=== PATIENT | male | born 1960 | race Caucasian/White ===

== ENCOUNTER → 2018-03-07 09:41 | Outpatient (CLI) | payer MEDICARE, MEDICAID, SELFPAY ==
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
== END ==
PROVIDERS: PCP Internal Medicine Adolescent Medicine; Visit Provider Internal Medicine Adolescent Medicine
DX: R63.4 Abnormal weight loss (principal); R05 Cough; Z72.0 Tobacco use
CPT/HCPCS: 71270; Q9967

== ENCOUNTER → 2018-03-10 07:58 | Outpatient (CLI) | payer MEDICARE, MEDICAID, SELFPAY ==
--- NOTE | 2018-03-10 07:59 | CA_ITS ---
PROCEDURE: 2-D M-mode and color Doppler study INDICATIONS FOR THE TEST: Chest pain X COPDX Heart Murmur Tobacco Smoking Palpitations Fatigue Syncope Edema HypertensionXDiabetes Mellitus Rheumatic Fever SOB DOEXObesity HyperlipidemiaX Family History HD Additional History CAD PATIENT INFORMATION HEIGHT: 64 WEIGHT:128 GENDER: Male B/P:113/75 2-D/M-MODE INTERPRETATION: 2-D MEASUREMENTS OBSERVED VALUES IN CMS Right Ventricular Dimension (RVDd) 1.8 Interventricular Septum (Thickness)(IVsd) 1.0 Left Ventricular Internal Dimensions(LVIDd) 4.7 Left Ventricular Posterior Wall (Thickness)(LVPWd) 1.0 Aortic Root 3.2 Aortic Cusp Separation 1.8 Left Atrial Dimensions (LAD) 2.2 2D 1. Left atrium is normal size, left ventricle is normal size, left ventricle wall thickness is upper limit of the normal, there is preserved left ventricular systolic function, visually estimated ejection fraction 55% with no obvious regional wall motion abnormality. 2. The right atrium and right ventricle are normal size and contractility. 3. The aortic valve is minimally thickened and fibrosed. 4. The mitral and tricuspid valve are grossly normal. 5. The pulmonic valve is poorly visualized. 6. No significant pericardial effusion noted. DOPPLER INTERROGATION: Doppler interrogation of the aortic, mitral and tricuspid valvular presence of mild mitral and tricuspid regurgitation, tricuspid and jet velocity insufficient for calculation of the right ventricular systolic pressure, diastolic parameters are inconclusive. CONCLUSION: 1. Normal left ventricular size, preserved left ventricular systolic function, visually estimated ejection fraction 55% with no obvious regional wall motion abnormality, diastolic parameters are inconclusive. 2. Mild mitral and tricuspid regurgitation 3. No significant pericardial effusion noted.
--- NOTE | 2018-03-10 07:59 | NM_ITS ---
CARDIOLITE SPECT MYOCARDIAL PERFUSION SCAN, REST AND STRESS: EXERCISE STRESS [facility] REVIEW QGS EF AND WALL MOTION EVALUATION: QPS - PERFUSION EVALUATION HISTORY: Chest pain, SOB, HTN DOSE: 10.03 mCi technetium 99m mibi intravenously at rest followed by 32.3 mCi technetium 99m mibi following the intravenous ministration of 0.4 mg of Lexiscan. Resting blood pressure is 133/66. Stress blood pressure 121/81. FINDINGS: Ejection fraction is calculated to be 65%. Uniform myocardial activity through stress and rest gated images calculated ejection fraction 55% wall motion IMPRESSION: No scintigraphic evidence of Lexiscan-induced myocardial ischemia. Normal ejection fraction normal wall motion
--- NOTE | 2018-03-10 08:39 | HMH.ITSHM ---
ASA CELEXA CETIRIZINE CLONIDINE OMEPRAZOLE PRAVASTATIN DIVALPROAX FLUTICASONE ZYPREXA VENTOLIN
== END ==
PROVIDERS: PCP Internal Medicine Adolescent Medicine; Visit Provider Internal Medicine
DX: R06.00 Dyspnea, unspecified (principal)
CPT/HCPCS: 78452; 93017; 93306; A9502; J2785

== ENCOUNTER → 2018-03-27 15:55 | Outpatient (CLI) | payer MEDICARE, MEDICAID, SELFPAY ==
[2018-03-27 16:09] LABS: Basophils % 0.3 % (0.1-2.0); Eosinophils # 0.1 K/mm3 (0.0-0.4); Eosinophils % 0.9 % (0.1-12.0); Hematocrit 43.8 % (42.0-52.0); Hemoglobin 14.1 g/dL (14.1-18.0); Lymphocytes # 2.8 K/mm3 (0.7-4.5); Lymphocytes % 36.4 K/mm3 (10-50); Mean Corpuscular HGB Conc 32.1 g/dL (31.8-35.4); Mean Platelet Volume 10.1 fl (7.4-10.4); Monocytes # 0.5 K/mm3 (0.1-1.0); Monocytes % 6.8 % (1.7-9.3); Neutrophils # 4.2 K/mm3 (1.8-7.8); Neutrophils % 55.7 % (37.0-80.0); Platelet Count 212 K/mm3 (142-424); Red Blood Count 4.25 M/mm3 (4.60-6.20); White Blood Count 7.6 K/mm3 (4.8-10.8)
== END ==
PROVIDERS: Visit Provider Otolaryngology
DX: Z01.818 Encounter for other preprocedural examination (principal); R22.0 Localized swelling, mass and lump, head
CPT/HCPCS: 36415; 85025; 93005

== ENCOUNTER → 2018-04-21 08:50 | Outpatient (CLI) | payer MEDICARE, MEDICAID, SELFPAY ==
--- NOTE | 2018-04-21 09:00 | US_ITS ---
US gallbladder HISTORY: ITS.REASON: RUQ PAIN ORDERING PHYSICIAN: Abimael Victor MD PATIENT AGE: 57 years Comparison: None FINDINGS: PANCREAS: Unremarkable. No obvious mass or abnormal fluid collection. No ductal dilatation LIVER: No focal liver lesions demonstrated. Homogeneous echogenicity. No intrahepatic biliary ductal dilatation evident RIGHT KIDNEY: Unremarkable. Normal size and echogenicity. No hydronephrosis GALLBLADDER: Gallbladder wall is mildly thickened with septation noted. Wall measures up to 5 mm. There is some sludge present and there is some common tail artifact noted suggesting cholesterolosis . No shadowing stones are demonstrated. Study is however somewhat difficult technically due to overlying bowel gas. Small stones may not be visualized.. Common bile duct is normal at 2 mm. IMPRESSION: Contracted appearing gallbladder with mildly thickened wall with sludge and cholesterolosis . Small stones may not be visualized due to the overlying bowel gas.
== END ==
PROVIDERS: PCP Internal Medicine Adolescent Medicine; Visit Provider Internal Medicine Adolescent Medicine
DX: R10.11 Right upper quadrant pain (principal)
CPT/HCPCS: 76705

== ENCOUNTER → 2019-07-22 15:42 | Outpatient (CLI) | payer MEDICARE, MEDICAID, SELFPAY | PROVIDERS: PCP Internal Medicine Adolescent Medicine; Visit Provider Internal Medicine Adolescent Medicine | DX: G47.30 Sleep apnea, unspecified (principal) | CPT/HCPCS: G0399 ==

== ENCOUNTER → 2019-08-26 13:40 | Outpatient (CLI) | payer MEDICARE, MEDICAID, SELFPAY | PROVIDERS: PCP Internal Medicine Adolescent Medicine; Visit Provider Internal Medicine Adolescent Medicine | DX: G47.33 Obstructive sleep apnea (adult) (pediatric) (principal) ==

== ENCOUNTER → 2019-10-05 19:10 | Outpatient (CLI) | payer MEDICARE, MEDICAID, SELFPAY | PROVIDERS: PCP Nurse Practitioner Family; Visit Provider Internal Medicine Adolescent Medicine | DX: G47.33 Obstructive sleep apnea (adult) (pediatric) (principal); G47.36 Sleep related hypoventilation in conditions classified elsewhere | CPT/HCPCS: 95810 ==

== ENCOUNTER → 2019-12-22 10:12 | Outpatient (CLI) | payer MEDICARE, MEDICAID, SELFPAY ==
--- NOTE | 2019-12-22 10:14 | FL_ITS ---
PROCEDURE: FL UPPER GI W AIR CLINICAL INDICATION: ABD PAIN COMPARISON: No exams were available for comparison TECHNIQUE: In the upright position the patient was observed to swallow barium in both the AP view. The cervical esophagus was examined under fluoroscopy with images obtained. FLUOROSCOPY TIME: 1.47 minutes FINDINGS: The patient aspirated the thick barium when drinking through a straw from the cup during the exam. The aspiration was silent. Sometime later while in the room the patient did exhibit coughing. At that point of aspiration the patient was not allowed to continue drinking barium. Limited images of the esophagus were obtained because of this. No esophageal obstruction was apparent. The stomach and duodenal bulb have a normal appearance. There is no evidence of peptic ulceration. There are diverticula a of the descending and transverse duodenum. IMPRESSION: Silent aspiration of barium occurred during the initial phase of drinking for the exam. Esophagus is patent but poorly assessed. Duodenal diverticula as described without peptic ulceration. Dictated by: Yimi Gurrola 12/22/2019 14:10 Electronically signed by Yimi Gurrola in [place] 12/22/2019 14:10
--- NOTE | 2019-12-22 10:35 | XR_ITS ---
PROCEDURE: XR CHEST 2V CLINICAL HISTORY: ASPIRATED DURING FLUORO EXAM COMPARISON: Coughing FINDINGS: The cardiomediastinal silhouette and pulmonary vascularity are within normal limits. There is barium outlining the trachea and the right main stem and lower lobe bronchial segments which correlates with aspiration of barium during upper GI exam. The lungs are clear of acute infiltrate. Pleural reaction is seen over the lateral right chest wall associated with multiple old rib fractures which have healed. Old healed fracture of left 7th ribs also noted. No acute bony abnormalities. Chronic compression deformities of T11 and T10 are noted. IMPRESSION: Aspiration of barium within tracheobronchial tree as described. No acute pneumonia. Dictated by: Yimi Gurrola 12/22/2019 14:03 Electronically signed by Yimi Gurrola in [facility] 12/22/2019 14:03
== END ==
PROVIDERS: PCP Nurse Practitioner Family; Visit Provider Nurse Practitioner Family
DX: R10.84 Generalized abdominal pain (principal); R05 Cough
CPT/HCPCS: 71046; 74246

== ENCOUNTER → 2020-01-20 10:07 | Outpatient (CLI) | payer MEDICARE, MEDICAID, SELFPAY ==
--- NOTE | 2020-01-20 10:11 | FL_ITS ---
PROCEDURE: FL BARIUM SWALLOW MODIFIED CLINICAL INDICATION: SILENT ASPIRATION COMPARISON: No exams were available for comparison TECHNIQUE: Patient administered varying consistencies of barium contrast, while viewed in lateral position under real-time fluoroscopy with cine recording. FLUOROSCOPY TIME:5 minutes and 2 seconds The study was performed in conjunction with speech pathologist. Please see that report & recommendations. FINDINGS: Patient was given varying consistencies of barium. There was poor oral motor control with spillage into the hypopharynx. There was a small amount of tracheal aspiration with nectar via straw. No cough reflex was initiated. There was poor bolus formation. There was minimal residual. IMPRESSION: Moderate degree of delay in initiation of the swallowing mechanism with spillage and with minimal residual and a small amount tracheal aspiration with nectar with a straw. Please see speech pathologist report and recommendations. Dictated by: Elmo Thomas MD 01/21/2020 09:07 Electronically signed by Elmo Thomas MD in [facility] 01/21/2020 09:07
--- NOTE | 2020-01-20 13:46 | HMH.SLMBS2 ---
Speech & Language Evaluation Speech/Language Mod Barium Swallow Start: 01/20/20 11:10 Freq: once Status: Complete Protocol: Document 01/20/20 11:10 CMAY (Rec: 01/20/20 12:10 CMAY [id number]) General Information General Current Food Consistancy Regular,Thin Liquids Dentition Poor Dentition Oxygen Status Room Air Facial Symmetry Symmetrical Patient Orientation Person Ability to Follow Directions Excellent Communication Ability Mild Impairment MBS Recommendations Diet Dietary Recommendations Dysphagia Mechanical Soft, Ground Meats,Honey Liquids Treatment/Strategies Strategy/Precaution Recommend Sitting Upright (90 deg), Double Swallow,Small Bites and Sips Mod Barium Swallow Impressions Summary and Impressions Oral Phase Impression Minimal Impairment Oral Phase Summary The patient's oral phase is minimally impaired. Patient has poor dentition. Bolus formation was impacted for pudding trial and resulted in scattered loss in the oral cavity. A/P lingual propulsion spills to the level of the valleculae were also persistent during all liquid and food trials before swallow was initiated. Pharyngeal Phase Impression Moderate Impairment Pharyngeal Phase Summary The patient's pharyngeal phase is moderately impaired. Flash penetration was observed on x1 trial of thin via cup. Patient independently completed a natural chin tuck during trial and coughed following this event. Swallow initiation was delayed during all trials. Hyolaryngeal elevation was decreased. Patient demonstrated a significant amount of premature spillage to level of the valleculae on all trials and premature spillage to the level of the pyriform sinuses on thins and NTL. Patient demonstrated aspiration during swallow on x1 trial of NTL via straw. Patient
== END ==
PROVIDERS: PCP Nurse Practitioner Family; Visit Provider Nurse Practitioner Family
DX: R13.10 Dysphagia, unspecified (principal)
CPT/HCPCS: 70371; 92611

== ENCOUNTER 2020-06-11 21:42 | Emergency (ER) | payer MEDICARE, MEDICAID, SELFPAY ==
[2020-06-11 21:46] VITALS: BP 133/90; PULSE 83; RESP 18; TEMP 36.8; O2SAT 91; BMI 22.1
[2020-06-11 22:00] VITALS: BP 127/101; PULSE 85; RESP 16; O2SAT 91
--- NOTE | 2020-06-11 22:06 | XR_ITS ---
PROCEDURE: XR CHEST AP CLINICAL HISTORY: SOA COMPARISON: XR CHEST 2V from 12/22/2019 FINDINGS: The cardiomediastinal silhouette and pulmonary vascularity are within normal limits. There is some mild pleural thickening in the right midlung laterally. There is an old right 4th and 5th and 6th rib fractures IMPRESSION: No change with no acute finding Dictated b Elmo Thomas MD 06/12/2020 06:55 Elmo Thomas MD in [facility] 06/12/2020 06:55
--- NOTE | 2020-06-11 22:12 | CT_ITS ---
PROCEDURE: CT HEAD/BRAIN WO CON CLINICAL INDICATION: syncope Syncope, weakness COMPARISON: HEADWO CT head/brain wo con from 04/14/2018 TECHNIQUE: Axial images obtained. All CT scans at the facility use one or more dose reduction, viz: automated exposure control, ma/kV adjustment per patient size (including targeted exams where dose is matched to indication, i.e. head), or iterative reconstruction technique. The FINDINGS: No midline shift, mass effect, intracranial hemorrhage, hydrocephalus, or extra-axial fluid collection is evident. There is generalized atrophy with hypoattenuation of the periventricular white matter consistent with microangiopathic changes. The calvarium has an unremarkable appearance. No mastoid effusion. No sinus air-fluid level. IMPRESSION: No acute intracranial finding Dictated b Elmo Thomas MD 06/12/2020 08:58 Elmo Thomas MD in [facility] 06/12/2020 08:58
--- NOTE | 2020-06-11 22:12 | ECG_ITS ---
APPROVED REPORT Exam: Resting ECG HR:76 bpm ECG Measurements Heart Rate 76 AXES AL 180 P 48 QRSd 90 QRS 5 QT 382 T 52 QTc 429 <Conclusion> Normal sinus rhythm Normal ECG Electronically signed by : Abimael Victor, 06/12/2020 09:15:53
--- NOTE | 2020-06-11 22:12 | CT_ITS ---
PROCEDURE: CT CERVICAL SPINE WO CON CLINICAL INDICATION: syncope Neck injury with pain, contusion/abrasion or hematoma, cervical sprain/strain COMPARISON: No exams were available for comparison TECHNIQUE: Axial images obtained with sagittal and coronal reformats. All CT scans at the facility use one or more dose reduction, viz: automated exposure control, ma/kV adjustment per patient size (including targeted exams where dose is matched to indication, i.e. head), or iterative reconstruction technique. Axial spiral CT scanning performed of the cervical spine beginning at the base of the skull and continuing to the upper T-spine. 3-D multiplanar reconstruction with 3-D manipulation of volumetric data set in image rendering was completed by the radiologist and/or technologist with the supervision of the radiologist on independent workstation. FINDINGS: Very limited due to motion artifact. There is reversal of the upper cervical lordosis. There is multilevel cervical spondylosis. There is incomplete fusion of the anterior arch of C1. Considerable motion artifact is present at C1 and C2 which could easily obscure a fracture. C3-C4: Degenerate disc disease with endplate hypertrophic change with bilateral foraminal and lateral recess narrowing greater on the right C4-C5: Degenerate disc disease with bilateral lateral recess and foraminal narrowing. C5-C6: Degenerate disc disease with endplate hypertrophic change with bilateral lateral recess and foraminal narrowing with canal stenosis. The endplate hypertrophy is slightly eccentric toward the left. The canal measures approximately 9 mm. C6-C7: Degenerate disc disease with bilateral foraminal and lateral recess narrowing with borderline narrowing of the canal. Lung apices show no acute finding. IMPRESSION: Limited study due to motion artifact at C1-C2. No definite acute finding. Consider repeating exam tailored to the upper cervical spine if clinically warranted Multilevel cervical spondylosis with degenerative disc disease, foraminal narrowing, and canal stenosis Dictated b Elmo Thoams MD 06/12/2020 09:02 Elmo Thomas MD in [facility] 06/12/2020 09:02
--- NOTE | 2020-06-11 22:12 | XR_ITS ---
PROCEDURE: XR PELVIS 1-2V CLINICAL INDICATION: fall Pain COMPARISON: 04/14/2018 FINDINGS: No fracture or dislocation. No lytic or blastic change. There is normal mineralization. The joint spaces are well-preserved. No significant degenerative/arthritic changes. No erosive changes evident. Other findings:None. IMPRESSION: No acute findings. Dictated b Elmo Thomas MD 06/12/2020 06:53 Elmo Thomas MD in [facility] 06/12/2020 06:53
[2020-06-11 22:16] LABS: Basophils % 0.3 % (0.1-2.0); Eosinophils # 0.1 K/mm3 (0.0-0.4); Eosinophils % 0.7 % (0.1-12.0); Hematocrit 46.3 % (42.0-52.0); Lymphocytes # 3.4 K/mm3 (0.7-4.5); Lymphocytes % 36.2 % (10-50); Mean Corpuscular HGB Conc 34.6 g/dL (31.8-35.4); Mean Corpuscular Volume 92.7 fl (80-94); Mean Platelet Volume 13.7 fl (7.4-10.4); Monocytes # 0.5 K/mm3 (0.1-1.0); Monocytes % 5.6 % (1.7-9.3); Neutrophils # 5.3 K/mm3 (1.8-7.8); Neutrophils % 57.3 % (37.0-80.0); Platelet Count 210 K/mm3 (142-424); Red Blood Count 4.99 M/mm3 (4.60-6.20); Red Cell Distribution Width 13.7 % (11.5-17.5); White Blood Count 9.3 K/mm3 (4.8-10.8)
[2020-06-11 22:20] LABS: Alanine Aminotransferase 25 U/L (12-78); Albumin Level 4.1 g/dl (3.5-5.0); Albumin/Globulin Ratio 1.2 (1.1-1.8); Alkaline Phosphatase 91 U/L (38-126); Aspartate Amino Transferase 33 U/L (17-59); Bilirubin,Total 0.4 mg/dl (0.2-1.3); Blood Urea Nitrogen 20 mg/dl (9-20); Calcium 9.7 mg/dl (8.4-10.2); Carbon Dioxide 32 mmol/L (22.0-30.0); Chloride 99 mmol/L (98-107); Creatinine Clearance Estimated 108 mL/min (50-200); Estimated Glomerular Filt Rate 115 ml/min (>60); GFR (African American) 139 ML/MIN (>60); Globulin 3.3 g/dL (1.3-3.2); Glucose 98 mg/dl (74-100); Sodium 140 mmol/L (136-145); Total Protein,Serum 7.4 g/dl (6.3-8.2)
[2020-06-11 22:25] LABS: C-Reactive Protein 8.4 mg/L (0-4)
[2020-06-11 22:30] VITALS: BP 136/100; PULSE 79; RESP 18; O2SAT 92
[2020-06-11 22:39] LABS: Erythrocyte Sedimentation Rate 6 mm/hr (0-20)
[2020-06-11 23:00] VITALS: BP 129/94; PULSE 69; RESP 18; O2SAT 92
[2020-06-11 23:30] VITALS: BP 134/90; PULSE 69; RESP 18; O2SAT 93
[2020-06-11 23:46] LABS: Troponin I < 0.01 ng/ml (0.00-0.034)
[2020-06-12] VITALS: BP 144/94; PULSE 89; RESP 18; O2SAT 93
[2020-06-12 00:27] LABS: Microscopic, Urine URINE MICROSCOPIC (MICROSCOPIC)
[2020-06-12 00:30] VITALS: BP 142/85; PULSE 65; RESP 18; O2SAT 94
--- NOTE | 2020-06-12 00:30 | PC.NURSE ---
jolynn notified for transport
[2020-06-12 00:32] LABS: Appearance,Urine CLEAR (Clear); Bilirubin,Urine Negative (Negative); Blood, Urine Negative (Negative); Color,Urine YELLOW (Yellow); Glucose,Urine (UA) Negative (Negative); Ketones,Urine Negative (Negative); Leukocyte Esterase,Urine Negative (Negative); Nitrate,Urine Negative (Negative); Protein,Urine Negative (Negative); Specific Gravity, Urine 1.015 (1.005-1.030)
--- NOTE | 2020-06-12 00:35 | HMH.EDWEAK ---
ED Disposition Clinical Impression: Weakness Fall Qualifiers: Encounter type: initial encounter Qualified Code(s): W19.XXXA - Unspecified fall, initial encounter Disposition: Home, Self-Care Condition on Discharge: Good Instructions: DI for Muscle Weakness Additional Instructions: recheck if needed Referrals: Abimael Victor MD [Primary Care Provider] - - Critical Care Critical Care Time: No Attestation: On 06/11/20, the high probability of a clinically significant, sudden or life threatening deterioration of the following system(s) required my full and direct attention, intervention and personal management. The time I documented below is in addition to time spent performing reported procedures but includes the following listed in this critical care notation. Medical Decision Making - Medical Records Medical records reviewed: Yes: I reviewed the patient's medical records. - Rao Inquiry Pt receiving controlled substance: No Vital Signs: 06/11/20 21:46 06/11/20 22:00 06/11/20 22:30 Temperature 98.3 F Temperature Source Oral Pulse Rate [Right] 83 85 79 Respiratory Rate 18 16 18 Blood Pressure [Right Arm] 133/90 127/101 H 136/100 H Blood Pressure Mean [Right Arm] 104 109 112 Blood Pressure Source [Right Arm] Automatic Cuff Automatic Cuff Automatic Cuff Blood Pressure Position [Right Arm] Supine Supine Supine 02 Sat by Pulse Oximetry 91 L 91 L 92 L Oxygen Delivery Method Room Air Room Air Room Air 06/11/20 23:00 06/11/20 23:30 06/12/20 00:00 Temperature Temperature Source Pulse Rate [Right] 69 69 89 Respiratory Rate 18 18 18 Blood Pressure [Right Arm] 129/94 H 134/90 144/94 H Blood Pressure Mean [Right Arm] 105 104 110 Blood Pressure Source [Right Arm] Automatic Cuff Automatic Cuff Automatic Cuff Blood Pressure Position [Right Arm] Supine Supine Supine 02 Sat by Pulse Oximetry 92 L 93 L 93 L Oxygen Delivery Method Room Air Room Air Room Air - Lab Data Lab results reviewed: Yes: I reviewed the patient's lab results. Lab Results 06/11/20 21:40: WBC 9.3, RBC 4.99, Hgb 16.0, Hct 46.3, MCV 92.7, MCH 32.0 H, MCHC 34.6, RDW 13.7, Plt Count 210, MPV 13.7 H, Neut % (Auto) 57.3, Lymph % (Auto) 36.2, Gillespie % (Auto) 5.6, Eos % (Auto) 0.7, Baso % (Auto) 0.3, Neut # (Auto) 5.3, Lymph # (Auto) 3.4, Gillespie # (Auto) 0.5, Eos # (Auto) 0.1, Baso # (Auto) 0.0, ESR 6 06/11/20 21:40: Sodium 140, Potassium 4.0, Chloride 99, Carbon Dioxide 32 H, Anion Gap 13.0, BUN 20, Creatinine 0.70, Estimated Creat Clear 108, Estimated GFR 115, Est GFR ( Amer) 139, Glucose 98, Calcium 9.7, Total Bilirubin 0.4, AST 33, ALT 25, Alkaline Phosphatase 91, Troponin I < 0.01, C-Reactive Protein 8.4 H, Total Protein 7.4, Albumin 4.1, Globulin 3.3 H, Albumin/Globulin Ratio 1.2 06/12/20 00:20: Urine Color Yellow, Urine Appearance Clear, Urine pH 7.0, Ur Specific [place] 1.015, Urine Protein Negative, Urine Glucose (UA) Negative, Urine Ketones Negative, Urine Blood Negative, Urine Nitrate Negative, Urine Bilirubin Negative, Urine Urobilinogen 1.0, Ur Leukocyte Esterase Negative Result diagrams: 06/11/20 21:40 06/11/20 21:40 Orders (Tests/Meds): ED MEDICATIONS Generic Name Dose Route Start Last Admin Trade Name Freq PRN Reason Stop Dose Admin Sodium Chloride 1,000 mls @ 999 mls/hr 06/11/20 22:15 06/11/20 22:17 Sod Chlor 0.9% 1000ml Bag IV 06/11/20 23:15 999 mls/hr .Q1H1M MIMI Administration Discontinued Medications Generic Name Dose Route Start Last Admin Trade Name Freq PRN Reason Stop Dose Admin Methylprednisolone Sodium Succinate 125 mg 06/11/20 22:06 06/11/20 22:15 Solu-Medrol 125mg/2ml Vial IV 06/11/20 22:07 125 mg ONCE ONE Administration ORDERS Category Date Time Status CT cervical spine wo con Stat Cat Scan 06/11/20 22:[address] head/brain wo con Stat Cat Scan 06/11/20 22:12 Taken Pelvis XR 1-2 views [XR pelvis 1-2V] Stat Exams 06/11/20 22:12 Taken XR chest AP St
[2020-06-12 00:36] LABS: Amorphous Sediment,Urine Trace /lpf; WBC,Urine Occasional #/hpf (0-3)
--- NOTE | 2020-06-12 00:41 | PC.NURSE ---
[facility] Updated on pt condition and will be returning to there facility via [facility]
[2020-06-12 01:30] VITALS: BP 162/80; PULSE 64; RESP 16; TEMP 36.8; O2SAT 94
== END 2020-06-12 01:30 | disposition home or self-care (01) ==
PROVIDERS: Emergency Provider Emergency Medicine; PCP Internal Medicine Adolescent Medicine
DX: S00.33XA Contusion of nose, initial encounter (principal); W07.XXXA Fall from chair, initial encounter; Y92.129 Unspecified place in nursing home as the place of occurrence of the external cause; J44.9 Chronic obstructive pulmonary disease, unspecified; I25.10 Atherosclerotic heart disease of native coronary artery without angina pectoris; F33.1 Major depressive disorder, recurrent, moderate; K21.9 Gastro-esophageal reflux disease without esophagitis; E78.5 Hyperlipidemia, unspecified; I10 Essential (primary) hypertension; I25.2 Old myocardial infarction; Z79.899 Other long term (current) drug therapy
CPT/HCPCS: 70450; 71045; 72125; 72170; 80053; 81001; 84484; 85025; 85651; 86140; 93005; 96365; 96375; 99285

== ENCOUNTER → 2020-07-25 10:09 | Outpatient (CLI) | payer MEDICARE, MEDICAID, SELFPAY ==
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
== END ==
PROVIDERS: Visit Provider Specialist
DX: F31.9 Bipolar disorder, unspecified (principal); G93.40 Encephalopathy, unspecified; I10 Essential (primary) hypertension; I25.10 Atherosclerotic heart disease of native coronary artery without angina pectoris; M79.601 Pain in right arm; R29.2 Abnormal reflex; R53.1 Weakness; Z87.820 Personal history of traumatic brain injury; Z87.898 Personal history of other specified conditions
CPT/HCPCS: 70551

== ENCOUNTER → 2020-08-05 09:56 | Outpatient (CLI) | payer MEDICARE, MEDICAID, SELFPAY ==
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
== END ==
PROVIDERS: Visit Provider Specialist
DX: I63.9 Cerebral infarction, unspecified (principal); R53.1 Weakness
CPT/HCPCS: 72141; 76376

== ENCOUNTER → 2020-10-23 03:15 | Outpatient (CLI) | payer MEDICARE, MEDICAID, SELFPAY ==
[2020-10-23 03:36] LABS: Basophils # 0.1 K/mm3 (0-0.2); Basophils % 0.3 % (0.1-2.0); Eosinophils % 0.2 % (0.1-12.0); Hematocrit 45.6 % (42.0-52.0); Hemoglobin 15.3 g/dL (14.1-18.0); Lymphocytes # 3.9 K/mm3 (0.7-4.5); Lymphocytes % 21.1 % (10-50); Mean Corpuscular HGB Conc 33.5 g/dL (31.8-35.4); Mean Corpuscular Hemoglobin 31.4 pg (27.0-31.2); Mean Corpuscular Volume 93.7 fl (80-94); Mean Platelet Volume 14.5 fl (7.4-10.4); Monocytes # 1.6 K/mm3 (0.1-1.0); Monocytes % 8.8 % (1.7-9.3); Neutrophils # 12.9 K/mm3 (1.8-7.8); Neutrophils % 69.5 % (37.0-80.0); Platelet Count 183 K/mm3 (142-424); Red Blood Count 4.87 M/mm3 (4.60-6.20); Red Cell Distribution Width 13.9 % (11.5-17.5); White Blood Count 18.6 K/mm3 (4.8-10.8)
[2020-10-23 03:40] LABS: MANUAL DIFFERENTIAL MANUAL DIFFERENTIAL (MANUAL DIFF)
[2020-10-23 03:58] LABS: Lymphocytes % 11 % (10-50); Monocytes % 2 % (2-9); Neutrophils % 82 % (42-76); Platelet Estimate Normal; RBC Morphology Normal; Total Cells Counted 100
== END ==
PROVIDERS: Visit Provider Internal Medicine Adolescent Medicine
DX: J69.0 Pneumonitis due to inhalation of food and vomit (principal)
CPT/HCPCS: 85007; 85025

== ENCOUNTER → 2021-01-15 07:53 | Outpatient (CLI) | payer MEDICARE, MEDICAID, SELFPAY ==
[2021-01-15 08:03] LABS: Microscopic, Urine URINE MICROSCOPIC (MICROSCOPIC)
[2021-01-15 08:08] LABS: Appearance,Urine CLEAR (Clear); Bilirubin,Urine Negative (Negative); Blood, Urine Negative (Negative); Color,Urine YELLOW (Yellow); Glucose,Urine (UA) Negative (Negative); Ketones,Urine Negative (Negative); Leukocyte Esterase,Urine Negative (Negative); Nitrate,Urine Negative (Negative); PH,Urine 5.5 (5.0-8.5); Protein,Urine Negative (Negative); Specific Gravity, Urine 1.025 (1.005-1.030); Urobilinogen,Urine 0.2 EU/dl (0.2)
[2021-01-15 08:21] LABS: Squamous Epithelial Cell,Urine Occasional #/hpf (0-5)
== END ==
LOC: LAB 07:55 → LAB.DROPOF 01-16 06:59
PROVIDERS: PCP Internal Medicine Adolescent Medicine; Visit Provider Internal Medicine Adolescent Medicine
DX: R46.89 Other symptoms and signs involving appearance and behavior (principal)
CPT/HCPCS: 81001

== ENCOUNTER → 2021-09-21 13:01 | Outpatient (CLI) | payer MEDICARE, MEDICAID, SELFPAY ==
[2021-09-21 13:54] LABS: Basophils % 0.5 % (0.1-2.0); Eosinophils # 0.1 K/mm3 (0.0-0.4); Eosinophils % 0.7 % (0.1-12.0); Hematocrit 48.3 % (42.0-52.0); Lymphocytes # 2.9 K/mm3 (0.7-4.5); Lymphocytes % 34.7 % (10-50); Mean Corpuscular HGB Conc 33.2 g/dL (31.8-35.4); Mean Corpuscular Hemoglobin 31.7 pg (27.0-31.2); Mean Corpuscular Volume 95.4 fl (80-94); Mean Platelet Volume 13.9 fl (7.4-10.4); Monocytes # 0.6 K/mm3 (0.1-1.0); Monocytes % 7.6 % (1.7-9.3); Neutrophils # 4.7 K/mm3 (1.8-7.8); Neutrophils % 56.5 % (37.0-80.0); Platelet Count 214 K/mm3 (142-424); Red Blood Count 5.06 M/mm3 (4.60-6.20); Red Cell Distribution Width 14.6 % (11.5-17.5); White Blood Count 8.2 K/mm3 (4.8-10.8)
== END ==
PROVIDERS: Visit Provider Nurse Practitioner Family
DX: R09.89 Other specified symptoms and signs involving the circulatory and respiratory systems (principal); R51.9 Headache, unspecified; R06.00 Dyspnea, unspecified
CPT/HCPCS: 85025

== ENCOUNTER 2021-11-16 17:03 | Emergency (ER) | payer MEDICARE, MEDICAID, SELFPAY ==
[2021-11-16 17:03] VITALS: BP 130/99; PULSE 78; RESP 16; TEMP 36.6; O2SAT 98; BMI 23.6
[2021-11-16 17:04] VITALS: BMI 24.3
--- NOTE | 2021-11-16 17:04 | CT_ITS ---
PROCEDURE INFORMATION: Exam: CT Head Without Contrast Exam date and time: 11/16/2021 5:04 PM Age: 61 years old Clinical indication: Injury or trauma; Fall; Blunt trauma (contusions or hematomas); Additional info: Head injury TECHNIQUE: Imaging protocol: Computed tomography of the head without contrast. Radiation optimization: All CT scans at this facility use at least one of these dose optimization techniques: automated exposure control; mA and/or kV adjustment per patient size (includes targeted exams where dose is matched to clinical indication); or iterative reconstruction. COMPARISON: MR HEAD/BRAIN WO CON 07/25/2020 11:00 AM FINDINGS: Brain: Age-related atrophy and chronic white matter ischemic changes, with no evidence of an acute intracranial abnormality. No hemorrhage, mass effect or midline shift. Cerebral ventricles: No ventriculomegaly. Paranasal sinuses: Visualized sinuses are unremarkable. No fluid levels. Mastoid air cells: Opacification of the left mastoid air cells. Bones/joints: No acute fracture. Soft tissues: No acute changes IMPRESSION: 1. Age-related atrophy and chronic white matter ischemic changes, with no evidence of an acute intracranial abnormality. 2. No hemorrhage, mass effect or midline shift.
--- NOTE | 2021-11-16 17:05 | CT_ITS ---
PROCEDURE INFORMATION: Exam: CT Cervical Spine Without Contrast Exam date and time: 11/16/2021 5:05 PM Age: 61 years old Clinical indication: Injury or trauma; Fall; Blunt trauma; Prior surgery; Additional info: Neck pain TECHNIQUE: Imaging protocol: Computed tomography images of the cervical spine without contrast. Radiation optimization: All CT scans at this facility use at least one of these dose optimization techniques: automated exposure control; mA and/or kV adjustment per patient size (includes targeted exams where dose is matched to clinical indication); or iterative reconstruction. COMPARISON: MR CERVICAL SPINE WO CON 08/05/2020 10:13 AM FINDINGS: Bones/joints: Posterior fusion noted C2 through the upper thoracic spine. No evidence of complications. Discs/Spinal canal/Neural foramina: The cervical spine demonstrates moderate degenerative changes at multiple levels. The facet joints demonstrate moderate degenerative narrowing and sclerosis. Disc space narrowing and bilateral neural foraminal narrowing noted C3-C4, C4-C5, C5-C6 and C6-C7. Prevertebral Space: No prevertebral soft tissue swelling is present. Lungs: Lung apices are normal. Vasculature: The vasculature demonstrates diffuse mild atherosclerotic calcification. Soft tissues: Unremarkable. IMPRESSION: 1. Posterior fusion noted C2 through the upper thoracic spine. No evidence of complications. 2. The cervical spine demonstrates moderate degenerative changes at multiple levels.
--- NOTE | 2021-11-16 17:06 | XR_ITS ---
PROCEDURE INFORMATION: Exam: XR Right Hip Exam date and time: 11/16/2021 5:06 PM Age: 61 years old Clinical indication: Injury or trauma; Fall; Blunt trauma (contusions or hematomas); Right; Hip TECHNIQUE: Imaging protocol: XR Right hip. Views: 2 or 3 views hip with pelvis when performed. COMPARISON: CR XR PELVIS 1-2V 06/11/2020 11:18 PM FINDINGS: Bones/joints: There is no evidence of acute fracture. There is no evidence of joint malalignment or dislocation. Soft tissues: No focal soft tissue swelling. IMPRESSION: 1. No evidence of acute fracture. 2. No evidence of acute dislocation.
--- NOTE | 2021-11-16 17:16 | HMH.EDFALL ---
ED Disposition Clinical Impression: Cervical strain Qualifiers: Encounter type: initial encounter Qualified Code(s): S16.1XXA - Strain of muscle, fascia and tendon at neck level, initial encounter Disposition: Xfer [facility] Not MCR Cert Condition on Discharge: Good Instructions: Muscle Strain, How to Prevent Falls Additional Instructions: follow up with pcp - Critical Care Critical Care Time: No Attestation: On , the high probability of a clinically significant, sudden or life threatening deterioration of the following system(s) required my full and direct attention, intervention and personal management. The time I documented below is in addition to time spent performing reported procedures but includes the following listed in this critical care notation. 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 Loss of consciousness: none Context: tripped/slipped Severity: moderate Associated symptoms (after fall): neck pain - Related Data Home Medications Medication Instructions Recorded Confirmed aspirin 81 mg tablet,delayed 81 mg PO ONCE 03/07/18 03/27/21 release fluticasone propionate 50 1 spray INTRANASAL BID 03/07/18 03/27/21 mcg/actuation nasal spray,suspension omeprazole 40 mg capsule,delayed 40 mg PO ONCE 03/07/18 03/27/21 release pravastatin 40 mg tablet 40 mg PO QHS 03/07/18 03/27/21 Albuterol Sulfate [Albuterol HFA 2 puffs IH Q4HP PRN 04/13/18 03/27/21 Inhaler] acetaminophen 500 mg tablet 500 mg PO Q6H PRN 07/12/20 03/27/21 fluvoxamine 50 mg tablet 50 mg PO BID tab 07/12/20 03/27/21 levothyroxine 25 mcg tablet 25 mcg PO DAILY 07/12/20 03/27/21 mirtazapine 30 mg tablet 30 mg PO QHS 07/12/20 03/27/21 olanzapine 5 mg tablet 20 mg PO QHS tab 07/12/20 03/27/21 polyethylene glycol 3350 17 17 g PO DAILY 07/12/20 03/27/21 gram/dose oral powder divalproex 500 mg tablet,delayed 500 mg PO BID tab 03/27/21 03/27/21 release Allergies Allergy/AdvReac Type Severity Reaction Status Date / Time bacitracin Allergy Mild Verified 03/27/21 11:13 [From Neosporin ([id number])] neomycin Allergy Mild Verified 03/27/21 11:13 [From Neosporin ([id number])] polymyxin B Allergy Mild Verified 03/27/21 11:13 [From Neosporin ([id number])] [facility] History - Hepatitis A Screen Attestation statement:: This patient has been screened for Hepatitis A risk factors. Medical History: Reports:: Chronic Obstructive Pulmonary Disease (COPD), Coronary Artery Disease, Dementia, Depression, Gastroesophageal Reflux Disease(GERD), Hyperlipidemia, Hypertension, Myocardial Infarction, Seizures Denies:: Cancer, Diabetes Mellitus Type 1, Diabetes Mellitus Type 2 Other Medical History: Reports: Hypothyroidism, Sinus Problems, Thyroid Disease, Other (AR, VIT D DEF.). Denies: Blood Transfusion Reaction Comment: bipolar, depression Laterality Cases: Right: Arthroscopy Knee Other Surgeries: Yes: Other Amputation: No Fractures: No Comment: cervical spine fusion - Social History Smoking Status: Former smoker Tobacco Type: cigarettes # Packs/Day (cigarettes): 1 Alcohol Intake: never Alcohol Intake Frequency:: other Substance Use Type: denies use Occupational Status: retired Housing: [facility] Household Members: caregiver - Psychiatric History Pschychiatric History:: Reports:: Depression Family Hx:: Unable to obtain ROS Obtained: Yes All systems reviewed & no additional complaints Physical Exam - General General appearance: alert, in no apparent distress - Head Head exam: atraumatic, normocephalic - Eye Eye exam: Present: nor
[2021-11-16 19:24] VITALS: BP 129/78; PULSE 62; RESP 20; TEMP 36.7; O2SAT 96
== END 2021-11-16 19:45 ==
PROVIDERS: Emergency Provider Emergency Medicine
DX: S16.1XXA Strain of muscle, fascia and tendon at neck level, initial encounter (principal); W01.0XXA Fall on same level from slipping, tripping and stumbling without subsequent striking against object, initial encounter; Y92.129 Unspecified place in nursing home as the place of occurrence of the external cause; J44.9 Chronic obstructive pulmonary disease, unspecified; K21.9 Gastro-esophageal reflux disease without esophagitis; E03.9 Hypothyroidism, unspecified; E78.5 Hyperlipidemia, unspecified; I10 Essential (primary) hypertension; I25.2 Old myocardial infarction
CPT/HCPCS: 70450; 72125; 73502; 99283

== ENCOUNTER 2022-07-08 19:43 | Emergency (ER) | payer MEDICARE, MEDICAID, SELFPAY ==
[2022-07-08 19:47] VITALS: BP 145/90; PULSE 81; RESP 16; TEMP 36.6; O2SAT 94; BMI 28.1
--- NOTE | 2022-07-08 19:53 | XR_ITS ---
PROCEDURE INFORMATION: Exam: XR Chest Exam date and time: 07/08/2022 8:21 PM Age: 61 years old Clinical indication: Injury or trauma; Fall; Blunt trauma (contusions or hematomas) TECHNIQUE: Imaging protocol: Radiologic exam of the chest. Views: 1 view. COMPARISON: CR XR CHEST AP 06/11/2020 11:18 PM FINDINGS: Lungs: No airspace consolidation. Pleural spaces: No pneumothorax or pleural effusion. Heart/Mediastinum: Cardiac silhouette appears within normal limits for portable technique. Bones/joints: Postoperative change involving the cervical spine extending to the upper thoracic spine. There are chronic bilateral rib fractures. IMPRESSION: No acute abnormality.
--- NOTE | 2022-07-08 19:53 | CT_ITS ---
PROCEDURE INFORMATION: Exam: CT Head Without Contrast Exam date and time: 07/08/2022 8:01 PM Age: 61 years old Clinical indication: Injury or trauma; Fall; Blunt trauma (contusions or hematomas); Without loss of consciousness TECHNIQUE: Imaging protocol: Computed tomography of the head without contrast. Radiation optimization: All CT scans at this facility use at least one of these dose optimization techniques: automated exposure control; mA and/or kV adjustment per patient size (includes targeted exams where dose is matched to clinical indication); or iterative reconstruction. COMPARISON: CT HEAD/BRAIN WO CON 11/16/2021 5:26 PM FINDINGS: Brain: Age-related volume loss. No acute intracranial hemorrhage, midline shift or intracranial mass effect. Mild decreased attenuation of the supratentorial white matter is likely secondary to chronic microvascular ischemia. Cerebral ventricles: Ventriculomegaly is commensurate for degree of volume loss. Paranasal sinuses: Visualized sinuses are unremarkable. No fluid levels. Mastoid air cells: Left mastoid air cells are under pneumatized. Bones/joints: Unremarkable. No acute fracture. Soft tissues: Unremarkable. IMPRESSION: No acute intracranial abnormality.
--- NOTE | 2022-07-08 19:53 | XR_ITS ---
PROCEDURE INFORMATION: Exam: XR Pelvis Exam date and time: 07/08/2022 8:21 PM Age: 61 years old Clinical indication: Injury or trauma; Fall; Blunt trauma (contusions or hematomas); Bilateral; Pelvic region TECHNIQUE: Imaging protocol: Radiologic exam of the pelvis. Views: 1 or 2 view. COMPARISON: CR XR HIP RT 2-3V W/PELVIS 11/16/2021 5:20 PM FINDINGS: Bones/joints: Mild degenerative change involving the hip joints. Chronic appearing left-sided pubic rami fractures. No definite acute fracture or dislocation. Soft tissues: Unremarkable. IMPRESSION: No definite acute osseous abnormality. If clinical concern persists, CT may be considered.
[2022-07-08 20:30] VITALS: BP 132/93; PULSE 76; RESP 16; O2SAT 95
--- NOTE | 2022-07-08 20:30 | HMH.EDFALL ---
Discharge Plan Disposition Patient Disposition: Home, Self-Care Condition: Good Prescriptions Prescriptions: No Action aspirin [Aspir-81] 81 mg tablet,delayed release (DR/EC) 81 mg PO ONCE omeprazole 40 mg capsule,delayed release(DR/EC) 40 mg PO ONCE pravastatin 40 mg tablet 40 mg PO QHS fluticasone propionate [Flonase Allergy Relief] 50 mcg/actuation spray,suspension 1 spray INTRANASAL BID olanzapine 5 mg tablet 20 mg PO QHS divalproex 500 mg tablet,delayed release (DR/EC) 500 mg PO BID fluvoxamine 50 mg tablet 50 mg PO BID levothyroxine [Synthroid] 25 mcg tablet 25 mcg PO DAILY acetaminophen [Tylenol Extra Strength] 500 mg tablet 500 mg PO Q6H PRN polyethylene glycol 3350 [Miralax] 17 gram/dose powder 17 g PO DAILY mirtazapine 30 mg tablet 30 mg PO QHS albuterol sulfate 18 GM HFA aerosol inhaler 2 puffs IH Q4HP PRN (Reason: Shortness Of Breath Or Wheezing) Referrals Follow up/Referrals: Abimael Victor MD [Primary Care Provider] - See instructions Activity Restrictions/Add. Instructions Additional Instructions/Restrictions: Please follow up with your primary care physician in 2-3 day and return if pain or any other worsening symptoms. Clinical Impressions Clinical Impression: Fall Instructions Patient Instructions: How to Prevent Falls Discharge ED Provider: Devika Ugarte HPI General Chief Complaint: Fall Stated Complaint: Fall Time Seen by Provider: 07/08/22 21:00 Mode of Arrival: EMS Source of Information: Patient and Medical Record Limitations: Physical Limitations Description of Symptoms (Recalled from ER Triage Doc. by RN): halfway reports pt had an unwitnessed fall at the [facility]. They said his roomate says pt fell out of his wheelchair. Nurse says pt c/o head, neck, and hip pain at detention. EMS stated when he was loading in the truck he c/o belly pain and shoulder pain. pt tells me during triage that he has no pain at this time and that he did not fall today. Pt is A&O to baseline. Abdomen and chest is non-tender on palpation. Pt able to move all extremities. History of Present Illness HPI Narrative: Mr. Ribeiro is a 61 yo male presenting to the ED after a witnessed fall from his wheelchair. Patients room mate reports he fell from out of his wheelchair onto the floor. Patient hit head, -LOC. halfway reports he was complaining of headache, neck and hip pain at detention. He denies any pain at this time. Patient is currently alert and oriented x3. Neurovascularly intact. No obvious gross deformity. Patient has no neck pain, headache, chest, abdominal or other extremity pain at this time. No blood thinneres. MD complaint: fall Onset (ago): minute(s) Fall from: wheelchair Fall witnessed: yes, by bystander Place fall occurred: detention/SNF Loss of consciousness: none Prolonged down time: no Symptoms prior to fall: none Related Data Home Medications Medication Instructions Recorded Confirmed aspirin 81 mg tablet,delayed 81 mg PO ONCE heart health 03/07/18 03/27/21 release (Aspir-) fluticasone propionate 50 1 spray intranasal BID allergies 03/07/18 03/27/21 mcg/actuation nasal spray,suspension (Flonase Allergy Relief) omeprazole 40 mg capsule,delayed 40 mg PO ONCE Heartburn 03/07/18 03/27/21 release pravastatin 40 mg tablet 40 mg PO QHS Cholesterol 03/07/18 03/27/21 albuterol sulfate 90 mcg/actuation 2 puffs IH Q4HP PRN Shortness Of 04/13/18 03/27/21 aerosol inhaler Breath Or Wheezing acetaminophen 500 mg tablet 500 mg PO Q6H PRN 07/12/20 03/27/21 (Tylenol Extra Strength) fluvoxamine 50 mg tablet 50 mg PO BID 07/12/20 03/27/21 levothyroxine 25 mcg tablet 25 mcg PO DAILY 07/12/20 03/27/21 (Synthroid) mirtazapine 30 mg tablet 30 mg PO QHS 07/12/20 03/27/21 olanzapine 5 mg tablet 20 mg PO QHS mood 07/12/20 03/27/21 polyethylene glycol 3350 17 17 g PO DAILY 07/12/20 03/27/21
[2022-07-08 21:23] VITALS: BP 138/87; PULSE 77; RESP 18; TEMP 36.6; O2SAT 94
--- NOTE | 2022-07-08 21:23 | PC.NURSE ---
Krunal here for pt at this time
== END 2022-07-08 21:29 | disposition home or self-care (01) ==
PROVIDERS: Emergency Provider Student in an Organized Health Care Education/Training Program; PCP Internal Medicine Adolescent Medicine
DX: R51.9 Headache, unspecified (principal); M54.2 Cervicalgia; M25.559 Pain in unspecified hip; W07.XXXA Fall from chair, initial encounter; Y92.129 Unspecified place in nursing home as the place of occurrence of the external cause
CPT/HCPCS: 70450; 71045; 72170; 99284

== ENCOUNTER → 2022-08-14 15:47 | Outpatient (CLI) | payer MEDICARE, MEDICAID, SELFPAY ==
[2022-08-14 17:12] LABS: Microscopic, Urine URINE MICROSCOPIC (MICROSCOPIC)
[2022-08-14 17:31] LABS: Basophils # 1.8 K/mm3 (0-0.2); Basophils % 14.7 % (0.1-2.0); Eosinophils # 0.1 K/mm3 (0.0-0.4); Eosinophils % 0.4 % (0.1-12.0); Hematocrit 59.8 % (42.0-52.0); Hemoglobin 16.3 g/dL (14.1-18.0); Lymphocytes # 3.6 K/mm3 (0.7-4.5); Lymphocytes % 29.3 % (10-50); Mean Corpuscular HGB Conc 27.2 g/dL (31.8-35.4); Mean Platelet Volume 29.9 fl (7.4-10.4); Neutrophils # 7.7 K/mm3 (1.8-7.8); Neutrophils % 62.3 % (37.0-80.0); Platelet Count 166 K/mm3 (142-424); Red Blood Count 5.25 M/mm3 (4.60-6.20); Red Cell Distribution Width 20.2 % (11.5-17.5); White Blood Count 12.3 K/mm3 (4.8-10.8)
[2022-08-14 18:34] LABS: Appearance,Urine CLEAR (Clear); Bilirubin,Urine Negative (Negative); Blood, Urine Negative (Negative); Color,Urine DK YELLOW (Yellow); Glucose,Urine (UA) Negative (Negative); Ketones,Urine TRACE (Negative); Leukocyte Esterase,Urine Negative (Negative); Nitrate,Urine Negative (Negative); Protein,Urine Negative (Negative); Specific Gravity, Urine >= 1.030 (1.005-1.030); Urobilinogen,Urine 0.2 EU/dl (0.2)
[2022-08-14 18:50] LABS: Anion Gap 14.4 mEq/L (5-15); Blood Urea Nitrogen 23 mg/dl (9-20); Carbon Dioxide 30 mmol/L (22.0-30.0); Chloride 97 mmol/L (98-107); Estimated Glomerular Filt Rate 114 ml/min (>60); GFR (African American) 138 ML/MIN (>60); Glucose 94 mg/dl (74-100); Potassium 4.4 mmoL/L (3.5-5.1); Sodium 137 mmol/L (136-145)
[2022-08-14 19:20] LABS: Bacteria,Urine 1+ /lpf; WBC,Urine Occasional #/hpf (0-3)
== END ==
PROVIDERS: PCP Nurse Practitioner Family; Visit Provider Nurse Practitioner Family
DX: E03.9 Hypothyroidism, unspecified (principal)
CPT/HCPCS: 80048; 81001; 85025

== ENCOUNTER 2022-08-17 13:49 | Inpatient (IN) | payer MEDICARE, MEDICAID, SELFPAY ==
[2022-08-17 13:54] VITALS: BP 127/77; PULSE 81; RESP 18; TEMP 36.8; O2SAT 95; BMI 27.9
--- NOTE | 2022-08-17 14:15 | HMH.EDGENADL ---
Discharge Plan Disposition Patient Disposition: Admitted as Observation Condition: Fair Discharge ED Provider: Alvin Watkins General Adult HPI General Chief complaint: Altered Mental Status Stated complaint: altered mental status Time Seen by Provider: 08/17/22 14:06 Mode of Arrival: EMS Source of Information: Patient, EMS and Medical Record Limitations: Altered Mental Status Description of Symptoms (Recalled from ER Triage Doc. by RN): Pt to ED for reported AMS and a decrease in balance when attempting to ambulate. Staff reports hx of TBI and advise that his Abilify and Cogentin were each increased by 5 mg on Wednesday 08/15 History of Present Illness HPI narrative: The patient is brought in by ambulance from [facility]. The patient is a poor historian. The patient has no complaint. States that he has no pain, no difficulty breathing, no recent illness. Staff reportedly sent him in for change in his mental status and balance. See nursing triage note. Related Data Home Medications Medication Instructions Recorded Confirmed aspirin 81 mg tablet,delayed 81 mg PO ONCE heart health 03/07/18 08/17/22 release (Aspir-) omeprazole 40 mg capsule,delayed 20 mg PO HS Heartburn 03/07/18 08/17/22 release pravastatin 40 mg tablet 40 mg PO QHS Cholesterol 03/07/18 08/17/22 albuterol sulfate 90 mcg/actuation 2 puffs IH Q4HP PRN Shortness Of 04/13/18 08/17/22 aerosol inhaler Breath Or Wheezing acetaminophen 500 mg tablet 1,000 mg PO Q6H PRN pain, fever 07/12/20 08/17/22 (Tylenol Extra Strength) fluvoxamine 50 mg tablet 100 mg PO BID mood 07/12/20 08/17/22 levothyroxine 25 mcg tablet 25 mcg PO DAILY thyroid 07/12/20 08/17/22 (Synthroid) polyethylene glycol 3350 17 17 g PO DAILY constipation 07/12/20 08/17/22 gram/dose oral powder (Miralax) divalproex 500 mg tablet,delayed 500 mg PO BID bipolar 03/27/21 08/17/22 release aripiprazole 20 mg tablet (Abilify) 20 mg PO DAILY psych 08/17/22 08/17/22 benztropine 0.5 mg tablet 1 mg PO BID psych 08/17/22 08/17/22 cholecalciferol (vitamin D3) 50 50 mcg PO DAILY Supplement 08/17/22 08/17/22 mcg (2,000 unit) tablet (Vitamin D3) lactulose 10 gram/15 mL oral See Rx Instructions .Route 08/17/22 08/17/22 solution .COMPLEX constipation sennosides 8.6 mg-docusate sodium 2 tab-cap PO HS constipation 08/17/22 08/17/22 50 mg tablet (Senna Plus) trazodone 50 mg tablet 50 mg PO HS adjustment disorder 08/17/22 08/17/22 with depressive mood Allergies Allergy/AdvReac Type Severity Reaction Status Date / Time bacitracin Allergy Mild Verified 03/27/21 11:13 [From Neosporin ([id number])] neomycin Allergy Mild Verified 03/27/21 11:13 [From Neosporin ([id number])] polymyxin B Allergy Mild Verified 03/27/21 11:13 [From Neosporin ([id number])] PFSH PFSH Medical History Abnormal EKG Social History Smoking Status: Never smoker alcohol intake: never substance use type: denies use current occupational status: retired Travel in the last 8 weeks: None household members: caregiver housing: intermediate ROS Obtained: Yes Systems reviewed as appropriate & no additional complaints except as documented Constitutional Constitutional: Denies fever(s), Denies headache(s) and Denies weakness ENT Ears, Nose, Mouth, and Throat: Denies headache(s), Denies nasal discharge and Denies sore throat Cardiovascular Cardiovascular: Denies chest pain Respiratory Respiratory: Denies shortness of breath and Denies cough Gastrointestinal Gastrointestingal: Denies abdominal pain, constipation, diarrhea or vomiting Genitourinary Male Genitourinary: Denies difficulty urinating and Denies flank pain Musculoskeletal Musculoskeletal: Denies numbness Neurologic Neurologic: Reports as per HPI, Denies headache(s), Denies numbness and D
--- NOTE | 2022-08-17 14:29 | CT_ITS ---
PROCEDURE INFORMATION: Exam: CT Head Without Contrast Exam date and time: 08/17/2022 3:20 PM Age: 62 years old Clinical indication: Altered mental status/memory loss; Additional info: AMS TECHNIQUE: Imaging protocol: Computed tomography of the head without contrast. Radiation optimization: All CT scans at this facility use at least one of these dose optimization techniques: automated exposure control; mA and/or kV adjustment per patient size (includes targeted exams where dose is matched to clinical indication); or iterative reconstruction. COMPARISON: CT HEAD/BRAIN WO CON 07/08/2022 8:01 PM FINDINGS: Brain: There are global involutional changes of the brain which are in keeping with the patient's age. There is no acute intracranial hemorrhage or abnormal extra-axial fluid collection identified. There is no intracranial mass effect or shift of midline structures. The andrade-white differentiation is preserved throughout. There is no sulcal effacement. The basilar cisterns are open. Cerebral ventricles: No hydrocephalus or ventricular effacement. Paranasal sinuses: The visualized sinuses are unremarkable. Mastoid air cells: No mastoid effusion. Orbital cavities: The appearance of the optic globes suggests previous bilateral cataract surgery. Bones/joints: No calvarial fracture or destructive osseous lesions are seen. Soft tissues: Unremarkable. IMPRESSION: No acute intracranial pathology identified by CT.
[2022-08-17 14:32] LABS: Coronavirus 19, PCR Not Detected (NotDetected); Influenza A, PCR Not Detected (NotDetected); Influenza B, PCR Not Detected (NotDetected)
[2022-08-17 14:37] LABS: Chloride 97 mmol/L (98-107); Sodium 138 mmol/L (136-145)
[2022-08-17 14:38] LABS: Potassium 3.7 mmoL/L (3.5-5.1)
[2022-08-17 14:40] LABS: Microscopic, Urine URINE MICROSCOPIC (MICROSCOPIC)
[2022-08-17 14:40] LABS: Alanine Aminotransferase 24 U/L (12-78); Alkaline Phosphatase 77 U/L (38-126); Anion Gap 10.7 mEq/L (5-15); Aspartate Amino Transferase 41 U/L (17-59); Bilirubin,Total 0.4 mg/dl (0.2-1.3); Blood Urea Nitrogen 21 mg/dl (9-20); Carbon Dioxide 34 mmol/L (22.0-30.0); Creatinine Clearance Estimated 79 mL/min (50-200); Estimated Glomerular Filt Rate 114 ml/min (>60); GFR (African American) 138 ML/MIN (>60)
[2022-08-17 14:41] LABS: Albumin Level 3.8 g/dl (3.5-5.0); Albumin/Globulin Ratio 1.3 (1.1-1.8); Glucose 101 mg/dl (74-100); Total Protein,Serum 6.8 g/dl (6.3-8.2)
[2022-08-17 14:42] LABS: Basophils # 0.1 K/mm3 (0-0.2); Basophils % 0.4 % (0.1-2.0); Eosinophils # 0.1 K/mm3 (0.0-0.4); Eosinophils % 0.3 % (0.1-12.0); Hematocrit 48.3 % (42.0-52.0); Lymphocytes % 9.3 % (10-50); Mean Corpuscular Hemoglobin 31.8 pg (27.0-31.2); Mean Corpuscular Volume 96.3 fl (80-94); Mean Platelet Volume 13.2 fl (7.4-10.4); Monocytes # 1.2 K/mm3 (0.1-1.0); Monocytes % 5.4 % (1.7-9.3); Neutrophils # 18.1 K/mm3 (1.8-7.8); Neutrophils % 84.6 % (37.0-80.0); Platelet Count 211 K/mm3 (142-424); Red Blood Count 5.02 M/mm3 (4.60-6.20); Red Cell Distribution Width 14.2 % (11.5-17.5); White Blood Count 21.4 K/mm3 (4.8-10.8)
[2022-08-17 14:44] LABS: Appearance,Urine CLOUDY (Clear); Bilirubin,Urine Negative (Negative); Blood, Urine 3+ (Negative); Color,Urine YELLOW (Yellow); Glucose,Urine (UA) Negative (Negative); Ketones,Urine 1+ (Negative); Leukocyte Esterase,Urine 2+ (Negative); Nitrate,Urine POSITIVE (Negative); Protein,Urine TRACE (Negative); Specific Gravity, Urine >= 1.030 (1.005-1.030)
[2022-08-17 14:46] LABS: MANUAL DIFFERENTIAL MANUAL DIFFERENTIAL (MANUAL DIFF)
[2022-08-17 14:57] LABS: Bacteria,Urine 3+ /lpf; Squamous Epithelial Cell,Urine Occasional #/hpf (0-5)
[2022-08-17 15:02] LABS: Lactic Acid 0.9 mmol/L (0.7-2.1)
--- NOTE | 2022-08-17 15:07 | CT_ITS ---
PROCEDURE INFORMATION: Exam: CT Abdomen And Pelvis Without Contrast Exam date and time: 08/17/2022 3:29 PM Age: 62 years old Clinical indication: Other: Hematuria; Additional info: Hematuria, UTI, R/O stone TECHNIQUE: Imaging protocol: Computed tomography of the abdomen and pelvis without contrast. Radiation optimization: All CT scans at this facility use at least one of these dose optimization techniques: automated exposure control; mA and/or kV adjustment per patient size (includes targeted exams where dose is matched to clinical indication); or iterative reconstruction. COMPARISON: ABDPEL CT abdomen pelvis w con 04/13/2018 4:59 PM FINDINGS: Diaphragm: Small hiatal hernia. Liver: Normal. No mass. Gallbladder and bile ducts: Normal. No calcified stones. No ductal dilation. Pancreas: Normal. No ductal dilation. Spleen: Normal. No splenomegaly. Adrenal glands: Normal. No mass. Kidneys and ureters: Nonobstructing punctate calculus lower pole left kidney. Nonobstructing calculi upper pole and midpole right kidney. Stomach and bowel: Unremarkable. No obstruction. No mucosal thickening. Appendix: No evidence of appendicitis. Intraperitoneal space: Unremarkable. No free air. No significant fluid collection. Vasculature: Scattered regions of atherosclerotic vascular calcification within the abdominal aorta and common iliac arteries. Lymph nodes: Unremarkable. No enlarged lymph nodes. Urinary bladder: Unremarkable as visualized. Reproductive: Unremarkable as visualized. Bones/joints: Multiple chronic right rib fractures. Chronic posttraumatic deformity left inferior pubic ramus. Multiple compression fracture deformities T10 and T11 Soft tissues: Unremarkable. IMPRESSION: 1. Bilateral punctate nonobstructing renal calculi. 2. No evidence of hydronephrosis or findings to suggest obstructing renal calculus.
[2022-08-17 15:09] LABS: Lymphocytes % 7 % (10-50); Monocytes % 7 % (2-9); Neutrophils % 86 % (42-76); Platelet Estimate Normal; RBC Morphology Normal; Total Cells Counted 100
[2022-08-17 15:47] VITALS: BP 141/78; PULSE 88; RESP 17; O2SAT 93
--- NOTE | 2022-08-17 16:40 | PC.NURSE ---
Paging Dr Mazariegos, who kicking machine operator states is operations program manager for Dr Victor.
--- NOTE | 2022-08-17 16:48 | PC.NURSE ---
speaking with Dr Mazariegos.
--- NOTE | 2022-08-17 16:54 | PC.NURSE ---
DR NOGUEIRA SPEAKING TO DR NIXON ABOUT PT
--- NOTE | 2022-08-17 17:02 | PC.NURSE ---
Called [facility] for bed assignment
--- NOTE | 2022-08-17 17:06 | XR_ITS ---
PROCEDURE INFORMATION: Exam: XR Chest Exam date and time: 08/17/2022 5:24 PM Age: 62 years old Clinical indication: Shortness of breath; Additional info: AMS TECHNIQUE: Imaging protocol: Radiologic exam of the chest. Views: 1 view. COMPARISON: CR XR CHEST AP 07/08/2022 8:21 PM FINDINGS: Lungs: Patchy perihilar interstitial infiltrates versus subsegmental atelectasis at the lung bases. Findings appear new since 07/08/2022. Pleural spaces: Unremarkable. No pleural effusion. No pneumothorax. Heart/Mediastinum: Unremarkable. No cardiomegaly. Bones/joints: Unremarkable. IMPRESSION: Patchy perihilar interstitial infiltrates versus subsegmental atelectasis at the lung bases. Findings appear new since 07/08/2022.
[2022-08-17 17:13] VITALS: BMI 25.9
--- NOTE | 2022-08-17 17:43 | PC.NURSE ---
Called report to Margaret Perez RN
[2022-08-17 17:47] LABS: Valproic Acid, (Depakene) 36.1 ug/ml (50-100)
--- NOTE | 2022-08-17 18:00 | PC.NURSE ---
patient arrived to floor by stretcher from ED
[2022-08-17 18:01] VITALS: BP 132/79; PULSE 80; RESP 17; TEMP 36.9; O2SAT 97
[2022-08-17 18:14] LABS: Thyroid Stimulating Hormone 1.77 uIU/mL (0.465-4.68)
--- NOTE | 2022-08-17 19:49 | PC.NURSE ---
Pt is A/Ox1 to self. He is very restless trying to get out of the bed. I have tried to teach pt to use call light if he needs anything. It is unsuccessful, but will keep trying. He has scattered brusing, and his coccyx is red (see wound note). He is unable to follow directions, and bed alarm is on. He keeps trying to climb out of bed and even over. Pt is confused, but pleasant. He is incontinent, and had 2 bed changes during shift. He has an ankle monitor on from [employer] this is left on pt.
[2022-08-17 20:00] VITALS: BP 97/66; PULSE 84; RESP 20; TEMP 37.7
[2022-08-17 22:34] VITALS: TEMP 37
[2022-08-18 04:00] VITALS: BP 132/67; PULSE 86; RESP 20; TEMP 38; O2SAT 91
[2022-08-18 04:23] VITALS: TEMP 37.4
[2022-08-18 05:00] VITALS: BMI 25.0
--- NOTE | 2022-08-18 05:17 | PC.NURSE ---
PT HAS RESTED OFF AND ON THROUGHOUT SHIFT, WHEN PATIENT HIS AWAKE HE REMAINS VERY CONFUSED CONSTANTLY ATTEMPTING TO GET OUT OF BED, FIDGETING WITH GOWN AND BRIEF, PT VERY WEAK ATTEMPTED TO SIT ON SIDE OF BED AND PT TO WEAK TO HOLD HISSELF UP, PT NOT ORIENTED TO PERSON, PLACE, OR TIME, WHEN ASKED ABOUT NAME PT STATES DEANN . PT HAS BEEN INCONTINENT THROUGHOUT SHIFT. LUNGS NOTED TO HAVE SCATTERED WHEEZES THROUGHOUT AND O2 SATS WOULD DROP AROUND 85-90% WHILE SLEEPING, PT WAS TO RESTLESS FOR O2 TO BE APPLIED WITH O2 SAT DROP AND WHEN AWAKENED O2 SAT WOULD QUICKLY RETURN TO 90S. VSS AT THIS TIME AND PT CURRENTLY RESTING
[2022-08-18 07:48] VITALS: BP 105/71; PULSE 89; RESP 18; TEMP 37.1; O2SAT 92
--- NOTE | 2022-08-18 08:22 | EXP.HP ---
History of Present Illness *Admission Date: 08/17/22 *Reason for visit:: Altered mental status/fever *History of present illness: 62-year-old male, long-term resident of [facility] secondary to TBI, history of skull fracture with TBI related dementia and chronic mental status changes as well as a history of bipolar disease, who was brought to the emergency department from the [facility] because of altered mental status and fever. Over the past 3 to 4 days he has had some problems with fever and some increased confusion, urine culture done at the [facility] had been no growth and he had been in his normal state of somewhat compromised health with somewhat decreased p.o. intake. Brought to the ER where he was found to have elevated leukocytosis, work-up revealed evidence of a urinary tract infection and he was admitted to hospital for IV antibiotics and further diagnostic testing. Patient this morning has no complaints during rounds except I would like to get some rest. [facility] Medical History (Updated 08/18/22 @ 08:26 by Abimael Victor MD) Abnormal EKG CAD (coronary artery disease) COPD (chronic obstructive pulmonary disease) Dementia Depressed GERD (gastroesophageal reflux disease) History of bipolar disorder History of hypothyroidism History of myocardial infarction HLD (hyperlipidemia) HTN (hypertension) TBI (traumatic brain injury) Family History (Updated 08/17/22 @ 19:44 by Margaret Perez RN) No significant family history Social History Smoking Status: Never smoker alcohol intake: never substance use type: denies use current occupational status: retired Travel in the last 8 weeks: None household members: caregiver housing: [facility] Review of Systems Review of Systems Review of systems:: pertinent systems reviewed and negative unless documented below Review of systems (narrative): Patient is sleeping, when awakened other than wanting to get some rest he has no complaints. States he ate a good breakfast. Denies pain. Constitutional Constitutional: Denies headache(s) and Denies weakness ENT Ears, Nose, Mouth, and Throat: Denies headache(s) *Musculoskeletal Musculoskeletal: Denies numbness *Neurologic Neurologic: Reports as per HPI, Denies headache(s), Denies numbness and Denies weakness Meds Home Medications and Allergies Home Medications Medication Instructions Recorded Confirmed Type aspirin 81 mg tablet,delayed 81 mg PO ONCE heart health 03/07/18 08/17/22 History release (Aspir-) omeprazole 40 mg capsule,delayed 20 mg PO HS Heartburn 03/07/18 08/17/22 History release pravastatin 40 mg tablet 40 mg PO QHS Cholesterol 03/07/18 08/17/22 History albuterol sulfate 90 mcg/actuation 2 puffs IH Q4HP PRN Shortness Of 04/13/18 08/17/22 History aerosol inhaler Breath Or Wheezing acetaminophen 500 mg tablet 1,000 mg PO Q6H PRN pain, fever 07/12/20 08/17/22 History (Tylenol Extra Strength) fluvoxamine 50 mg tablet 100 mg PO BID mood 07/12/20 08/17/22 History levothyroxine 25 mcg tablet 25 mcg PO DAILY thyroid 07/12/20 08/17/22 History (Synthroid) polyethylene glycol 3350 17 17 g PO DAILY constipation 07/12/20 08/17/22 History gram/dose oral powder (Miralax) divalproex 500 mg tablet,delayed 500 mg PO BID bipolar 03/27/21 08/17/22 History release aripiprazole 20 mg tablet (Abilify) 20 mg PO DAILY psych 08/17/22 08/17/22 History benztropine 0.5 mg tablet 1 mg PO BID psych 08/17/22 08/17/22 History cholecalciferol (vitamin D3) 50 50 mcg PO DAILY Supplement 08/17/22 08/17/22 History mcg (2,000 unit) tablet (Vitamin D3) lactulose 10 gram/15 mL oral See Rx Instructions .Route 08/17/22 08/17/22 History solution .COMPLEX constipation sennosides 8.6 mg-docusate sodium 2 tab-cap PO HS constipation 08/17/22 08/17/22 History 50 mg tablet (Senna Plus) trazodone 50 mg tablet 50 mg PO HS adjustment disorder
--- NOTE | 2022-08-18 08:50 | P.CONPHA_ITS ---
Pharmacy Intervention Comments: MEDICATION RECONCILIATION COMPLETE USING MAR FROM [facility].
--- NOTE | 2022-08-18 08:50 | HMH.PHAINT1 ---
Pharmacy Intervention Comments: MEDICATION RECONCILIATION COMPLETE USING MAR FROM [facility].
[2022-08-18 10:52] LABS: Basophils # 0.1 K/mm3 (0-0.2); Basophils % 0.3 % (0.1-2.0); Eosinophils # 0.1 K/mm3 (0.0-0.4); Eosinophils % 0.2 % (0.1-12.0); Hematocrit 46.5 % (42.0-52.0); Hemoglobin 15.3 g/dL (14.1-18.0); Lymphocytes # 2.4 K/mm3 (0.7-4.5); Lymphocytes % 10.9 % (10-50); Mean Corpuscular HGB Conc 32.9 g/dL (31.8-35.4); Mean Corpuscular Hemoglobin 31.5 pg (27.0-31.2); Mean Corpuscular Volume 95.9 fl (80-94); Mean Platelet Volume 14.4 fl (7.4-10.4); Monocytes # 1.5 K/mm3 (0.1-1.0); Monocytes % 6.6 % (1.7-9.3); Neutrophils # 18.3 K/mm3 (1.8-7.8); Neutrophils % 81.9 % (37.0-80.0); Platelet Count 141 K/mm3 (142-424); Red Blood Count 4.84 M/mm3 (4.60-6.20); Red Cell Distribution Width 14.3 % (11.5-17.5); White Blood Count 22.3 K/mm3 (4.8-10.8)
[2022-08-18 10:53] LABS: Chloride 101 mmol/L (98-107); Potassium 4.3 mmoL/L (3.5-5.1); Sodium 136 mmol/L (136-145)
[2022-08-18 10:56] LABS: Anion Gap 13.3 mEq/L (5-15); Blood Urea Nitrogen 19 mg/dl (9-20); Carbon Dioxide 26 mmol/L (22.0-30.0); Creatinine Clearance Estimated 71 mL/min (50-200); Estimated Glomerular Filt Rate 136 ml/min (>60); GFR (African American) 165 ML/MIN (>60)
[2022-08-18 10:57] LABS: Calcium 8.4 mg/dl (8.4-10.2); Glucose 87 mg/dl (74-100)
[2022-08-18 11:09] LABS: MANUAL DIFFERENTIAL MANUAL DIFFERENTIAL (MANUAL DIFF)
[2022-08-18 11:33] LABS: Lymphocytes % 10 % (10-50); Monocytes % 9 % (2-9); Neutrophils % 81 % (42-76); Platelet Estimate Slight Decrease; RBC Morphology Normal; Total Cells Counted 100
[2022-08-18 16:29] VITALS: BP 114/68; PULSE 73; RESP 20; TEMP 37.1; O2SAT 91
[2022-08-18 19:39] VITALS: BP 117/74; PULSE 74; RESP 20; TEMP 37.3; O2SAT 91
[2022-08-19 04:00] VITALS: BP 129/71; PULSE 78; RESP 20; TEMP 36.5; O2SAT 97
[2022-08-19 05:00] VITALS: BMI 26.6
--- NOTE | 2022-08-19 06:05 | PC.NURSE ---
pt has rested well t/o shift, no complaints of SOA or pain, bed alarm has remained on, remains on room air, has been incontinent this shift
[2022-08-19 07:04] LABS: Basophils # 0.1 K/mm3 (0-0.2); Basophils % 0.4 % (0.1-2.0); Eosinophils # 0.2 K/mm3 (0.0-0.4); Hematocrit 47.4 % (42.0-52.0); Hemoglobin 15.3 g/dL (14.1-18.0); Lymphocytes # 2.2 K/mm3 (0.7-4.5); Lymphocytes % 14.3 % (10-50); Mean Corpuscular HGB Conc 32.3 g/dL (31.8-35.4); Mean Corpuscular Hemoglobin 31.5 pg (27.0-31.2); Mean Corpuscular Volume 97.8 fl (80-94); Mean Platelet Volume 13.3 fl (7.4-10.4); Monocytes # 0.8 K/mm3 (0.1-1.0); Neutrophils # 12.1 K/mm3 (1.8-7.8); Neutrophils % 79.3 % (37.0-80.0); Platelet Count 197 K/mm3 (142-424); Red Blood Count 4.85 M/mm3 (4.60-6.20); Red Cell Distribution Width 14.2 % (11.5-17.5); White Blood Count 15.3 K/mm3 (4.8-10.8)
[2022-08-19 07:06] LABS: MANUAL DIFFERENTIAL MANUAL DIFFERENTIAL (MANUAL DIFF)
[2022-08-19 07:07] LABS: Chloride 100 mmol/L (98-107)
[2022-08-19 07:08] LABS: Potassium 3.6 mmoL/L (3.5-5.1); Sodium 139 mmol/L (136-145)
[2022-08-19 07:10] LABS: Alanine Aminotransferase 21 U/L (12-78); Alkaline Phosphatase 92 U/L (38-126); Anion Gap 13.6 mEq/L (5-15); Aspartate Amino Transferase 30 U/L (17-59); Bilirubin,Total 0.3 mg/dl (0.2-1.3); Blood Urea Nitrogen 18 mg/dl (9-20); Carbon Dioxide 29 mmol/L (22.0-30.0); Creatinine Clearance Estimated 76 mL/min (50-200); Estimated Glomerular Filt Rate 168 ml/min (>60); GFR (African American) 203 ML/MIN (>60)
[2022-08-19 07:11] LABS: Albumin Level 3.4 g/dl (3.5-5.0); Albumin/Globulin Ratio 1.1 (1.1-1.8); Calcium 8.2 mg/dl (8.4-10.2); Globulin 3.2 g/dL (1.3-3.2); Glucose 120 mg/dl (74-100); Total Protein,Serum 6.6 g/dl (6.3-8.2)
[2022-08-19 07:20] LABS: Lymphocytes % 10 % (10-50); Monocytes % 1 % (2-9); Neutrophils % 84 % (42-76); Platelet Estimate Normal; RBC Morphology Normal; Total Cells Counted 100
[2022-08-19 08:14] VITALS: BP 118/82; PULSE 66; RESP 18; TEMP 36.6; O2SAT 97
--- NOTE | 2022-08-19 08:31 | PC.NURSE ---
pt had 1 unmeasured void
--- NOTE | 2022-08-19 08:45 | EXP.DC.SUM ---
General Admission date:: 08/17/22 Discharge date: 08/19/22 HPI HPI HPI: 62-year-old male, long-term resident of [facility] secondary to TBI, history of skull fracture with TBI related dementia and chronic mental status changes as well as a history of bipolar disease, who was brought to the emergency department from the long-term because of altered mental status and fever. Over the past 3 to 4 days he has had some problems with fever and some increased confusion, urine culture done at the long-term had been no growth and he had been in his normal state of somewhat compromised health with somewhat decreased p.o. intake. Brought to the ER where he was found to have elevated leukocytosis, work-up revealed evidence of a urinary tract infection and he was admitted to hospital for IV antibiotics and further diagnostic testing. Patient this morning has no complaints during rounds except I would like to get some rest. Hospital Course Hospital Course Hospital Course: Patient was admitted, placed on intravenous ceftriaxone and azithromycin for his pulmonary disease as well as the urinary tract infection that was evident. Did well. Urine culture grew Klebsiella, sensitive to ceftriaxone and other cephalosporins. His white count improved over the next couple of days. This morning he was doing well, eating well, swallowing pills well, no fever was noted. He was active, did not require oxygen. Plan will be to send back to his [facility] facility [facility]. He will be on cefdinir to finish up a 10-day course as well as another Z-Piotr for atypical lung infections. Other medications will be as noted. Routine follow-up to be per our long-term rounds. Exam Data for Last 24 hours Vital signs and Labs for Last 24 Hours: Temp Pulse Resp BP Pulse Ox 97.9 F 66 18 118/82 97 08/19/22 08:14 08/19/22 08:14 08/19/22 08:14 08/19/22 08:14 08/19/22 08:14 Laboratory Results - last 24 hr 08/18/22 10:40: WBC 22.3 H*, RBC 4.84, Hgb 15.3, Hct 46.5, MCV 95.9 H, MCH 31.5 H, MCHC 32.9, RDW 14.3, Plt Count 141 L D, MPV 14.4 H, Neut % (Auto) 81.9 H, Lymph % (Auto) 10.9, Grayson % (Auto) 6.6, Eos % (Auto) 0.2, Baso % (Auto) 0.3, Neut # (Auto) 18.3 H, Lymph # (Auto) 2.4, Grayson # (Auto) 1.5 H, Eos # (Auto) 0.1, Baso # (Auto) 0.1, Total Counted 100, Neutrophils % (Manual) 81 H, Lymphocytes % (Manual) 10, Monocytes % (Manual) 9, Platelet Estimate Slight decrease, RBC Morphology Normal 08/18/22 10:40: Sodium 136, Potassium 4.3, Chloride 101, Carbon Dioxide 26, Anion Gap 13.3, BUN 19, Creatinine 0.60 L, Estimated Creat Clear 71, Estimated GFR 136, Est GFR ( Amer) 165, Glucose 87, Calcium 8.4 08/19/22 06:55: WBC 15.3 H D, RBC 4.85, Hgb 15.3, Hct 47.4, MCV 97.8 H, MCH 31.5 H, MCHC 32.3, RDW 14.2, Plt Count 197 D, MPV 13.3 H, Neut % (Auto) 79.3, Lymph % (Auto) 14.3, Grayson % (Auto) 5.0, Eos % (Auto) 1.0, Baso % (Auto) 0.4, Neut # (Auto) 12.1 H, Lymph # (Auto) 2.2, Grayson # (Auto) 0.8, Eos # (Auto) 0.2, Baso # (Auto) 0.1, Total Counted 100, Neutrophils % (Manual) 84 H, Band Neutrophils % 5.0, Lymphocytes % (Manual) 10, Monocytes % (Manual) 1 L, Platelet Estimate Normal, RBC Morphology Normal 08/19/22 06:55: Sodium 139, Potassium 3.6, Chloride 100, Carbon Dioxide 29, Anion Gap 13.6, BUN 18, Creatinine 0.50 L, Estimated Creat Clear 76, Estimated GFR 168, Est GFR ( Amer) 203 D, Glucose 120 H D, Calcium 8.2 L, Total Bilirubin 0.3, AST 30 D, ALT 21, Alkaline Phosphatase 92, Total Protein 6.6, Albumin 3.4 L, Globulin 3.2, Albumin/Globulin Ratio 1.1 I & O for Last 24 hours: Intake & Output 08/16/22 08/17/22 08/18/22 08/19/22 11:59 11:59 11:59 11:59 Intake Total 360 / 360 1052 / 1052 Output Total 0 / 0 0 / 0 Balance 360 / 360 1052 / 1052 Weight 146 lb 8 oz 156 lb Microbiology Reports for the Last 24 Hours: Microbiology 08/17/22 14:35 Urine,Catheterized Urine Culture - Final Klebsiella p
== END 2022-08-19 10:56 | DRG 690 ==
LOC: ER 14:06 → 2ND 17:23
PROVIDERS: Admitting Provider Family Medicine; Emergency Provider Emergency Medicine; PCP Internal Medicine Adolescent Medicine; Visit Provider Internal Medicine Adolescent Medicine
DX: N39.0 Urinary tract infection, site not specified (principal); I25.10 Atherosclerotic heart disease of native coronary artery without angina pectoris; J44.9 Chronic obstructive pulmonary disease, unspecified; F31.9 Bipolar disorder, unspecified; E78.5 Hyperlipidemia, unspecified; I10 Essential (primary) hypertension; Z87.820 Personal history of traumatic brain injury
CPT/HCPCS: 36415; 70450; 71045; 74176; 80048; 80053; 80164; 81001; 83605; 84443; 85007; 85025; 87040; 87086; 87088; 87186; C9803; J0456; J0696; U0003; U0005

== ENCOUNTER → 2022-09-05 10:30 | Outpatient (CLI) | payer MEDICARE, MEDICAID, SELFPAY ==
--- NOTE | 2022-09-05 10:33 | FL_ITS ---
FINAL REPORT CLINICAL HISTORY: . dysphagia 1:54 fluoro time FINDINGS: MODIFIED BARIUM SWALLOW History: Dysphagia FINDINGS: Fluoroscopy was provided for the speech pathologist to evaluate the swallowing mechanism. The patient was given several different consistencies of barium while the swallow was visualized fluoroscopically. The report of the speech pathologist should be consulted prior to making dietary decisions. FLUOROSCOPY TIME: 1 minute 54 seconds IMPRESSION: Modified barium swallow under fluoroscopic guidance. Please see the report of the speech pathologist for Dietary recommendations. Films reviewed , interpreted and dictated by Dr. Brumfield Transcribed by Matt Sorto PA-C. Reviewed, Interpreted and Dictated by Alexi Brumfield III, MD Transcribed by DENA Scanlon Authenticated and [facility]
--- NOTE | 2022-09-05 14:07 | HMH.SLMBS2 ---
Speech & Language Evaluation Speech/Language Mod Barium Swallow Start: 09/05/22 13:12 Freq: once Status: Complete Protocol: Document 09/05/22 13:12 JESUS (Rec: 09/05/22 14:07 JESUS [id number]) General Information General Current Food Consistency Other Dentition Edentulous Comment: Previous diet unknown, pt and caregiver unable to report. Oxygen Status Room Air Facial Symmetry Patient Baseline Ability to Follow Directions Good Communication Ability Moderate Impairment MBS Recommendations Diet Dietary Recommendations Mechanical Soft,Thin Liquids Treatment/Strategies Strategy/Precaution Recommend Sitting Upright (90 deg),Small Bites and Sips,Alternate Liquids/Solids Mod Barium Swallow Impressions Summary and Impressions Oral Phase Impression Mild Impairment Oral Phase Summary Mild oral dysphagia. Adequate oral manipulation with puree and liquids, however, increased masticaiton time with solids 2' lack of dentition. Pharyngeal Phase Impression No Impairment (WFL) Pharyngeal Phase Summary Pharyngeal phase WFL. Intermittent flash penetration noted with consecutive sips, but clears upon the completion of the pharyngeal swallow. No significant residue is in the pharynx after the swallow with any consistency. Speech/Language MBS Assessment/Goals/Plan Assessment Date of Evaluation: 09/05/22 Evaluation Type Initial Certification Assessment/Problems Dysphagia per MD order. Does Patient Qualify for Service No Qualify/Failure Comment Based on the MBSS, pt presents with WFL swallow and no further skilled ST services are warranted at this time. Recommendations PHYSICIAN CERTIFICATION: The specified therapy services are required, authorized, and reviewed every 30 days. Diet Recommendations Mechanical Soft Liquid Type Recommendations Normal/Thin SL Swallow Guidelines Standard Aspiration Prec.,Eat at slow rate Dysphagia Swallow Precautions/Strategies Sitting Upright (90 deg),Small Bites and Sips,Alternate Liquids/Solids Place Food on Either side of Mouth Plan Pt/Guardian verbally ack understanding Yes of dx/prognosis/goals
== END ==
PROVIDERS: PCP Internal Medicine Adolescent Medicine; Visit Provider Internal Medicine Adolescent Medicine
DX: R13.12 Dysphagia, oropharyngeal phase (principal)
CPT/HCPCS: 70371; 92611

== ENCOUNTER → 2022-09-05 18:19 | Outpatient (REF) | payer MEDICARE, MEDICAID, SELFPAY | LOC: LAB.DROPOF 18:19 | PROVIDERS: Visit Provider Internal Medicine Adolescent Medicine | DX: N39.0 Urinary tract infection, site not specified (principal) ==

== ENCOUNTER 2022-09-15 18:09 | Emergency (ER) | payer MEDICARE, MEDICAID, SELFPAY ==
[2022-09-15 18:10] VITALS: BP 132/81; PULSE 66; RESP 17; TEMP 36.7; O2SAT 97; BMI 32.3
[2022-09-15 18:11] VITALS: BP 132/81; PULSE 68; RESP 16; O2SAT 94
--- NOTE | 2022-09-15 18:27 | CT_ITS ---
PROCEDURE INFORMATION: Exam: CT Head Without Contrast Exam date and time: 09/15/2022 7:32 PM Age: 62 years old Clinical indication: Injury or trauma; Fall TECHNIQUE: Imaging protocol: Computed tomography of the head without contrast. Radiation optimization: All CT scans at this facility use at least one of these dose optimization techniques: automated exposure control; mA and/or kV adjustment per patient size (includes targeted exams where dose is matched to clinical indication); or iterative reconstruction. COMPARISON: CT HEAD/BRAIN WO CON 08/17/2022 3:20 PM FINDINGS: Brain: There is mild volume loss.There is no evidence of infarct, kam-white matter differentiation is preserved. There is no hemorrhage or extra-axial collection. There is no mass. Cerebral ventricles: There is no hydrocephalus. Paranasal sinuses: Visualized sinuses are unremarkable. No fluid levels. Mastoid air cells: Visualized mastoid air cells are well aerated. Bones/joints: Unremarkable. No acute fracture. Soft tissues: Unremarkable. IMPRESSION: No intracranial injury or lesion and no change from prior scan
--- NOTE | 2022-09-15 18:27 | XR_ITS ---
PROCEDURE INFORMATION: Exam: XR Right Hip Exam date and time: 09/15/2022 6:55 PM Age: 62 years old Clinical indication: Injury or trauma; Fall; Blunt trauma (contusions or hematomas); Right; Hip TECHNIQUE: Imaging protocol: Radiologic exam of the Right hip. Views: 2 or 3 views hip with pelvis when performed. COMPARISON: CT ABDOMEN PELVIS WO CON 08/17/2022 3:29 PM FINDINGS: Bones/joints: There is no fracture or dislocation of the right hip . There are old healed fractures of the left pubic rami. No acute fracture of the pelvis. Soft tissues: Unremarkable. IMPRESSION: No acute fracture
--- NOTE | 2022-09-15 18:27 | CT_ITS ---
PROCEDURE INFORMATION: Exam: CT Cervical Spine Without Contrast Exam date and time: 09/15/2022 7:34 PM Age: 62 years old Clinical indication: Injury or trauma; Fall; Prior surgery; Surgery date: 6+ months TECHNIQUE: Imaging protocol: Computed tomography of the cervical spine without contrast. Radiation optimization: All CT scans at this facility use at least one of these dose optimization techniques: automated exposure control; mA and/or kV adjustment per patient size (includes targeted exams where dose is matched to clinical indication); or iterative reconstruction. 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 There is no cervical spine fracture. There is posterior fusion extending from C2 to T2 with spinal rods and screws. There is extensive laminectomy and posterior osseous fusion across these levels. No evidence of pseudoarthrosis. There is advanced disc space narrowing from C3-C4 to C6-C7 with posterior osteophytes and disc bulges. There is multilevel foraminal stenosis. Lungs: Lung apices are normal. Soft tissues: Unremarkable. IMPRESSION: 1. No fracture of the cervical spine. 2. Laminectomy with posterior fusion extending from C2-T2. No evidence of pseudoarthrosis.
--- NOTE | 2022-09-15 18:27 | PC.NURSE ---
ED MD AT BEDSIDE FOR EVALUATION
--- NOTE | 2022-09-15 18:29 | XR_ITS ---
PROCEDURE INFORMATION: Exam: XR Chest Exam date and time: 09/15/2022 6:55 PM Age: 62 years old Clinical indication: Injury or trauma; Fall; Blunt trauma (contusions or hematomas) TECHNIQUE: Imaging protocol: Radiologic exam of the chest. Views: 1 view. COMPARISON: CR XR CHEST PORTABLE 08/17/2022 5:24 PM FINDINGS: Lungs: Unremarkable. No consolidation. Pleural spaces: Unremarkable. No pleural effusion. No pneumothorax. Heart/Mediastinum: Unremarkable. No cardiomegaly. Bones/joints: There are degenerative changes of the right shoulder. There are old bilateral rib fractures. There are postoperative changes partly visible in the cervical spine. IMPRESSION: No acute findings
[2022-09-15 18:30] VITALS: BP 129/83; PULSE 71; RESP 16; O2SAT 94
--- NOTE | 2022-09-15 18:33 | PC.NURSE ---
PT TO CT
--- NOTE | 2022-09-15 18:50 | PC.NURSE ---
PT RETURNED FROM CT
[2022-09-15 21:37] VITALS: BP 143/102; PULSE 72; RESP 16; TEMP 36.7; O2SAT 94
--- NOTE | 2022-09-15 21:46 | HMH.EDGENADL ---
Discharge Plan Disposition Patient Disposition: Home, Self-Care Condition: Good Prescriptions Prescriptions: No Action aspirin [Aspir-81] 81 mg tablet,delayed release (DR/EC) 81 mg PO DAILY pravastatin 40 mg tablet 40 mg PO HS divalproex 500 mg tablet,delayed release (DR/EC) 500 mg PO BID levothyroxine [Synthroid] 25 mcg tablet 25 mcg PO DAILYDM acetaminophen [Tylenol Extra Strength] 500 mg tablet 1,000 mg PO Q6HP PRN (Reason: Fever Or Pain) polyethylene glycol 3350 [Miralax] 17 gram/dose powder 17 g PO HS aripiprazole [Abilify] 20 mg Tablet 20 mg PO DAILY trazodone 50 mg Tablet 50 mg PO HS sennosides-docusate sodium [Senna Plus] 8.6-50 mg Tablet 2 tab PO HS lactulose 10 gram/15 mL Solution 30 g PO MOWEFR cholecalciferol (vitamin D3) [Vitamin D3] 50 mcg (2,000 unit) Tablet 50 mcg PO DAILY albuterol sulfate 2.5 mg /3 mL (0.083 %) Solution For Nebulization 2.5 mg INHALATION Q8HP PRN (Reason: Shortness Of Breath) fluvoxamine 100 mg Tablet 100 mg PO BID bisacodyl 10 mg Suppository 10 mg [place] DAILYP PRN (Reason: Constipation) benztropine 1 mg Tablet 1 mg PO BID simethicone 80 mg Tablet,Chewable 80 mg PO Q8HP PRN (Reason: EXCESSIVE GAS) omeprazole 20 mg Tablet,Delayed Release (Dr/Ec) 20 mg PO HS Anoro Ellipta 62.5-25 mcg/actuation Blister With Device 1 inh INHALATION DAILY azithromycin [azithromycin] 250 mg tablet 250 mg PO DIRECTED Qty: 6 0RF Rx Instructions: Take two (2) tablets on day #1, then one (1) tablet day #2 thru #5 cefdinir 300 mg capsule 300 mg PO BID Qty: 14 0RF Referrals Follow up/Referrals: Abimael Victor MD [Primary Care Provider] - See instructions Clinical Impressions Clinical Impression: Fall Instructions Patient Instructions: How to Prevent Falls Discharge ED Provider: Kenny Pratt General Adult HPI General Chief complaint: Fall Stated complaint: FALL Time Seen by Provider: 09/15/22 19:00 Mode of Arrival: EMS Limitations: Physical Limitations Description of Symptoms (Recalled from ER Triage Doc. by RN): PT BROUGHT IN VIA EMS FOR FALL AT [facility]. PT REPORTS RIGHT HIP PAIN AND PAIN TO BACK OF HEAD. PT ORIENTED TO SELF AT BASELINE. History of Present Illness HPI narrative: Patient is a 62-year-old male from a nursing facility who presents to the fall. He reports that he fell earlier today and landed on his right hip. He says that he also hit his head. Denies any loss consciousness. No blood thinners. No antiplatelets. Denies any numbness or tingling to his extremities. Denies any chest or abdominal pain. Denies any shortness of breath. He locates his pain mainly over his right hip. Says it is worse with movement. Related Data Home Medications Medication Instructions Recorded Confirmed aspirin 81 mg tablet,delayed 81 mg PO DAILY heart health 03/07/18 08/18/22 release (Aspir-) pravastatin 40 mg tablet 40 mg PO HS Cholesterol 03/07/18 08/18/22 acetaminophen 500 mg tablet 1,000 mg PO Q6HP PRN Fever Or Pain 07/12/20 08/18/22 (Tylenol Extra Strength) levothyroxine 25 mcg tablet 25 mcg PO DAILYDM thyroid 07/12/20 08/18/22 (Synthroid) polyethylene glycol 3350 17 17 g PO HS constipation 07/12/20 08/18/22 gram/dose oral powder (Miralax) divalproex 500 mg tablet,delayed 500 mg PO BID bipolar 03/27/21 08/17/22 release aripiprazole 20 mg tablet (Abilify) 20 mg PO DAILY DELUSIONS 08/17/22 08/17/22 cholecalciferol (vitamin D3) 50 50 mcg PO DAILY Supplement 08/17/22 08/17/22 mcg (2,000 unit) tablet (Vitamin D3) lactulose 10 gram/15 mL oral 30 g PO MOWEFR constipation 08/17/22 08/18/22 solution sennosides 8.6 mg-docusate sodium 2 tab PO HS constipation 08/17/22 08/18/22 50 mg tablet (Senna Plus) trazodone 50 mg tablet 50 mg PO HS adjustment disorder 08/17/22 08/17/22 with depressive mood albuterol sulfate 2.5 mg/3 m
== END 2022-09-15 21:40 | disposition home or self-care (01) ==
PROVIDERS: Emergency Provider Student in an Organized Health Care Education/Training Program; PCP Internal Medicine Adolescent Medicine
DX: M25.551 Pain in right hip (principal); R51.9 Headache, unspecified; W19.XXXA Unspecified fall, initial encounter; Y92.129 Unspecified place in nursing home as the place of occurrence of the external cause; Z79.82 Long term (current) use of aspirin; Z79.899 Other long term (current) drug therapy; Z88.1 Allergy status to other antibiotic agents; J44.9 Chronic obstructive pulmonary disease, unspecified; I25.10 Atherosclerotic heart disease of native coronary artery without angina pectoris; E03.9 Hypothyroidism, unspecified; I25.2 Old myocardial infarction; E78.5 Hyperlipidemia, unspecified; I10 Essential (primary) hypertension
CPT/HCPCS: 70450; 71045; 72125; 73502; 99284

== ENCOUNTER 2022-10-04 18:35 | Emergency (ER) | payer MEDICARE, MEDICAID, SELFPAY ==
[2022-10-04 18:35] VITALS: BP 153/79; PULSE 68; RESP 19; TEMP 36.6; O2SAT 97; BMI 28.3
--- NOTE | 2022-10-04 18:42 | XR_ITS ---
PROCEDURE INFORMATION: Exam: XR Lumbosacral Spine Exam date and time: 10/04/2022 6:57 PM Age: 62 years old Clinical indication: Injury or trauma; Fall; Blunt trauma (contusions or hematomas); Additional info: Low back pain after fall TECHNIQUE: Imaging protocol: Radiologic exam of the lumbosacral spine. Views: 2 or 3 views. COMPARISON: CR XR HIP RT 2-3V W/PELVIS 09/15/2022 6:55 PM FINDINGS: Bones/joints: Chronic T11 fracture is noted. Soft tissues: Unremarkable. Vasculature: Vascular calcifications. IMPRESSION: No acute findings.
--- NOTE | 2022-10-04 19:15 | HMH.EDGENADL ---
Discharge Plan Disposition Patient Disposition: Home, Self-Care Condition: Good Chief Complaint: Back Pain/Injury Prescriptions Prescriptions: No Action aspirin [Aspir-81] 81 mg tablet,delayed release (DR/EC) 81 mg PO DAILY pravastatin 40 mg tablet 40 mg PO HS divalproex 500 mg tablet,delayed release (DR/EC) 500 mg PO BID levothyroxine [Synthroid] 25 mcg tablet 25 mcg PO DAILYDM acetaminophen [Tylenol Extra Strength] 500 mg tablet 1,000 mg PO Q6HP PRN (Reason: Fever Or Pain) polyethylene glycol 3350 [Miralax] 17 gram/dose powder 17 g PO HS aripiprazole [Abilify] 20 mg Tablet 20 mg PO DAILY trazodone 50 mg Tablet 50 mg PO HS sennosides-docusate sodium [Senna Plus] 8.6-50 mg Tablet 2 tab PO HS lactulose 10 gram/15 mL Solution 30 g PO MOWEFR cholecalciferol (vitamin D3) [Vitamin D3] 50 mcg (2,000 unit) Tablet 50 mcg PO DAILY albuterol sulfate 2.5 mg /3 mL (0.083 %) Solution For Nebulization 2.5 mg INHALATION Q8HP PRN (Reason: Shortness Of Breath) fluvoxamine 100 mg Tablet 100 mg PO BID bisacodyl 10 mg Suppository 10 mg MO DAILYP PRN (Reason: Constipation) benztropine 1 mg Tablet 1 mg PO BID simethicone 80 mg Tablet,Chewable 80 mg PO Q8HP PRN (Reason: EXCESSIVE GAS) omeprazole 20 mg Tablet,Delayed Release (Dr/Ec) 20 mg PO HS Anoro Ellipta 62.5-25 mcg/actuation Blister With Device 1 inh INHALATION DAILY azithromycin [azithromycin] 250 mg tablet 250 mg PO DIRECTED Qty: 6 0RF Rx Instructions: Take two (2) tablets on day #1, then one (1) tablet day #2 thru #5 cefdinir 300 mg capsule 300 mg PO BID Qty: 14 0RF Referrals Follow up/Referrals: Provider,Referral, MD [Primary Care Provider] - See instructions Clinical Impressions Clinical Impression: Fall, Low back pain Instructions Patient Instructions: DI for Low Back Pain, How to Prevent Falls Discharge ED Provider: Jhonny Prasad Adult HPI General Stated complaint: fall Time Seen by Provider: 10/04/22 19:13 History of Present Illness HPI narrative: 62-year-old male history of TBI, presents from facility via EMS with complaint of lower back pain after a fall, EMS reported he will have tantrums and threw himself on the floor. He denies loss of consciousness, denies blurry or double vision, neck pain, numbness or tingling, weakness, is able to move all extremities without difficulty. Denies any other symptoms and denies any treatments prior to arrival Related Data Home Medications Medication Instructions Recorded Confirmed aspirin 81 mg tablet,delayed 81 mg PO DAILY heart health 03/07/18 08/18/22 release (Aspir-) pravastatin 40 mg tablet 40 mg PO HS Cholesterol 03/07/18 08/18/22 acetaminophen 500 mg tablet 1,000 mg PO Q6HP PRN Fever Or Pain 07/12/20 08/18/22 (Tylenol Extra Strength) levothyroxine 25 mcg tablet 25 mcg PO DAILYDM thyroid 07/12/20 08/18/22 (Synthroid) polyethylene glycol 3350 17 17 g PO HS constipation 07/12/20 08/18/22 gram/dose oral powder (Miralax) divalproex 500 mg tablet,delayed 500 mg PO BID bipolar 03/27/21 08/17/22 release aripiprazole 20 mg tablet (Abilify) 20 mg PO DAILY DELUSIONS 08/17/22 08/17/22 cholecalciferol (vitamin D3) 50 50 mcg PO DAILY Supplement 08/17/22 08/17/22 mcg (2,000 unit) tablet (Vitamin D3) lactulose 10 gram/15 mL oral 30 g PO MOWEFR constipation 08/17/22 08/18/22 solution sennosides 8.6 mg-docusate sodium 2 tab PO HS constipation 08/17/22 08/18/22 50 mg tablet (Senna Plus) trazodone 50 mg tablet 50 mg PO HS adjustment disorder 08/17/22 08/17/22 with depressive mood albuterol sulfate 2.5 mg/3 mL 2.5 mg inhalation Q8HP PRN 08/18/22 08/18/22 (0.083 %) solution for nebulization Shortness Of Breath benztropine 1 mg tablet 1 mg PO BID DELUSIONS 08/18/22 08/18/22 bisacodyl 10 mg rectal suppository 10 mg MO DAILYP PRN Constipation 08/18/22
--- NOTE | 2022-10-04 19:36 | PC.NURSE ---
jolynn notified of need of transport
[2022-10-04 20:04] VITALS: BP 151/73; PULSE 62; RESP 16; TEMP 36.6; O2SAT 94
== END 2022-10-04 20:05 | disposition home or self-care (01) ==
PROVIDERS: Emergency Provider Emergency Medicine
DX: M54.50 Low back pain, unspecified (principal); W19.XXXA Unspecified fall, initial encounter; F03.918 Unspecified dementia, unspecified severity, with other behavioral disturbance; Z79.82 Long term (current) use of aspirin; Z79.899 Other long term (current) drug therapy; Z88.1 Allergy status to other antibiotic agents; F31.9 Bipolar disorder, unspecified; J44.9 Chronic obstructive pulmonary disease, unspecified; I25.10 Atherosclerotic heart disease of native coronary artery without angina pectoris; F32.A Depression, unspecified; E78.5 Hyperlipidemia, unspecified; I10 Essential (primary) hypertension; S06.9XAA Unspecified intracranial injury with loss of consciousness status unknown, initial encounter
CPT/HCPCS: 72100; 99283

== ENCOUNTER 2022-10-10 10:46 | Emergency (ER) | payer MEDICARE, MEDICAID, SELFPAY ==
[2022-10-10 10:46] VITALS: BP 132/92; PULSE 67; RESP 18; TEMP 36.6; O2SAT 94; BMI 22.8
--- NOTE | 2022-10-10 10:52 | XR_ITS ---
FINAL REPORT CLINICAL HISTORY: fall COMPARISON: 09/15/2022 FINDINGS: SINGLE-VIEW CHEST The heart size is normal. The mediastinum is normal. There are mild bibasilar opacities, may represent atelectasis or pneumonia. Findings are worse since previous. There is no pneumothorax. There are postoperative changes in the cervical thoracic spine. IMPRESSION: Worsening bibasilar opacities as above. Reviewed, Interpreted and Dictated by Alexi Brumfield III, MD Transcribed by Donna Smiley Authenticated and [facility]
--- NOTE | 2022-10-10 10:52 | XR_ITS ---
FINAL REPORT CLINICAL HISTORY: knee pain FINDINGS: Right knee Three views were obtained. There is no acute fracture or dislocation. There are mild degenerative changes. No joint effusion is identified. No soft tissue abnormality is identified. IMPRESSION: No acute process. Reviewed, Interpreted and Dictated by Alexi Brumfield III, MD Transcribed by Donna Smiley Authenticated and . [facility]
--- NOTE | 2022-10-10 10:52 | XR_ITS ---
FINAL REPORT CLINICAL HISTORY: fall COMPARISON: 07/08/2022 FINDINGS: Pelvis A single view was obtained. There is no acute fracture or dislocation. There are mild degenerative changes of the hips. There are chronic left superior and inferior pubic rami fractures, stable. No soft tissue abnormality is identified. IMPRESSION: Degenerative and chronic appearing findings. Reviewed, Interpreted and Dictated by Alexi Brumfield III, MD Transcribed by Donna Smiley Authenticated and [facility]
--- NOTE | 2022-10-10 10:52 | CT_ITS ---
FINAL REPORT CLINICAL HISTORY: fall COMPARISON: September 15, 2022 FINDINGS: Axial images of the head were obtained without contrast. Coronal reformatted images were also obtained. This study was performed with techniques to keep radiation doses as low as reasonably achievable (ALARA). Individualized dose reduction techniques using automated exposure control or adjustment of mA and/or kV according to the patient's size were employed. There is generalized age-appropriate atrophy. Periventricular low-attenuation areas are seen consistent with mild chronic ischemic changes. There is no evidence of intracranial hemorrhage or mass. There is no evidence of acute infarct. There is no evidence of shift of the midline structures. No skull abnormality is seen on the bone window images. IMPRESSION: Atrophy and mild periventricular chronic ischemic changes. No acute intracranial abnormality identified. Reviewed, Interpreted and Dictated by Alexi Brumfield III, MD Transcribed by Vanessa Perez Authenticated and [facility]
--- NOTE | 2022-10-10 10:52 | CT_ITS ---
FINAL REPORT CLINICAL HISTORY: fall COMPARISON: September 15, 2022 FINDINGS: Axial CT images of the cervical spine were obtained without contrast. Sagittal and coronal reformatted images were also obtained. This study was performed with techniques to keep radiation doses as low as reasonably achievable (ALARA). Individualized dose reduction techniques using automated exposure control or adjustment of mA and/or kV according to the patient's size were employed. 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 There are postoperative changes from posterior fusion of C2-T2 and from laminectomies C4- C7. There is no evidence of acute fracture or dislocation. The bony alignment is normal. There is multilevel severe degenerative disc disease with disc osteophyte complexes at C3-4, C4-5, C5-6 and C6-7. There is multilevel neural foraminal narrowing. There is no evidence of canal stenosis. No paraspinous soft tissue abnormality is seen. Limited images of the upper thorax are unremarkable. IMPRESSION: Degenerative and postoperative changes, stable. No acute fracture and no acute bony abnormality. Reviewed, Interpreted and Dictated by Alexi rBumfield III, MD Transcribed by Vanessa Perez Authenticated and [facility]
--- NOTE | 2022-10-10 10:54 | HMH.EDFALL ---
Discharge Plan Disposition Patient Disposition: Home, Self-Care Condition: Good Prescriptions Prescriptions: New doxycycline hyclate 100 mg capsule 100 mg PO DAILY Qty: 10 0RF No Action aspirin [Aspir-81] 81 mg tablet,delayed release (DR/EC) 81 mg PO DAILY pravastatin 40 mg tablet 40 mg PO HS divalproex 500 mg tablet,delayed release (DR/EC) 500 mg PO BID levothyroxine [Synthroid] 25 mcg tablet 25 mcg PO DAILYDM acetaminophen [Tylenol Extra Strength] 500 mg tablet 1,000 mg PO Q6HP PRN (Reason: Fever Or Pain) polyethylene glycol 3350 [Miralax] 17 gram/dose powder 17 g PO HS aripiprazole [Abilify] 20 mg Tablet 20 mg PO DAILY trazodone 50 mg Tablet 50 mg PO HS sennosides-docusate sodium [Senna Plus] 8.6-50 mg Tablet 2 tab PO HS lactulose 10 gram/15 mL Solution 30 g PO MOWEFR cholecalciferol (vitamin D3) [Vitamin D3] 50 mcg (2,000 unit) Tablet 50 mcg PO DAILY albuterol sulfate 2.5 mg /3 mL (0.083 %) Solution For Nebulization 2.5 mg INHALATION Q8HP PRN (Reason: Shortness Of Breath) fluvoxamine 100 mg Tablet 100 mg PO BID bisacodyl 10 mg Suppository 10 mg ID DAILYP PRN (Reason: Constipation) benztropine 1 mg Tablet 1 mg PO BID simethicone 80 mg Tablet,Chewable 80 mg PO Q8HP PRN (Reason: EXCESSIVE GAS) omeprazole 20 mg Tablet,Delayed Release (Dr/Ec) 20 mg PO HS Anoro Ellipta 62.5-25 mcg/actuation Blister With Device 1 inh INHALATION DAILY azithromycin [azithromycin] 250 mg tablet 250 mg PO DIRECTED Qty: 6 0RF Rx Instructions: Take two (2) tablets on day #1, then one (1) tablet day #2 thru #5 cefdinir 300 mg capsule 300 mg PO BID Qty: 14 0RF Referrals Follow up/Referrals: Provider,Referral, MD [Primary Care Provider] - See instructions Activity Restrictions/Add. Instructions Additional Instructions/Restrictions: Please follow-up with your primary care physician within the next 1 [address] scans do not show any evidence of brain hemorrhage or acute fractures however CT scan does show possible pneumonia therefore we will be sent home with doxycycline please take as prescribed. Please follow-up with your primary care physician for further management. Please return if any difficulty breathing, chest pain or any other concerns. Return To the emergency department if any worsening symptoms such as headache, abdominal pain, chest pain or any other concerns. Clinical Impressions Clinical Impression: Pneumonia, Falls Instructions Patient Instructions: Pneumonia-Adult, How to Prevent Falls Print Language Print Language: Nepali Discharge ED Provider: Devika Ugarte HPI General Chief Complaint: Fall Stated Complaint: fall Time Seen by Provider: 10/10/22 11:00 Mode of Arrival: Ambulatory Source of Information: EMS Limitations: No Limitations History of Present Illness HPI Narrative: Mr. Ribeiro is a 62 yo male w/ PMH for recurrent falls, COPD, CAD, TBI, bipolar disorder presenting to the ED for fall. Patient has hx of recurrent falls due to behavioral issues patient frequently throws his self from wheelchair per nursing facility. Patient also will get up from wheelchair without assistance and will fall. Ongoing for many years. Today patient was getting up from wheelchair and fell, hitting his head. He reports pain between the eye brows. He also reports right knee and hip pain. Denies any other sx. No neck pain, chest pain, dyspnea, abdominal pain or other extremti pain. MD complaint: fall Onset (ago): hour(s) Fall from: wheelchair Fall witnessed: yes, by bystander Place fall occurred: assisted/SNF Loss of consciousness: none Prolonged down time: no Symptoms prior to fall: none Context: history of frequent falls Location of injury: head and pelvis Related Data Home Medications Medication Instructions Recorded Confirmed aspirin 81 mg tablet,delayed 81 m
[2022-10-10 11:00] VITALS: BP 128/88; PULSE 66; O2SAT 93
[2022-10-10 14:46] VITALS: BP 93/61; PULSE 65; RESP 16; TEMP 36.6; O2SAT 94
== END 2022-10-10 13:51 | disposition home or self-care (01) ==
PROVIDERS: Emergency Provider Student in an Organized Health Care Education/Training Program
DX: J18.9 Pneumonia, unspecified organism (principal)
CPT/HCPCS: 70450; 71045; 72125; 72170; 73562

== ENCOUNTER 2022-10-10 18:41 | Emergency (ER) | payer MEDICARE, MEDICAID, SELFPAY ==
[2022-10-10 18:33] VITALS: BP 138/83; PULSE 75; RESP 18; TEMP 36.9; O2SAT 96; BMI 31.4
--- NOTE | 2022-10-10 18:34 | CT_ITS ---
PROCEDURE INFORMATION: Exam: CT Head Without Contrast Exam date and time: 10/10/2022 6:41 PM Age: 62 years old Clinical indication: Injury or trauma; Fall; Additional info: Fall hit head TECHNIQUE: Imaging protocol: Computed tomography of the head without contrast. Radiation optimization: All CT scans at this facility use at least one of these dose optimization techniques: automated exposure control; mA and/or kV adjustment per patient size (includes targeted exams where dose is matched to clinical indication); or iterative reconstruction. COMPARISON: CT HEAD/BRAIN WO CON 10/10/2022 11:17 AM FINDINGS: Brain: Age-related volume loss. Mild decreased attenuation of the supratentorial white matter is likely secondary to chronic microvascular ischemia. No acute intracranial hemorrhage, midline shift or intracranial mass effect. Cerebral ventricles: Ventriculomegaly is commensurate for degree of volume loss. Paranasal sinuses: Visualized sinuses are unremarkable. No fluid levels. Mastoid air cells: Left mastoid air cells are under pneumatized. Partial opacification of the bilateral mastoid air cells. Bones/joints: Chronic nasal bone fractures. No acute calvarial fracture. Soft tissues: Unremarkable. IMPRESSION: No acute intracranial abnormality.
--- NOTE | 2022-10-10 18:35 | XR_ITS ---
PROCEDURE INFORMATION: Exam: XR Chest Exam date and time: 10/10/2022 7:04 PM Age: 62 years old Clinical indication: Pain; Chest pressure; Additional info: Chest pian TECHNIQUE: Imaging protocol: Radiologic exam of the chest. Views: 1 view. COMPARISON: CR XR CHEST PORTABLE 10/10/2022 11:17 AM FINDINGS: Lungs: Avykk-nvvbdxh-ntbp-left basilar atelectasis and/or infiltrate. Pleural spaces: Unremarkable. No pleural effusion. No pneumothorax. Heart/Mediastinum: Stable cardiac silhouette. Bones/joints: There is fusion involving the cervical and upper thoracic spine. Osteopenia. Degenerative change involving the murtp-msetclb-gxtu-left shoulders and spine. Chronic xzfsz-mgxsyjx-kcsr-left rib fractures. IMPRESSION: Wolpb-wctevan-pweg-left basilar atelectasis and/or infiltrate, similar from prior examination.
--- NOTE | 2022-10-10 18:38 | HMH.EDGENADL ---
Discharge Plan Disposition Patient Disposition: Home, Self-Care Condition: Good Prescriptions Prescriptions: No Action aspirin [Aspir-81] 81 mg tablet,delayed release (DR/EC) 81 mg PO DAILY pravastatin 40 mg tablet 40 mg PO HS divalproex 500 mg tablet,delayed release (DR/EC) 500 mg PO BID levothyroxine [Synthroid] 25 mcg tablet 25 mcg PO DAILYDM acetaminophen [Tylenol Extra Strength] 500 mg tablet 1,000 mg PO Q6HP PRN (Reason: Fever Or Pain) polyethylene glycol 3350 [Miralax] 17 gram/dose powder 17 g PO HS aripiprazole [Abilify] 20 mg Tablet 20 mg PO DAILY trazodone 50 mg Tablet 50 mg PO HS sennosides-docusate sodium [Senna Plus] 8.6-50 mg Tablet 2 tab PO HS lactulose 10 gram/15 mL Solution 30 g PO MOWEFR cholecalciferol (vitamin D3) [Vitamin D3] 50 mcg (2,000 unit) Tablet 50 mcg PO DAILY albuterol sulfate 2.5 mg /3 mL (0.083 %) Solution For Nebulization 2.5 mg INHALATION Q8HP PRN (Reason: Shortness Of Breath) fluvoxamine 100 mg Tablet 100 mg PO BID bisacodyl 10 mg Suppository 10 mg NC DAILYP PRN (Reason: Constipation) benztropine 1 mg Tablet 1 mg PO BID simethicone 80 mg Tablet,Chewable 80 mg PO Q8HP PRN (Reason: EXCESSIVE GAS) omeprazole 20 mg Tablet,Delayed Release (Dr/Ec) 20 mg PO HS Anoro Ellipta 62.5-25 mcg/actuation Blister With Device 1 inh INHALATION DAILY azithromycin [azithromycin] 250 mg tablet 250 mg PO DIRECTED Qty: 6 0RF Rx Instructions: Take two (2) tablets on day #1, then one (1) tablet day #2 thru #5 cefdinir 300 mg capsule 300 mg PO BID Qty: 14 0RF doxycycline hyclate 100 mg capsule 100 mg PO DAILY Qty: 10 0RF Activity Restrictions/Add. Instructions Additional Instructions/Restrictions: Please follow-up with your primary care physician in the next 1 to 2 days. Please get up with assistance to prevent any further falls. Use your wheelchair at all times. Clinical Impressions Clinical Impression: Falls Instructions Patient Instructions: Exercises to Help Prevent Falls, How to Prevent Falls Print Language Print Language: Belarusian Discharge ED Provider: Devika Ugarte General Adult HPI General Chief complaint: Fall Stated complaint: fall Time Seen by Provider: 10/10/22 18:40 Mode of Arrival: Ambulatory Source of Information: EMS History of Present Illness HPI narrative: Mr. Shearer is a 62-year-old male past medical history for TBI, recurrent falls secondary to behavioral issues and chronic weakness/deconditioning presenting to the emergency department for another fall. Of note patient was recently evaluated in the emergency department today for fall and had a CT head, CT cervical spine, chest x-ray, pelvis x-ray and knee x-ray all of which were unremarkable. Today patient had another witnessed fall attempting to get out of his wheelchair. Patient hit his head against the concrete. No loss of consciousness. No episodes of emesis. Patient reports pain to the back of his head as well as substernal chest following the fall. No obvious gross deformities. Patient is on aspirin no other blood thinners. MD complaint: Fall Onset (ago): minute(s) Location: head and chest Radiation: non-radiation Severity: mild Consistency: constant Relieving factors: none Exacerbating factors: none Related Data Home Medications Medication Instructions Recorded Confirmed aspirin 81 mg tablet,delayed 81 mg PO DAILY heart health 03/07/18 08/18/22 release (Aspir-) pravastatin 40 mg tablet 40 mg PO HS Cholesterol 03/07/18 08/18/22 acetaminophen 500 mg tablet 1,000 mg PO Q6HP PRN Fever Or Pain 07/12/20 08/18/22 (Tylenol Extra Strength) levothyroxine 25 mcg tablet 25 mcg PO DAILYDM thyroid 07/12/20 08/18/22 (Synthroid) polyethylene glycol 3350 17 17 g PO HS constipation 07/12/20 08/18/22 gram/dose oral powder (Miralax) divalproex 500 mg tablet,delayed 500
--- NOTE | 2022-10-10 18:57 | PC.NURSE ---
PT BACK FROM CT
[2022-10-10 19:00] VITALS: BP 132/80; PULSE 69; RESP 18; O2SAT 98
--- NOTE | 2022-10-10 19:24 | PC.NURSE ---
report called to Bianca at [facility]
[2022-10-10 20:09] VITALS: BP 130/80; PULSE 69; RESP 18; TEMP 36.6; O2SAT 99
== END 2022-10-10 19:35 | disposition home or self-care (01) ==
PROVIDERS: Emergency Provider Student in an Organized Health Care Education/Training Program
DX: J18.9 Pneumonia, unspecified organism (principal); W05.0XXA Fall from non-moving wheelchair, initial encounter; Y92.129 Unspecified place in nursing home as the place of occurrence of the external cause; Z79.82 Long term (current) use of aspirin; Z79.899 Other long term (current) drug therapy; Z88.1 Allergy status to other antibiotic agents; I25.10 Atherosclerotic heart disease of native coronary artery without angina pectoris; J44.9 Chronic obstructive pulmonary disease, unspecified; F03.90 Unspecified dementia, unspecified severity, without behavioral disturbance, psychotic disturbance, mood disturbance, and anxiety; K21.9 Gastro-esophageal reflux disease without esophagitis; I10 Essential (primary) hypertension; E78.5 Hyperlipidemia, unspecified
CPT/HCPCS: 70450; 71045; 72125; 72170; 73562; 99284; 99285

== ENCOUNTER 2022-10-15 03:43 | Emergency (ER) | payer MEDICARE, MEDICAID, SELFPAY ==
[2022-10-15 03:43] VITALS: BP 118/74; PULSE 62; RESP 16; TEMP 36.6; O2SAT 100; BMI 24.7
--- NOTE | 2022-10-15 03:57 | ECG_ITS ---
APPROVED REPORT Exam: Resting ECG HR:60 bpm ECG Measurements Heart Rate 60 AXES KS 186 P 69 QRSd 101 QRS 28 QT 391 T 87 QTc 392 Conclusion SINUS RHYTHM LOW QRS VOLTAGE IN EXTREMITY LEADS [QRS DEFLECTION < 0.5 mV IN LIMB LEADS] BORDERLINE ECG UNCONFIRMED REPORT Electronically signed by : Abimael Victor MD 10/15/2022 19:56:21
--- NOTE | 2022-10-15 04:01 | XR_ITS ---
PROCEDURE INFORMATION: Exam: XR Chest Exam date and time: 10/15/2022 4:22 AM Age: 62 years old Clinical indication: Injury or trauma; Fall; Blunt trauma (contusions or hematomas); Injury date: 10/15/2022 TECHNIQUE: Imaging protocol: Radiologic exam of the chest. Views: 1 view. COMPARISON: CR XR CHEST PORTABLE 10/10/2022 7:04 PM FINDINGS: Lungs: Unremarkable. No consolidation. Pleural spaces: Unremarkable. No pleural effusion. No pneumothorax. Heart/Mediastinum: Unremarkable. No cardiomegaly. Bones/joints: Cervical fusion hardware is partly visualized. IMPRESSION: No acute cardiopulmonary abnormality.
--- NOTE | 2022-10-15 04:01 | XR_ITS ---
PROCEDURE INFORMATION: Exam: XR Pelvis Exam date and time: 10/15/2022 4:22 AM Age: 62 years old Clinical indication: Injury or trauma; Fall; Blunt trauma (contusions or hematomas); Bilateral; Pelvic region; Injury date: 10/15/2022 TECHNIQUE: Imaging protocol: Radiologic exam of the pelvis. Views: 1 or 2 view. COMPARISON: CR XR PELVIS 1-2V 10/10/2022 11:17 AM FINDINGS: Bones/joints: Old healed fracture deformities the left superior and inferior pubic rami noted. No acute bony injury. Bilateral sacroiliac osteoarthritis. Soft tissues: Unremarkable. IMPRESSION: No acute bony abnormality.
--- NOTE | 2022-10-15 04:02 | CT_ITS ---
PROCEDURE INFORMATION: Exam: CT Head Without Contrast Exam date and time: 10/15/2022 4:33 AM Age: 62 years old Clinical indication: Injury or trauma; Fall; Blunt trauma (contusions or hematomas); Injury date: 10/15/2022; Injury details: PT has metal in his neck; Prior surgery; Surgery date: 6+ months TECHNIQUE: Imaging protocol: Computed tomography of the head without contrast. Radiation optimization: All CT scans at this facility use at least one of these dose optimization techniques: automated exposure control; mA and/or kV adjustment per patient size (includes targeted exams where dose is matched to clinical indication); or iterative reconstruction. COMPARISON: CT HEAD/BRAIN WO CON 10/10/2022 6:41 PM FINDINGS: Brain: Greater than expected cerebral volume loss for age. No hemorrhage. Unremarkable white matter. No mass effect. Cerebral ventricles: No ventriculomegaly. Paranasal sinuses: Visualized sinuses are unremarkable. No fluid levels. Mastoid air cells: Visualized mastoid air cells are well aerated. Orbital cavities: Changes of prior cataract surgery noted. Bones/joints: Unremarkable. No acute fracture. Soft tissues: Unremarkable. IMPRESSION: No evidence of acute intracranial hemorrhage, mass effect, or edema.
--- NOTE | 2022-10-15 04:02 | CT_ITS ---
PROCEDURE INFORMATION: Exam: CT Cervical Spine Without Contrast Exam date and time: 10/15/2022 4:36 AM Age: 62 years old Clinical indication: Injury or trauma; Fall; Blunt trauma; Injury date: 10/15/2022; Prior surgery; Surgery date: 6+ months; Patient HX: PT has metal in neck TECHNIQUE: Imaging protocol: Computed tomography of the cervical spine without contrast. Radiation optimization: All CT scans at this facility use at least one of these dose optimization techniques: automated exposure control; mA and/or kV adjustment per patient size (includes targeted exams where dose is matched to clinical indication); or iterative reconstruction. COMPARISON: CT CERVICAL SPINE WO CON 10/10/2022 11:20 AM FINDINGS: Bones/joints: No acute fracture. Facets are normally aligned. Bilateral pedicle screw and renato stabilization from C2 through T2 with C4 through C7 laminectomy, similar in appearance to the prior exam. Marked multilevel degenerative disc disease from C3 through C7. No significant central canal stenosis. Lack of bony fusion of the anterior and posterior arch at C1. Lungs: 3 mm noncalcified pulmonary nodule in the right lung apex. Soft tissues: No acute findings. IMPRESSION: 1. No acute findings in the cervical spine. 2. Extensive postsurgical changes similar to prior. 3. 3 mm noncalcified pulmonary nodule in the right apex.For patients at low risk (minimal or absent history of smoking and of other known risk factors), no routine follow-up is indicated. For patients at high risk (history of smoking or of other known risk factors), consider optional CT Chest at 12 months. (Reference: Jose) REFERENCES: Jose Odell, et al. Guidelines for Management of Incidental Pulmonary Nodules Detected on CT Images: From the Fleischner Society 2017. Radiology. 2017;284(1):228-243.
--- NOTE | 2022-10-15 04:29 | PC.NURSE ---
Pt gone to RAD via stretcher
[2022-10-15 04:35] LABS: Basophils # 0.1 K/mm3 (0-0.2); Basophils % 0.7 % (0.1-2.0); Eosinophils # 0.1 K/mm3 (0.0-0.4); Eosinophils % 0.8 % (0.1-12.0); Lymphocytes # 2.8 K/mm3 (0.7-4.5); Lymphocytes % 32.5 % (10-50); Mean Corpuscular HGB Conc 32.6 g/dL (31.8-35.4); Mean Corpuscular Hemoglobin 31.3 pg (27.0-31.2); Mean Platelet Volume 13.5 fl (7.4-10.4); Monocytes # 0.6 K/mm3 (0.1-1.0); Monocytes % 7.4 % (1.7-9.3); Neutrophils # 4.9 K/mm3 (1.8-7.8); Neutrophils % 58.5 % (37.0-80.0); Platelet Count 198 K/mm3 (142-424); Red Blood Count 5.11 M/mm3 (4.60-6.20); Red Cell Distribution Width 14.6 % (11.5-17.5); White Blood Count 8.5 K/mm3 (4.8-10.8)
[2022-10-15 04:49] LABS: Alanine Aminotransferase 15 U/L (12-78); Albumin Level 4.1 g/dl (3.5-5.0); Albumin/Globulin Ratio 1.4 (1.1-1.8); Alkaline Phosphatase 104 U/L (38-126); Anion Gap 8.4 mEq/L (5-15); Aspartate Amino Transferase 28 U/L (17-59); Bilirubin,Total 0.4 mg/dl (0.2-1.3); Blood Urea Nitrogen 27 mg/dl (9-20); Calcium 9.8 mg/dl (8.4-10.2); Carbon Dioxide 32 mmol/L (22.0-30.0); Chloride 103 mmol/L (98-107); Creatinine Clearance Estimated 70 mL/min (50-200); Estimated Glomerular Filt Rate 98 ml/min (>60); GFR (African American) 118 ML/MIN (>60); Glucose 87 mg/dl (74-100); Potassium 4.4 mmoL/L (3.5-5.1); Sodium 139 mmol/L (136-145); Total Protein,Serum 7.1 g/dl (6.3-8.2)
--- NOTE | 2022-10-15 04:49 | PC.NURSE ---
Pt back in room from RAD via stretcher
--- NOTE | 2022-10-15 05:00 | HMH.EDFALL ---
Discharge Plan Disposition Patient Disposition: [facility] Chief Complaint: Fall Prescriptions Prescriptions: No Action aspirin [Aspir-81] 81 mg tablet,delayed release (DR/EC) 81 mg PO DAILY pravastatin 40 mg tablet 40 mg PO HS divalproex 500 mg tablet,delayed release (DR/EC) 500 mg PO BID levothyroxine [Synthroid] 25 mcg tablet 25 mcg PO DAILYDM acetaminophen [Tylenol Extra Strength] 500 mg tablet 1,000 mg PO Q6HP PRN (Reason: Fever Or Pain) polyethylene glycol 3350 [Miralax] 17 gram/dose powder 17 g PO HS aripiprazole [Abilify] 20 mg Tablet 20 mg PO DAILY trazodone 50 mg Tablet 50 mg PO HS sennosides-docusate sodium [Senna Plus] 8.6-50 mg Tablet 2 tab PO HS lactulose 10 gram/15 mL Solution 30 g PO MOWEFR cholecalciferol (vitamin D3) [Vitamin D3] 50 mcg (2,000 unit) Tablet 50 mcg PO DAILY albuterol sulfate 2.5 mg /3 mL (0.083 %) Solution For Nebulization 2.5 mg INHALATION Q8HP PRN (Reason: Shortness Of Breath) fluvoxamine 100 mg Tablet 100 mg PO BID bisacodyl 10 mg Suppository 10 mg SD DAILYP PRN (Reason: Constipation) benztropine 1 mg Tablet 1 mg PO BID simethicone 80 mg Tablet,Chewable 80 mg PO Q8HP PRN (Reason: EXCESSIVE GAS) omeprazole 20 mg Tablet,Delayed Release (Dr/Ec) 20 mg PO HS Anoro Ellipta 62.5-25 mcg/actuation Blister With Device 1 inh INHALATION DAILY azithromycin [azithromycin] 250 mg tablet 250 mg PO DIRECTED Qty: 6 0RF Rx Instructions: Take two (2) tablets on day #1, then one (1) tablet day #2 thru #5 cefdinir 300 mg capsule 300 mg PO BID Qty: 14 0RF doxycycline hyclate 100 mg capsule 100 mg PO DAILY Qty: 10 0RF Clinical Impressions Clinical Impression: Fall, Contusion of head Discharge ED Provider: Wicho Rivers HPI General Chief Complaint: Fall Stated Complaint: fall Time Seen by Provider: 10/15/22 04:00 Mode of Arrival: EMS Source of Information: Patient, EMS and Medical Record Limitations: No Limitations Description of Symptoms (Recalled from ER Triage Doc. by RN): report from Judith at [facility]: pt was atempting to ambulate at the [facility] and had a fall and struck his head on a hand rail. the pt has no complaints at this time. History of Present Illness HPI Narrative: reported fall at [facility] - pt with reported varner after fall MD complaint: fall Onset (ago): hour(s) Fall from: walking Fall witnessed: no Place fall occurred: [facility]/SNF Loss of consciousness: none Prolonged down time: no Context: history of frequent falls Location of injury: head Severity: moderate Related Data Home Medications Medication Instructions Recorded Confirmed aspirin 81 mg tablet,delayed 81 mg PO DAILY heart health 03/07/18 08/18/22 release (Aspir-) pravastatin 40 mg tablet 40 mg PO HS Cholesterol 03/07/18 08/18/22 acetaminophen 500 mg tablet 1,000 mg PO Q6HP PRN Fever Or Pain 07/12/20 08/18/22 (Tylenol Extra Strength) levothyroxine 25 mcg tablet 25 mcg PO DAILYDM thyroid 07/12/20 08/18/22 (Synthroid) polyethylene glycol 3350 17 17 g PO HS constipation 07/12/20 08/18/22 gram/dose oral powder (Miralax) divalproex 500 mg tablet,delayed 500 mg PO BID bipolar 03/27/21 08/17/22 release aripiprazole 20 mg tablet (Abilify) 20 mg PO DAILY DELUSIONS 08/17/22 08/17/22 cholecalciferol (vitamin D3) 50 50 mcg PO DAILY Supplement 08/17/22 08/17/22 mcg (2,000 unit) tablet (Vitamin D3) lactulose 10 gram/15 mL oral 30 g PO MOWEFR constipation 08/17/22 08/18/22 solution sennosides 8.6 mg-docusate sodium 2 tab PO HS constipation 08/17/22 08/18/22 50 mg tablet (Senna Plus) trazodone 50 mg tablet 50 mg PO HS adjustment disorder 08/17/22 08/17/22 with depressive mood albuterol sulfate 2.5 mg/3 mL 2.5 mg inhalation Q8HP PRN 08/18/22 08/18/22 (0.083 %) solution for nebulization Shortness Of Breath benztropine 1 mg tablet 1 mg PO BID
[2022-10-15 05:03] LABS: Troponin I < 0.01 ng/ml (0.00-0.034)
[2022-10-15 05:30] VITALS: BP 128/68; PULSE 62; O2SAT 93
[2022-10-15 05:30] LABS: Valproic Acid, (Depakene) 58.3 ug/ml (50-100)
[2022-10-15 06:03] VITALS: BP 115/84; PULSE 60; RESP 16; TEMP 36.6; O2SAT 100
== END 2022-10-15 06:26 ==
PROVIDERS: Emergency Provider Emergency Medicine; PCP Internal Medicine Adolescent Medicine
DX: S00.93XA Contusion of unspecified part of head, initial encounter (principal); W18.30XA Fall on same level, unspecified, initial encounter; W22.8XXA Striking against or struck by other objects, initial encounter; Y92.129 Unspecified place in nursing home as the place of occurrence of the external cause; Z79.82 Long term (current) use of aspirin; Z79.899 Other long term (current) drug therapy; Z88.1 Allergy status to other antibiotic agents; I25.10 Atherosclerotic heart disease of native coronary artery without angina pectoris; J44.9 Chronic obstructive pulmonary disease, unspecified; E78.5 Hyperlipidemia, unspecified; I10 Essential (primary) hypertension; F31.9 Bipolar disorder, unspecified; E03.9 Hypothyroidism, unspecified
CPT/HCPCS: 70450; 71045; 72125; 72170; 80053; 80164; 84484; 85025; 93005; 99285

== ENCOUNTER → 2023-01-23 11:26 | Outpatient (CLI) | payer MEDICARE, MEDICAID, SELFPAY | PROVIDERS: PCP Internal Medicine Adolescent Medicine; Visit Provider Internal Medicine Adolescent Medicine | DX: R05.9 Cough, unspecified (principal); R09.89 Other specified symptoms and signs involving the circulatory and respiratory systems | CPT/HCPCS: 87275; 87276 ==

== ENCOUNTER 2024-06-16 12:34 | Emergency (ER) | payer MEDICARE, MEDICAID, SELFPAY ==
[2024-06-16 12:34] VITALS: BP 150/82; PULSE 63; RESP 16; TEMP 36.6; O2SAT 95; BMI 26.3
--- NOTE | 2024-06-16 12:54 | XR_ITS ---
FINAL REPORT CLINICAL HISTORY: fall COMPARISON: 10/15/2022 FINDINGS: A single portable view of the chest was obtained. The heart size and pulmonary vascularity are within normal limits. The mediastinum is within normal limits. There is mild atelectasis or scarring in the left lung base. The bony thorax is intact. IMPRESSION: Mild atelectasis or scarring left lung base. Reviewed, Interpreted and Dictated by Alexi Brumfield III, MD Transcribed by Libby Layton Authenticated and [facility]
--- NOTE | 2024-06-16 12:54 | XR_ITS ---
FINAL REPORT CLINICAL HISTORY: fall ttp COMPARISON: None FINDINGS: RIGHT SHOULDER: 3 views of the right shoulder were obtained. There is no acute fracture or dislocation. There is mild AC joint and mild glenohumeral joint degenerative change. Calcifications are noted in the subcoracoid region which are consistent with loose bodies. There also calcification superior to the humeral head which may represent loose bodies or calcific tendinitis. There is no soft tissue abnormality. IMPRESSION: No acute fracture Reviewed, Interpreted and Dictated by Alexi Brumfield III, MD Transcribed by Libby Layton Authenticated and [facility]
--- NOTE | 2024-06-16 12:54 | CT_ITS ---
FINAL REPORT CLINICAL HISTORY: fall on ASA COMPARISON: 10/15/2022 FINDINGS: Axial images of the head were obtained without contrast. Coronal reformatted images were also obtained. This study was performed with techniques to keep radiation doses as low as reasonably achievable (ALARA). Individualized dose reduction techniques using automated exposure control or adjustment of mA and/or kV according to the patient''s size were employed. There is generalized age-appropriate atrophy. Periventricular low-attenuation areas are seen consistent with mild chronic ischemic changes. There is no evidence of intracranial hemorrhage or mass. There is no evidence of acute infarct. There is no evidence of shift of the midline structures. No skull abnormality is seen on the bone window images. IMPRESSION: Atrophy and mild periventricular chronic ischemic changes. No acute intracranial abnormality identified. Reviewed, Interpreted and Dictated by Alexi Brumfield III, MD Transcribed by Libby Layton Authenticated and . [facility]
--- NOTE | 2024-06-16 12:54 | CT_ITS ---
FINAL REPORT CLINICAL HISTORY: fall on asa COMPARISON: 10/15/2022 FINDINGS: Axial CT images of the cervical spine were obtained without contrast. Sagittal and coronal reformatted images were also obtained. This study was performed with techniques to keep radiation doses as low as reasonably achievable (ALARA). Individualized dose reduction techniques using automated exposure control or adjustment of mA and/or kV according to the patient''s size were employed. Fusion from C2 through T2 is noted. There are multilevel laminectomies. There is nonfusion of the anterior and posterior arch of C1 as a variant. There is no evidence of acute fracture or dislocation. The bony alignment is normal. Multilevel severe degenerative changes are stable. There is no evidence of canal stenosis. There is multilevel neural foraminal narrowing. No paraspinous soft tissue abnormality is seen. Limited images of the upper thorax are unremarkable. IMPRESSION: No fracture or acute bony abnormality identified. Reviewed, Interpreted and Dictated by Alexi Brumfield III, MD Transcribed by Libby Layton Authenticated and . [facility]
--- NOTE | 2024-06-16 12:54 | XR_ITS ---
FINAL REPORT CLINICAL HISTORY: fall ttp COMPARISON: 09/15/2022 FINDINGS: RIGHT HIP Two views of the right hip with an AP view of the pelvis demonstrate no acute fracture or dislocation. There are chronic left pelvic fractures which are stable. The joint spaces appear normal. The visualized bony structures are well aligned. No soft tissue abnormality is seen. IMPRESSION: No acute bony abnormality. Reviewed, Interpreted and Dictated by Alexi Brumfield III, MD Transcribed by Libby Layton Authenticated and [facility]
--- NOTE | 2024-06-16 12:55 | HMH.EDGENADL ---
Discharge Plan Disposition Patient Disposition: Xfer SNF Condition: Good Prescriptions Prescriptions: No Action aspirin [Aspir-81] 81 mg tablet,delayed release (DR/EC) 81 mg PO DAILY pravastatin 40 mg tablet 40 mg PO HS divalproex 500 mg tablet,delayed release (DR/EC) 500 mg PO BID levothyroxine [Synthroid] 25 mcg tablet 25 mcg PO DAILYDM acetaminophen [Tylenol Extra Strength] 500 mg tablet 1,000 mg PO Q6HP PRN (Reason: Fever Or Pain) polyethylene glycol 3350 [Miralax] 17 gram/dose powder 17 g PO HS aripiprazole [Abilify] 20 mg Tablet 20 mg PO DAILY trazodone 50 mg Tablet 50 mg PO HS sennosides-docusate sodium [Senna Plus] 8.6-50 mg Tablet 2 tab PO HS lactulose 10 gram/15 mL Solution 30 g PO MOWEFR cholecalciferol (vitamin D3) [Vitamin D3] 50 mcg (2,000 unit) Tablet 50 mcg PO DAILY albuterol sulfate 2.5 mg /3 mL (0.083 %) Solution For Nebulization 2.5 mg INHALATION Q8HP PRN (Reason: Shortness Of Breath) fluvoxamine 100 mg Tablet 100 mg PO BID bisacodyl 10 mg Suppository 10 mg RI DAILYP PRN (Reason: Constipation) benztropine 1 mg Tablet 1 mg PO BID simethicone 80 mg Tablet,Chewable 80 mg PO Q8HP PRN (Reason: EXCESSIVE GAS) omeprazole 20 mg Tablet,Delayed Release (Dr/Ec) 20 mg PO HS Anoro Ellipta 62.5-25 mcg/actuation Blister With Device 1 inh INHALATION DAILY azithromycin [azithromycin] 250 mg tablet 250 mg PO DIRECTED Qty: 6 0RF Rx Instructions: Take two (2) tablets on day #1, then one (1) tablet day #2 thru #5 cefdinir 300 mg capsule 300 mg PO BID Qty: 14 0RF doxycycline hyclate 100 mg capsule 100 mg PO DAILY Qty: 10 0RF Referrals Follow up/Referrals: Provider,Referral, MD [Primary Care Provider] - See instructions Activity Restrictions/Add. Instructions Additional Instructions/Restrictions: You were evaluated in the ER and are appropriate for discharge at this time. Continue home medications as previously prescribed. Make an appointment with your primary care physician for reevaluation. Return to the ER with new, worsening, or otherwise concerning symptoms. Clinical Impressions Clinical Impression: Fall Print Language Print Language: Danish Discharge ED Provider: Jim Patel General Adult HPI General Chief complaint: Fall Stated complaint: fall Time Seen by Provider: 06/16/24 12:47 Mode of Arrival: EMS Source of Information: Patient Limitations: No Limitations Description of Symptoms (Recalled from ER Triage Doc. by RN): pt presents to ED from [facility]. pt had a fall while walking to the bathroom. fall was witnessed by staff at facility. pt presents with c collar in place. pt reports pain in right shoulder, neck, bilateral hips, right foot, right knee. no LOC, pt does take asa History of Present Illness HPI narrative: 63-year-old male presents to the ER from [facility]. Patient had a fall while walking to the bathroom. Reportedly he was trying to pull his pants down and got tripped. Fall was witnessed by staff at the facility. He fell to the right side. He did strike his head but no loss of consciousness. Takes daily aspirin. Patient is complaining of right shoulder and right hip pain. On my conversation with the patient, he denies right foot, right knee, or left hip pain. He has no other areas of pain according to the patient. He states the most painful is his head. Review of systems otherwise negative. Related Data Home Medications ?Medication ?Instructions ?Recorded ?Confirmed aspirin 81 mg tablet,delayed 81 mg PO DAILY heart health 03/07/18 08/18/22 release (Aspir-) pravastatin 40 mg tablet 40 mg PO HS Cholesterol 03/07/18 08/18/22 acetaminophen 500 mg tablet 1,000 mg PO Q6HP PRN Fever Or Pain 07/12/20 08/18/22 (Tylenol Extra Strength) levothyroxine 25 mcg tablet 25 mcg PO DAILYDM thyroid 07/12/20 08/18/22 (Synthroid) polyethylene glycol 3350 17 17 g PO HS constipation 07/12/20 08/18/22 gram/dose oral powder (Miralax) divalproex 500 mg tablet,delayed 500 mg PO BID bipolar 03/27/21 08/17/22 release aripiprazole 20 mg tablet (Abilify) 20 mg PO DAILY DELUSIONS 08/17/22 08/17/22 cholecalciferol (vitamin D3) 50 50 mcg PO DAILY Supplement 08/17/22 08/17/22 mcg (2,000 unit) tablet (Vitamin D3) lactulose 10 gram/15 mL oral 30 g PO MOWEFR constipation 08/17/22 08/18/22 solution sennosides 8.6 mg-docusate sodium 2 tab PO HS constipation 08/17/22 08/18/22 50 mg tablet (Senna Plus) trazodone 50 mg tablet 50 mg PO HS adjustment disorder 08/17/22 08/17/22 with depressive mood albuterol sulfate 2.5 mg/3 mL 2.5 mg inhalation Q8HP PRN 08/18/22 08/18/22 (0.083 %) solution for nebulization Shortness Of Breath benztropine 1 mg tablet 1 mg PO BID DELUSIONS 08/18/22 08/18/22 bisacodyl 10 mg rectal suppository 10 mg RI DAILYP PRN Constipation 08/18/22 08/18/22 fluvoxamine 100 mg tablet 100 mg PO BID MOOD 08/18/22 08/18/22 omeprazole 20 mg tablet,delayed 20 mg PO HS Reflux/Acid reflux 08/18/22 08/18/22 release simethicone 80 mg chewable tablet 80 mg PO Q8HP PRN EXCESSIVE GAS 08/18/22 08/18/22 umeclidinium 62.5 mcg-vilanterol 1 inh inhalation DAILY SHORTNESS 08/18/22 08/18/22 25 mcg/actuation powdr for OF BREATH inhalation (Anoro Ellipta) Previous Rx's ?Medication ?Instructions ?Recorded azithromycin 250 mg tablet 250 mg PO DIRECTED #6 tabs 08/19/22 cefdinir 300 mg capsule 300 mg PO BID #14 caps 08/19/22 doxycycline hyclate 100 mg capsule 100 mg PO DAILY #10 caps 10/10/22 Allergies Allergy/AdvReac Type Severity Reaction Status Date / Time bacitracin Allergy Mild Verified 03/27/21 11:13 [From Neosporin ([id number])] neomycin Allergy Mild Verified 03/27/21 11:13 [From Neosporin ([id number])] polymyxin B Allergy Mild Verified 03/27/21 11:13 [From Neosporin ([id number])] PFSH PFS Disclaimer: The information contained in this section may have been updated after the patient was seen, as this information can be updated by other users. Medical History Abnormal EKG CAD (coronary artery disease) COPD (chronic obstructive pulmonary disease) Dementia Depressed GERD (gastroesophageal reflux disease) History of bipolar disorder History of hypothyroidism History of myocardial infarction HLD (hyperlipidemia) HTN (hypertension) TBI (traumatic brain injury) Family History Other No significant family history Social History Smoking Status: Former smoker tobacco type: cigarettes packs per day: 1 alcohol intake: never substance use type: denies use current occupational status: retired Travel in the last 8 weeks: None household members: caregiver housing: long-term ROS Obtained: Yes All systems reviewed & no additional complaints except as documented Positive ROS per HPI Physical Exam General General appearance: alert and in no apparent distress Head Head exam: atraumatic and normocephalic Eye Eye exam: Present PERRL and EOMI ENT ENT exam: Present mucous membranes moist Neck Neck exam: Present normal inspection, tenderness (Paraspinal) and other (C-collar in place) Chest Chest inspection: Present symmetric chest wall rise; Absent tenderness Respiratory Respiratory exam: Present normal lung sounds bilaterally; Absent respiratory distress, wheezes or stridor Cardiovascular Cardiovascular exam: Present regular rate and normal rhythm Abdominal Exam Abdominal exam: Present soft; Absent distention or tenderness Extremities Exam Extremities exam: Present full ROM and tenderness (Mild tenderness to palpation of the right shoulder, right hip, no deformity or bruising, range of motion intact, neurovascularly intact throughout) Neurological Exam Neurological exam: Present alert, oriented X3 (Oriented to name, date of , location, and where he lives) and CN II-XII intact; Absent motor sensory deficit Psychiatric Psychiatric exam: Present normal affect and normal mood Skin Skin exam: Present warm and dry Medical Decision Making Medical Records Medical records reviewed: Yes I reviewed the patient's medical records. Rao Inquiry Pt receiving controlled substance: No Vital Signs: 06/16/24 12:34 06/16/24 13:31 06/16/24 14:00 Temperature 97.9 F Temperature Source Oral Pulse Rate 72 71 Pulse Rate [Left Radial] 63 Respiratory Rate 16 Blood Pressure 114/65 136/80 Blood Pressure [Right Arm] 150/82 H Blood Pressure Mean [Right Arm] 104 02 Sat by Pulse Oximetry 95 91 L 92 L Oxygen Delivery Method Room Air Room Air Room Air 06/16/24 15:11 Temperature 98.0 F Temperature Source Oral Pulse Rate 85 Pulse Rate [Left Radial] Respiratory Rate 18 Blood Pressure 133/76 Blood Pressure [Right Arm] Blood Pressure Mean [Right Arm] 02 Sat by Pulse Oximetry Oxygen Delivery Method Room Air Orders (Tests/Meds): ORDERS Category Date Time Status CT cervical spine wo con Stat Cat Scan 06/16/24 12:[address] head/brain wo con Stat Cat Scan 06/16/24 12:54 Completed CXR --portable [XR chest portable] Stat Exams 06/16/24 12:54 Completed Hip XR right minimum 2 views [XR hip RT 2-3V w/pelvis] Exams 06/16/24 12:54 Completed Stat Shoulder XR right miminum 2 views [XR shoulder RT min Exams 06/16/24 12:54 Completed 2V] Stat Medical Decision Narrative: In summary, this 63-year-old male presents to the emergency department today with headache, neck pain, right shoulder pain, right hip pain after witnessed ground-level fall. On initial evaluation patient is hemodynamically stable, afebrile, GCS 15, no focal neurologic deficits, patient is tenderness to palpation of the cervical paraspinal muscles, right shoulder, right hip, no deformity or swelling, range of motion intact throughout. Differential diagnosis includes but is not limited to intracranial bleed, skull fracture, cervical spine injury, fracture, dislocation. Based on these concerns, I ordered CT and x-ray imaging. X-rays were personally interpreted and I do not appreciate acute osseous injury. See radiology read for final interpretation. CT imaging was personally interpreted I do not appreciate acute traumatic injury. See radiology reads for final interpretations. C-collar was cleared. Patient is appropriate for discharge at this time. Patient was given instructions on symptomatic management, follow up instructions, and return precautions for the emergency department. Patient indicated understanding and was discharged in stable condition. Critical Care Critical Care Time Critical Care Time: No
[2024-06-16 13:31] VITALS: BP 114/65; PULSE 72; O2SAT 91
--- NOTE | 2024-06-16 13:50 | PC.NURSE ---
patient in room, no concerns at this time.
[2024-06-16 14:00] VITALS: BP 136/80; PULSE 71; O2SAT 92
[2024-06-16 15:11] VITALS: BP 133/76; PULSE 85; RESP 18; TEMP 36.7; O2SAT 99
== END 2024-06-16 15:13 ==
PROVIDERS: Emergency Provider Emergency Medicine
DX: M25.511 Pain in right shoulder (principal); M25.551 Pain in right hip; W18.30XA Fall on same level, unspecified, initial encounter
CPT/HCPCS: 70450; 71045; 72125; 73030; 73502; 99285

== ENCOUNTER 2025-04-24 20:26 | Emergency (ER) | payer MEDICARE, MEDICAID, SELFPAY ==
--- OUTSIDE RECORDS SUMMARY | 2025-03-17 06:20 | XMS_ITS | Continuity of Care Document ---
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 RICA. Referring Provider: Abimael Victor. [facility] CARE SF MDM [address] [place] [address], [address] [place] [address], [id number], tel:[phone] [place] ear care exam, hearing loss (chief complaint) Tinnitus, bilateral 5 [place], [place]. Referring Provider: Abimael Victor. [facility] [place], [address] [place] [address] 300, [place], [place], [id number], tel:[phone] [place] Other specified peripheral vascular diseasesNail dystrophyOnych ogryphosisOthe r abnormalities of gait and mobility 5 [place], [place]. [facility] [place], [address] [place], [place] [address], [place], [place], [id number], [place] tel:[phone] [place] Complete loss of teeth, unspecified cause, unspecified class Jan- 5 Elsi Baker. [address] [place] [address], [address], [place], [address], [place]. tel:[phone] Referring Provider: Abimael Victor. [address] [place] [address] [place], [address] [place] [address] 300, [place], [place], [id number], [place] tel:[phone] [place] Encounter for dental examination and cleaning without abnormal findings 5 Geri Tamayo. [address] [facility], [address], [place], [place], [id number], [place]. tel:[phone] Referring Provider: Abimael Victor. [facility] NF CARE SF MDM [address] [place] [address] [place], [address] [place] [address] 300, [place], [place], [id number], [place] tel:[phone] [place] ear care exam, hearing loss (chief complaint) Unspecified hearing loss, bilateral 5 [place], [place]. Referring Provider: Abimael Victor. [facility] [place], [address] [place] [address] 300, [place], [place], [id number], [place] tel:[phone] [place] Other specified peripheral vascular diseasesNail dystrophyOnych ogryphosisCorn s and callositiesXer osis cutis 5 [place]. [facility] CARE LOW MDM 20 [facility], [address] [place] [address] 300, [place], [place], [id number], [place] tel:[phone] [place] Nail dystrophyOnych ogryphosisOthe r specified peripheral vascular diseases 4 [place], [place]. [address] [place] [address], [address] [place] [address], [place], [place], [id number], tel:[phone] [place] No Information 4 [place], [place]. [address] [place] [address], [address] [place] [address] 300, [place], [place], [id number], tel:[phone] [place] Nail dystrophyOther specified peripheral vascular diseasesTinea unguiumCorns and callosities 4 Cachorro Gutierrez. [address] [place] [address], [address], [place], [facility]ly [facility], . [address] [place] [address], [address] [place] [address], [place], [place], [id number], tel:[phone] [place] Encounter for dental examination and cleaning without abnormal findings 4 Torito Daniels. [address] [place] [address], [address], [place], [place], [id number], [place]. tel:[phone] Referring Provider: Abimael Victor. [address] [place] [address], [address] [place] [address], [place], [place], [id number], tel:[phone] [place] Presbyopia March-0 4 Sudhir Chinchilla. , [place]. [address] [place] [address], [address] [place] [address], [place], [place], [id number], tel:[phone] [place] Corns and callositiesNai l dystrophyOther specified peripheral vascular diseasesTinea unguium 4 Cachorro Gutierrez. [address] [place] [address], [address], [place], [address], . Referring Provider: Abimael Victor. [address] [place] [address], [address] [place] [address], [place], [place], [id number], tel:[phone] [place] floaters (chief complaint) Vitreous degeneration, bilateralPresb yopia 4 Sudhir Lemaa. , [place]. Referring Provider: Abimael Victor. [address] [place] [address], [address] [place] [address], [place], [place], [id number], tel:[phone] [place] Corns and callositiesNai l dystrophyOther specified peripheral vascular diseasesTinea unguium 4 Cachorro Gutierrez. [address] [facility], [address], [place], [address], [place]. Referring Provider: Abimael Victor. [address] [place] [address], [address] [place] [address], [place], [id number], [place] tel:[phone] [place] Complete loss of teeth, unspecified cause, unspecified class 4 Ugarte Jeremiah. [address] [place] [address], [address], [place], [place], [id number], [place]. tel:[phone] Referring Provider: Abimael Victor. [address] [place] [address], [address] [place] [address], [place], [place], [id number], tel:[phone] [place] Sensorineural hearing loss, bilateral 4 [place]. Referring Provider: Abimael Victor. NURSING FAC CARE SUBSEQ [address] [place] [address], [address] [place] [address], [place], [place], [id number], tel:[phone] [place] hearing loss (chief complaint) Tinnitus, bilateral 3 Thor-Hard larry Lois. [address] [facility], [address], [place], [address], [place]. Referring Provider: Abimael Victor. [address] [place] [address], [address] [place] [address], [place], [place], [id number], [place] tel:[phone] [place] Encounter for dental examination and cleaning without abnormal findings 3 Clifford Reed. [address] [facility], [address], [place], [place], [id number], [place]. tel:[phone] Referring Provider: Abimael Victor. [address] [place], [place] [address], [place], [place], [id number], [place] tel:[phone] [place] No Information 3 [place], [place], [id number], [place]. tel:[phone] Referring Provider: Abimael Victor. [facility] [place], [address], [place], [place], [id number], [place] tel:[phone] [place] Nail dystrophyOther specified peripheral vascular diseasesTinea unguiumCorns and callosities 3 Cachorro Gutierrez. [address] [facility], [address], [place], [address], [place]. Referring Provider: Abimael Victor. [facility], [address] [place], [place] [address], [place], [place], [id number], tel:[phone] [place] No Information 3 Cachorro Gutierrez. [address], [address], [place], [address], [place]. [facility], [address], [place], [place], [id number], [place] tel:[phone] [place] No Information 3 [place], [place]. [address] [place] [address], [address] [place] [address] [address], [place], [place], [id number], [place] tel:[phone] [place] Encounter for dental examination and cleaning without abnormal findings 3 [place], [place]. Referring Provider: Abimael Victor. [facility], [address] [place] [address] [address], [place], [place], [id number], [place] tel:[phone] [place] Complete loss of teeth, unspecified cause, unspecified classEncounter for dental examination and cleaning without abnormal findings 3 Elsi Baker. [address] [facility], [address], [place], [address], [place]. tel:[phone] Referring Provider: Abimael Victor. [address] [place] [address], [address] [place], [place] [address], [place], [place], [id number], [place] tel:[phone] [place] Encounter for dental examination and cleaning without abnormal findings 3 Elsi Samuel. [address] [facility], [address], [place], [address], [place]. tel:[phone] Referring Provider: Abimael Victor. [facility] [place], [address] [place], [place] [address], [place], [place], [id number], [place] tel:[phone] [place] Nail dystrophyCorns and callositiesOth er specified peripheral vascular diseasesTinea unguium 3 Cachorro Gutierrez. [address] [facility], [address], [place], [address], [place]. Referring Provider: Abimael Victor. [facility] [place], [address] [place], [place] [address], [place], [place], [id number], [place] tel:[phone] [place] Encounter for dental examination and cleaning without abnormal findings 3 [place], [place]. Referring Provider: Abimael Victor. [facility] [place], [address] [place], [place] [address], [place], [place], [id number], [place] tel:[phone] [place] Nail dystrophyCorns and callositiesOth er specified peripheral vascular diseasesTinea unguium Jan- 3 Cachorro Gutierrez. [address] [facility], [address], [place], [address], . Referring Provider: Abimael Victor. [facility] [place], [address] [place], [place] [address], [place], [place], [id number], [place] tel:[phone] [place] Sensorineural hearing loss, bilateral Jan-0 3 [place]. Referring Provider: Abimael Victor. [facility] [place], [address] [place], [place] [address], [place], [place], [id number], [place] tel:[phone] [place] Presbyopia Fe- 3 [place]. [facility] [place], [address] [place] [address] 300, [place], [place], [id number], [place] tel:[phone] [place] Blurry vision (chief complaint) Vitreous degeneration, bilateral 2 Sudhir Chinchilla. , [place]. Referring Provider: Abimael Victor. [address] [place] [address] [place], [address] [place] [address] 300, [place], [place], [id number], [place] tel:[phone] [place] Corns and callositiesNai l dystrophyOther specified peripheral vascular diseasesTinea unguium Oct- 2 Cachorro Gutierrez. [address] [facility], [address], [place], [address], [place]. Referring Provider: Abimael Sy. [address] [place] [address], [address] [place] [address] 300, [place], [place], [id number], tel:[phone] [place] Nail dystrophyCorns and callositiesOth er specified peripheral vascular diseasesTinea unguium 2 Cachorro Gutierrez. [address] [place] [address], [address], [place], [address], [place]. Referring Provider: Abimael Victor. [address] [place] [address] [facility] [place], [address] [place] [address], [place], [place], [id number], [place] tel:[phone] [place] Encounter for dental exam and cleaning w/o abnormal findings 2 [facility]. , [place]. Referring Provider: Abimael Victor. NURSING FAC CARE SUBSEQ [address] [place] [address], [address] [place] [address], [place], [place], [address], [place] tel:[phone] [place] hearing loss (chief complaint) Tinnitus, bilateral 2 Thor-Hard larry Lois. [address] [place] [address], [address], [place], [address], [place]. Referring Provider: Abimael Victor. NURSING FAC CARE SUBSEQ [address] [place] [address] [place], [address] [place] [address] 300, [place], [place], [id number], [place] tel:[phone] [place] Corns and callositiesTin ea unguiumOther specified peripheral vascular diseasesXerosi s cutisPain in right toe(s)Pain in left toe(s) 2 [facility]. , [place]. Referring Provider: Damaris Otero. [address] [place] [address], [address] [place] [address] 300, [place], [place], [id number], tel:[phone] [place] Encounter for dental exam and cleaning w/o abnormal findings 2 Clifford Reed. [address] [place] [address], [address], [place], [place], [id number], [place]. tel:[phone] Referring Provider: Abimael Victor. [address] [place] [address], [address] [place] [address], [place], [place], [id number], [place] tel:[phone] [place] Corns and callositiesTin ea unguiumOther specified peripheral vascular diseasesNail dystrophy 2 [facility]. , [place]. Referring Provider: Abimael Victor. [address] [place] [address], [address] [place], [place] [address], [place], [place], [id number], [place] tel:[phone] [place] Decreased vision (chief complaint) Vitreous degeneration, bilateral 2 Gabrielt Belkis. [address] [place] [address], [address], [place], [address], [place]. Referring Provider: Abimael Victor. [address] [place] [address], [address] [place] [address] 300, [place], [place], [id number], [place] tel:[phone] [place] Nail dystrophyOther specified peripheral vascular diseasesTinea unguium 1 [facility]. , [place]. Referring Provider: Abimael Victor. NURSING FAC CARE SUBSEQ [address] [place] [address], [address] [place] [address] 300, [place], [place], [id number], [place] tel:[phone] [place] Nail dystrophyPain in right toe(s)Pain in left toe(s)Other specified peripheral vascular diseasesTinea unguium 1 [facility]. , [place]. Referring Provider: Abimael Victor. [address] [place] [address], [address] [place] [address] 300, [place], [place], [id number], [place] tel:[phone] [place] Encounter for dental exam and cleaning w/o abnormal findings 1 Clifford Reed. [address] [facility], [address], [place], [place], [address], [place]. tel:[phone] Referring Provider: Abimael Victor. [address] [place] [address], [address] [place] [address] 300, [place], [place], [id number], [place] tel:[phone] [place] Corns and callositiesNai l dystrophyTinea unguiumOther specified peripheral vascular diseases 1 Cachorro Gutierrez. [address] [place] [address], [address], [place], [address], [place]. Referring Provider: Abimael Victor. NURSING FAC CARE SUBSEQ [address] [place] [address], [address] [place] [address] 300, [place], [place], [id number], tel:[phone] [place] ear care exam (chief complaint) Sensorineural hearing loss, bilateral 1 Thor-Hard larry Lois. [address] [facility], [address], [place], [address], [place]. Referring Provider: Abimael Victor. [address] [place] [address], [address] [place] [address] 300, [place], [place], [id number], tel:[phone] [place] Tinea unguiumCorns and callositiesOth er specified peripheral vascular diseases 1 Cachorro Gutierrez. [address] [facility], [address], [place], [address], [place]. Referring Provider: Abimael Victor. [address] [place] [address], [address] [place] [address] 300, [place], [place], [id number], [place] tel:[phone] [place] Sensorineural hearing loss, bilateral 0 Jasso Chelci. [address] [place] [address], [address], [place], [place], [address], [place]. tel:[phone] Referring Provider: Abimael Victor. [address] [place] [address], [address] [place] [address] 300, [place], [place], [id number], tel:[phone] [place] Tinea unguiumOther specified peripheral vascular diseasesCorns and callosities 0 Cachorro Gutierrez. [address] [facility], [address], [place], [address], [place]. Referring Provider: Fatoumata Justice. [address] [place] [address], [address] [place] [address], [place], [place], [address], [place] tel:[phone] [place] Medical eye problem (chief complaint) Vitreous degeneration, bilateral Sep- 0 [place] Churchjolly Cervantes. [address] [facility], [place], [address], [place]. tel:[phone] Referring Provider: Abimael Victor. [address] [place] [address], [address] [place] [address] 300, [place], [place], [address], tel:[phone] [place] Tinea unguiumPain in left toe(s)Pain in right toe(s) 0 Cachroro Gutierrez. [address] [facility], [address], [place], [address], [place]. Referring Provider: Ronnie Shaffer. [address] [place] [address], [address] [place] [address], [place], [place], [id number], tel:[phone] [place] Tinea unguiumOther specified peripheral vascular diseasesCorns and callositiesNai l dystrophy 0 Cachorro Gutierrez. [address] [facility], [address], [place], [address], [place]. Referring Provider: Abimael Victor. Subsequent Nursing Facility Care [facility], [address] [place] [address] 300, [place], [place], [id number], [place] tel:[phone] [place] hearing loss (chief complaint) Unspecified hearing loss, bilateral 0 [place]-Hard larry Lois. [address] [facility], [address], [place], [address], [place]. Referring Provider: Abimael Victor. [address] [place] [address], [address] [place] [address], [place], [place], [id number], [place] tel:[phone] [place] Tinea unguiumOther specified peripheral vascular diseasesCorns and callosities Sep- 0 9 Cachorro Gutierrez. [address] [facility], [address], [place], [address], [place]. Referring Provider: Abimael Victor. [address] [place] [address], [address] [facility], [place], [place], [address], [place] tel:[phone] [place] Encounter for dental exam and cleaning w/o abnormal findings Jul-2 9 Elsi Baker. [address] [facility], [address], [place], [address], [place]. tel:[phone] Referring Provider: Abimael Victor. [address] [place] [address], [address] [place], [place] [address], [place], [place], [id number], [place] tel:[phone] [place] Tinea unguiumPain in left toe(s)Pain in right toe(s) Jul- 9 Cachorro Gutierrez. [address] [facility], [address], [place], [address], [place]. Referring Provider: Abimael Victor. [address] [place] [address], [address] [place], [place] [address], [place], [place], [id number], [place] tel:[phone] [place] medical eye evaluation (chief complaint) Vitreous degeneration, bilateral Aug- 9 Donna Tamayo. [address] [facility], [address], [place], [address], [place]. Referring Provider: Abimael Victor. [address] [place] [address], [address] [place], [place] [address], [place], [place], [id number], [place] tel:[phone] [place] Tinea unguiumPain in right toe(s)Pain in left toe(s) 9 Cachorro Gutierrez. [address] [facility], [address], [place], [address], [place]. Referring Provider: Abimael Victor. Subsequent Nursing Facility Care [facility], [address] [place], [place] [address], [place], [place], [id number], [place] tel:[phone] [place] ear care exam (chief complaint) Unspecified hearing loss, bilateral 8 Thor-Hard larry Lois. [address], [address], [place], [address], [place]. Referring Provider: Abimael Victor. [address] [place] [address], [address] [address], [place], [place], [id number], [place] tel:[phone] [place] Tinea unguiumPain in left toe(s)Pain in right toe(s) 8 Cachorro Gutierrez. [address], [address], [place], [address], [place]. Family History Family Member Type Diagnosis Age At Onset No Information Payers Payer name Insurance type Covered green party ID Authoriza tion(s) Medicare 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 Reinforced the [...] localize swelling and venous return, and the custodial benefits of using compression stockings. 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 Reinforced the [...] Impression/Plan Related to Vitre ous degeneration, bilateral Toenails 1 b/l were debrided in length and thickness without incident. Remainder of toenails were trimmed. Follow up in 2-3 months. Related to Tinea unguium follow up in 12-15 [facility] or sooner if needed. Related to Unspecified [...]
[2025-04-24 20:26] VITALS: BP 130/78; BP 130/83; PULSE 70; RESP 21; TEMP 36.8; O2SAT 94; BMI 25.5
--- NOTE | 2025-04-24 20:28 | CT_ITS ---
PROCEDURE INFORMATION: Exam: CTA Head With Contrast, Arteriography Exam date and time: 04/24/2025 8:35 PM Age: 64 years old Clinical indication: Stroke-like symptoms; Other: Possible stroke TECHNIQUE: Imaging protocol: Computed tomographic angiography of the head with contrast. Exam focused on the arteries. 3D rendering (Not supervised by radiologist): MIP and/or 3D reconstructed images were created by the technologist. Radiation optimization: All CT scans at this facility use at least one of these dose optimization techniques: automated exposure control; mA and/or kV adjustment per patient size (includes targeted exams where dose is matched to clinical indication); or iterative reconstruction. Contrast material: ISO 370; Contrast volume: 80 ml; Contrast route: INTRAVENOUS (IV); COMPARISON: CT HEAD/BRAIN WO CON 04/24/2025 8:31 PM FINDINGS: ANTERIOR CIRCULATION: Right internal carotid artery: Intracranial segment is patent with no significant stenosis. No aneurysm. Right middle cerebral artery: No occlusion or significant stenosis. No aneurysm. Right anterior cerebral artery: No occlusion or significant stenosis. No aneurysm. Left internal carotid artery: Intracranial segment is patent with no significant stenosis. No aneurysm. Left middle cerebral artery: No occlusion or significant stenosis. No aneurysm. Left anterior cerebral artery: No occlusion or significant stenosis. No aneurysm. POSTERIOR CIRCULATION: Right vertebral artery: No occlusion or significant stenosis. No aneurysm. Left vertebral artery: No occlusion or significant stenosis. No aneurysm. Basilar artery: No occlusion or significant stenosis. No aneurysm. Right posterior cerebral artery: No occlusion or significant stenosis. No aneurysm. Left posterior cerebral artery: No occlusion or significant stenosis. No aneurysm. Brain: No definite mass, mass effect, or midline shift. Cerebral ventricles: No ventriculomegaly. Bones/joints: Unremarkable. No acute fracture. Soft tissues: Unremarkable. IMPRESSION: No large vessel stenosis or occlusion.
--- NOTE | 2025-04-24 20:28 | CT_ITS ---
PROCEDURE INFORMATION: Exam: CTA Neck With Contrast Exam date and time: 04/24/2025 8:35 PM Age: 64 years old Clinical indication: Stroke-like symptoms; Other: Possible stroke TECHNIQUE: Imaging protocol: Computed tomographic angiography of the neck with contrast. Exam focused on the cervical segments of the vasculature. 3D rendering (Not supervised by radiologist): MIP and/or 3D reconstructed images were created by the technologist. Radiation optimization: All CT scans at this facility use at least one of these dose optimization techniques: automated exposure control; mA and/or kV adjustment per patient size (includes targeted exams where dose is matched to clinical indication); or iterative reconstruction. Contrast material: ISO 370; Contrast volume: 80 ml; Contrast route: INTRAVENOUS (IV); COMPARISON: CT CERVICAL SPINE WO CON 04/24/2025 8:32 PM FINDINGS: Right common carotid artery: No stenosis. No dissection or occlusion. Right internal carotid artery: Mild stenosis of the extracranial segment. Less than 50% by NASCET criteria. No dissection or occlusion. Right external carotid artery: No occlusion or stenosis of the origin. Left common carotid artery: No stenosis. No dissection or occlusion. Left internal carotid artery: Mild stenosis of the extracranial segment. Less than 50% by NASCET criteria. No dissection or occlusion. Left external carotid artery: No occlusion or stenosis of the origin. Right vertebral artery: No stenosis. No dissection or occlusion. Left vertebral artery: No stenosis. No dissection or occlusion. Soft tissues: Normal. No significant soft tissue swelling. Bones/joints: Posterior fusion C-spine. IMPRESSION: 1. Posterior fusion C-spine. 2. Mild bilateral ICA stenosis at the bulb, less than 50% by NASCET criteria. REFERENCES: NASCET CRITERIA. The degree of stenosis in the cervical segment of the internal carotid artery is based on NASCET criteria. Normal is no stenosis. Mild is less than 50% stenosis. Moderate is 50-69% stenosis. Severe is 70% to 99% stenosis. Total occlusion is no detectable patent lumen.
--- NOTE | 2025-04-24 20:28 | ECG_ITS ---
APPROVED REPORT Exam: Resting ECG HR:74 bpm ECG Measurements Heart Rate 74 AXES AL 187 P 71 QRSd 93 QRS 49 QT 356 T 72 QTc 384 Conclusion SINUS RHYTHM LOW QRS VOLTAGE IN EXTREMITY LEADS [QRS DEFLECTION < 0.5 mV IN LIMB LEADS] No STEMI Electronically signed by : ROD LOPEZ, 04/24/2025 22:45:16
--- NOTE | 2025-04-24 20:28 | CT_ITS ---
PROCEDURE INFORMATION: Exam: CT Head Without Contrast Exam date and time: 04/24/2025 8:31 PM Age: 64 years old Clinical indication: Stroke-like symptoms; Other: Possible stroke TECHNIQUE: Imaging protocol: Computed tomography of the head without contrast. Radiation optimization: All CT scans at this facility use at least one of these dose optimization techniques: automated exposure control; mA and/or kV adjustment per patient size (includes targeted exams where dose is matched to clinical indication); or iterative reconstruction. Other technique: STROKE PROTOCOL was implemented. COMPARISON: CT HEAD/BRAIN WO CON 06/16/2024 1:14 PM FINDINGS: Brain: Periventricular and subcortical small vessel ischemic changes appear chronic. Severe atrophy associated. No acute hemorrhage, mass effect, midline shift, or extra-axial fluid collection. Cerebral ventricles: No ventriculomegaly. Paranasal sinuses: Visualized sinuses are unremarkable. No fluid levels. Mastoid air cells: Visualized mastoid air cells are well aerated. Bones: Unremarkable. No acute fracture. Soft tissues: Unremarkable. IMPRESSION: 1. Atrophy more than expected for age. 2. No acute intracranial abnormality identified. ASSESSMENT: ASPECTS ([place] Stroke Program Early CT Score) is 10.
--- NOTE | 2025-04-24 20:29 | CT_ITS ---
PROCEDURE INFORMATION: Exam: CT Cervical Spine Without Contrast Exam date and time: 04/24/2025 8:32 PM Age: 64 years old Clinical indication: Injury or trauma; Fall; Blunt trauma; Additional info: Fall, AMS TECHNIQUE: Imaging protocol: Computed tomography of the cervical spine without contrast. Radiation optimization: All CT scans at this facility use at least one of these dose optimization techniques: automated exposure control; mA and/or kV adjustment per patient size (includes targeted exams where dose is matched to clinical indication); or iterative reconstruction. COMPARISON: CT CERVICAL SPINE WO CON 06/16/2024 1:16 PM FINDINGS: Bones/joints: No acute fracture. Normal alignment. C2-C3: No significant disc bulge or herniation. No severe spinal canal stenosis. No significant neural foraminal narrowing. C3-C4: No significant disc bulge or herniation. No severe spinal canal stenosis. No significant neural foraminal narrowing. C4-C5: No significant disc bulge or herniation. No severe spinal canal stenosis. No significant neural foraminal narrowing. C5-C6: No significant disc bulge or herniation. No severe spinal canal stenosis. No significant neural foraminal narrowing. C6-C7: No significant disc bulge or herniation. No severe spinal canal stenosis. No significant neural foraminal narrowing. C7-T1: No significant disc bulge or herniation. No severe spinal canal stenosis. No significant neural foraminal narrowing. Lungs: Lung apices are normal. Soft tissues: Unremarkable. IMPRESSION: No acute cervical spine fracture.
--- NOTE | 2025-04-24 20:30 | XR_ITS ---
PROCEDURE INFORMATION: Exam: XR Chest Exam date and time: 04/24/2025 8:38 PM Age: 64 years old Clinical indication: Other: AMS, recent fall TECHNIQUE: Imaging protocol: Radiologic exam of the chest. Views: 1 view. COMPARISON: CR XR CHEST PORTABLE 06/16/2024 1:11 PM FINDINGS: Lungs: Unremarkable. No consolidation. Pleural spaces: Unremarkable. No pleural effusion. No pneumothorax. Heart/Mediastinum: Unremarkable. No cardiomegaly. Bones/joints: Posterior fusion C-spine. IMPRESSION: Posterior fusion C-spine.
--- NOTE | 2025-04-24 20:31 | HMH.EDGENADL ---
Discharge Plan Disposition Patient Disposition: Xfer SNF Condition: Good Prescriptions Prescriptions: No Action aspirin [Aspir-81] 81 mg tablet,delayed release (DR/EC) 81 mg PO DAILY pravastatin 40 mg tablet 40 mg PO HS divalproex 500 mg tablet,delayed release (DR/EC) 500 mg PO BID levothyroxine [Synthroid] 25 mcg tablet 25 mcg PO DAILYDM acetaminophen [Tylenol Extra Strength] 500 mg tablet 1,000 mg PO Q6HP PRN (Reason: Fever Or Pain) polyethylene glycol 3350 [Miralax] 17 gram/dose powder 17 g PO HS aripiprazole [Abilify] 20 mg Tablet 20 mg PO DAILY trazodone 50 mg Tablet 50 mg PO HS sennosides-docusate sodium [Senna Plus] 8.6-50 mg Tablet 2 tab PO HS lactulose 10 gram/15 mL Solution 30 g PO MOWEFR cholecalciferol (vitamin D3) [Vitamin D3] 50 mcg (2,000 unit) Tablet 50 mcg PO DAILY albuterol sulfate 2.5 mg /3 mL (0.083 %) Solution For Nebulization 2.5 mg INHALATION Q8HP PRN (Reason: Shortness Of Breath) fluvoxamine 100 mg Tablet 100 mg PO BID bisacodyl 10 mg Suppository 10 mg ME DAILYP PRN (Reason: Constipation) benztropine 1 mg Tablet 1 mg PO BID simethicone 80 mg Tablet,Chewable 80 mg PO Q8HP PRN (Reason: EXCESSIVE GAS) omeprazole 20 mg Tablet,Delayed Release (Dr/Ec) 20 mg PO HS Anoro Ellipta 62.5-25 mcg/actuation Blister With Device 1 inh INHALATION DAILY azithromycin [azithromycin] 250 mg tablet 250 mg PO DIRECTED Qty: 6 0RF Rx Instructions: Take two (2) tablets on day #1, then one (1) tablet day #2 thru #5 cefdinir 300 mg capsule 300 mg PO BID Qty: 14 0RF doxycycline hyclate 100 mg capsule 100 mg PO DAILY Qty: 10 0RF Activity Restrictions/Add. Instructions Additional Instructions/Restrictions: You were evaluated in the emergency department today. At this time, workup is reassuring. We do not find evidence of acute stroke. Please follow-up closely with primary care. Return to the emergency department for new or worsening symptoms. Clinical Impressions Clinical Impression: Encounter for medical assessment Print Language Print Language: Amharic Discharge ED Provider: Shanita Garcia General Adult HPI General Chief complaint: Neuro Symptoms/Deficit Stated complaint: fall 04/13, left lean, left facial droop per NH Time Seen by Provider: 04/24/25 20:28 History of Present Illness HPI narrative: This patient is a 64-year-old male with a history of TBI, frequent falls, hypertension, hyperlipidemia, COPD, CAD, GERD, and hypothyroidism presenting to the emergency department for evaluation because nursing staff at his custodial facility was concerned that he was leaning toward the left. According to nursing facility and EMS report, the patient had a fall on 04/21/2025 with no known injury. He was not evaluated after this. Today, they noted that he has been leaning to the left all day. Last known well would have been sometime yesterday. Aside from leaning to the left more than usual, he is completely at his baseline and has had no recent complaints of pain. He is also had no fevers or infectious symptoms noted. Patient is alert and oriented to person and is able to answer what month it is, but he is not sure of the year or where he is/why he is here. He denies any physical concerns or complaints and states he is feeling fine. EMS reported vitals were stable en route and fingerstick blood glucose was within normal limits. Nursing facility reported concern for stroke given leaning to left and reported left facial droop. EMS noted their stroke score was 0 and they did not note droop or focal deficit. Related Data Home Medications ?Medication ?Instructions ?Recorded ?Confirmed aspirin 81 mg tablet,delayed 81 mg PO DAILY heart health 03/07/18 08/18/22 release (Aspir-) pravastatin 40 mg tablet 40 mg PO HS Cholesterol 03/07/18 08/18/22 acetaminophen 500 mg tablet 1,000 mg PO Q6HP PRN Fever Or Pain 07/12/20 08/18/22 (Tylenol Extra Strength) levothyroxine 25 mcg tablet 25 mcg PO DAILYDM thyroid 07/12/20 08/18/22 (Synthroid) polyethylene glycol 3350 17 17 g PO HS constipation 07/12/20 08/18/22 gram/dose oral powder (Miralax) divalproex 500 mg tablet,delayed 500 mg PO BID bipolar 03/27/21 08/17/22 release aripiprazole 20 mg tablet (Abilify) 20 mg PO DAILY DELUSIONS 08/17/22 08/17/22 cholecalciferol (vitamin D3) 50 50 mcg PO DAILY Supplement 08/17/22 08/17/22 mcg (2,000 unit) tablet (Vitamin D3) lactulose 10 gram/15 mL oral 30 g PO MOWEFR constipation 08/17/22 08/18/22 solution sennosides 8.6 mg-docusate sodium 2 tab PO HS constipation 08/17/22 08/18/22 50 mg tablet (Senna Plus) trazodone 50 mg tablet 50 mg PO HS adjustment disorder 08/17/22 08/17/22 with depressive mood albuterol sulfate 2.5 mg/3 mL 2.5 mg inhalation Q8HP PRN 08/18/22 08/18/22 (0.083 %) solution for nebulization Shortness Of Breath benztropine 1 mg tablet 1 mg PO BID DELUSIONS 08/18/22 08/18/22 bisacodyl 10 mg rectal suppository 10 mg ME DAILYP PRN Constipation 08/18/22 08/18/22 fluvoxamine 100 mg tablet 100 mg PO BID MOOD 08/18/22 08/18/22 omeprazole 20 mg tablet,delayed 20 mg PO HS Reflux/Acid reflux 08/18/22 08/18/22 release simethicone 80 mg chewable tablet 80 mg PO Q8HP PRN EXCESSIVE GAS 08/18/22 08/18/22 umeclidinium 62.5 mcg-vilanterol 1 inh inhalation DAILY SHORTNESS 08/18/22 08/18/22 25 mcg/actuation powdr for OF BREATH inhalation (Anoro Ellipta) Previous Rx's ?Medication ?Instructions ?Recorded azithromycin 250 mg tablet 250 mg PO DIRECTED #6 tabs 08/19/22 cefdinir 300 mg capsule 300 mg PO BID #14 caps 08/19/22 doxycycline hyclate 100 mg capsule 100 mg PO DAILY #10 caps 10/10/22 Allergies Allergy/AdvReac Type Severity Reaction Status Date / Time bacitracin (From Neosporin Allergy Mild Verified 03/27/21 11:13 ([id number])) neomycin (From Neosporin Allergy Mild Verified 03/27/21 11:13 ([id number])) polymyxin B (From Neosporin Allergy Mild Verified 03/27/21 11:13 ([id number])) [facility] Disclaimer: The information contained in this section may have been updated after the patient was seen, as this information can be updated by other users. Medical History History of bipolar disorder History of hypothyroidism History of myocardial infarction HTN (hypertension) HLD (hyperlipidemia) GERD (gastroesophageal reflux disease) Depressed CAD (coronary artery disease) COPD (chronic obstructive pulmonary disease) TBI (traumatic brain injury) Dementia Abnormal EKG Family History Other No significant family history Social History Smoking Status: Former smoker tobacco type: cigarettes packs per day: 1 alcohol intake: never substance use type: denies use current occupational status: retired Travel in the last 8 weeks?: None household members: caregiver housing: residential Have you lived/traveled outside [place] in past 30 days?: No Contact w/someone who lives/traveled outside [place] past 30 days?: No Exposure to someone with infectious disease in past 14 days?: No Do you have a fever (greater than 100.4 F or 38 C)?: No Have you tested positive for COVID-19?: No Exposed to someone with COVID-19 in past 14 days?: No Do you have a sore throat?: No Do you have a cough?: No Do you have any weakness?: No Do you have any diarrhea?: No Are you experiencing any unusual bleeding?: No Do you have any muscle aches/pain?: No Do you have any abdominal pain?: No Are you experiencing loss of taste or smell?: No Other Medical History Have you received the Flu Vaccine for this season: No Have you received the Pneumonia Vaccine: No ROS Obtained: Yes All systems reviewed & no additional complaints except as documented Physical Exam General General appearance: alert and in no apparent distress Head Head exam: atraumatic and normocephalic Eye Eye exam: Present normal appearance, PERRL and EOMI ENT ENT exam: Present normal exam, normal oropharynx, mucous membranes moist and normal external ear exam Neck Neck exam: Present normal inspection, full ROM and trachea midline; Absent tenderness Chest Chest inspection: Present normal inspection and symmetric chest wall rise; Absent tenderness Respiratory Respiratory exam: Present normal lung sounds bilaterally; Absent respiratory distress, wheezes, stridor or accessory muscle use Cardiovascular Cardiovascular exam: Present regular rate and normal rhythm Abdominal Exam Abdominal exam: Present soft; Absent distention, tenderness or guarding Extremities Exam Extremities exam: Present normal inspection, full ROM and normal capillary refill; Absent tenderness or edema Back Exam Back exam: Present normal inspection and full ROM; Absent tenderness Neurological Exam Neurological exam: Present alert, CN II-XII intact and other (Only able to answer his name and what month it is, not able to tell me the year, where he is, or why he is here. This is his baseline according to EMS. Otherwise, no focal neurologic deficits noted.); Absent oriented X3 or motor sensory deficit Psychiatric Psychiatric exam: Present normal affect and normal mood Skin Skin exam: Present warm and dry Medical Decision Making Medical Records Medical records reviewed: Yes I reviewed the patient's medical records. Screening: Per USPSTF and CDC recommendations, given the prevalence of disease in our region, it is our hospital?s policy to screen for HIV and viral Hepatitis for all patients aged 18 and over and those with ongoing risk factors. Rao Inquiry Pt receiving controlled substance: No Vital Signs: 04/24/25 20:26 04/24/25 20:26 04/24/25 21:30 Temperature 98.2 F 98.2 F Temperature Source Oral Pulse Rate 70 87 Pulse Rate [Left] 70 Respiratory Rate 21 21 20 Blood Pressure 130/83 130/101 H Blood Pressure [Right Arm] 130/78 Blood Pressure Mean 106 Blood Pressure Mean [Right Arm] 95 Blood Pressure Source [Right Arm] Automatic Cuff Blood Pressure Position [Right Arm] Supine 02 Sat by Pulse Oximetry 94 L 94 L Oxygen Delivery Method Room Air Room Air Lab Data Lab results reviewed: Yes I reviewed the patient's lab results. Lab Results 04/24/25 20:28: WBC 7.3, RBC 4.40 L, Hgb 13.9 L, Hct 41.7 L, MCV 94.8 H, MCH 31.6 H, MCHC 33.3, RDW 13.4, Plt Count 209, MPV 13.8 H, Neut % (Auto) 55.9, Lymph % (Auto) 24.5, [place] % (Auto) 16.1 H, Eos % (Auto) 2.7, Baso % (Auto) 0.4, Neut # (Auto) 4.1, Lymph # (Auto) 1.8, [place] # (Auto) 1.2 H, Eos # (Auto) 0.2, Baso # (Auto) 0.0, PT 10.4, INR 0.93, APTT 25.1, Sodium 135 L, Potassium 4.2, Chloride 98, Carbon Dioxide 36 H, Anion Gap 5.2, BUN 14, Creatinine 0.60 L, Estimated GFR 135, Est GFR ( Amer) 164, Glucose 115 H, Calcium 9.4, Total Bilirubin 0.4, AST 30, ALT 17, Alkaline Phosphatase 71, Troponin I < 0.01, Total Protein 6.9, Albumin 3.5, Globulin 3.4 H, Albumin/Globulin Ratio 1.0 L, Triglycerides 215 H, Cholesterol 121 L, LDL Cholesterol Direct 51.15 L, VLDL Cholesterol 43 H, HDL Cholesterol 28 L, Cholesterol/HDL Ratio 4.3 H, Plasma/Serum Alcohol < 10 04/24/25 21:30: Urine Color Yellow, Urine Appearance Clear, Urine pH 7.5, Ur Specific [place] 1.010, Urine Protein Negative, Urine Glucose (UA) Negative, Urine Ketones Negative, Urine Blood Negative, Urine Nitrate Negative, Urine Bilirubin Negative, Urine Urobilinogen 0.2, Ur Leukocyte Esterase Negative, Urine RBC 10-20, Urine WBC 10-20, Ur Squamous Epith Cells 20-50, Urine Bacteria 1+, Urine Opiates Screen Negative, Urine Methadone Screen Negative, Ur Barbituates Screen Negative, Ur Phencyclidine Scrn Negative, Ur Amphetamines Screen Negative, U Benzodiazepines Scrn Negative, Urine Cocaine Screen Negative, U Marijuana (THC) Screen Negative 04/24/25 20:28 04/24/25 20:28 Orders (Tests/Meds): ED MEDICATIONS Generic Name Dose Route Start Last Admin Trade Name Freq PRN Reason Stop Dose Admin Sodium Chloride 10 ml 04/24/25 20:27 Sodium Chloride 0.9% 10ml Flush Syringe IV 05/24/25 20:26 NEEDED PRN Maintain IV Site Discontinued Medications Generic Name Dose Route Start Last Admin Trade Name Freq PRN Reason Stop Dose Admin Iopamidol 70 ml 04/24/25 20:34 04/24/25 20:35 Iopamidol-370 (76%);100ml Bottle IV 04/24/25 20:35 70 ml ONCE ONE Administration Sodium Chloride 50 ml 04/24/25 20:34 04/24/25 20:35 0.9 % Sodium Chloride 50 Ml Vial IV 04/24/25 20:35 50 ml ONCE ONE Administration Sodium Chloride 10 ml 04/24/25 20:34 04/24/25 20:35 Sodium Chloride 0.9% 10ml Syr (Rad Only) IV 04/24/25 20:35 10 ml ONCE ONE Administration ORDERS Category Date Time Status CT angio head Stat Cat Scan 04/24/25 20:[address] angio neck Stat Cat Scan 04/24/25 20:[address] cervical spine wo con Stat Cat Scan 04/24/25 20:[address] head/brain wo con Stat Cat Scan 04/24/25 20:28 Completed CXR --portable [XR chest portable] Stat Exams 04/24/25 20:30 Completed Activated Partial Thrombo Time Stat Lab 04/24/25 20:28 Completed Complete Blood Count Auto Diff Stat Lab 04/24/25 20:28 Completed Comprehensive Metabolic Panel Stat Lab 04/24/25 20:28 Completed Drug Screen,Urine Stat Lab 04/24/25 21:30 Completed Ethyl Alcohol Stat Lab 04/24/25 20:28 Completed Lipid Panel Stat Lab 04/24/25 20:28 Completed Prothrombin Time INR Stat Lab 04/24/25 20:28 Completed Troponin I Q3H Lab 04/24/25 23:30 Ordered Troponin I Q3H Lab 04/25/25 02:30 Ordered Troponin I Stat Lab 04/24/25 20:28 Completed Urinalysis and Microscopic Stat Lab 04/24/25 21:30 Completed Urine Culture Stat Micro 04/24/25 21:30 Received ECG Request Stat Y 04/24/25 20:28 Ordered Medical Decision Narrative: In summary, this patient is a 64-year-old male presenting to the Emergency Department for evaluation of concern for leaning more to the left, nursing facility was concerned for possible stroke. He also had a recent fall 3 days ago and was not evaluated after this. Differential diagnoses considered include but are not limited to CVA, intracranial hemorrhage, skull fracture, C-spine fracture, polytrauma. Ruling out the most morbid conditions drove assessment. It should be noted patient's history includes hypertension, hyperlipidemia, hypothyroidism, CAD, COPD, TBI which may or may not be at goal therapy. This complicates all aspects of care by increasing patient's risk for morbidity. I reviewed patient's past medical records and noted multiple previous ED evaluations for falls in the past. Upon exam, the patient is sitting upright in no acute distress and is neurologically intact with the exception of not being able to answer how old he is, where he is, and why he is here. He does not have any focal deficits that would suggest acute stroke to me. He has no significant drift. Vitals reassuring on cardiac telemetry. Cardiopulmonary and abdominal exams are benign. I do not note any other concerns for traumatic injury on clinical exam, as the patient has no significant tenderness anywhere. He also denies any complaints, though he does have history of TBI and baseline dementia which limits assessment. Workup included lab evaluation to evaluate for infectious, metabolic, cardiac derangements as well as chest x-ray, EKG, CT head, CT angiogram head and neck, and CT cervical spine without contrast. Unfortunately even if this is an acute stroke, the patient presents outside of window for thrombectomy or thrombolytics, as last known well would have been sometime yesterday, as he reportedly has been leaning over all day today. On subsequent reassessments, the patient sitting upright no acute distress, is alert and conversational without any focal neurologic deficits. Vitals are reassuring on cardiac telemetry I independently interpreted CT scans and x-ray prior to the radiologist read and noted no acute fracture, no intracranial hemorrhage, no obvious large area of ischemia.. Please see their read for final interpretation. Labs were obtained that demonstrated reassuring CBC with no significant leukocytosis or anemia, reassuring chemistry, negative troponin, urinalysis that is contaminated with skin cells but not concerning for infection. He does have hyperlipidemia but is already on a statin. Ultimately, workup today has been reassuring against stroke, and again he presents outside of any window for intervention even if this had been a stroke. I feel he is completely stable and EMS reported that he is at his baseline, so I feel that he is appropriate for discharge back to custodial facility with plans for very close outpatient follow-up. Strict return precautions given. Critical Care Critical Care Time Critical Care Time: Yes Attestation: On 04/24/25, the high probability of a clinically significant, sudden or life threatening deterioration of the following system(s) required my full and direct attention, intervention and personal management. The time I documented below is in addition to time spent performing reported procedures but includes the following listed in this critical care notation. Total Time Total Critical Care Time: 35
[2025-04-24] MEDS: SODIUM CHLORIDE 0.9% 10ML SYR (RAD ONLY) 10 ML IV (20:35)
[2025-04-24] MEDS: IOPAMIDOL-370 (76%);100ML BOTTLE 70 ML IV (20:35)
[2025-04-24] MEDS: 0.9 % SODIUM CHLORIDE 50 ML VIAL IV (20:35)
[2025-04-24 20:47] LABS: Basophils % 0.4 % (0.1-2.0); Eosinophils # 0.2 Kmm3 (0.0-0.4); Eosinophils % 2.7 % (0.1-12.0); Hematocrit 41.7 % (42.0-52.0); Hemoglobin 13.9 g/dL (14.1-18.0); Immature Granulocytes # 0.03 10^3uL; Immature Granulocytes % 0.4 %; Lymphocytes # 1.8 K/mm3 (0.7-4.5); Lymphocytes % 24.5 % (10-50); Mean Corpuscular HGB Conc 33.3 g/dL (31.8-35.4); Mean Corpuscular Hemoglobin 31.6 pg (27.0-31.2); Mean Corpuscular Volume 94.8 fl (80-94); Mean Platelet Volume 13.8 fl (7.4-10.4); Monocytes # 1.2 K/mm3 (0.1-1.0); Monocytes % 16.1 % (1.7-9.3); Neutrophils # 4.1 K/mm3 (1.8-7.8); Neutrophils % 55.9 % (37.0-80.0); Nucleated Red Blood Cells # 0 10^3/uL; Nucleated Red Blood Cells % 0 %; Platelet Count 209 K/mm3 (142-424); Red Cell Distribution Width 13.4 % (11.5-17.5); Red Cell Distribution Width-SD 47.1 fL; White Blood Count 7.3 K/mm3 (4.8-10.8)
[2025-04-24 20:49] LABS: Alanine Aminotransferase 17 U/L (12-78); Albumin Level 3.5 g/dl (3.5-5.0); Alkaline Phosphatase 71 U/L (38-126); Anion Gap 5.2 mEq/L (5-15); Aspartate Amino Transferase 30 U/L (17-59); Bilirubin,Total 0.4 mg/dl (0.2-1.3); Blood Urea Nitrogen 14 mg/dl (9-20); Calcium 9.4 mg/dl (8.4-10.2); Carbon Dioxide 36 mmol/L (22.0-30.0); Chloride 98 mmol/L (98-107); Chol/HDL Ratio 4.3 (1-3.5); Cholesterol 121 mg/dl (140-200); Estimated Glomerular Filt Rate 135 ml/min (>60); GFR (African American) 164 ML/MIN (>60); Globulin 3.4 g/dL (1.3-3.2); Glucose 115 mg/dl (74-100); HDL Cholesterol 28 mg/dl (40-60); Potassium 4.2 mmoL/L (3.5-5.1); Sodium 135 mmol/L (136-145); Total Protein,Serum 6.9 g/dl (6.3-8.2); Triglycerides 215 mg/dl (30-150); VLDL Cholesterol 43 mg/dL (0-40)
[2025-04-24 20:53] LABS: Ethyl Alcohol < 10 mg/dl (0-10)
[2025-04-24 20:55] LABS: Activated Partial Thrombo Time 25.1 seconds (22.8-30.6); INR 0.93 (0.9-1.1); Prothrombin Time 10.4 seconds (10.1-12.5)
--- OUTSIDE RECORDS SUMMARY | 2025-04-24 20:56 | XMS_ITS | Encounter Summary ---
Author Organization [employer] Address [address] [place] [address] Care Team Providers Care Veterinary Surgery Technician Name Role Phone Unavailable Primary Care Provider Unavailabl e Encounter Details Date Type Department Care Team (Late st Contact Info) Description 11/25/2020 Transcribed Document [facility] [place] Family Medicine [facility] [place] [address] ProviderFabi MD [address] [place] [address] Social History Tobacco Use Types Packs/Day Years Used Date Smoking Tobacco: Never Assessed Sex and Gender Information Value Date Recorded Sex Assigned at Male 05/01/2022 10:55 AM CDT Legal Sex Male 10:55 AM CDT Gender Identity Male 05/01/2022 10:55 AM CDT Sexual Orientation Not on file documented as of this encounter Miscellaneous Notes * Cerner Conversion Note - Fabi ProviderMD - 11/25/2020 10:54 AM COLLEGE ARCHIVIST PAT Adult Entered On: 11/25/2020 10:59 EST Performed On: 11/25/2020 10:54 EST by Alli Greene Rn Vital Measurements Temperature Source : Temporal artery scanning Temperature Mode : Fahrenheit Temperature, Fahrenheit : 97.6 Deg F Clinical Temperature, C : 36.4 Deg C Pulse Method : Pulse Oximetry Peripheral Pulse Rate : 75 bpm Respiratory Rate : 18 Breaths/Min Blood Pressure Location : Arm, right upper Blood Pressure Source : Non-Invasive BP Device Blood Pressure Position : Sitting Systolic Blood Pressure : 130 mmHg Diastolic Blood Pressure : 93 mmHg (HI) Oxygen Saturation : 95 % Oxygen Therapy Mode : Room air Constance Boone RN - 11/28/2020 12:34 EST Pain Assessment Pain Assessment : Initial assessment Pain Scale Goal : 3 Constance Boone RN - 11/28/2020 12:34 EST Height and Weight, Clinical Dosing Clinical Dosing Weight : 68.64 kg Weight, Pounds : 151 lb Body Surface Area (BSA) : 1.76 m2 Body Mass Index : 25.2 kg/m2 (HI) Constance Boone RN - 11/28/2020 12:48 EST Height Source : Measured Height Entry Format : [place] Height, Feet : 0 ft(Converted to: 0 cm, 0 Inch) Constance Boone RN - 11/28/2020 12:34 EST Height, Inches : 65 Inch(Converted to: 5 ft 5 Inch, 165.10 cm) Clinical Height : 165.1 cm Constance Boone RN - 11/28/2020 12:48 EST Weight Source : Standing scale Weight Entry Format : Obion Constance Boone RN - 11/28/2020 12:34 EST [place] Body Weight : 61 kg Constance Boone RN - 11/28/2020 12:48 EST Health Histories Smoking Status : Former smoker, quit more than 30 days ago Smokeless Tobacco Status : Never Alli Greene Rn - 11/25/2020 10:54 EST Social History (As Of: 11/28/2020 12:44:01 EST) Tobacco: Former smoker, quit more than 30 days ago Smoking Status. Never Smokeless Tobacco Status. None Smokeless Tobacco Use History. Last Used: quit when he got to the facility July 25, 2019. . (Last Updated: 11/25/2020 10:54:13 EST by Alli Greene Rn) Alcohol: Alcohol Use History No. Use in Last 12 Months: No. (Last Updated: 11/25/2020 10:54:13 EST by Alli Greene Rn) Substance Abuse: Drug Use Hx: No. Use in Last 12 Months: No. (Last Updated: 11/25/2020 10:54:13 EST by Alli Greene Rn) Infectious Disease History Where are the test results? : Paper Copy on chart Date of COVID-19 test known? : Yes Date of COVID-19 Test : 11/29/2020 EST Has the patient ever been tested for COVID-19? : Yes, Patient stated results Negative ALHAJI LEGER RN - 11/30/2020 11:39 EST Does patient have symptoms of COVID-19? : No COVID19 Screening : Unknown Experiencing Infectious Disease Symptoms : No symptoms Physical contact outside [place] in the last 30 days : Unable to obtain Tuberculosis Symptoms : None Constance Boone RN - 11/28/2020 12:40 EST Infectious Disease History : None Constance Boone RN - 11/28/2020 12:34 EST COVID19 PreProcedure Screening Date PreProcedure COVID-19 test known? : Yes Date of PreProcedure COVID-19 : 11/29/2020 EST Has patient been isolated since the test : Yes Exposed to COVID19 symptoms since test? : No ALHAJI LEGER RN - 11/30/2020 11:39 EST Is this an Emergent or Add on Procedure? : No Constance Boone RN - 11/28/2020 12:40 EST Anesthesia/Transfusion History Family History of Anesthesia Reaction : No prior transfusion(s) Transfusion History : Unknown Family History of Anesthesia Reaction : Unknown Anesthesia History Comment : Possibly no surgical history Alli Greene Rn - 11/25/2020 10:54 EST Functional Assessment Functional ADL Evaluation Index EBN Bathing : Requires assistance (1) Dressing : Requires assistance (1) Toileting : Requires assistance (1) Transferring Bed or Chair : Requires assistance (1) Continence : Requires assistance (1) Feeding : Independent (2) Alli Greene Rn - 11/25/2020 10:54 EST ADL Index Score : 7 Alli Greene Rn - 11/25/2020 10:54 EST Advance Directive Copy Advance Directive Verified/on Chart : No Constance Boone RN - 11/28/2020 12:40 EST Patient has Advance Directive *Q : Yes, Advance Directive not with the patient Advance Directive Type : Living will Alli Greene Rn - 11/25/2020 10:54 EST Spiritual/Cultural Needs Any Spiritual/Cultural Needs or Requests : No Alli Greene Rn - 11/25/2020 10:54 EST [place] Suicide Severity Rating Scale (C-SSRS) CSSRS Past Month Wish to be : No CSSRS Past Month Suicidal Thoughts : No CSSRS Lifetime Suicide Behavior : No Suicide Severity Rating Score : 0 Suicide Severity Rating : No Additional Care Required at this time Alli Greene Rn - 11/25/2020 10:54 EST Psychosocial History Currently in Unsafe Situation : No Alli Greene Rn - 11/25/2020 10:54 EST General Info Preferred Name : Mario Mode of Arrival on Unit : Wheelchair Support Person/Patient Superintendent Compressor Stations : Yes Support Person/Pt Rep Name : [facility] Support Person/Pt Rep Contact Information : [phone] ext. 100 Want Family/Rep/Phys Notified of Admit : No Alli Greene Rn - 11/25/2020 10:54 EST Emergency Contact #1 : faheem hahn Emergency Contact #1 Phone Number : `[phone] Emergency Contact #1 Relationship : `sister Emergency Contact #2 : `hood hero Emergency Contact #2 ` Emergency Contact #2 Relationship : sisterConstance BacaRAYO - 11/28/2020 12:34 EST Information Obtained From : Care provider Information Obtained from, Name(s) : Misa, Social Service Primary Language : Hong Konger Preferred Communication Mode : Verbal Communication Barrier : Cognitive Tape Cutter Needed : No Alli Greene Rn - 11/25/2020 10:54 EST Narendra Scale Narendra Sensory Perception : Very limited Narendra Moisture : Occasionally moist Narendra Activity : Walks occasionally Narendra Mobility : Very limited Narendra Nutrition : Adequate Narendra Friction and Shear : No apparent problem Narendra Score : 16 Alli Greene Rn - 11/25/2020 10:54 EST Sleep Apnea Risk Assmt BiPAP/CPAP Ordered for Home Use : Yes Hx of Obstructive Sleep Apnea Diagnosis : Yes BiPAP/CPAP Used at Home : No Reason BiPAP/CPAP Not Used at Home : We've tried him on the CPAP in multiple trials and he won't wear it. He should, but he won't wear it. Age over 50 Years Old : Yes Gender Male : Yes Alli Greene Rn - 11/25/2020 10:54 EST documented in this encounter Plan of Treatment Not on file documented as of this encounter Visit Diagnoses Not on filedocumented in this encounter
--- OUTSIDE RECORDS SUMMARY | 2025-04-24 20:56 | XMS_ITS | Encounter Summary ---
Author Organization [employer] Address [address] [place] [address] Care Team Providers Care Disk Operator Name Role Phone Unavailable Primary Care Provider Unavailabl e Encounter Details Date Type Department Care Team (Late st Contact Info) Description 11/28/2020 Transcribed Document [facility] [place] Family Medicine [facility] [place] [address] ProviderFabi MD [address] [place] [address] Social History Tobacco Use Types Packs/Day Years Used Date Smoking Tobacco: Never Assessed Sex and Gender Information Value Date Recorded Sex Assigned at Male 05/01/2022 10:55 AM CDT Legal Sex Male 10:55 AM CDT Gender Identity Male 05/01/2022 10:55 AM CDT Sexual Orientation Not on file documented as of this encounter Miscellaneous Notes * Cerner Conversion Note - Fabi ProviderMD - 11/28/2020 2:02 PM WEB DEVELOPMENT MANAGER UM Authorization Entered On: 11/28/2020 14:03 EST Performed On: 11/28/2020 14:02 EST by TRA GOLDBERG, Structural Steel Equipment Erector Primary Insurance Authorization Authorization and Policy Numbers : Insurance 1 Health Plan: MEDICARE Policy Number: [id number] Authorization Number: Insurance 2 Health Plan: [place] Policy Number: [id number] Authorization Number: Insurance Primary Name : Medicare Authorization Status-Primary : No precert required Authorization Number-Primary : NPR for Medicare Authorized Service Begin Date-Primary : 11/30/2020 EST Authorization Comments-Primary : Pt is mauricio for INPT Cervical Discectomy Fusion Posterior on 11-30-20 Medicare: NPR Historical Authorization Comments-Primary : No Authorization Comments Found TRA GOLDBERG, Structural Steel Equipment Erector - 11/28/2020 14:02 EST Secondary Insurance Authorization Authorization and Policy Numbers : Insurance 1 Health Plan: MEDICARE Policy Number: [id number] Authorization Number: Insurance 2 Health Plan: [place] Policy Number: [id number] Authorization Number: Insurance Secondary Name : [facility] [id number] Authorized Service Begin Date-Secondary : 11/30/2020 EST Historical Authorization Comments-Secondary : No Authorization Comments Found TRA GOLDBERG, Structural Steel Equipment Erector - 11/28/2020 14:02 EST Electronically signed by Cruzito [facility] Conversion Auto Research Engineer Cerner at 02/19/2023 10:03 AM CDT documented in this encounter Plan of Treatment Not on file documented as of this encounter Visit Diagnoses Not on filedocumented in this encounter
--- OUTSIDE RECORDS SUMMARY | 2025-04-24 20:56 | XMS_ITS | Encounter Summary ---
Author Organization [employer] Address [address] [place] [address] Care Team Providers Care Multimedia Project Manager Name Role Phone Unavailable Primary Care Provider Unavailabl e Encounter Details Date Type Department Care Team (Late st Contact Info) Description 11/30/2020 Transcribed Document [facility] Family Medicine [facility] [place] [address] ProviderFabi MD [address] [place] [address] Social History Tobacco Use Types Packs/Day Years Used Date Smoking Tobacco: Never Assessed Sex and Gender Information Value Date Recorded Sex Assigned at Male 05/01/2022 10:55 AM CDT Legal Sex Male 10:55 AM CDT Gender Identity Male 05/01/2022 10:55 AM CDT Sexual Orientation Not on file documented as of this encounter Miscellaneous Notes * Cerner Conversion Note - Fabi ProviderMD - 11/30/2020 4:09 PM INSURANCE RATER [facility] Main OR Preop Summary Primary Physician: BRAD CASTILLO MD-SNU Finalized Date/Time: 12/11/20 16:34:08 Pt. Name: ALEXI GRIJALVA DOUGCEZAR /Sex: 1960 Male Med Rec #: [id number] Physician: BRAD CASTILLO MD-SNU Financial #: [id number] Pt. Type: I Room/Bed: 647/1 Admit/Disch: 11/30/20 06:39:00 - 12/02/20 16:16:00 Institution: [facility] PreOp Case Times Entry 1 In Preop 11/30/20 10:20:00 Ready for Holding n/a Room Patient Ready for 11/30/20 14:20:00 Surgery Patient Out of Preop 11/30/20 14:57:00 Patient Out of n/a Holding Room Last Modified By: Meli Grimaldo Nurse Hide Grader 12/11/20 16:34:04 [facility] PreOp Case Times Audit 12/11/20 16:34:04 French Tutor: [id number] Modifier: [id number] <+> 1 Patient Out of Preop Finalized By: Meli Grimaldo, Nurse Oven Technician Signatures Signed By: Meli Grimaldo Nurse Hide Grader 12/11/20 16:34 Electronically signed by Cruzito [facility] Conversion Fire Apparatus Sprinkler Inspector Cerner at 02/19/2023 9:43 AM CDT documented in this encounter Plan of Treatment Not on file documented as of this encounter Visit Diagnoses Not on filedocumented in this encounter
--- OUTSIDE RECORDS SUMMARY | 2025-04-24 20:56 | XMS_ITS | Clinical Summary ---
Author Organization [employer] Address [address] [place] [address] Care Team Providers Care Chicken Stuffer Name Role Phone Unavailable Primary Care Provider Unavailabl e Social History Tobacco Use Types Packs/Day Years Used Date Smoking Tobacco: Never Assessed Sex and Gender Information Value Date Recorded Sex Assigned at Male 05/01/2022 10:55 AM CDT Legal Sex Male 10:55 AM CDT Gender Identity Male 05/01/2022 10:55 AM CDT Sexual Orientation Not on file Plan of Treatment Not on file
--- OUTSIDE RECORDS SUMMARY | 2025-04-24 20:56 | XMS_ITS | Encounter Summary ---
Author Organization [employer] Address [address] [place] [address] Care Team Providers Care Physicist Solid State Name Role Phone Unavailable Primary Care Provider Unavailabl e Encounter Details Date Type Department Care Team (Late st Contact Info) Description 12/05/2020 Transcribed Document [facility] Family Medicine [facility] [place] [address] ProviderFabi MD [address] [place] [address] Social History Tobacco Use Types Packs/Day Years Used Date Smoking Tobacco: Never Assessed Sex and Gender Information Value Date Recorded Sex Assigned at Male 05/01/2022 10:55 AM CDT Legal Sex Male 10:55 AM CDT Gender Identity Male 05/01/2022 10:55 AM CDT Sexual Orientation Not on file documented as of this encounter Miscellaneous Notes * Cerner Conversion Note - Fabi ProviderMD - 12/05/2020 10:59 PM GRAB HOOKER PLEASE MODIFY BEFORE SIGNING CLINICAL DOCUMENTATION CLARIFICATION FORM: Dear : Daniel Howard Date / Time: 12/06/2020 Please exercise your independent, professional judgment in responding to the clarification form. Clinical indicators are provided on the bottom of this form for your review Please check appropriate box(es): [ ] Pneumonia secondary to (specify organism / underlying disease) [ ] Simple Pneumonia [ X] No diagnosis of pneumonia [ ] Pneumonia of unknown etiology [ ] Other diagnosis [ ] Unable to determine Physician Signature: Daniel Howard PA-C Date/Time: 0744 12/19/2020 For continuity of documentation, please document condition throughout progress notes and discharge summary. Thank You. To be completed by CDI/Coding staff for physician review: Present Clinical Indicators - Signs / Symptoms / Labs Results and Location in Medical Record [ x ] Patient did have one mild fever of 100.3 postoperatively Documented in discharge summary on 12/02/[address] Daniel Howard [ x ] He had postoperative chest x-rays performed the first on 12/01 that showed bibasilar opacities and questionable intraperitoneal free air, repeat chest x-ray on 12/02 demonstrated bibasilar atelectasis Documented in discharge summary on 12/02/[address] Daniel Howard [ x ] Respiratory rate 25, O2 sats 93% on 2L NC Documented in Result review [ x ] Chest X-ray indicates pneumonia Documented in progress note on 12/01/[address] Danielle Rosales [ x ] Chest X-ray yesterday showed bibasilar opacities likely pna Documented in progress note on 12/02/[address] Daniel Howard [ x ] Opacities as above likely secondary to pneumonia Documented in chest X-ray on 12/01/2020 [ x ] He also had mild leukocytosis Documented in discharge summary on 12/02/[address] Daniel Howard Present Risk Factors Results and Location in Medical Record [ x ] Vascular dementia with behavior disturbance Documented in H&P on 11/30/[address] Angel Todd [ x ] Dysphagia & GERD Documented in H&P on 11/30/[address] Angel Todd [x ] History of COPD Documented in H&P on 11/30/[address] Angel Todd [ x ] Former smoker Documented in H&P on 11/30/[address] Angel Todd Present Treatments Results and Location in Medical Record [ x ] IV Ancef As per MAR sheet on 11/30/2020 [ x ] Serial CXRs Documented in radiology report [ x ] Albuterol As per MAR sheet on CDS/Door Serviceman Signature: Henry.Korey Phone #: [phone] Extn [phone] Date/Time: 12/06/2020 This is a permanent part of the Medical Record [id number] [facility] Updated: Electronically signed by Cruzito, Abraham Conversion Bean Picker Machine Operator Cerner at 02/19/2023 10:00 AM CDT documented in this encounter Plan of Treatment Not on file documented as of this encounter Visit Diagnoses Not on filedocumented in this encounter
--- OUTSIDE RECORDS SUMMARY | 2025-04-24 20:56 | XMS_ITS | Referral Summary ---
Author Organization [employer] Address [address] [place] [address] Care Team Providers Care Splitter Machine Name Role Phone Unavailable Primary Care Provider [...]
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
--- OUTSIDE RECORDS SUMMARY | 2025-04-24 20:57 | XMS_ITS | Encounter Summary ---
Author Organization [employer] Address [address] [place] [address] Care Team Providers Care Radiology Special Procedure Tech Name Role Phone Unavailable Primary Care Provider Unavailabl e Encounter Details Date Type Department Care Team (Late st Contact Info) Description 12/02/2020 Transcribed Document [facility] [place] [facility] [place] [address] ProviderFabi MD [address] [place] [address] Social History Tobacco Use Types Packs/Day Years Used Date Smoking Tobacco: Never Assessed Sex and Gender Information Value Date Recorded Sex Assigned at Male 05/01/2022 10:55 AM CDT Legal Sex Male 10:55 AM CDT Gender Identity Male 05/01/2022 10:55 AM CDT Sexual Orientation Not on file documented as of this encounter Miscellaneous Notes * Cerner Conversion Note - Fabi ProviderMD - 12/02/2020 2:30 PM HEAVY DUTY TRUCK MECHANIC On Going Discharge Planning Entered On: 12/02/2020 14:47 EST Performed On: 12/02/2020 14:30 EST by JAQUI COLÓN RN-Housing DirectorRadio Script Writer Progress Note Discharge Arrangements : Patient Post-Acute Information Patient Name: ALEXI GRIJALVA Gender: Male : [birth year] Age: 60 Years No Post-Acute Placement(s) Listed No Post-Acute Service(s) Listed No [place] Referral(s) Listed Discharge Options Discussed with Patient : Acute rehabilitation Barriers to Discharge Unresolved : All resolved Designation of Choice Signed : Yes Patient Offered Choice/Affiliations Explained : Yes List/Info Provided Pt/Fam/Support Person : Other: acute rehab Were Referrals Sent to Post Acute Providers : Yes Does the Patient have a Floor to SNF Benefit? : Yes Physician Agreeable to Move Forward with D/C Plan? : Yes Did you Attend Multidisciplinary Rounds? : Yes JAQUI COLÓN RN-Housing Director - 12/02/2020 14:30 EST Electronically signed by [facility] Conversion Software Validation Technician Cerner at 02/19/2023 9:44 AM CDT documented in this encounter Plan of Treatment Not on file documented as of this encounter Visit Diagnoses Not on filedocumented in this encounter
--- OUTSIDE RECORDS SUMMARY | 2025-04-24 20:57 | XMS_ITS | Encounter Summary ---
Author Organization [employer] Address [address] [place] [address] Care Team Providers Care Territory Sales Consultant Name Role Phone Unavailable Primary Care Provider Unavailabl e Encounter Details Date Type Department Care Team (Late st Contact Info) Description 12/02/2020 Transcribed Document [facility] [place] [facility] [address] ProviderFabi MD [address] [place] [address] Social History Tobacco Use Types Packs/Day Years Used Date Smoking Tobacco: Never Assessed Sex and Gender Information Value Date Recorded Sex Assigned at Male 05/01/2022 10:55 AM CDT Legal Sex Male 10:55 AM CDT Gender Identity Male 05/01/2022 10:55 AM CDT Sexual Orientation Not on file documented as of this encounter Miscellaneous Notes * Cerner Conversion Note - Historical ProviderMD - 12/02/2020 1:42 PM FIBRE CEMENT MOULDER Nursing Discharge Summary Entered On: 12/02/2020 13:43 EST Performed On: 12/02/2020 13:42 EST by SILVIO ANTONY oem sales manager Documentation Discharge Date/Time : 12/02/2020 15:30 EST Patient Disposition, General : Discharge Discharge To : Rehabilitation unit/facility Mode Of Departure, General Discharge : Stretcher Accompanied By, Discharge : Unaccompanied IV Discontinued : Yes Personal Belongings With Patient : Yes Prescriptions Given to Patient : Yes Discharge Instructions Reviewed With, Opportunity For Questions Given : Other: rehab Patient Education Completed : Yes Teaching Method : Explanation, Printed materials SILVIO ANTONY RN - 12/02/2020 13:42 EST Electronically signed by [facility] Conversion Sawsmith Ceryemi at 02/19/2023 9:48 AM CDT documented in this encounter Plan of Treatment Not on file documented as of this encounter Visit Diagnoses Not on filedocumented in this encounter
--- OUTSIDE RECORDS SUMMARY | 2025-04-24 20:57 | XMS_ITS | Encounter Summary ---
Author Organization [employer] Address [address] [place] [address] Care Team Providers Care Electronic Game Developer Name Role Phone Unavailable Primary Care Provider Unavailabl e Encounter Details Date Type Department Care Team (Late st Contact Info) Description 11/30/2020 Transcribed Document [facility] [address] [facility] [address] [place] [address] Angel Todd MD [address] [id number] Social History Tobacco Use Types Packs/Day Years Used Date Smoking Tobacco: Never Assessed Sex and Gender Information Value Date Recorded Sex Assigned at Male 05/01/2022 10:55 AM CDT Legal Sex Male 10:55 AM CDT Gender Identity Male 05/01/2022 10:55 AM CDT Sexual Orientation Not on file documented as of this encounter Miscellaneous Notes * Cerner Conversion Note - Angel Todd MD - 11/30/2020 12:08 PM EST Patient: ALEXI GRIJALVA Age: 60 years Sex: Male : 1960 Associated Diagnoses: None Author: YIN HAN APRN Chief Complaint neck, RUE pain Review of Systems ROS reviewed as documented in chart no change since last seen by surgeon Health Status Allergies: Allergic Reactions (Selected) Moderate Neosporin- Contact sensitivity response., Allergies (1) Active Reaction Neosporin Contact sensitivity response Current medications: (Selected) Inpatient Medications Ordered Ancef: 2 Gram, 100 mL/Hr, IV Piggyback, PREOP Phenergan: 12.5 mg, IV Push, Q6H, PRN: Nausea/Vomiting Zofran: 4 mg, IV Push, Q4H, PRN: Nausea/Vomiting cloNIDine: 0.2 mg, Oral, Q4H, PRN: Hypertension hydrALAZINE: 10 mg, IV Push, Q6H, PRN: Hypertension Documented Medications Documented Dulcolax Laxative 5 mg oral delayed release tablet: 1 Tab, Oral, Daily, PRN: as needed for constipation, 0 Refill(s) Flonase: 1 [place], Nostrils Both, Daily, 0 Refill(s) Incruse Ellipta 62.5 mcg/inh inhalation powder: 1 Puff, Inhalation, [id number], doses should be taken at least 24 hours apart, 30 Each, 0 Refill(s) MiraLax oral powder for reconstitution: 17 Gram, Oral, At Bedtime, 0 Refill(s) PRAVAstatin 20 mg oral tablet: 1 Tab, Oral, Daily, 30 Tab Tylenol Extra Strength 500 mg oral tablet: 2 Tab, Oral, Q6H, PRN: as needed for pain Ventolin HFA 90 mcg/inh inhalation aerosol: 2 Puff, Inhalation, Q4H, PRN: Wheezing, 0 Refill(s) Vitamin D3 2000 intl units (50 mcg) oral capsule: 1 Cap, Oral, Daily, 0 Refill(s) ZyPREXA 20 mg oral tablet: 1 Tab, Oral, Daily, 0 Refill(s) aspirin 81 mg oral delayed release tablet: 1 Tab, Oral, Daily, 30 Tab, 0 Refill(s) divalproex sodium 500 mg oral delayed release tablet: 1 Tab, Oral, BID, 90 Tab fluvoxaMINE 50 mg oral tablet: 1 Tab, Oral, BID, 0 Refill(s) levothyroxine 25 mcg (0.025 mg) oral tablet: 1 Tab, Oral, Daily, 0 Refill(s) mirtazapine 30 mg oral tablet: 1 Tab, Oral, Once a day (at bedtime), 30 Tab, 0 Refill(s) omeprazole: 40 mg, Oral, Daily, 0 Refill(s) pravastatin 40 mg oral tablet: 1 Tab, Oral, Daily, 0 Refill(s) risperidone 2 mg oral tablet: 1 Tab, Oral, BID, 60 Tab, Home Medications (17) Active aspirin 81 mg oral delayed release tablet 81 mg = 1 Tab, Oral, Daily divalproex sodium 500 mg oral delayed release tablet 500 mg = 1 Tab, Oral, BID Dulcolax Laxative 5 mg oral delayed release tablet 5 mg = 1 Tab, PRN, Oral, Daily Flonase 1 [place], Nostrils Both, Daily fluvoxaMINE 50 mg oral tablet 50 mg = 1 Tab, Oral, BID Incruse Ellipta 62.5 mcg/inh inhalation powder 1 Puff, Inhalation, [id number] levothyroxine 25 mcg (0.025 mg) oral tablet 25 mcg = 1 Tab, Oral, Daily MiraLax oral powder for reconstitution 17 Gram, Oral, At Bedtime mirtazapine 30 mg oral tablet 30 mg = 1 Tab, Oral, Once a day (at bedtime) omeprazole 40 mg, Oral, Daily PRAVAstatin 20 mg oral tablet 20 mg = 1 Tab, Oral, Daily pravastatin 40 mg oral tablet 40 mg = 1 Tab, Oral, Daily risperidone 2 mg oral tablet 2 mg = 1 Tab, Oral, BID Tylenol Extra Strength 500 mg oral tablet 1,000 mg = 2 Tab, PRN, Oral, Q6H Ventolin HFA 90 mcg/inh inhalation aerosol 2 Puff, PRN, Inhalation, Q4H Vitamin D3 2000 intl units (50 mcg) oral capsule 2,000 Int Units = 1 Cap, Oral, Daily ZyPREXA 20 mg oral tablet 20 mg = 1 Tab, Oral, Daily , Medications (5) Active Scheduled: (1) ceFAZolin 2 Gram, IV Piggyback, PREOP Continuous: (0) PRN: (4) cloNIDine 0.2 mg tab 0.2 mg 1 Tab, Oral, Q4H hydrALAZINE 20 mg/1 mL inj 10 mg 0.5 mL, IV Push, Q6H ondansetron 4 mg/2 mL inj 4 mg 2 mL, IV Push, Q4H promethazine 25 mg/1 mL inj 12.5 mg 0.5 mL, IV Push, Q6H Problem list: All Problems (Selected) Vitamin D deficiency / SNOMED CT 43667076 / Confirmed Vascular dementia with behavior disturbance / SNOMED CT 2276378694 / Confirmed Unsteadiness on feet / SNOMED CT 305304620 / Confirmed Traumatic brain injury / SNOMED CT 968423 / Confirmed AR (obstructive sleep apnea) / SNOMED CT 759488592 / Confirmed [place] (myocardial infarction) / SNOMED CT 05850467 / Confirmed Muscle weakness / SNOMED CT 89394744 / Confirmed Mixed hyperlipidemia / SNOMED CT 252217366 / Confirmed Hypothyroidism / SNOMED CT 02374700 / Confirmed History of obstructive sleep apnea / IMO 41812221 / Confirmed GERD (gastroesophageal reflux disease) / SNOMED CT 765425489 / Confirmed Repeated falls / SNOMED CT 809013369 / Confirmed Primary hypertension / SNOMED CT 90717652 / Confirmed Eating disorder / SNOMED CT 122194905 / Confirmed Dysphagia / SNOMED CT 40092979 / Confirmed Delusional disorder / SNOMED CT 12701012 / Confirmed COPD (chronic obstructive pulmonary disease) / SNOMED CT 19015628 / Confirmed Bipolar 2 disorder / SNOMED CT 736801511 / Confirmed Anxiety / SNOMED CT 44147828 / Confirmed Adjustment disorder with depressed mood / SNOMED CT 27594935 / Confirmed Gait disturbance / SNOMED CT 73152152 / Confirmed, Active Problems (21) Adjustment disorder with depressed mood Anxiety Bipolar 2 disorder COPD (chronic obstructive pulmonary disease) neck pain and RUE radiculopathy Delusional disorder Dysphagia Eating disorder Gait disturbance GERD (gastroesophageal reflux disease) History of obstructive sleep apnea Hypothyroidism [place] (myocardial infarction) Mixed hyperlipidemia Muscle weakness AR (obstructive sleep apnea) Primary hypertension Repeated falls Traumatic brain injury Unsteadiness on feet Vascular dementia with behavior disturbance Vitamin D deficiency Histories Past Medical History: No active or resolved past medical history items have been selected or recorded. Family History: No family history items have been selected or recorded. Procedure history: No active procedure history items have been selected or recorded. Social History Social & Psychosocial Habits Alcohol 11/25/2020 Alcohol [...] to the facility July 25, 2019. . Physical Examination VS/Measurements No qualifying data available General: Alert and oriented, No acute distress. Eye: Pupils are equal, round and reactive to light, Extraocular movements are intact, glasses. HENT: Normocephalic, [place]. Neck: Supple, Non-tender. Respiratory: Lungs are clear to auscultation, Respirations are non-labored. Cardiovascular: Normal rate, Regular rhythm, No murmur, No gallop, No edema. Gastrointestinal: Soft, Non-tender. Genitourinary: No costovertebral angle tenderness. Lymphatics: No lymphadenopathy neck, axilla, groin. Musculoskeletal: painful ROM neck, RUE pain/weakness, uses wc due to being a resident in a assisted. Integumentary: Warm, Dry, [place]. Neurologic: Alert, Oriented. Psychiatric: Cooperative, Appropriate mood & affect. Review / Management Results review: Labs (Last four charted values) WBC 8.4 (NOV 28) HB 16.3 (NOV 28) HCT 50.5 (NOV 28) Plt 190 (NOV 28) Na 141 (NOV 28) K 4.6 (NOV 28) Cl 104 (NOV 28) CO2 H 33 (NOV 28) BUN 21 (NOV 28) Cr 0.70 (NOV 28) Glu R 88 (NOV 28) Ca 10.0 (NOV 28) . Impression and Plan Condition: Stable. documented in this encounter Plan of Treatment Not on file documented as of this encounter Visit Diagnoses Not on filedocumented in this encounter
--- OUTSIDE RECORDS SUMMARY | 2025-04-24 20:57 | XMS_ITS | Encounter Summary ---
Author Organization [employer] Address [address] [place] [address] Care Team Providers Care Digital Strategist Senior Manager Name Role Phone Unavailable Primary Care Provider Unavailabl e Encounter Details Date Type Department Care Team (Late st Contact Info) Description 11/30/2020 Transcribed Document [facility] [place] Medicine [facility] [place] [address] ProviderFabi MD [address] [place] [address] Social History Tobacco Use Types [...] Conversion Note - Fabi ProviderMD - 11/30/2020 6:19 PM MANAGER ADULT Pain Assessment Entered On: 12/01/2020 15:49 EST Performed On: 12/01/2020 10:11 EST by MILTON KUMARI RN Intervention Information: oxyCODONE Performed by MILTON KUMARI RN on 12/01/2020 09:11:00 EST oxyCODONE,5mg Oral,Pain (Mild 1-3) Pain Assessment Pain Assessment : Follow-up assessment Pain Scale Goal : 3 Pain Scale Used : 0-10 Scale Pain Improved by Intervention : Yes MILTON KUMARI RN - 12/01/2020 15:49 EST Pain Scale Intensity : 3 MILTON KUMARI RN - 12/01/2020 15:49 EST Image 4 - Images currently included in the form version of this document have not been included in the text rendition version of the form. documented in this encounter Plan of Treatment Not on file documented as of this encounter Visit Diagnoses Not on filedocumented in this encounter
--- OUTSIDE RECORDS SUMMARY | 2025-04-24 20:57 | XMS_ITS | Encounter Summary ---
Author Organization [employer] Address [address] [place] [address] Care Team Providers Care Still Photographer Name Role Phone Unavailable Primary Care Provider Unavailabl e Encounter Details Date Type Department Care Team (Late st Contact Info) Description 12/02/2020 Transcribed Document [facility] [place] [address] [place] [address] ProviderFabi MD [address] [place] [address] Social History Tobacco Use Types [...] Conversion Note - Historical ProviderMD - 12/02/2020 3:15 PM BARBACK Event Note Entered On: 12/02/2020 15:15 EST Performed On: 12/02/2020 15:15 EST by SILVIO ANTONY RN Event Note Event Date/Time : 12/02/2020 15:15 EST Description of Event : called report to SILVIO Yen RN - 12/02/2020 15:15 EST documented in this encounter Plan of Treatment Not on file documented as of this encounter Visit Diagnoses Not on filedocumented in this encounter
--- OUTSIDE RECORDS SUMMARY | 2025-04-24 20:57 | XMS_ITS | Encounter Summary ---
Author Organization [employer] Address [address] [place] [address] Care Team Providers Care Addressograph Operator Name Role Phone Unavailable Primary Care Provider Unavailabl e Encounter Details Date Type Department Care Team (Late st Contact Info) Description 12/02/2020 Transcribed Document [facility] [address] [address] [facility] [address] [place] [address] Brad Castillo MD [address] [place] [address] Social History Tobacco Use Types Packs/Day Years Used Date Smoking Tobacco: Never Assessed Sex and Gender Information Value Date Recorded Sex Assigned at Male 05/01/2022 10:55 AM CDT Legal Sex Male 10:55 AM CDT Gender Identity Male 05/01/2022 10:55 AM CDT Sexual Orientation Not on file documented as of this encounter Miscellaneous Notes * Cerner Conversion Note - Brad Castillo MD - 12/02/2020 11:14 AM EST Patient: ALEXI GRIJALVA Age: 60 Years Sex: Male : 1960 Assessment/Plan POD 2 C2-T2 decompression and fusion for myelopathy tmax 100.3 @ 0059, repeat cxr shows atelectasis - sqh for dvt ppx - dc rachel - pt ot - don cervical collar when up and about - pt will need rehab at discharge, pts lives at a retirement, h/o TBI - medicine following VTE Prophylaxis - Medical Heparin 5,000 Units, SubCutaneous, Inj, Q8H, Routine, Start 12/01/20 7:58:00 EST (BROWN KENYON) Sequential Compression Device Start: 11/30/20 18:25:00 EST, Bilateral, Continuous Order (BRAD CASTILLO) Sequential Compression Device Start: 11/30/20 11:03:00 EST, Bilateral, Continuous Order (BRAD CASTILLO) Subjective pt feels sleepy after xray does not verbalize any complaints Vital Signs T: 37.2 ??C TMIN: 37 ??C TMAX: 37.9 ??C HR: 103(Monitored) RR: 16 BP: 111/74 SpO2: 93% Oxygen Settings (Last) Oxygen Therapy Mode: Nasal cannula (12/02/20 08:00:00) Oxygen Flow Rate: 2 Liter/Min (12/02/20 08:00:00) IV Fluids & Drains Last 24 Hours (7a-7a) Intake (1) Lactated Ringers Injection intravenous solution 1,000 mL 550 mL Intake Total: 550mL Output (1) Surgical Drain/Tube Output: 85 mL Output Total: 85mL Physical Exam sleepy, but easily arousable to voice nod head yes/no to questions equal production estimator incision cdi bandage intact and dry rachel has been removed facially symmetric documented in this encounter Plan of Treatment Not on file documented as of this encounter Visit Diagnoses Not on filedocumented in this encounter
--- OUTSIDE RECORDS SUMMARY | 2025-04-24 20:57 | XMS_ITS | Encounter Summary ---
Author Organization [employer] Address [address] [place] [address] Care Team Providers Care Commuter Train Operator Name Role Phone Unavailable Primary Care Provider Unavailabl e Encounter Details Date Type Department Care Team (Late st Contact Info) Description 12/01/2020 Transcribed Document [facility] [place] [facility] [place] [address] ProviderFabi MD [address] [place] [address] Social History Tobacco Use Types Packs/Day Years Used Date Smoking Tobacco: Never Assessed Sex and Gender Information Value Date Recorded Sex Assigned at Male 05/01/2022 10:55 AM CDT Legal Sex Male 10:55 AM CDT Gender Identity Male 05/01/2022 10:55 AM CDT Sexual Orientation Not on file documented as of this encounter Miscellaneous Notes * Cerner Conversion Note - Fabi Provider, - 12/01/2020 12:28 PM RESEARCH ADVISOR Treatment Intervention, PT Entered On: 12/02/2020 16:31 EST Performed On: 12/02/2020 11:36 EST by MACI LAND PT General Information, PT Visit Type, PT : Treatment Note Patient Orders : Order Date Order Ordering 11/30/2020 18:25 Physical Therapy Eval and Treat Ordered By: BRAD CASTILLO MD-SN 12/01/2020 12:28 Physical Therapy Additional Tx Ordered By: MACI LAND PT Active Diagnoses : 12/02/2020 12:00 Disease of spinal cord, unspecified 11/30/2020 12:00 Disease of spinal cord, unspecified Therapy Diagnosis, PT : decreased functional mobility and activity tolerance Admission Date : 11/30/2020 06:39 Personal Devices : Personal Devices No Devices Recorded Assistive Devices : Assistive Devices No Devices Recorded MACI LAND, PT - 12/02/2020 16:29 EST General Status Patient Received Status : Supine in bed Treatment Start Time : 12/02/2020 11:25 EST Patient Left Status : Supine in bed, Communication board completed, All needs met and within reach RN/PCT Informed Comment : [place] Treatment End Time : 12/02/2020 11:36 EST Treatment Time : 11 Minute(s) MACI LAND, PT - 12/02/2020 16:29 EST Functional Mobility Mobility Grid Supine to Sit : Rehab Moderate assistance Sit to Stand : Rehab Minimal assistance Bed to Chair : Rehab Minimal assistance Stand to Sit : Rehab Minimal assistance MACI LAND, PT - 12/02/2020 16:29 EST Gait Training/Assessment, PT Gait Assistance Level : Assist, minimal Walking Distance : steps to chair Ambulatory Devices : Gait belt, Walker, front wheel MACI LAND, PT - 12/02/2020 16:29 EST Edu Topics Physical Therapy Education Grid Role of Physical Therapy : Verbalizes understanding MACI LAND, PT - 12/02/2020 16:29 EST Indication Assesessment, PT Physical Therapy Indicated : Yes MACI LAND, PT - 12/02/2020 16:29 EST Plan of Care, PT PT Tx Plan/Goals Established w Patient : Yes MACI LAND, PT - 12/02/2020 16:29 EST Intermediate Goals Mobility/Bed Mobility LTG PT Grid Goal #1 Goal #2 Activity : Supine to sit Sit to stand Assist : Supervision or set-up Supervision or set-up Date to Meet : 12/15/2020 EST 12/15/2020 EST Goal Status : Intial Goal Intial Goal MACI LAND, PT - 12/02/2020 16:29 EST MACI LAND, PT - 12/02/2020 16:29 EST Transfer LTG Grid Goal #1 Destination : Wheelchair, standard Assist : Supervision or set-up Date to Meet : 12/15/2020 EST Goal Status : Intial Goal MACI LAND PT - 12/02/2020 16:29 EST Ambulation LTG Grid Goal #1 Device : Walker, front wheel Distance : 100' Assist : Supervision or set-up Date to Meet : 12/15/2020 EST Goal Status : Intial Goal MACI LAND, PT - 12/02/2020 16:29 EST Treatment Note Subjective Comment : Patient agreed to PTx. RN ok'd PTx. Additional Objective Information : Patient very lethargic today and required continued cues to remain alert. Patient sat at EOB with supervision and transfered to chair with Dale. Patient with alarm in chair. Assessment : Patient progressing with goals however continues to demonstrate decreased independence and safety with functional mobility, transfers, and gait. Patient also demonstrates decreased activity tolerance and dynamic balance. Patient would benefit from skilled PT services in order to improve in these areas, minimize functional deficits, promote safety and independence, improve quality of life and return to PLOF. Plan for Treatment : Continue POC MACI LAND, PT - 12/02/2020 16:29 EST Pain Assessment Pain Scaled Used : 0-10 Pain scale Pain Score Pre-Intervention : 0 MACI LNAD PT - 12/02/2020 16:29 EST Image 1 - Images currently included in the form version of this document have not been included in the text rendition version of the form. Anticipated Discharge Needs, OT/PT Anticipated Discharge to : Unit, rehabilitation, Unit, retirement Recommend Continued Therapy at Discharge : Yes MACI LAND PT - 12/02/2020 16:[address] [facility] Charges PT Ther Activities Ea 15 Min : 1 MACI LAND PT - 12/02/2020 16:29 EST documented in this encounter Plan of Treatment Not on file documented as of this encounter Visit Diagnoses Not on filedocumented in this encounter
--- OUTSIDE RECORDS SUMMARY | 2025-04-24 20:57 | XMS_ITS | Encounter Summary ---
Author Organization [employer] Address [address] [place] [id number] Care Team Providers Care Classroom Aide Name Role Phone Unavailable Primary Care Provider Unavailabl e Encounter Details Date Type Department Care Team (Late st Contact Info) Description 12/01/2020 Transcribed Document [facility] [place] Medicine [facility] [place] [address] ProviderFabi MD [address] [place] [address] Social History Tobacco Use Types Packs/Day Years Used Date Smoking Tobacco: Never Assessed Sex and Gender Information Value Date Recorded Sex Assigned at Male 05/01/2022 10:55 AM CDT Legal Sex Male 10:55 AM CDT Gender Identity Male 05/01/2022 10:55 AM CDT Sexual Orientation Not on file documented as of this encounter Miscellaneous Notes * Cerner Conversion Note - Historical ProviderMD - 12/01/2020 11:39 AM SERVICE LEARNING COORDINATOR UM Authorization Entered On: 12/01/2020 11:39 EST Performed On: 12/01/2020 11:39 EST by Allie Nicholas Rn-Utilization Review Primary Insurance Authorization Authorization and Policy Numbers : Insurance 1 Health Plan: MEDICARE Policy Number: [id number] Authorization Number: Insurance 2 Health Plan: MEDICAID OF [place] Policy Number: [id number] Authorization Number: Insurance Primary Name : Medicare Authorization Status-Primary : No precert required Authorization Number-Primary : NPR for Medicare Authorized Service Begin Date-Primary : 11/30/2020 EST Historical Authorization Comments-Primary : Comment 1: Pt is mauricio for INPT Cervical Discectomy Fusion Posterior on 11-30-20 Medicare: NPR (TRA GOLDBERG, Fur Repair Inspector 11/28/2020 14:02) Allie Nicholas Rn-Utilization Review - 12/01/2020 11:39 EST Electronically signed by [place], [facility] Conversion Street Contractor Cerner at 02/19/2023 10:01 AM CDT documented in this encounter Plan of Treatment Not on file documented as of this encounter Visit Diagnoses Not on filedocumented in this encounter
--- OUTSIDE RECORDS SUMMARY | 2025-04-24 20:57 | XMS_ITS | Encounter Summary ---
Author Organization [employer] Address [address] [place] [address] Care Team Providers Care Molder Sweep Name Role Phone Unavailable Primary Care Provider Unavailabl e Encounter Details Date Type Department Care Team (Late st Contact Info) Description 11/30/2020 Transcribed Document [facility] Neurology - [address] [facility] [address] [place] [id number] Angel Todd MD [address] [place] [address] Social History Tobacco Use Types [...] Note - Angel Todd MD - 11/30/2020 7:23 PM EST DATE OF PROCEDURE: 11/30/2020 SURGEON: Angel Todd MD PREOPERATIVE DIAGNOSIS: C3 through C7 cervical stenosis with cord compression and myelopathy. POSTOPERATIVE DIAGNOSIS: C3 through C7 cervical stenosis with cord compression and myelopathy. INDICATION FOR PROCEDURE: C3 through C7 cervical stenosis with cord compression and myelopathy. PROCEDURES: 1. C3 through C7 cervical laminectomy. 2. C2 through T2 posterior instrumentation and posterolateral fusion. 3. Intraoperative CT scan with spinal stereotactic navigation. BOILER SHOP MECHANIC: Daniel Howard. TYPE OF ANESTHESIA: GEA. DESCRIPTION OF PROCEDURE IN DETAIL: Once consent was noted to be on chart, Mr. Ribeiro was taken to the operating room. He was anesthetized and placed into the prone position on a Kumar spine frame with his head placed in the neutral position in the radiolucent head frame. He was intubated with video assistance with his neck in a good neutral position. SSEPs and motor-evoked potentials were performed intraoperatively throughout the surgery and showed no change. He was prepped and draped in usual sterile fashion. Preoperative antibiotics were given. A time-out was called. A low-dose CT scan was performed to plan the skin incision stereotactically from C2-T2. The 10 blade made midline incision. The cautery was used to dissect down to and through the fascia. Subperiosteal dissection was performed from C2-T2 bilaterally. Retractors were placed. A CT scan was performed intraoperatively of the segments after the spine was exposed using stereotactic navigation and the [employer] system. C2 pars screws were placed bilaterally. Lateral mass screws were placed into C4 and C5. Pedicle screws were then placed into C7, T1, and T2 bilaterally. With instrumentation in place, we have confirmed good placement of all screws with repeat CT scan. A laminectomy was then performed from C3-C7 fully decompressing the spinal cord posteriorly. Posterolateral bone and the lamina were decorticated from C2-T2 and [employer] with recycled lamina and spinous process were laid and placed lateral for posterolateral fusion. A renato was placed from C2-T2 and set screws were torqued to factory specifications throughout. A SCOTT drain was left into the epidural space. No CSF was visualized throughout this procedure, and 1 Vicryl reapproximated the paraspinous muscles and fascia. 2-0 Vicryl closed the space and closed the skin subcuticularly. The skin was stapled. Bacitracin and Covaderm were applied. Daniel Howard assisted throughout the majority of the procedure and Halle López assisted with the closure. SPECIMEN SENT: None. ESTIMATED BLOOD LOSS: 200 mL. DRAINS: Kumar-Marcos. COMPLICATIONS: None. /[id number] MD ARELIS Bella/EMMA / ARELIS / MODL /[id number] CC: Cielo Sanabria, documented in this encounter Plan of Treatment Not on file documented as of this encounter Visit Diagnoses Not on filedocumented in this encounter
--- OUTSIDE RECORDS SUMMARY | 2025-04-24 20:57 | XMS_ITS | Encounter Summary ---
Author Organization [employer] Address [address] [place] [address] Care Team Providers Care Coating Machine Helper Name Role Phone Unavailable Primary Care Provider Unavailabl e Encounter Details Date Type Department Care Team (Late st Contact Info) Description 12/02/2020 Transcribed Document [facility] Neurology - [address] [facility] [address] [place] [address] Angel Todd MD [address] [place] [address] Social History Tobacco Use Types Packs/Day Years Used Date Smoking Tobacco: Never Assessed Sex and Gender Information Value Date Recorded Sex Assigned at Male 05/01/2022 10:55 AM CDT Legal Sex Male 10:55 AM CDT Gender Identity Male 05/01/2022 10:55 AM CDT Sexual Orientation Not on file documented as of this encounter Miscellaneous Notes * Cerner Conversion Note - Angel Todd MD - 12/02/2020 9:46 AM EST Patient: ROSELYN GRIJALVA Age: 60 Years Sex: Male : 1960 pt is off floor getting cxr. cxr yesterday showed bibasilar opacities likely pna and ?free intraperitoneal air. he ambulated 120' yesterday. Will round again on the patient this afternoon. documented in this encounter Plan of Treatment Not on file documented as of this encounter Visit Diagnoses Not on filedocumented in this encounter
--- OUTSIDE RECORDS SUMMARY | 2025-04-24 20:57 | XMS_ITS | Encounter Summary ---
Author Organization [employer] Address [address] [place] [address] Care Team Providers Care Ferry Pilot Name Role Phone Unavailable Primary Care Provider Unavailabl e Encounter Details Date Type Department Care Team (Late st Contact Info) Description 12/02/2020 Transcribed Document [facility] [place] [facility] [place] [address] ProviderFabi MD [address] [place] [address] Social History Tobacco Use Types Packs/Day Years Used Date Smoking Tobacco: Never Assessed Sex and Gender Information Value Date Recorded Sex Assigned at Male 05/01/2022 10:55 AM CDT Legal Sex Male 10:55 AM CDT Gender Identity Male 05/01/2022 10:55 AM CDT Sexual Orientation Not on file documented as of this encounter Miscellaneous Notes * Cerner Conversion Note - Fabi Flores MD - 12/02/2020 1:44 PM 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 [facility] [place] [address] ROSELYN GRIJALVA :1960 Visit Time:11/30/2020 Your Visit Summary Your Care Team Admitting Physician - BRAD CASTILLO MD-SNU Attending Physician - BRAD CASTILLO MD-ARNOLD Primary Care Physician - ROSIBEL ODONNELL (REF)MD-[facility] Referring Physician - BRAD CASTILLO MD-SNU Your Diagnosis Cervical myelopathy, Cervical myelopathy Discharge Vitals Heart Rate (Monitored) 100 Respiratory Rate 16 Blood Pressure 116/75 What to do next Instructions From Your Care Team Discharge Activity: don collar when up and about, Discharge Activity: No heavy lifting over 10 lbs Diet: Discharge Diet: Resume usual diet as tolerated Follow-Up Appointments Follow Up with BRAD CASTILLO MD-SNU When 01/12/2021 01:00 PM EST Comments Appointment has been made Where: [address] [place] [address] [address] (SATURDAY ONLY) [place] [address]- Follow Up with BRAD CASTILLO MD-SNU When 12/19/2020 03:15 PM EST Comments Return for suture/staple removal Where: [address] [place] [address] [address] (SATURDAY ONLY) [place] [address]- Medications What How Much When Instructions Next Dose PRAVAstatin (pravastatin 40 mg oral tablet) 1 Tablet(s) Oral Every Day acetaminophen (Tylenol Extra Strength 500 mg oral tablet) 2 Tablet(s) Oral Every 6 Hours as needed for as needed for pain albuterol (Ventolin HFA 90 mcg/ inh inhalation aerosol) 2 Puff(s) Inhalation Every 4 Hours as needed for Wheezing aspirin (aspirin 81 mg oral delayed release tablet) 1 Tablet(s) Oral Every Day restart on pod 3 bisacodyl (Dulcolax Laxative 5 mg oral delayed release tablet) 1 Tablet(s) Oral Every Day as needed for as needed for constipation cholecalciferol (Vitamin D3 2000 intl units (50 mcg) oral capsule) 1 Capsule(s) Oral Every Day divalproex sodium (divalproex sodium 500 mg oral delayed release tablet) 1 Tablet(s) Oral At Bedtime fluticasone nasal (Flonase) 1 [place](s) Nostrils Both Every Day fluvoxaMINE (fluvoxaMINE 50 mg oral tablet) 1 Tablet(s) Oral Two Times A Day levothyroxine (levothyroxine 25 mcg (0.025 mg) oral tablet) 1 Tablet(s) Oral Every Day mirtazapine (mirtazapine 30 mg oral tablet) 1 Tablet(s) Oral Once a day (at bedtime) OLANZapine (ZyPREXA 20 mg oral tablet) 1 Tablet(s) Oral Every Day omeprazole 40 Milligram(s) Oral Every Day polyethylene glycol 3350 (MiraLax oral powder for reconstitution) 17 Gram(s) Oral At Bedtime umeclidinium (Incruse Ellipta 62.5 mcg/ inh inhalation powder) 1 Puff(s) Inhalation Interval Every 24 Hours doses should be taken at least 24 hours apart Take your medications faithfully. Do NOT skip medication. Do NOT stop taking medications without the direction of a physician. Carry a list of your medications with you at all times, and take this medication list with you to your first follow up visit. Report any side effects. Avoid herbal remedies unless discussed with your physician. As part of your treatment plan, your physician may have prescribed a limited course of a controlled substance. This medication may be given to help people with moderate or severe pain or for other medical conditions, but there are risks involved with treatment. Common side effects may include nausea, constipation, drowsiness, sweating, itching, dry mouth, and rash. More serious side effects may include cognitive and motor impairment, like problems with thinking, concentrating, alertness, and movement (e.g. slowed reflexes), and driving and operating heavy machinery can be dangerous. It is important for you to talk to your physician if you have these side effects or questions. These controlled substances can produce physical dependence and be habit-forming if taken for an extended period of time, which means that the body has gotten used to them and may experience withdrawal symptoms if they are abruptly stopped. Withdrawal symptoms can include runny nose, sweating, goose bumps, diarrhea, abdominal cramping, rapid heartbeat, difficulty sleeping, and nervousness. Please dispose of unused and medications per your retail pharmacy guidance. Allergies Neosporin (Contact sensitivity response) Immunizations This Visit No Immunizations Found Education Materials Laminectomy, Care After This sheet gives you information about how to care for yourself after your procedure. Your health care provider may also give you more specific instructions. If you have problems or questions, contact your health care provider. What can I expect after the procedure? After the procedure, it is common to have: ??? Some pain around your incision area. ??? Muscle tightening (spasms) across the back. Follow these instructions at home: Incision care ??? Follow instructions from your health care provider about how to take care of your incision area. Make sure you: ? Wash your hands with soap and water before and after you apply medicine to the area or change your bandage (dressing). If soap and water are not available, use hand electroplating laborer. ? Change your dressing as told by your health care provider. ? Leave stitches (sutures), skin glue, or adhesive strips in place. These skin closures may need to stay in place for 2 weeks or longer. If adhesive strip edges start to loosen and curl up, you may trim the loose edges. Do not remove adhesive strips completely unless your health care provider tells you to do that. ??? Check your incision area every day for signs of infection. Check for: ? More redness, swelling, or pain. ? More fluid or blood. ? Warmth. ? Pus or a bad smell. Medicines ??? Take gzxh-snw-msiooue and prescription medicines only as told by your health care provider. ??? If you were prescribed an antibiotic medicine, use it as told by your health care provider. Do not stop using the antibiotic even if you start to feel better. Bathing ??? Do not take baths, swim, or use a hot tub for 2 weeks, or until your incision has healed completely. ??? If your health care provider approves, you may take showers after your dressing has been removed. Activity ??? Return to your normal activities as told by your health care provider. Ask your health care provider what activities are safe for you. ??? Avoid bending or twisting at your waist. Always bend at your knees. ??? Do not sit for more than 20???30 minutes at a time. Lie down or walk between periods of sitting. ??? Do not lift anything that is heavier than 10 lb (4.5 kg) or the limit that your health care provider tells you, until he or she says that it is safe. ??? Do not drive for 2 weeks after your procedure or for as long as your health care provider tells you. ??? Do not drive or use heavy machinery while taking prescription pain medicine. General instructions ??? To prevent or treat constipation while you are taking prescription pain medicine, your health care provider may recommend that you: ? Drink enough fluid to keep your urine clear or pale yellow. ? Take obip-dbi-tbrarvl or prescription medicines. ? Eat foods that are high in fiber, such as fresh fruits and vegetables, whole grains, and beans. ? Limit foods that are high in fat and processed sugars, such as fried and sweet foods. ??? Do breathing exercises as told. ??? Keep all follow-up visits as told by your health care provider. This is important. Contact a health care provider if: ??? You have more redness, swelling, or pain around your incision area. ??? Your incision feels warm to the touch. ??? You are not able to return to activities or do exercises as told by your health care provider. Get help right away if: ??? You have: ? More fluid or blood coming from your incision area. ? Pus or a bad smell coming from your incision area. ? Chills or a fever. ? Episodes of dizziness or fainting while standing. ??? You develop a rash. ??? You develop shortness of breath or you have difficulty breathing. ??? You cannot control when you urinate or have a bowel movement. ??? You become weak. ??? You are not able to use your legs. Summary ??? After the procedure, it is common to have some pain around your incision area. You may also have muscle tightening (spasms) across the back. ??? Follow instructions from your health care provider about how to care for your incision. ??? Do not lift anything that is heavier than 10 lb (4.5 kg) or the limit that your health care provider tells you, until he or she says that it is safe. ??? Contact your health care provider if you have more redness, swelling, or pain around your incision area or if your incision feels warm to the touch. These can be signs of infection. This information is not intended to replace advice given to you by your health care provider. Make sure you discuss any questions you have with your health care provider. Document Released: 05/10/2006 Document Revised: 10/03/2018 Document Reviewed: 04/07/2017 Elsevier Patient Education ?? 2020 [employer] Laminectomy, Care After This sheet gives you information about how to care for yourself after your procedure. Your health care provider may also give you more specific instructions. If you have problems or questions, contact your health care provider. What can I expect after the procedure? After the procedure, it is common to have: ??? Some pain around your incision area. ??? Muscle tightening (spasms) across the back. Follow these instructions at home: Incision care ??? Follow instructions from your health care provider about how to take care of your incision area. Make sure you: ? Wash your hands with soap and water before and after you apply medicine to the area or change your bandage (dressing). If soap and water are not available, use hand electroplating laborer. ? Change your dressing as told by your health care provider. ? Leave stitches (sutures), skin glue, or adhesive strips in place. These skin closures may need to stay in place for 2 weeks or longer. If adhesive strip edges start to loosen and curl up, you may trim the loose edges. Do not remove adhesive strips completely unless your health care provider tells you to do that. ??? Check your incision area every day for signs of infection. Check for: ? More redness, swelling, or pain. ? More fluid or blood. ? Warmth. ? Pus or a bad smell. Medicines ??? Take bmqp-txv-ejmnpmd and prescription medicines only as told by your health care provider. ??? If you were prescribed an antibiotic medicine, use it as told by your health care provider. Do not stop using the antibiotic even if you start to feel better. Bathing ??? Do not take baths, swim, or use a hot tub for 2 weeks, or until your incision has healed completely. ??? If your health care provider approves, you may take showers after your dressing has been removed. Activity ??? Return to your normal activities as told by your health care provider. Ask your health care provider what activities are safe for you. ??? Avoid bending or twisting at your waist. Always bend at your knees. ??? Do not sit for more than 20???30 minutes at a time. Lie down or walk between periods of sitting. ??? Do not lift anything that is heavier than 10 lb (4.5 kg) or the limit that your health care provider tells you, until he or she says that it is safe. ??? Do not drive for 2 weeks after your procedure or for as long as your health care provider tells you. ??? Do not drive or use heavy machinery while taking prescription pain medicine. General instructions ??? To prevent or treat constipation while you are taking prescription pain medicine, your health care provider may recommend that you: ? Drink enough fluid to keep your urine clear or pale yellow. ? Take wczs-xbc-gjkpfkc or prescription medicines. ? Eat foods that are high in fiber, such as fresh fruits and vegetables, whole grains, and beans. ? Limit foods that are high in fat and processed sugars, such as fried and sweet foods. ??? Do breathing exercises as told. ??? Keep all follow-up visits as told by your health care provider. This is important. Contact a health care provider if: ??? You have more redness, swelling, or pain around your incision area. ??? Your incision feels warm to the touch. ??? You are not able to return to activities or do exercises as told by your health care provider. Get help right away if: ??? You have: ? More fluid or blood coming from your incision area. ? Pus or a bad smell coming from your incision area. ? Chills or a fever. ? Episodes of dizziness or fainting while standing. ??? You develop a rash. ??? You develop shortness of breath or you have difficulty breathing. ??? You cannot control when you urinate or have a bowel movement. ??? You become weak. ??? You are not able to use your legs. Summary ??? After the procedure, it is common to have some pain around your incision area. You may also have muscle tightening (spasms) across the back. ??? Follow instructions from your health care provider about how to care for your incision. ??? Do not lift anything that is heavier than 10 lb (4.5 kg) or the limit that your health care provider tells you, until he or she says that it is safe. ??? Contact your health care provider if you have more redness, swelling, or pain around your incision area or if your incision feels warm to the touch. These can be signs of infection. This information is not intended to replace advice given to you by your health care provider. Make sure you discuss any questions you have with your health care provider. Document Released: 05/10/2006 Document Revised: 10/03/2018 Document Reviewed: 04/07/2017 Elsevier Patient Education ?? 2020 [employer] Emergency Awareness and Preventative Care STROKE is an EMERGENCY Every Minute Counts Act FAST and Check for these signs: FACE Does the face look uneven? ARM Does one arm drift down? SPEECH Does their speech sound strange? TIME Call at any sign of stroke Stroke Risk Factors Atrial Fibrillation (irregular heartbeat) Diabetes Family history of stroke Heart Disease Heavy alcohol use High Blood Pressure High Cholesterol Physical inactivity and obesity Smoking Cigarette Smoking The facts are clear, cigarette smoking will shorten your life. Smoking can cause many illnesses along the way. As a healthcare provider, we recommend that you stop smoking. Assistance with quitting is available by contacting 7-408-XPJS-NOW. This is a free resource providing counseling, support, and referral. Or you may contact your personal physician. [employer] Suicide Prevention Lifeline: The National Suicide Prevention Lifeline is a national network of local crisis centers that provides free and confidential emotional support to people in suicidal crisis or emotional distress 24 hours a day, 7 days a week. Don't Wait! Stop a Heart Attack Before it Starts What is a heart attack? A heart attack is damage or to a part of the heart from severely decreased or lack of blood flow to the heart. Over time, arteries can become narrow from the buildup of fat and cholesterol, which is called plaque. The plaque can rupture causing a blood clot to form. When the blood clot forms, the artery can become severely narrowed or completely blocked, causing a heart attack. Heart attack is the leading cause of in the [place]. 85% of muscle damage occurs within the first 2 hours. Delay in the recognition of heart attack symptoms increases the chances of . Know the early symptoms of a heart attack: Nausea Feeling of fullness in chest Jaw Pain Pain that travels down one or both arms Fatigue/being tired Anxiety Back Pain Chest pressure, squeezing, or discomfort Shortness of breath Sweating, or a cold sweat Feeling of impending doom There are unusual signs of a heart attack, too! Women, the elderly, and diabetics may present with atypical symptoms: Fainting/dizziness Weakness Confusion Risk Factors for a Heart Attack Some heart disease risk factors, such as age and family history, cannot be changed. Others, like smoking and lack of exercise, can be changed. Smoking High Cholesterol High Blood Pressure Family History Obesity Age Gender (Males are at higher risk) Lack of Exercise Diabetes Diet Stress Excessive Alcohol Intake If you or someone you know is experiencing the signs and symptoms of a heart attack, DON???T DELAY. Call immediately and seek help. If someone collapses, perform CPR! Do not attempt to drive if you are having symptoms of heart attack. Hands-Only CPR Why Hands-Only CPR? Hands-Only CPR has been shown to be as effective as conventional CPR for cardiac arrests that occur outside of a hospital. Survival depends on immediately receiving CPR from someone nearby. How do you perform Hands-Only CPR? There are two easy steps: Call if you see a teen or adult collapse Push hard and fast in the center of the chest at a beat of 100 beats per minute. Save a life! 4 WAYS TO GET AHEAD OF SEPSIS SEPSIS is a MEDICAL EMERGENCY. Time matters! Infections put you and your family at risk for a life-threatening condition called sepsis. Sepsis is the body's extreme response to an infection. It is life-threatening, and without timely treatment, sepsis can rapidly lead to tissue damage, organ failure, and . Sepsis happens when an infection you already have-in your skin, lungs, urinary tract or somewhere else-triggers a chain reaction throughout your body. 1 PREVENT INFECTIONS Take good care of chronic conditions. Talk to your doctor about getting the recommended vaccines. 2 PRACTICE GOOD HYGIENE Wash your hands frequently. Keep cuts or open sores clean and covered until they are healed. 3 KNOW THE SYMPTOMS Confusion or disorientation Shortness of breath High heart rate Fever, shivering, or feeling very cold Extreme pain or discomfort Clammy or sweaty skin 4 ACT FAST Get medical care IMMEDIATELY if you suspect sepsis or if you have an infection that is not getting better or is getting worse. To learn more about sepsis and how to prevent infections, visit www.cdc.gov/sepsis. Test Results Laboratory or Other Results This Visit (last charted value for your 11/30/2020 visit) Hematology 12/02/2020 2:56 AM WBC: 11.5 K/uL -- Normal range between ( 3.6 and 9.5 ) RBC: 4.20 Million/uL -- Normal range between ( 4.20 and 5.70 ) Hct: 39.9 % -- Normal range between ( 40.1 and 51.0 ) Hgb: 13.0 g/dL -- Normal range between ( 13.5 and 17.3 ) Platelet Count: 162 K/uL -- Normal range between ( 163 and 369 ) MCH: 31.0 pg -- Normal range between ( 25.6 and 32.2 ) MCHC: 32.6 Gram/dL -- Normal range between ( 32.2 and 36.5 ) MCV: 95.0 fL -- Normal range between ( 79.0 and 94.8 ) Slide Review: No Eos %: 0.6 % -- Normal range between ( 0.0 and 7.0 ) Hartley #: 1.16 K/uL -- Normal range between ( 0.16 and 1.00 ) Eos #: 0.07 x10(3)/uL -- Normal range between ( 0.00 and 0.80 ) Hartley %: 10.1 % -- Normal range between ( 3.0 and 9.0 ) Baso %: 0.2 % -- Normal range between ( 0.0 and 1.5 ) Baso #: 0.02 x10(3)/uL -- Normal range between ( 0.00 and 0.20 ) RDW: 13.2 % -- Normal range between ( 11.7 and 14.9 ) Neut %: 67.8 % -- Normal range between ( 34.0 and 71.0 ) Neut #: 7.78 K/uL -- Normal range between ( 1.56 and 6.13 ) Lymph %: 20.7 % -- Normal range between ( 19.3 and 53.1 ) Lymph #: 2.37 x10(3)/uL -- Normal range between ( 1.00 and 3.90 ) MPV: 14.6 fL -- Normal range between ( 9.4 and 12.4 ) IG#: 0.07 x10(3)/uL -- Normal range between ( 0.00 and 0.05 ) IG%: 0.60 % -- Normal range between ( 0.00 and 0.60 ) Blood Bank 11/30/2020 2:17 PM ABO/Rh (ECHO): A POS Antibody Screen: Negative ABSC 11/28/2020 12:42 PM ABO/Rh Repeat: A POS General Chemistry 12/02/2020 2:56 AM Creatinine Level: 0.60 mg/dL -- Normal range between ( 0.70 and 1.30 ) Sodium Level: 142 mmol/L -- Normal range between ( 136 and 146 ) Potassium Level: 3.9 mmol/L -- Normal range between ( 3.5 and 5.1 ) Chloride Level: 107 mmol/L -- Normal range between ( 102 and 112 ) Carbon Dioxide Level: 31 mmol/L -- Normal range between ( 21 and 32 ) Anion Gap: 8 -- Normal range between ( 9 and 20 ) Bun/Creatinine: 20.0 -- Normal range between ( 8.0 and 20.0 ) Calcium Level: 8.7 mg/dL -- Normal range between ( 8.4 and 10.1 ) eGFR : >60 mL/min/1.73m2 eGFR NonAfrican: >60 mL/min/1.73m2 Glucose Level: 102 mg/dL -- Normal range between ( 74 and 106 ) Blood Urea Nitrogen: 12 mg/dL -- Normal range between ( 7 and 22 ) Diagnostic Radiology 12/02/2020 8:15 AM CR Chest 2 Vws: CR Chest 2 Vws 11/30/2020 5:[address] in OR: CR CT in OR Patient Name:ROSELYN GRIJALVA I have received and understand this information and was given the opportunity to ask questions. Patient/De Icer Element Winder Name: Patient/De Icer Element Winder Signature: Relationship to Patient: Clinician/Hospital De Icer Element Winder Signature: Date: Electronically signed by Cruzito, [facility] [employer] Fabricator Cerner at 02/19/2023 9:42 AM CDT documented in this encounter Plan of Treatment Not on file documented as of this encounter Visit Diagnoses Not on filedocumented in this encounter
--- OUTSIDE RECORDS SUMMARY | 2025-04-24 20:57 | XMS_ITS | Encounter Summary ---
Author Organization [employer] Address [address] [place] [address] Care Team Providers Care Assembler Show Motor Name Role Phone Unavailable Primary Care Provider Unavailabl e Encounter Details Date Type Department Care Team (Late st Contact Info) Description 12/02/2020 Transcribed Document [facility] [place] [facility] [place] [address] ProviderFabi MD [address] [place] [address] Social History Tobacco Use Types [...] Conversion Note - Fabi ProviderMD - 12/02/2020 2:47 PM SHADOWGRAPH OPERATOR Final Discharge Planning Entered On: 12/02/2020 14:58 EST Performed On: 12/02/2020 14:47 EST by JAQUI COLÓN RN-Handy Man Final Discharge Planning Discharge Arrangements : Patient Post-Acute Information Patient Name: ROSELYN GRIJALVA Gender: Male : [birth year] Age: 60 Years Curaspfiorella Referral(s): Service: Organization: Business Address: Phone Number: Acute Rehab [facility] [address] [facility] [place], [place], [address] Patient Offered Choice/Affiliations Explained : Yes Designation of Choice Signed : Yes Important Medicare Message Reviewed With : Other: State guardian Arleen Saini Transportation Needs : Wheelchair van Discharge Transportation Arrangement Cmt : [facility] @ 1600 Follow Up Appointment Scheduled : Yes Is Patient High/Moderate Readmission Risk? : No Patient/Family Notified of Plan : Yes Support Person/Pt Rep Notified of Plan : Yes Patient/Family Notified : State Guardian Arleen Saini and sister Mayra Is Patient Ready for Discharge? : Yes Physician Notified Patient is Ready for Discharge? : Yes Discharge To Care Management : IRF -Inpatient Rehabilitation Facility-62 JAQUI COLÓN RN-Handy Man - 12/02/2020 14:47 EST Final Narrative Note Final Narrative Note : [facility] today via [facility] De [facility] @ 4p. D/W pt at bedside, state gamaríadifiorella Saini on phone, sister Mayra on phone, Joshua/Judie CUNHA-NEAL/Bobby, and bedside RAYO Bull. JAQUI COLÓN RN-Handy Man - 12/02/2020 14:47 EST Electronically signed by [facility] Conversion Custom Ski Maker Cerner at 02/19/2023 9:53 AM CDT documented in this encounter Plan of Treatment Not on file documented as of this encounter Visit Diagnoses Not on filedocumented in this encounter
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
--- OUTSIDE RECORDS SUMMARY | 2025-04-24 20:57 | XMS_ITS | Data Portability ---
Author Organization [facility] Address [address] [facility] [address] [place] [address] Care Team Providers Care Television Engineer Name Role Phone SOPHIE DAVIDSON Referring Provider [phone] Assessment Encounter Date Assessment Date Assessment LastModified by Organization Details LastModified Time 09/15/2020 09/15/2020 Mr. Ribeiro is a 60-year-old gentleman with C3-C7 spondylosis and subsequent cervical stenosis. He does appear to have some signal change at C3-4 and C4-5. His physical examination isn't particularly concerning for cervical myelopathy, but given the imaging findings and apparent rapid decline I feel that this must be the most likely etiology. Addressing this will be a significant surgery. We discussed an anterior versus posterior approach. Because he is a ayala of the [facility], our surgery coordinator will reach out to his facility as well as a social economist as to how to proceed. I think that given the severity of the collapsed disc space a posterior approach will be safest. This would involve a C2-C7/T1 decompression and fusion. Neuromonitoring would be utilized in addition to intraoperative CT scan. Not available 09/15/2020 10:44:41 01/16/2021 01/16/2021 Mr. Apple doing very well after a C2 to T2 decompression. He reports improvement, although his family member states that they have been limited in their ability to see him with COVID-19. I think he is doing very well at this time after such a big surgery. I think he will continue to see improvement, but most of all, not experience progressive myelopathy now that the decompression has been performed. I will see him back in a couple months with repeat x-rays of the cervical spine. He may discontinue use of the cervical collar at this time. Not available 01/16/2021 15:39:46 03/20/2021 03/20/2021 HPI: Mr. Ribeiro is a 60-year-old male who is a [facility] resident referred to us originally for progressive cervical myelopathy who presents today for second postop follow-up visit to posterior fusion C2-T2 11/30/[address] Castillo, new AP lateral cervical x-ray. He is doing well following surgery, so endorses some neck pain and stiffness, but nothing that he says bothers him too much. He feels like his strength might be improving. He is able to get up and go to the bathroom on his own, but the [place] [facility] at present is having him stay in a wheelchair due to postoperative restrictions. Denies upper extremity issues, lower extremity issues. Denies issues with wound, instability, dizziness. PHYSICAL EXAM: In biceps and triceps bilateral upper extremities, left machine stone polisher also 4 out of 5. Lower extremity strength 5 out of 5. No signs of myelopathy. IMAGING: I have reviewed the images personally with Dr. Castillo and read the radiologist's report. AP lateral cervical x-ray: Hardware intact, in place. No issues noted. ASSESSMENT: Dr. Castillo also saw this patient. Doing very well following surgery, main goal of which was to prevent further progression of cervical myelopathy which may have proved to be ultimately life-threatening. No longer has any post operative restrictions, and we expect that is entirely possible he will be able to regain some of his strength and ambulation with physical therapy. PLAN: No additional follow-up planned at this time, call us as needed. No restrictions on activities at this time. Encourage physical therapy at the [place] he's and, or if they are unable to live those services would recommend he do physical therapy elsewhere. Specifically, if he would benefit from strengthening conditioning as well as gait training. Portions of this note have been dictated with voice recognition technology and may include blow torch burner errors. [email or web address] Not available 03/20/2021 14:50:19 Plan of Treatment Reminders Order Date Submit Date Provider Last Modified By Organization Details Last Modified Time Details Appointments None record ed. Lab None record ed. Referral None record ed. Procedures None record ed. Surgeries None record ed. Imaging None record ed. Medication Orders None record ed. Patient TargetsNo targets recorded. Patient InstructionsNo instructions recorded. Reason for Referral None Reported. Results Created Date Observation Date Name Description Value Unit Range Abnormal Flag Note LastModifiedBy Organization Detail LastModifiedTime 09/15/2008/05/2020 MRI, cervi clayton spine , w/o contr ast No observ ation record ed. BARCODE Not Available 2019 13:46:47 09/15/20 20 07/25/2020 MRI, brain , w/o contr ast No observ ation record ed. BARCODE Not Available 2019 13:46:47 11/28/1911/28/2020 trans -thor acic echoc ardio gram (TTE) (PROC ) No observ ation record ed. [email or web address] Not Available 2020 09:03:41 01/17/20 21 01/16/2021 XR, thora cic spine , 2 view No observ ation record ed. [address], [place], [address], 01/19/2021 15:18:22 01/17/20 21 01/16/2021 XR, cervi clayton spine , 2 or 3 view No observ ation record ed. [address] ([address]) [address], [place], [address], 01/19/2021 15:18:17 03/20/20 21 03/20/2021 XR, cervi clayton spine , 2 or 3 view No observ ation record ed. [email or web address] [facility] Scheduling [address], [place], [address], 03/21/2021 09:21:52 03/21/20 21 01/16/2021 XR, cervi clayton spine , 2 or 3 view No observ ation record ed. BARCODE [facility] Scheduling [address], [place], [address], 03/21/2021 08:59:08 Result Notes None recorded. Procedures Surgical History Date Name Laterality Status Provider Name and Address Organization Details Recorded Time Knee arthroscopy /surgery completed Emily Koch [facility] 09/15/2020 09:42:54 Imaging Results None recorded. Procedure Notes None recorded. Medical Equipment None Reported. Allergies No known drug allergies Medications Name Sig Start Date Stop Date Status Note LastModified by Organization Details LastModified Time cyclobenzap rine 10 mg tablet Take 1 tablet 3 times a day by oral route. 2020 active Not Available Not Available Not Avai lable silver sulfadiazin e 1 % topical cream active Not Available Not Available Not Available ipratropium 0.5 mg-albutero l 3 mg (2.5 mg base)/3 mL nebulizatio n soln active Not Available Not Available Not Available pravastatin 40 mg tablet active Not Available Not Available Not Available olanzapine 10 mg tablet 09/15 completed Not Available Not Available Not Available divalproex 500 mg tablet,leon yed release active Not Available Not Available Not Available omeprazole 40 mg capsule,del ayed release active Not Available Not Available Not Available levothyroxi ne 25 mcg tablet active Not Available Not Available Not Available mirtazapine 30 mg tablet active Not Available Not Available Not Available oseltamivir 75 mg capsule active Not Available Not Available Not Available omeprazole 20 mg capsule,del ayed release active Not Available Not Available Not Available olanzapine 15 mg tablet 09/15 completed Not Available Not Available Not Available mupirocin 2 % topical ointment active Not Available Not Available Not Available fluvoxamine 50 mg tablet active Not Available Not Available Not Available levofloxaci n 750 mg tablet active Not Available Not Available Not Available Percocet 5 mg-325 mg tablet Take 1 tablet every 6 hours by oral route as needed. 2020 active Not Available Not Available Not Avai lable cefdinir 300 mg capsule active Not Available Not Available Not Available fluticasone propionate 50 mcg/actuati on nasal spray,suspe nsion active Not Available Not Available Not Available olanzapine 20 mg tablet active Not Available Not Available Not Available Ventolin HFA 90 mcg/actuati on aerosol inhaler active Not Available Not Available Not Available cyclobenzap rine 5 mg tablet active Not Available Not Available Not Available lactulose 10 gram/15 mL oral solution active Not Available Not Available Not Available Incruse Ellipta 62.5 mcg/actuati on powder for inhalation active Not Available Not Available N ot Available Pedius COVID-19 Vaccine (PF) 30 mcg/0.3 mL IM susp (purple) [facility] active Not Available Not Available No t Available Vitals Date Recorded Systolic blood pressure Diastolic blood pressure Provider Name and Address Organization Details Last Updated DateTime 01/16/2021 120 mm[Hg] 70 mm[Hg] [facility] 01/16/2021 15:23:42 Date Recorded Systolic blood pressure Diastolic blood pressure Provider Name and Address Organization Details Last Updated DateTime 03/20/2021 120 mm[Hg] 70 mm[Hg] [facility] 03/20/2021 14:23:33 Date Recorded Systolic blood pressure Diastolic blood pressure Provider Name and Address Organization Details Last Updated DateTime 09/15/2020 120 mm[Hg] 70 mm[Hg] [facility] 09/15/2020 10:03:07 Social History None recorded. Functional Status None recorded. Mental Status None recorded. Family History Nothing Reported. Medical History Condition Response Hypothyroidism Y High Cholesterol Y Past Encounters Encounter ID Performer Location Encounter Start Date Encounter Closed Date Diagnosis/Indication Diagnosis SNOMED-CT Code Diagnosis ICD10 Code Diagnosis Note [id number] BRAD CASTILLO MD [facility] [address] [place] [address] 09/15/2020 09:18:18 09/16/2020 14:47:19 Cervical spondylosis with myelopathy 92684534 M47.12 Time spent reviewing images, discussing the diagnosis and coordinati ng care: [id number] BRAD CASTILLO MD SURGERY SCHEDULE [address] [place] [address] 12/06/2020 12:41:19 12/08/2020 09:46:39 [id number] BRAD CASTILLO MD [facility]UR[facility] [address] [place] [address] 01/16/2021 15:16:55 01/17/2021 15:43:01 Postoperative care [id number] Z48.89 [id number] NIRAJ HARTMAN PA-C [facility] [address] [place] [address] 03/20/2021 13:37:43 03/20/2021 16:12:30 Cervical myelopathy 684846757 G95.9 Health Concerns Section Related Observation LastModified by Organization Detai ls LastModified Time None Recorded Concern Status LastModified by Organization Details LastModified Time None Recorded Advance Directives Directive None Recorded Payers Insurance Date Sequence Insurance Name Policy Number Policy Ayala Covered Member ID Ayala Member ID Guarantor Name 03/20/2021 1 MEDICARE-[place] (MEDICARE[place] Mario Ribeiro [id number] Mario Ribeiro 03/20/2021 2 MEDICAID-[facility] CHOICES - FFS/TRADITIO NAL Mario Ribeiro [id number] Mario Ribeiro Notes Date Note Type Note Provider Name and Address Organization Details Recorded Time 09/15/2020 text/html Mr. Ribeiro is a 60-year-old gentleman referred by Dr. Leal for progressive myelopathy. He reportedly was ambulatory, but over the past 3-4 months has required considerable assistance with transfers. He lives at a facility. He underwent a MRI of the cervical spine at [facility] on August 05, 2020. He presents today in a wheelchair. He complains of some right shoulder pain since a fall a few weeks back. BRAD CASTILLO MD [address] [place] [address], [phone], [facility] 09/15/2020 10:44:48 01/16/2021 text/html Mr. Ribeiro returns today after a significant operation, posterior C2-T2 decompression and fusion performed on November 25, 2020. He has been wearing his collar as instructed. His recovery has been unremarkable. He denies any pain today. BRAD CASTILLO MD [address] [place] [address], [phone], [facility] 01/16/2021 15:39:58 03/20/2021 text/html Mr. Ribeiro is a 60-year-old male who is a [facility] resident referred to us originally for progressive cervical myelopathy who presents today for second postop follow-up visit to posterior fusion C2-T2 11/30/[address] Castillo, new AP lateral cervical x-ray. He is doing well following surgery, so endorses some neck pain and stiffness, but nothing that he says bothers him too much. He feels like his strength might be improving. He is able to get up and go to the bathroom on his own, but the [place] [facility] at present is having him stay in a wheelchair due to postoperative restrictions. Denies upper extremity issues, lower extremity issues. Denies issues with wound, instability, dizziness. NIRAJ HARTMAN PA-C [address], [place], [address], [facility] 03/20/2021 14:51:44
--- OUTSIDE RECORDS SUMMARY | 2025-04-24 20:57 | XMS_ITS | Encounter Summary ---
Author Organization [employer] Address [address] [place] [address] Care Team Providers Care Airfreight Operations Agent Name Role Phone Unavailable Primary Care Provider Unavailabl e Encounter Details Date Type Department Care Team (Late st Contact Info) Description 12/01/2020 Transcribed Document [facility] [place] [facility] [place] [address] ProviderFabi MD [address] [place] [address] Social History Tobacco Use Types [...] Conversion Note - Fabi ProviderMD - 12/01/2020 12:00 PM COATING INSPECTOR Pain Assessment Entered On: 12/01/2020 15:55 EST Performed On: 12/01/2020 13:59 EST by MILTON KUMARI RN Intervention Information: acetaminophen Performed by MILTON KUMARI RN on 12/01/2020 12:59:00 EST acetaminophen,650mg Oral Pain Assessment Pain Assessment : Follow-up assessment Pain Scale Goal : 3 Pain Scale Used : 0-10 Scale MILTON KUMARI RN - 12/01/2020 15:55 EST Pain Scale Intensity : 3 MILTON KUMARI RN - 12/01/2020 15:55 EST Image 4 - Images currently included in the form version of this document have not been included in the text rendition version of the form. documented in this encounter Plan of Treatment Not on file documented as of this encounter Visit Diagnoses Not on filedocumented in this encounter
--- OUTSIDE RECORDS SUMMARY | 2025-04-24 20:57 | XMS_ITS | Encounter Summary ---
Author Organization [employer] Address [address] [place] [address] Care Team Providers Care Cold Roll Operator Name Role Phone Unavailable Primary Care Provider Unavailabl e Encounter Details Date Type Department Care Team (Late st Contact Info) Description 12/02/2020 Transcribed Document [facility] Neurology - [address] [facility] [address] [place] [address] Angel Todd MD [address] [place] [address] Social History Tobacco Use Types Packs/Day Years Used Date Smoking Tobacco: Never Assessed Sex and Gender Information Value Date Recorded Sex Assigned at Male 05/01/2022 10:55 AM CDT Legal Sex Male 10:55 AM CDT Gender Identity Male 05/01/2022 10:55 AM CDT Sexual Orientation Not on file documented as of this encounter Miscellaneous Notes * Cerner Conversion Note - Angel Todd MD - 12/02/2020 2:20 PM EST Patient: ALEXI GRIJALVA Age: 60 Years Sex: Male : 1960 Admit Date 11/30/2020 06:39 Discharge Date 12/02/2020 Primary Care Provider ROSIBEL ODONNELL (MD [facility] Discharge Diagnosis Cervical myelopathy 12/02/2020 G95.9 ICD-10-CM Procedures SN - Proc - Procedure: Lumbar Fusion Posterior 3 Level (11/30/20 16:47:00) Reason for Hospitalization Stable cervical fusion Hospital Course 60-year-old male with history of TBI and lives in a assisted , was initially evaluated in the office was found to have multilevel cervical stenosis and symptoms consistent with cervical myelopathy. Dr. Todd recommended a C2-T2 cervical decompression fusion. After consent was obtained, patient underwent above said procedure without major complication. He was transferred to PACU in stable condition and then up to the floor in stable condition.Dr Rosales's team was consulted for medical management. Patient participated with PT OT on postop day 1. He was started on subcu heparin on postop day 1 for DVT prophylaxis. His RACHEL drain was discharged on postop day 2. Patient's pain was well controlled postoperatively. He was hemodynamically stable postoperatively. Patient did have one mild fever of 100.3 postoperatively on 12/02. He also had mild leukocytosis 10 on 12/01 and 11 on 129. He had postoperative chest x-rays performed the first on 12/01 that showed bibasilar opacities and questionable intraperitoneal free air, repeat chest x-ray on 12/02 demonstrated bibasilar atelectasis. Medicine team has cleared him to be medically ready to be discharged, and will repeat chest x-rays and/or use nebulizing treatments if needed at the rehab hospital. Given the patient's comorbidities and functional mobility was recommended that he be transferred to rehab facility for further improvement rehabilitation. Vital Signs T: 37.2 ??C TMIN: 37.2 ??C TMAX: 37.9 ??C HR: 100(Monitored) RR: 16 BP: 116/75 SpO2: 93% Oxygen Settings (Last) Oxygen Therapy Mode: Nasal cannula (12/02/20 08:00:00) Oxygen Flow Rate: 2 Liter/Min (12/02/20 08:00:00) Physical Exam sleepy, but easily arousable to voice nod head yes/no to questions equal special events fundraiser incision cdi bandage intact and dry rachel has been removed facially symmetric Discharge Disposition Rehabilitation unit/facility Discharge Follow Up No Follow Up Appointments on Record Discharge Medications (17) Active aspirin 81 mg oral delayed release tablet 81 mg = 1 Tab, Oral, Daily Restart on POD #3 cyclobenzaprine 10 mg oral tablet 10 mg = 1 Tab, PRN, Oral, TID divalproex sodium 500 mg oral delayed release tablet 500 mg = 1 Tab, Oral, At Bedtime Dulcolax Laxative 5 mg oral delayed release tablet 5 mg = 1 Tab, PRN, Oral, Daily Flonase 1 Harper, Nostrils Both, Daily fluvoxaMINE 50 mg oral tablet 50 mg = 1 Tab, Oral, BID Incruse Ellipta 62.5 mcg/inh inhalation powder 1 Puff, Inhalation, [id number] levothyroxine 25 mcg (0.025 mg) oral tablet 25 mcg = 1 Tab, Oral, Daily MiraLax oral powder for reconstitution 17 Gram, Oral, At Bedtime mirtazapine 30 mg oral tablet 30 mg = 1 Tab, Oral, Once a day (at bedtime) omeprazole 40 mg, Oral, Daily Percocet 5 mg-325 mg oral tablet 1 Tab, PRN, Oral, Q6H pravastatin 40 mg oral tablet 40 mg [...] 20 mg = 1 Tab, Oral, Daily Code Status Start: 11/30/20 18:25:00 EST, Full Code, Continuous Order Condition on Discharge Stable Consulting Physicians LOCO LAUREN MD-ANS RHYNE, HEATHER, MD-ANS DOODNAUTH, LELE Stanley MD-INT Current Diet Order Diet, Adult - Ordered -- Start: 11/30/20 23:54:00 EST, Regular Diet Patient Discharge Summary Orders Discharge Activity: don collar when up and about, Discharge Activity: No heavy lifting over 10 lbs Diet: Discharge Diet: Resume usual diet as tolerated Follow up with neurosurgery office in 2 weeks for staple removal Follow-up in 1 month with AP and lateral cervical x-rays with neurosurgery clinic Keep incision clean and dry Don cervical collar when up and about No heavy lifting more than 10 to 15 pounds Do not submerge incision. Pending Labs Ordered BMP Basic Metabolic Panel Specimen Type: Blood, AM Draw collect, 12/01/20 4:00:00 EST, Daily, Lab Collect CBC w/ Auto Diff Specimen Type: Blood, AM Draw collect, 12/01/20 4:00:00 EST, Daily, Lab Collect documented in this encounter Plan of Treatment Not on file documented as of this encounter Visit Diagnoses Not on filedocumented in this encounter
--- OUTSIDE RECORDS SUMMARY | 2025-04-24 20:57 | XMS_ITS | Encounter Summary ---
Author Organization [email or web address] Address [address] [place] [address] Care Team Providers Care Grinding Wheel Facer Name Role Phone Unavailable Primary Care Provider Unavailabl e Encounter Details Date Type Department Care Team (Late st Contact Info) Description 11/30/[address] [facility] [place] [facility] [place] [address] ProviderFabi MD [address] [place] [address] Social History Tobacco Use Types [...] Conversion Note - Fabi ProviderMD - 11/30/2020 6:25 PM CYBER SECURITY SYSTEMS ENGINEER Evaluation, Occupational Therapy Entered On: 12/01/2020 14:18 EST Performed On: 12/01/2020 13:49 EST by TOM SILVERIO, OTR/L General Information, OT Visit Type, OT : Initial evaluation Patient Orders : Order Date Order Ordering MD 11/30/2020 18:25 Occupational Therapy Evaluation and Treatme Ordered By: BRAD CASTILLO MD-[facility] Active Diagnoses : 11/30/2020 12:00 Disease of spinal cord, unspecified Therapy Diagnosis, OT : Decreased I with ADL/functional mobility s/p C3-7 laminectomy, C2-T2 fusion Onset of Problem, OT : 12/01/2020 EST Admission Date : 11/30/2020 06:39 Personal Devices : Personal Devices No Devices Recorded Assistive Devices : Assistive Devices No Devices Recorded General Information Comment, OT : Patient is a 60yo M admitted to [facility] on 11/30 with cervical myelopathy, RUE pain, now s/p C3-7 laminectomy, C2-T2 fusion on 11/30. PMHx TBI, Bipolar, Anxiety, Delusions, [place], falls, vascular dementia, COPD TOM SILVERIO OTR/L - 12/01/2020 14:06 EST General Status Patient Received Status : Supine in bed, Bed alarm activated Treatment Start Time : 12/01/2020 13:24 EST Patient Left Status : Supine in bed, Bed alarm activated, RN/PCT informed, Family/Visitors at bedside, All needs met and within reach RN/PCT Informed Comment : RAYO graves Treatment End Time : 12/01/2020 13:49 EST Treatment Time : 25 Minute(s) TOM SILVERIO OTR/Patti - 12/01/2020 14:06 EST History and Environment, OT Living Situation, Therapy : Other: [facility] Patient Lives With : Caregiver(s) Persons Providing Information : Sibling(s) Home Equipment, Therapy : Walker, Wheelchair Walker : Walker, four wheel Wheelchair : Wheelchair, standard Home Setup : One story TOM SILVERIO OTR/Patti - 12/01/2020 14:06 EST Prior LOF Bathing, OT : Independent Prior LOF Bed Mobility : Independent Prior LOF Upper Body Dressing, OT : Independent Prior LOF Lower Body Dressing, OT : Independent Prior LOF Toileting : Independent Prior LOF Transfer : Independent Prior LOF Grooming, OT : Independent Prior LOF Wheel Chair Mobility : Independent Prior LOF for IADLs, OT : Assist needed TOM SILVERIO OTR/Patti - 12/01/2020 14:06 EST Prior LOF Assist with ADL Comment : Per patient/sister was I with ADLs at [facility], limited history from patient d/t cognitive status. Was mobilizing in wheelchair primarily at halfway per PT/family though able to ambulate with rollator TOM SILVERIO OTR/L - 12/01/2020 14:06 EST Upper Extremity Upper Extremity Dominance : Right Right UE Active ROM : Impaired Right UE Strength : Impaired Left UE Active ROM : Impaired Left UE Strength : Impaired Right UE Strength Comment : Hx tremor Left UE Strength Comment : Reports numbness inside elbow TOM SILVERIO OTR/Patti - 12/01/2020 14:06 EST Right Upper Extremity MMT Shoulder Flexion 0-180 : 2+/poor Elbow Flexion 0-150 : 3+/fair Elbow Extension 0-0 : 3+/fair TOM SILVERIO OTR/Patti - 12/01/2020 14:06 EST Left Upper Extremity MMT Shoulder Flexion 0-180 : 2+/poor Elbow Flexion 0-150 : 3+/fair Elbow Extension 0-0 : 3+/fair TOM SILVERIO OTR/Patti - 12/01/2020 14:06 EST Hand Plate Take Out Worker Test : 3+/5 BUE Fine Motor Coordination Impaired : Yes Fine Motor Coordination Location : Upper extremity, left, Upper extremity, right Fine Motor Coordination Comment : Decreased at baseline, RUE tremor limiting Upper Extremity Comment : Performance likely limited by pain, sister reports no difficulty with UE strength at PLOF TOM SILVERIO OTR/Patti - 12/01/2020 14:06 EST Self Care/Home Management, OT Self Feeding Assist Level, OT : Supervision or set-up Grooming Assist Level, OT : Supervision or set-up Bathing Assist Level, OT : Assist, minimal Upper Body Dressing Assist Level, OT : Assist, minimal Lower Body Dressing Assist Level, OT : Assist, moderate Toileting Assist Level : Assist, moderate Toilet Transfer Assist Level : Assist, minimal TOM SILVERIO OTR/Patti - 12/01/2020 14:06 EST Functional Mobility Mobility Grid Bed Scooting : Rehab Total assistance (Comment: x2 [TOM SILVERIO OTR/Patti - 12/01/2020 14:06 EST] ) Supine to Sit : Rehab Minimal assistance Sit to Supine : Rehab Minimal assistance TOM SILVERIO OTR/Patti - 12/01/2020 14:06 EST Cognition Assessment, OT Cognition Assessment, OT : Impaired Cognition Assessment Comment : Hx TBI, vascular dementia, follows commands, responds appropriately but with limited information (i.e. regarding PLOF), slowed processing TEASDALLTOM OTR/Patti - 12/01/2020 14:06 EST Indication Assessment, OT Occupational Therapy Indicated : Yes Problem List, OT : Impaired, bed mobility, Impaired, activities daily living, Impaired, endurance tolerance, Impaired functional mobility, Impaired, standing balance, Impaired, strength, Impaired, transfers, Pain limiting function MARKRICHTOM OTR/Patti - 12/01/2020 14:06 EST Plan of Care, OT OT Tx Plan/Goals Established w Patient : Yes OT Frequency Rehab : Five days per week OT Duration Rehab : Fourteen days OT Treatments Planned : Activities of daily living, Balance training, Functional mobility training, Safety education, Therapeutic activities, Therapeutic exercises TOM SILVERIO OTR/Patti - 12/01/2020 14:06 EST Penitentiary Goals, OT Grooming LTG Grid Goal #1 Activity : Grooming Assist : Supervision or set up Date to Meet : 12/15/2020 EST Goal Status : Initial goal TOM SILVERIO OTR/Patti - 12/01/2020 14:06 EST Dressing, Lower Body LTG Grid Goal #1 Activity : Dressing, Lower Body Assist : Supervision or set up Equipment : Other: AE PRN Date to Meet : 12/15/2020 EST Goal Status : Initial goal TOM SILVERIO OTR/Patti - 12/01/2020 14:06 EST Toilet Transfer LTG Grid Goal #1 Activity : Toilet Transfer, Ambulatory Assist : Supervision or set up Date to Meet : 12/15/2020 EST Goal Status : Initial goal TOM SILVERIO OTR/Patti - 12/01/2020 14:06 EST Treatment Note Subjective Comment : Patient agreeable to OT evaluation Patient's Response to Treatment : Tolerated, limited by pain Additional Objective Information : Patient encountered semi-supine in bed on 0.5L O2 via NC, O2 92%, participated in interview as able. Patient at halfway and I at [facility] with ADLs, mobilizing primarily in wheelchair but able to ambulate with rollator (per PT). Participated in BUE asssesment as able, transferred to EOB with cues for log rolling with min-mod A. Once seated EOB c/o back pain, but prompted and demonstrated ability to achieve figure 4 position BLE to access feet for LB ADL. Returned to supine min A and cues for sequencing and was assisted to setup coffee (decreased FMC). Total A x 2 to scoot to HOB. Left semi-supine in bed with all needs met, bed alarm, call webb in reach, sister present. Assessment : Patient would benefit from skilled OT to increase I and safety with ADL/functional mobility Plan for Treatment : See POC TOM SILVERIO OTR/Patti - 12/01/2020 14:06 EST Pain Assessment Pain Scaled Used : 0-10 Pain scale Pain Score Pre-Intervention : 5 Pain Radiation Location : Abdominal TOM SILVERIO OTR/L - 12/01/2020 14:06 EST Image 1 - Images currently included in the form version of this document have not been included in the text rendition version of the form. Anticipated Discharge Needs, OT/PT Anticipated Discharge to : Unit, rehabilitation Recommend Continued Therapy at Discharge : Yes TOM SILVERIO OTR/Patti - 12/01/2020 14:[address] [facility] OT Charges OT Selfcare/Hm Mgmt Ea 15 Min : 1 OT Eval Moderate Complexity : 1 TOM SILVERIO OTR/Patti - 12/01/2020 14:06 EST documented in this encounter Plan of Treatment Not on file documented as of this encounter Visit Diagnoses Not on filedocumented in this encounter
--- OUTSIDE RECORDS SUMMARY | 2025-04-24 20:57 | XMS_ITS | Encounter Summary ---
Author Organization [employer] Address [address] [place] [address] Care Team Providers Care Home Health Attendant Name Role Phone Unavailable Primary Care Provider Unavailabl e Encounter Details Date Type Department Care Team (Late st Contact Info) Description 12/01/2020 Transcribed Document [facility] [place] [facility] [place] [address] ProviderFabi MD [address] [place] [address] Social History Tobacco Use Types [...] Conversion Note - Fabi ProviderMD - 12/01/2020 2:19 PM VOLTAGE TESTER Treatment Intervention, OT Entered On: 12/02/2020 12:36 EST Performed On: 12/02/2020 10:27 EST by MERE TOLBERT COTA General Information, OT Visit Type, OT : Treatment Note Patient Orders : Order Date Order Ordering 11/30/2020 18:25 Occupational Therapy Evaluation and Treatme Ordered By: BRAD CASTILLO MD-SNU 12/01/2020 14:19 OT Additional Tx Ordered By: Active Diagnoses : 11/30/2020 12:00 Disease of spinal cord, unspecified Therapy Diagnosis, OT : Decreased I with ADL/functional mobility s/p C3-7 laminectomy, C2-T2 fusion Admission Date : 11/30/2020 06:39 Personal Devices : Personal Devices No Devices Recorded Assistive Devices : Assistive Devices No Devices Recorded MERE TOLBERT COTA - 12/02/2020 12:22 EST General Status Patient Received Status : Supine in bed Treatment Start Time : 12/02/2020 10:10 EST Patient Left Status : Supine in bed, RN/PCT informed, All needs met and within reach Treatment End Time : 12/02/2020 10:27 EST Treatment Time : 17 Minute(s) MERE TOLBERT COTA - 12/02/2020 12:22 EST Plan of Care, OT OT Tx Plan/Goals Established w Patient : Yes MERE TOLBERT COTA - 12/02/2020 12:22 EST Genetic Scientist Goals, OT Grooming LTG Grid Goal #1 Activity : Grooming Assist : Supervision or set up Date to Meet : 12/15/2020 EST Goal Status : Progressing, continue MERE TOLBERT COTA - 12/02/2020 12:22 EST Dressing, Lower Body LTG Grid Goal #1 Activity : Dressing, Lower Body Assist : Supervision or set up Equipment : Other: AE PRN Date to Meet : 12/15/2020 EST Goal Status : Initial goal MERE TOLBERT COTA - 12/02/2020 12:22 EST Toilet Transfer LTG Grid Goal #1 Activity : Toilet Transfer, Ambulatory Assist : Supervision or set up Date to Meet : 12/15/2020 EST Goal Status : Initial goal MERE TOLBERT COTA - 12/02/2020 12:22 EST Treatment Note Subjective Comment : RAYO Dash okd session Patient's Response to Treatment : Client fatigued Additional Objective Information : Client was supine in bed. Cervical collar on. Client was sleeping well. AGreed to AROM to BUEs. 1 set of 10 reps through all planes. Left in supine with CL in place. Assessment : Return to SNF Plan for Treatment : continue with POC MERE TOLBERT [place] - 12/02/2020 12:22 EST Pain Assessment Pain Scaled Used : 0-10 Pain scale Pain Score Pre-Intervention : 0 MERE TOLBERT [place] - 12/02/2020 12:22 EST Image 1 - Images currently included in the form version of this document have not been included in the text rendition version of the form. Anticipated Discharge Needs, OT/PT Anticipated Discharge to : Unit, correction MERE TOLBERT [place] - 12/02/2020 12:[address] [facility] OT Charges [place] OT Ther Activities Ea 15 Min-[place] : 1 MERE TOLBERT COTA - 12/02/2020 12:22 EST Electronically signed by Cruzito, [facility] Conversion Laboratory Apparatus Glass Grinder Fidelner at 02/19/2023 9:54 AM CDT documented in this encounter Plan of Treatment Not on file documented as of this encounter Visit Diagnoses Not on filedocumented in this encounter
--- OUTSIDE RECORDS SUMMARY | 2025-04-24 20:57 | XMS_ITS | Encounter Summary ---
Author Organization [employer] Address [address] [place] [address] Care Team Providers Care Mill Operator Head Name Role Phone Unavailable Primary Care Provider Unavailabl e Encounter Details Date Type Department Care Team (Late st Contact Info) Description 12/02/2020 Transcribed Document [facility] [place] [facility] [place] [address] ProviderFabi MD [address] [place] [address] Social History Tobacco Use Types [...] Conversion Note - Fabi ProviderMD - 12/02/2020 5:07 PM CLINICAL APPEALS SPECIALIST Nursing Discharge Summary Entered On: 12/02/2020 17:08 EST Performed On: 12/02/2020 17:07 EST by SILVIO CONNELLY RN Discharge Documentation Discharge Date/Time : 12/02/2020 16:10 EST Patient Disposition, General : Discharge Discharge To : Rehabilitation unit/facility Mode Of Departure, General Discharge : Other: calliber w/c service Accompanied By, Discharge : Unaccompanied IV Discontinued : Yes Personal Belongings With Patient : Yes Pt's Own Supply of Medications Returned : No patient supply of medications to return Prescriptions Given to Patient : No Medications Given to Patient : No Discharge Instructions Reviewed With, Opportunity For Questions Given : Patient Patient Education Completed : Yes Teaching Method : Explanation, Printed materials Teaching Evaluation : Needs further teaching, Verbalizes understanding SILVIO CONNELLY RN - 12/02/2020 17:07 EST Electronically signed by Cruzito, [facility] Conversion Branch Officer Cerner at 02/19/2023 9:54 AM CDT documented in this encounter Plan of Treatment Not on file documented as of this encounter Visit Diagnoses Not on filedocumented in this encounter
--- OUTSIDE RECORDS SUMMARY | 2025-04-24 20:57 | XMS_ITS | Encounter Summary ---
Author Organization [employer] Address [address] [place] [address] Care Team Providers Care Lead Mechanic Name Role Phone Unavailable Primary Care Provider Unavailabl e Encounter Details Date Type Department Care Team (Late st Contact Info) Description 12/01/2020 Transcribed Document [facility] Neurology - [address] [facility] [address] [place] [address] Brad Castillo MD [address] [id number] Social History Tobacco Use Types Packs/Day Years Used Date Smoking Tobacco: Never Assessed Sex and Gender Information Value Date Recorded Sex Assigned at Male 05/01/2022 10:55 AM CDT Legal Sex Male 10:55 AM CDT Gender Identity Male 05/01/2022 10:55 AM CDT Sexual Orientation Not on file documented as of this encounter Miscellaneous Notes * Cerner Conversion Note - Brad Castillo MD - 12/01/2020 9:50 AM EST Patient: ALEXI GRIJALVA Age: 60 Years Sex: Male : 1960 Assessment/Plan POD 1 C2-T2 decompression and fusion for myelopathy - start sqh for dvt ppx - dc leahy with good mobility - pt ot eval - don cervical collar when up and about - pt will need rehab at discharge, pts lives at a residential, h/o TBI -medicine following VTE Prophylaxis - Medical Heparin 5,000 Units, SubCutaneous, Inj, Q8H, Routine, Start 12/01/20 7:58:00 EST (BROWN KENYON) Sequential Compression Device Start: 11/30/20 18:25:00 EST, Bilateral, Continuous Order (BRAD CASTILLO) Sequential Compression Device Start: 11/30/20 11:03:00 EST, Bilateral, Continuous Order (BRAD CASTILLO) Subjective c/o posterior neck pain Vital Signs T: 36.7 ??C TMIN: 36 ??C TMAX: 36.7 ??C HR: 91(Monitored) RR: 16 BP: 131/63 BP: 117/63(Line) SpO2: 94% Oxygen Settings (Last) Oxygen Therapy Mode: Nasal cannula (11/30/20 23:04:00) Oxygen Flow Rate: 2 Liter/Min (11/30/20 23:04:00) Intake & Output Totals Last 24 Hours (7a-7a) Input Total: 1202.5 mL Output Total: 1305 mL Balance: -102.5 mL Physical Exam nad alert some confusion, however at baseline incision cdi, bandage intact rachel to suction bloody able to lift arms above head 4/5 bilateral bill collector documented in this encounter Plan of Treatment Not on file documented as of this encounter Visit Diagnoses Not on filedocumented in this encounter
--- OUTSIDE RECORDS SUMMARY | 2025-04-24 20:57 | XMS_ITS | Encounter Summary ---
Author Organization [employer] Address [address] [place] [id number] Care Team Providers Care Sawyer Cork Slabs Name Role Phone Unavailable Primary Care Provider Unavailabl e Encounter Details Date Type Department Care Team (Late st Contact Info) Description 12/01/2020 Transcribed Document [facility] [place] [address] ProviderFabi MD [address] [place], [place] [id number] Social History Tobacco Use Types Packs/Day Years Used Date Smoking Tobacco: Never Assessed Sex and Gender Information Value Date Recorded Sex Assigned at Male 05/01/2022 10:55 AM CDT Legal Sex Male 10:55 AM CDT Gender Identity Male 05/01/2022 10:55 AM CDT Sexual Orientation Not on file documented as of this encounter Miscellaneous Notes * Cerner Conversion Note - Historical ProviderMD - 12/01/2020 11:11 AM JANITORIAL SUPERVISOR Attempt to Treat, OT Entered On: 12/01/2020 12:45 EST Performed On: 12/01/2020 11:11 EST by JADIEL SHIN OTR/Patti Attempt to Treat Unable to Treat Due To : Patient Unavailable Inability to Treat Comment : Pt eating lunch at this time. OT will follow up as schedule permits. Notification : RAYO Solraes SHEENAGH E, OTR/Patti - 12/01/2020 12:44 EST Electronically signed by Cruzito [facility] Conversion Dental Manager Cerner at 02/19/2023 10:08 AM CDT documented in this encounter Plan of Treatment Not on file documented as of this encounter Visit Diagnoses Not on filedocumented in this encounter
--- OUTSIDE RECORDS SUMMARY | 2025-04-24 20:57 | XMS_ITS | Encounter Summary ---
Author Organization [employer] Address [address] [place] [address] Care Team Providers Care Electrical Tests Supervisor Name Role Phone Unavailable Primary Care Provider Unavailabl e Encounter Details Date Type Department Care Team (Late st Contact Info) Description 12/02/2020 Transcribed Document [facility] [place] [facility] [place] [address] ProviderFabi MD [address] [place] [address] Social History Tobacco Use Types [...] Conversion Note - Fabi ProviderMD - 12/02/2020 4:50 PM FOUNTAIN WAITRESS/WAITER Discharge Summary, PT Entered On: 12/02/2020 16:51 EST Performed On: 12/02/2020 16:50 EST by MACI LAND, PT Discharge Summary Reason for Discharge : Discharge order Discharged to, Therapy : Unit, rehabilitation Discharge Summary Comment, PT : Patient discharged to rehab. As of last PTx patient able to complete bed mobility with min-modA and ambulate 120' with Sayda and Rwx. Patient would benefit from continued skilled PT services MACI LAND, PT - 12/02/2020 16:50 EST [facility] Goals Mobility/Bed Mobility LTG PT Grid Goal #1 Goal #2 Activity : Supine to sit Sit to stand Assist : Supervision or set-up Supervision or set-up Date to Meet : 12/15/2020 EST 12/15/2020 EST Goal Status : Not met Not met MACI LAND, PT - 12/02/2020 16:50 EST MACI LAND, PT - 12/02/2020 16:50 EST Transfer LTG Grid Goal #1 Destination : Wheelchair, standard Assist : Supervision or set-up Date to Meet : 12/15/2020 EST Goal Status : Not met MACI LAND, PT - 12/02/2020 16:50 EST Ambulation LTG Grid Goal #1 Device : Walker, front wheel Distance : 100' Assist : Supervision or set-up Date to Meet : 12/15/2020 EST Goal Status : Not met MACI LAND, PT - 12/02/2020 16:50 EST Electronically signed by Abraham East Conversion Brass Instrument Repair Technician Cerner at 02/19/2023 10:08 AM CDT documented in this encounter Plan of Treatment Not on file documented as of this encounter Visit Diagnoses Not on filedocumented in this encounter
--- OUTSIDE RECORDS SUMMARY | 2025-04-24 20:57 | XMS_ITS | Encounter Summary ---
Author Organization [employer] Address [address] [place] [id number] Care Team Providers Care Truck Driver Flatbed Name Role Phone Unavailable Primary Care Provider Unavailabl e Encounter Details Date Type Department Care Team (Late st Contact Info) Description 12/02/2020 Transcribed Document [facility] [place] Family Medicine [address] [place] [address] ProviderFabi MD [address] [place], [place] [id number] Social History Tobacco Use Types Packs/Day Years [...] - Historical ProviderMD - 12/02/2020 1:42 PM SOLUTION SPEC Stroke/Warfarin Instructions Entered On: 12/02/2020 13:42 EST Performed On: 12/02/2020 13:42 EST by SILVIO ANTONY RN Stroke/Warfarin Instructions Stroke/TIA Discharge Ins : N/A Warfarin Discharge Ins : N/A SILVIO ANTONY RN - 12/02/2020 13:42 EST Electronically signed by Abraham East Conversion Licensed Clinical Psychologist Kamala at 02/19/2023 9:44 AM CDT documented in this encounter Plan of Treatment Not on file documented as of this encounter Visit Diagnoses Not on filedocumented in this encounter
--- OUTSIDE RECORDS SUMMARY | 2025-04-24 20:57 | XMS_ITS | Encounter Summary ---
Author Organization [employer] Address [address] [place] [address] Care Team Providers Care Photolithographer Name Role Phone Unavailable Primary Care Provider Unavailabl e Encounter Details Date Type Department Care Team (Late st Contact Info) Description 12/02/2020 Transcribed Document [facility] [place] [facility] [place] [address] ProviderFabi MD [address] [place] [address] Social History Tobacco Use Types [...] Conversion Note - Fabi ProviderMD - 12/02/2020 6:00 AM COLOR CONSULTANT Pain Assessment Entered On: 12/02/2020 10:09 EST Performed On: 12/02/2020 9:40 EST by SILVIO ANTONY RN Intervention Information: acetaminophen Performed by SILVIO ANTONY RN on 12/02/2020 08:40:00 EST acetaminophen,650mg Oral Pain Assessment Pain Assessment : Follow-up assessment Pain Scale Goal : 3 Pain Scale Used : 0-10 Scale Location : Neck, posterior Onset : Acute Quality : Aching Pain Radiation : No Pain Worsened by : Movement Pain Improved by : Medication Pain Intervention, Drug : Medicated Pain Improved by Intervention : Yes SILVIO ANTONY RN - 12/02/2020 10:09 EST Pain Scale Intensity : Alternate pain scale used SILVIO ANTONY RN - 12/02/2020 10:09 EST Image 4 - Images currently included in the form version of this document have not been included in the text rendition version of the form. documented in this encounter Plan of Treatment Not on file documented as of this encounter Visit Diagnoses Not on filedocumented in this encounter
--- OUTSIDE RECORDS SUMMARY | 2025-04-24 20:57 | XMS_ITS | Encounter Summary ---
Author Organization [employer] Address [address] [place] [address] Care Team Providers Care Buttoner Name Role Phone Unavailable Primary Care Provider Unavailabl e Encounter Details Date Type Department Care Team (Late st Contact Info) Description 11/30/2020 Transcribed Document [facility] [place] [facility] [address] ProviderFabi MD [address] [place] [address] Social History Tobacco Use Types [...] - Fabi ProviderMD - 11/30/2020 4:09 PM ASSEMBLY SUPERVISOR [facility] Main OR PACU Summary Primary Physician: BRAD CASTILLO MD-SN Finalized Date/Time: 11/30/20 22:00:25 Pt. Name: ALEXI GRIJALVA ELLIE WileyO.B./Sex: 1960 Male Med Rec #: [id number] Physician: BRAD CASTILLO MD-SN Financial #: [id number] Pt. Type: I Room/Bed: ASA/4 Admit/Disch: 11/30/20 06:39:00 - Institution: [facility] Main OR PACU I Case Times Entry 1 In PACU I 11/30/20 18:48:00 Ready for PACU 11/30/20 21:43:00 Discharge Discharge from PACU 11/30/20 21:43:00 I Last Modified By: Venus Montaño RN 11/30/20 21:59:38 [facility] Main OR PACU I Case Times Audit 11/30/20 21:59:38 [employer] Pulper: [id number] Modifier: [id number] <+> 1 Ready for PACU Discharge <+> 1 Discharge from PACU I Finalized By: Venus Montaño RN Document Signatures Signed By: Venus Montaño RN 11/30/20 22:00 Electronically signed by [facility] Conversion Margin Analyst Cerner at 02/19/2023 9:48 AM CDT documented in this encounter Plan of Treatment Not on file documented as of this encounter Visit Diagnoses Not on filedocumented in this encounter
--- OUTSIDE RECORDS SUMMARY | 2025-04-24 20:57 | XMS_ITS | Encounter Summary ---
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 Name: ALEXI GRIJALVA /Sex: 1960 Male Med Rec #: [id number] Physician: BRAD CASTILLO MD-SNU Financial #: [id number] Pt. Type: I Room/Bed: [facility] [place]/ Admit/Disch: 11/30/20 06:39:00 - Institution: [facility] IntraOp Case Attendance Entry 1 Entry 2 Entry 3 Case Attendee BRAD CASTILLO SWINFORD, ASHLEE, CRNA BOWEN, JON B, MD-ANS MD-SNU Role Performed Surgeon/Proceduralist, BUSINESS ANALYSIS SPECIALIST/Nurse Certification Technician Anesthesiologist of First Record Time In 11/30/20 15:00:00 11/30/20 15:00:00 11/30/20 15:00:00 Time Out 11/30/20 18:43:00 11/30/20 16:02:00 11/30/20 17:51:00 Procedure Lumbar Fusion Posterior Lumbar Fusion Posterior Lumbar Fusion Posterior 3 Level 3 Level 3 Level Other Attendee Superficial Wound Closed By: Last Modified By: Joan Ugarte, RN Joan Ugarte, RN Joan Ugarte, RN 11/30/20 18:43:07 11/30/20 18:43:07 11/30/20 18:43:07 Entry 4 Entry 5 Entry 6 Case Attendee BROWN KENYON Patsy D, RN Roxanne Pierson RN Role Performed Physician academic assistant Hand Cigar Making Supervisor, First Hand Cigar Making Supervisor, Second Time In 11/30/20 15:00:00 11/30/20 15:00:00 11/30/20 15:00:00 Time Out 11/30/20 17:04:00 11/30/20 18:43:00 11/30/20 18:07:00 Procedure Lumbar Fusion Posterior Lumbar Fusion Posterior Lumbar Fusion Posterior 3 Level 3 Level 3 Level Other Attendee Superficial Wound Closed By: Last Modified By: Joan Ugarte, RN Joan Ugarte, Joan Tillman, RAYO 11/30/20 18:43:07 11/30/20 18:43:07 11/30/20 18:43:07 Entry 7 Entry 8 Entry 9 Case Attendee Philipp Monique, Scrub OTHER, ATTENDEE Gi Erwin Tech Diagnostic Wafer Production Lead Worker Role Performed Scrub, First Scrub, Second Eradicator Time In 11/30/20 15:00:00 11/30/20 15:00:00 11/30/20 15:00:00 Time Out 11/30/20 18:43:00 11/30/20 16:51:00 11/30/20 18:43:00 Procedure Lumbar Fusion Posterior Lumbar Fusion Posterior Lumbar Fusion Posterior 3 Level 3 Level 3 Level Other Attendee JUSTINE DAVIS Superficial Wound Closed By: Last Modified By: Joan Ugarte, Joan Tillman, RN Joan Ugarte, RN 11/30/20 18:43:07 11/30/20 18:43:07 11/30/20 18:43:07 Entry 10 Entry 11 Entry 12 Case Attendee OTHER, ATTENDEE #1 Roe [place], BUSINESS ANALYSIS SPECIALIST BENTLEY LAGOS, ASHLEE Role Performed Spa Director, Ancillary BUSINESS ANALYSIS SPECIALIST/Nurse Certification Technician BUSINESS ANALYSIS SPECIALIST/Nurse Certification Technician Time In 11/30/20 15:00:00 11/30/20 16:02:00 11/30/20 16:15:00 Time Out 11/30/20 18:43:00 11/30/20 16:15:00 11/30/20 17:51:00 Procedure Lumbar Fusion Posterior Lumbar Fusion Posterior Lumbar Fusion Posterior 3 Level 3 Level 3 Level Other Attendee SPECIALTY CARE - NEURO MONITORING Superficial Wound Closed By: Last Modified By: Joan Ugarte, RN Joan Ugarte, RN Joan Ugarte, RN 11/30/20 18:43:07 11/30/20 18:43:07 11/30/20 18:43:07 Entry 13 Entry 14 Case Attendee ERNIE SIMS PA BOWEN, JON B, -ANS Role Performed Physician academic assistant Anesthesiologist Time In 11/30/20 17:02:00 11/30/20 17:51:00 Time Out 11/30/20 18:43:00 11/30/20 18:43:00 Procedure Lumbar Fusion Posterior Lumbar Fusion Posterior 3 Level 3 Level Other Attendee Superficial Wound Closed By: Last Modified By: Joan Ugarte, RN Joan Ugarte, RN 11/30/20 18:43:07 11/30/20 18:43:07 [facility] IntraOp Case Attendance Audit 11/30/20 18:43:07 Director Of Learning: BRINDA Modifier: SMITHPD 1 <+> Time Out 1 <*> Procedure Lumbar Fusion Posterior 3 Level 2 <*> Procedure Lumbar Fusion Posterior 3 Level 3 <*> Procedure Lumbar Fusion Posterior 3 Level 4 <*> Procedure Lumbar Fusion Posterior 3 Level 5 <+> Time Out 5 <*> Procedure Lumbar Fusion Posterior 3 Level 6 <*> Procedure Lumbar Fusion Posterior 3 Level 7 <+> Time Out 7 <*> Procedure Lumbar Fusion Posterior 3 Level 8 <*> Procedure Lumbar Fusion Posterior 3 Level 9 <+> Time Out 9 <*> Procedure Lumbar Fusion Posterior 3 Level 10 <+> Time Out 10 <*> Procedure Lumbar Fusion Posterior 3 Level 11 <*> Procedure Lumbar Fusion Posterior 3 Level 12 <*> Procedure Lumbar Fusion Posterior 3 Level 13 <+> Time Out 13 <*> Procedure Lumbar Fusion Posterior 3 Level 14 <+> Time Out 14 <*> Procedure Lumbar Fusion Posterior 3 Level 11/30/20 18:07:18 Director Of Learning: SMITHPD Modifier: SMITHPD 6 <+> Time Out 6 <*> Procedure Lumbar Fusion Posterior 3 Level 14 <+> Case Attendee 14 <*> Procedure Lumbar Fusion Posterior 3 Level 11/30/20 18:01:10 Director Of Learning: SMITHPD Modifier: SMITHPD 3 <+> Time Out 3 <*> Procedure Lumbar Fusion Posterior 3 Level 12 <+> Time Out 12 <*> Procedure Lumbar Fusion Posterior 3 Level <+> 14 Role Performed <+> 14 Time In <+> 14 Procedure 11/30/20 17:14:11 Director Of Learning: SMITHPD Modifier: SMITHPD 4 <+> Time Out 4 <*> Procedure Lumbar Fusion Posterior 3 Level <+> 13 Case Attendee <+> 13 Role Performed <+> 13 Time In <+> 13 Procedure 11/30/20 16:51:54 Director Of Learning: SMITHPD Modifier: SMITHPD 8 <+> Time Out 8 <*> Procedure Lumbar Fusion Posterior 3 Level 11/30/20 16:42:58 Director Of Learning: SMITHPD Modifier: SMITHPD 9 <*> Case Attendee [id number] 9 <*> Procedure Lumbar Fusion Posterior 3 Level 11/30/20 16:42:39 Director Of Learning: SMITHPD Modifier: SMITHPD 1 <*> Procedure Lumbar Fusion Posterior 3 Level 2 <+> Time In 2 <+> Time Out 2 <*> Procedure Lumbar Fusion Posterior 3 Level 3 <+> Time In 3 <*> Procedure Lumbar Fusion Posterior 3 Level 4 <+> Time In 4 <*> Procedure Lumbar Fusion Posterior 3 Level 5 <+> Time In 5 <*> Procedure Lumbar Fusion Posterior 3 Level 6 <+> Time In 6 <*> Procedure Lumbar Fusion Posterior 3 Level 7 <+> Time In 7 <*> Procedure Lumbar Fusion Posterior 3 Level 8 <+> Time In 8 <*> Procedure Lumbar Fusion Posterior 3 Level 9 <+> Time In 9 <*> Procedure Lumbar Fusion Posterior 3 Level 10 <+> Time In 10 <*> Procedure Lumbar Fusion Posterior 3 Level <+> 11 Case Attendee <+> 11 Role Performed <+> 11 Time In <+> 11 Time Out <+> 11 Procedure <+> 12 Case Attendee <+> 12 Role Performed <+> 12 Time In <+> 12 Procedure [facility] IntraOp Case Times Entry 1 Patient In Room Time 11/30/20 15:00:00 Out Room Time 11/30/20 18:43:00 Anesthesia Start Time 11/30/20 15:00:00 Stop Time 11/30/20 18:43:00 Surgery / Procedure Times Start Time 11/30/20 16:09:00 Stop Time 11/30/20 17:51:00 Last Modified By: Joan Ugarte RN 11/30/20 18:42:35 [facility] IntraOp Case Times Audit 11/30/20 18:42:35 Director Of Learning: BRINDA Modifier: SMITHPD <+> 1 Out Room Time <+> 1 Stop Time 11/30/20 18:00:03 Director Of Learning: BRINDA Modifier: SMITHPD <+> 1 Stop Time 11/30/20 17:39:49 Director Of Learning: BRINDA Modifier: SMITHPD <+> 1 Start Time [facility] IntraOp Cautery Entry 1 Entry 2 ESU Identification Cautery Type Monopolar ESU BiPolar ESU Cautery Type Comments ID Number [id number] ID Type Hospital Number Hospital Number Cautery Settings Cut Setting 45 8 Coag Setting 45 45 Blend Setting Bipolar Setting Argon Setting Argon Vickers ESU Grounding Pad Ground Pad Type Adult Grounding Pad Type Comment Grounding Pad Site Right thigh Grounding Pad Site Comment Grounding Pad Joan Ugarte RN Applied By Grounding Pad Site Warm, dry and intact Skin Condition Before Cautery Site Skin Condition Before Comment Grounding Pad Site Warm, dry and intact, Skin Condition Unchanged After Cautery Site Skin Condition After Comment Last Modified By: Joan Ugarte, RN Joan Ugarte RN 11/30/20 15:32:47 11/30/20 15:33:10 [facility] IntraOp Cautery Audit 11/30/20 15:33:10 Director Of Learning: BRINDA Modifier: SMITHPD <+> 2 Cautery Type <+> 2 Coag Setting <+> 2 Cut Setting <+> 2 ID Number <+> 2 ID Type [facility] IntraOp Communication Entry 1 Communication To Family/Significant other Comment START Communication By Joan Ugarte, RN Last Modified By: Joan Ugarte RN 11/30/20 15:33:21 [facility] IntraOp Counts Verification Entry 1 Procedure Lumbar Fusion Posterior 3 Level Count Info Count Type Sponge, Sharps, Miscellaneous Counts Verification Baseline/pre-procedure Sequence Count Results Not Applicable Counts Performed By Count Performed By Philipp Monique Scrub (Scrub) Tech Count Performed By Roxanne Pierson RN (RN) Last Modified By: Joan Ugarte RN 11/30/20 15:33:41 [facility] IntraOp Counts Final Entry 1 Procedure Lumbar Fusion Posterior 3 Level Final Count Info Count Type Sponge, Sharps, Miscellaneous Counts Verification Skin Closure/end of Sequence procedure Count Results Correct, surgeon notified Counts Performed By Count Performed By Philipp Monique Scrub (Scrub) Tech Count Performed By Roxanne Pierson RN (RN) Last Modified By: Joan Ugarte RN 11/30/20 17:35:27 [facility] IntraOp Counts Final Audit 11/30/20 17:35:27 Director Of Learning: BRINDA Modifier: SMITHPD 1 <*> Procedure Lumbar Fusion Posterior 3 Level 1 <+> Count Performed By (Scrub) 1 <+> Count Performed By (RN) [facility] IntraOp Departure from OR Entry 1 Integumentary Assessment Integumentary WDL with patient Assessment WDL specific variances Patient's Normal [place] SITE C2 Integumentary -T1 Variance(s) Transfer/Handoff Transfer to PACU Phase I Handoff Method Phone call Handoff Reported to NAKITA GUILLEN RN Post-op Transport Stretcher/Gurney Via Patient Transport ALLISON KING MD-DANAY, Accompanied by Joan Ugarte, RN Last Modified By: Joan Ugarte RN 11/30/20 18:43:06 [facility] IntraOp Departure from OR Audit 11/30/20 18:43:06 Director Of Learning: BRINDA Modifier: SMITHPD 1 <*> Patient Transport Accompanied by ALLISON KING MD-ANS 11/30/20 18:02:20 Director Of Learning: BRINDA Modifier: KENYETTAPD 1 <*> Patient Transport Accompanied by BROWN KENYON [facility] IntraOp Drains and Tubes Entry 1 Device Type Kumar Marcos round drain Size 15 F Drain/Tube Activity Inserted Drain/Tube Suction Bulb Drain/Tube Drainage Serous Device Location OP SITE Method of Drainage Compression Tube Dressing Dry, Intact Condition Last Modified By: Joan Ugarte RN 11/30/20 17:25:26 [facility] IntraOp Dressing and Packing Entry 1 Type Dressing Location OPERATIVE SITE Applied By ERNIE SIMS PA Other Comments COVERDERM, ASPEN COLLAR , REGULAR Last Modified By: Joan Ugarte RN 11/30/20 17:33:59 [facility] IntraOp Fire Risk Assessment Entry 1 Fire Info Surgical Site or 1- Yes Incision Above the Xyphoid Open O2 Source 0- No (Mask or Cannula) Available Ignition 1- Yes (ESU, Laser, Light Source) Fire Risk 2 Assessment Score Fire Score Fire Risk Yes Assessment Complete Fire Risk Joan Ugarte RN Assessment Verified By Fire Risk 11/30/20 16:08:00 Assessment Verified Date/Time Fire Risk Standard Fire Yes Safety Precautions Followed Last Modified By: Joan Ugarte RN 11/30/20 16:59:30 [facility] IntraOp General Case Relationship Consultant 1 Case Information OR OR 10 [facility] Case Level 1 Room Verified Yes Wound Class I - Clean Specialty SN Neurosurgery Anesthesia Type General ASA Class 3 Diagnosis Preop Diagnosis CERVICAL SPONDYLOSIS WITH MYELOPATHY Postop Same As Preop No Postop Diagnosis SEE DOCTOR POST OPERATIVE NOTE Last Modified By: Joan Ugarte RN 11/30/20 16:59:36 [facility] IntraOp General Case Data Audit 11/30/20 16:59:36 Director Of Learning: BRINDA Modifier: SMITH <+> 1 Room Verified [facility] IntraOp Implant Log Entry 1 Entry 2 Entry 3 Type Tissue Implant Implant (Synthetic) Implant (Synthetic) (Biologic) Implant Log Implant Type Hardware Hardware Tissue Implant Type Other Implant BONE VIVIGEN FRMBLE 1020.35.130 3.5 X 30MM 1020.35.112 3.5 X 12MM Identification [facility][id number] Description Implant Quantity 1 2 4 Implant Site OP SITE OPERATIVE SITE OPERATIVE SITE Implant [id number] Identification Model Number Implant Identification Serial Number Implant Identification Lot Number Implant Lifenet:Lifenet Identification Transplant Srv Director Corporate Communications Name: Implant [id number] Identification Catalog Number Implant Size Implant Has an Yes Expiration Date Implant Expiration 11/17/21 Date Wasted Radioactive Material Time Implanted Tissue Implant Continue for Tissue Implant Documentation Tissue Identification Number Graft Prep Per Director Corporate Communications Instructions: Tissue Preparation Method: Reconstitution Solution: Reconstitution Solution Lot Number Reconstitution Solution Expiration Date: Thawing Solution Thawing Solution Lot Number Thawing Solution Expiration Date Preparation Materials, Other Preparation Materials, Other Lot Number Preparation Materials, Other Expiration Date Tissue Prepared/Processed By Director Corporate Communications Paperwork Completed Implant Type Comment Last Modified By: Joan Ugarte RN Smith, Patsy D, Joan Tillman RN 11/30/20 17:15:45 11/30/20 17:32:04 11/30/20 17:32:04 Entry 4 Entry 5 Entry 6 Type Implant (Synthetic) Implant (Synthetic) Implant (Synthetic) Implant Log Implant Type Hardware Hardware Hardware Tissue Implant Type Implant 1020.35.120 3.5 X 20MM 1020.40.120 4.0 X 20 1020.45.226 4.5 X 26MM Identification SCEWS SCEWS SCREWS Description Implant Quantity 1 1 2 Implant Site OPERATIVE SITE OPERATIVE SITE OPERATIVE SITE Implant Identification Model Number Implant Identification Serial Number Implant Identification Lot Number Implant Identification Director Corporate Communications Name: Implant Identification Catalog Number Implant Size Implant Has an Expiration Date Implant Expiration Date Wasted Radioactive Material Time Implanted Tissue Implant Continue for Tissue Implant Documentation Tissue Identification Number Graft Prep Per Director Corporate Communications Instructions: Tissue Preparation Method: Reconstitution Solution: Reconstitution Solution Lot Number Reconstitution Solution Expiration Date: Thawing Solution Thawing Solution Lot Number Thawing Solution Expiration Date Preparation Materials, Other Preparation Materials, Other Lot Number Preparation Materials, Other Expiration Date Tissue Prepared/Processed By Director Corporate Communications Paperwork Completed Implant Type Comment Last Modified By: Joan Ugarte RN Smith, Patsy D, Joan Tillman RN 11/30/20 17:32:04 11/30/20 17:32:04 11/30/20 17:32:04 Entry 7 Entry 8 Entry 9 Type Implant (Synthetic) Implant (Synthetic) Implant (Synthetic) Implant Log Implant Type Hardware Hardware Hardware Tissue Implant Type Implant 1020.50.230 5.0 X 30MM 1020.00.000 SET SCREWS 1020.14.120 120MM RODS Identification SCEWS Description Implant Quantity 2 12 2 Implant Site OPERATIVE SITE OPERATIVE SITE OPERATIVE SITE Implant Identification Model Number Implant Identification Serial Number Implant Identification Lot Number Implant Identification Director Corporate Communications Name: Implant Identification Catalog Number Implant Size Implant Has an Expiration Date Implant Expiration Date Wasted Radioactive Material Time Implanted Tissue Implant Continue for Tissue Implant Documentation Tissue Identification Number Graft Prep Per Director Corporate Communications Instructions: Tissue Preparation Method: Reconstitution Solution: Reconstitution Solution Lot Number Reconstitution Solution Expiration Date: Thawing Solution Thawing Solution Lot Number Thawing Solution Expiration Date Preparation Materials, Other Preparation Materials, Other Lot Number Preparation Materials, Other Expiration Date Tissue Prepared/Processed By Director Corporate Communications Paperwork Completed Implant Type Comment Last Modified By: Joan Ugarte, Joan Tillman, RN Joan Ugarte RN 11/30/20 17:32:04 11/30/20 17:32:04 11/30/20 17:32:04 [facility] IntraOp Implant Log Audit 11/30/20 17:32:04 Director Of Learning: BRINDA Modifier: BRINDA <+> 2 Implant Identification Description <+> 2 Implant Site <+> 2 Implant Quantity <+> 2 Implant Type <+> 2 Type <+> 3 Implant Identification Description <+> 3 Implant Site <+> 3 Implant Quantity <+> 3 Implant Type <+> 3 Type <+> 4 Implant Identification Description <+> 4 Implant Site <+> 4 Implant Quantity <+> 4 Implant Type <+> 4 Type <+> 5 Implant Identification Description <+> 5 Implant Site <+> 5 Implant Quantity <+> 5 Implant Type <+> 5 Type <+> 6 Implant Identification Description <+> 6 Implant Site <+> 6 Implant Quantity <+> 6 Implant Type <+> 6 Type <+> 7 Implant Identification Description <+> 7 Implant Site <+> 7 Implant Quantity <+> 7 Implant Type <+> 7 Type <+> 8 Implant Identification Description <+> 8 Implant Site <+> 8 Implant Quantity <+> 8 Implant Type <+> 8 Type <+> 9 Implant Identification Description <+> 9 Implant Site <+> 9 Implant Quantity <+> 9 Implant Type <+> 9 Type [facility] IntraOp Intraoperative Assessment Entry 1 Handoff Method Bedside/Face to face, Online nursing summary Valid History / Yes Physical in Chart Preoperative Yes Checklist Reviewed/Evaluated Allergies Reviewed Yes Patient is Latex No Sensitive Isolation Not applicable Precautions Noted Level of WDL Consciousness (WDL = Alert, Oriented to Person, Place, and Time) Skin Assessment Yes Verified Present Upon IVs, Arterial line, Arrival to OR Oxygen Intraoperative NOTED SKIN REDNESS IN Assessment Comment SACRAL AREA UPON ARRIVAL TO OR. MADE DOCTOR AWARE AND APPLIED SACRAL DRESSING Last Modified By: Joan Ugarte RN 11/30/20 17:54:00 [facility] IntraOp Intraoperative Assessment Audit 11/30/20 17:54:00 Director Of Learning: BRINDA Modifier: BRINDA <+> 1 Intraoperative Assessment Comment [facility] IntraOp Intraoperative Equipment Entry 1 Type Equipment Equipment Equipment Rosa Elena Suction System ID Number [id number] Intraop Monitoring Electrocardiogram Three lead placement (ECG) Electrode Placement Blood Pressure Non-Invasive BP Device Source Blood Pressure Arm, right upper Location Pulse Oximeter Hand, left Probe Site Antiembolic Devices Antiembolic Devices Sequential compression device, knee high Antiembolic Device Bilateral Location Antiembolic Device [id number] ID Number Scopes Photo/Video Documentation Photo No Video No Intraop Equipment SCDS ON AND WORKING Comment PRIOR TO INDUCTION Last Modified By: Joan Ugarte RN 11/30/20 17:10:38 [facility] IntraOp Medication Admin Entry 1 Entry 2 Entry 3 Medication/Irrigant Bacitracin 50,00units MICKEY IRR NACL 0.9PCT thrombin 5000units powder vial 1.5L [id number] topical powder - [id number] Combo Med List 1 - Combo Med Time Administered Route of ADDED TO IRRIGATION IRRIGATION - BASIN TOPICAL - Administration Dose Dose [id number] Unit of Measure units units Volume Administered By BRAD CASTILLO TUTT, MATTHEW PAIGE, TUTT, MATTHEW PAIGE, MD-SNU MD-SNU MD-SNU Procedure Irrigation Irrigant Volume In Irrigant Volume Out Last Modified By: Joan Ugarte, Joan Tillman, Joan Tillman RN 11/30/20 17:09:13 11/30/20 17:09:13 11/30/20 17:09:13 Entry 4 Entry 5 Entry 6 Medication/Irrigant lidocaine 1% w/ bacitracin ointment -- SPNG SURGFOAM epinephrine 1:100,000 [id number] 30ml vial - [id number] Combo Med List Time Administered Route of LOCAL TOPICAL TOPICAL Administration Dose Dose 20 1 1 Unit of Measure ml pkt pkt Volume Administered By BRAD CASTILLO TUTT, MATTHEW PAIGE, TUTT, MATTHEW PAIGE, MD-SNU MD-SNU MD-SNU Procedure Irrigation Irrigant Volume In Irrigant Volume Out Last Modified By: Joan Ugarte RN Smith, Patsy D, RN Joan Ugarte RN 11/30/20 17:39:29 11/30/20 17:09:13 11/30/20 17:09:13 [facility] IntraOp Medication Admin Audit 11/30/20 17:39:29 Director Of Learning: BRINDA Modifier: KENYETTAPD 4 <*> Medication/Irrigant lidocaine 1% w/ epinephrine 1:100,000 30ml vial - [id number] <+> Dose [facility] IntraOp Patient Positioning Entry 1 Procedure Lumbar Fusion Posterior 3 Level Body Position Prone Left Arm Position Tucked and padded at side Right Arm Position Tucked and padded at side Left Leg Position Uncrossed, parallel Right Leg Position Uncrossed, parallel Feet Uncrossed Yes Pressure Points Yes Checked Positioning Devices [place] w/ Head Pins, Pillows, Safety Strap, Thighs Positioning Device AIRO BED USED Comments Positioned By BRAD CASTILLO MD-SNU, AZALEA LOBO, ASHLEE, BROWN KENYON, Joan Ugarte, RN, Roxanne Pierson RN Position Verified Positioning Yes Verified by Anesthesia Positioning Yes Verified by Surgeon Last Modified By: Joan Ugarte RN 11/30/20 16:54:08 [facility] IntraOp Sign In Entry 1 Patient, Site, Yes Procedure Identified Surgical Consent Yes Confirmed Relevant Surgical Yes Documents Available Surgical Site Yes Marked by person performing procedure Anesthesia Machine Yes Check Completed Medication Checks Yes Completed Allergies Yes Airway Difficult Yes Airway/Aspiration Risk Difficult Yes Airway/Aspiration Intervention Equipment Available Blood Loss Risk Yes Blood Loss Yes Intervention Equipment Prepared and Ready Blood Identifiers Not applicable Verified Per Policy Hypothermia Risk Yes Warming Measures Yes Taken Last Modified By: Joan Ugarte RN 11/30/20 16:51:01 [facility] IntraOp Sign Out Entry 1 RN Confirmation Surgical Yes Procedure(s) Identified Instrument, Sponge Yes and Sharps Counts Correct/Documented Equipment Problems N/A Documented Urinary Catheter Yes Documented in IView [place] Patient Yes Recovery Concerns Reviewed with Anesthesia Provider, Surgeon and RN [place] Patient Yes Management Concerns Reviewed with Anesthesia Provider, Surgeon and RN Safety Checklist Yes Elements Complete? RN Sign Out Joan Ugarte, RAYO Signature RN Sign Out 11/30/20 18:43:00 Signature Date/Time Plan of Care Outcome - Fire Risk OUTCOME STATEMENT: Goal met Patient is free from injury related to surgical fire Plan of Care Outcome - Pt Positioning OUTCOME STATEMENT: Goal met Absence of signs and symptoms of positioning injury. Plan of Care Outcome - Skin Prep OUTCOME STATEMENT: Goal met Intraoperative care is consistent with measures to prevent infection Plan of Care Outcome - Xray/Images OUTCOME STATEMENT: Goal met Absence of observable signs or symptoms of radiation injury Plan of Care Outcome - Counts OUTCOME STATEMENT: Goal met Absence of signs and symptoms of injury related to extraneous objects Last Modified By: Joan Ugarte RN 11/30/20 18:42:55 [facility] IntraOp Sign Out Audit 11/30/20 18:42:55 Director Of Learning: BRINDA Modifier: KENYETTAPD <+> 1 RN Sign Out Signature <+> 1 RN Sign Out Signature Date/Time [facility] IntraOp Skin Prep Entry 1 Procedure Lumbar Fusion Posterior 3 Level Prescribed N/A Pre-Surgical Prep Completed Prep Area BACK OF HEAD TO BELOW SHOULDERS Intraop Prep Integumentary WDL Assessment WDL Prep Agents Alcohol, Chlorhexadine gluconate, Other Prep by Joan Ugarte, RN Skin Prep Comment ALCOHOL AND HIBICLENS PREP BY DR. CASTILLO, PURPREP BY Debbie UGARTE RN Hair Removal Methods Clipper/Scissors Hair Removal Site BACK OF HEAD/ NECK Hair Removal By BROWN KENYON Last Modified By: Joan Ugarte RN 11/30/20 16:49:17 [facility] IntraOp Surgical Procedures Entry 1 Procedure Lumbar Fusion Posterior 3 Level Additional (C2-T1 POSTERIOR Procedure CERVICAL DECOMPRESSION Description AND FUSION WITH AIRO) Primary Procedure Yes Primary Surgeon BRAD CASTILLO MD-SNU Start 11/30/20 16:09:00 Stop 11/30/20 17:51:00 Anesthesia Type General Specialty SN Neurosurgery Wound Class I - Clean Last Modified By: Joan Ugarte RN 11/30/20 18:42:43 [facility] IntraOp Surgical Procedures Audit 11/30/20 18:42:43 Director Of Learning: BRINDA Modifier: BRINDA <+> 1 Start <+> 1 Stop [facility] IntraOp Temp Regulation Devices Entry 1 Temp Regulation Temperature Forced Air Warming Regulation Device device, Warm blankets Temperature 00692 Regulation Device Serial/Unit Number Temperature Lower body Regulation Site Temperature Device 43 C Setting Temperature AZALEA LOBO, ASHLEE Regulation Device Applied by Temperature TEMPERATURE REGULATION Regulation Comment MONITORED AND CONTROLLED BY ANESTHESIA PROVIDER. Last Modified By: Joan Ugarte RN 11/30/20 16:46:55 [facility] IntraOP Time Out Entry 1 Procedure to be Lumbar Fusion Posterior Performed 3 Level Time Out Time Out Pause Time 11/30/20 16:08:00 All activity Yes suspended (unless life threatening emergency) Team Verbally Correct patient Confirms Information identity, Consent form is present and accurate, Agreement on the procedure to be done, Correct patient position, Relevant images/results properly labeled/appropriately displayed, Confirm antibiotics have been administered, Confirm the skin prep has dried, Confirm prosthesis/implant/devic e is present, Performed in location of procedure after prepped/draped Antibiotic Yes Prophylaxis Administered Or In Progress Within the Last 60 Minutes Beta Afsaneh N/A Administered Venous Yes Thromboembolism Prophylaxis Required Anticipated Critical Events Surgeon None expected, Special equipment need Anesthesia Provider None expected Nursing Assures Sterility of instruments, Implant Availability Essential Imaging Yes Labeled and Displayed Last Modified By: Joan Ugarte RN 11/30/20 16:13:57 Case Comments <None> Finalized By: DAPHNEY VICKERS Document Signatures Signed By: Joan Ugarte RN 11/30/20 18:43 DAPHNEY VICKERS 12/01/20 14:35 Unfinalized History Date/Time Username Reason for Unfinalizing Freetext Reason for Unfinalizing 12/01/20 14:32 [email or web address] Correct Billing documented in this encounter Plan of Treatment Not on file documented as of this encounter Visit Diagnoses Not on filedocumented in this encounter
--- OUTSIDE RECORDS SUMMARY | 2025-04-24 20:57 | XMS_ITS | Encounter Summary ---
Author Organization [employer] Address [address] [place] [id number] Care Team Providers Care Helper Marble Finisher Name Role Phone Unavailable Primary Care Provider Unavailabl e Encounter Details Date Type Department Care Team (Late st Contact Info) Description 11/30/2020 Transcribed Document [facility] [place] [address] ProviderFabi MD [address] [place], [place] [id number] Social History Tobacco Use Types Packs/Day Years Used Date Smoking Tobacco: Never Assessed Sex and Gender Information Value Date Recorded Sex Assigned at Male 05/01/2022 10:55 AM CDT Legal Sex Male 10:55 AM CDT Gender Identity Male 05/01/2022 10:55 AM CDT Sexual Orientation Not on file documented as of this encounter Miscellaneous Notes * Cerner Conversion Note - Fabi ProviderMD - 11/30/2020 10:13 PM AUTOMOTIVE DRIVABILITY TECHNICIAN Meds to Bed Enrollment Entered On: 12/01/2020 7:28 EST Performed On: 11/30/2020 22:13 EST by SUE ALAS RPh Meds to Bed Enrollment Patient Enrollment Decision: : No/do not enroll in meds to bed program Reason for Declining Meds to Bed Program: : Discharge to facility SUE ALAS RPh - 12/01/2020 7:28 EST documented in this encounter Plan of Treatment Not on file documented as of this encounter Visit Diagnoses Not on filedocumented in this encounter
--- OUTSIDE RECORDS SUMMARY | 2025-04-24 20:57 | XMS_ITS | Clinical Summary ---
Author Organization [facility] Address [address] [place] [address] Phone Care Team Providers Care Relay Mechanic Name Role Phone Unavailable Primary Care Provider Unavailabl e Allergies Active Allergy Reactions Criticality Noted Date Comments Benzalkonium Chloride Other (See Comments) 03/05 Not specified Medications * This document contains information received from the source organization and may not represent a complete record from that organization. No known medications Active Problems Problem Noted Date Diagnosed Date Socially inappropriate behavior 05/12/2020 Psychosis 05/12/2020 Mixed obsessional thoughts and acts 12/31/2019 Delusions 09/26/2019 Anorexia 02/15/2019 Medication monitoring encounter 04/26/2018 Adjustment disorder with depressed mood 03/25/20 18 Bipolar II disorder, most recent episode hypoman ic 03/25/2018 Hallucinations 03/25/2018 Agitation 03/25/2018 Social History Tobacco Use Types Packs/Day Years Used Date Smoking Tobacco: Never Assessed Sex and Gender Information Value Date Recorded Sex Assigned at Not on file Legal Sex Male 10:33 AM EDT Gender Identity Not on file Sexual Orientation Not on file Obstetrics History Plan of Treatment Health Maintenance Due Date Last Done Comments Wellness Exam Medicare 1962 Hepatitis C Screening 1977 DTaP/TDaP/Td (1 - Tdap) 1978 Cologuard 2004 Colon Cancer Screening 2004 Colonoscopy 2004 FIT 2004 Sigmoidoscopy 2004 Virtual Colonography 2004 Pneumococcal Vaccine 50+ (1 of 1 - PCV) 2009 Zoster (1 of 2) 2009 COVID-19 Vaccine ( - 2023-2 5 season) 2024 Influenza Vaccine (Season Ended) 2025 Hepatitis B Vaccine Aged Out No longe r eligible based on patient's age to complete this topic Meningococcal B Vaccine Aged Out No l onger eligible based on patient's age to complete this topic Insurance [place] PART A AND B
--- OUTSIDE RECORDS SUMMARY | 2025-04-24 20:57 | XMS_ITS | Encounter Summary ---
Author Organization [employer] Address [address] [place] [address] Care Team Providers Care Client Engagement Manager Name Role Phone Unavailable Primary Care Provider Unavailabl e Encounter Details Date Type Department Care Team (Late st Contact Info) Description 11/30/2020 Transcribed Document [facility] [place] [facility] [place] [address] ProviderFabi MD [address] [place] [address] Social History Tobacco Use Types Packs/Day Years Used Date Smoking Tobacco: Never Assessed Sex and Gender Information Value Date Recorded Sex Assigned at Male 05/01/2022 10:55 AM CDT Legal Sex Male 10:55 AM CDT Gender Identity Male 05/01/2022 10:55 AM CDT Sexual Orientation Not on file documented as of this encounter Miscellaneous Notes * Cerner Conversion Note - Historical ProviderMD - 11/30/2020 6:25 PM DERRICKMAN HELPER Evaluation, Physical Therapy Entered On: 12/01/2020 12:28 EST Performed On: 12/01/2020 11:50 EST by MACI LAND, JESSIE General Information, PT Visit Type, PT : Initial evaluation Patient Orders : Order Date Order Ordering 11/30/2020 18:25 Physical Therapy Eval and Treat Ordered By: BRAD CASTILLO MD-U Active Diagnoses : 11/30/2020 12:00 Disease of spinal cord, unspecified Therapy Diagnosis, PT : decreased functional mobility and activity tolerance Onset of Problem, PT : 11/30/2020 EST Admission Date : 11/30/2020 06:39 Personal Devices : Personal Devices No Devices Recorded Assistive Devices : Assistive Devices No Devices Recorded General Information Comment, PT : Dx: cervical myelopathy PMH: bipolar, HTN, HLD, TBI (since age 12) -> behavioral issues, decreased memory Sx: cervical laminectomy (11/30) MACI LAND, PT - 12/01/2020 11:50 EST General Status Patient Received Status : Supine in bed Treatment Start Time : 12/01/2020 9:53 EST Patient Left Status : Supine in bed, Communication board completed, All needs met and within reach RN/PCT Informed Comment : miryam Treatment End Time : 12/01/2020 10:17 EST Treatment Time : 24 Minute(s) MACI LAND, PT - 12/01/2020 11:50 EST History and Environment Living Situation, Therapy : Other: [facility] Patient Lives With : Caregiver(s) Persons Providing Information : Sibling(s) Home Equipment Therapy, PT : Wheelchair, Other: rollator MACI LAND, PT - 12/01/2020 11:50 EST Prior Level of Function PT GRID Prior LOF Ambulation, Household : Assist needed Prior LOF Bed Mobility : Assist needed Prior LOF Toileting : Assist needed Prior LOF Transfer : Assist needed Prior LOF Wheel Chair Mobility : Independent MACI LAND, PT - 12/01/2020 11:50 EST Prior LOF Assist with ADL Comment : Sister states that patient is able to ambulate however care home does not allow patient to ambulate and makes him use wheelchair which is why he is weak MACI LAND, PT - 12/01/2020 11:50 EST Functional Mobility Mobility Grid Supine to Sit : Rehab Minimal assistance Sit to Stand : Rehab Minimal assistance Stand to Sit : Rehab Minimal assistance MACI LAND, PT - 12/01/2020 11:50 EST Gait Training/Assessment, PT Gait Assistance Level : Assist, minimal Walking Distance : 60' Ambulatory Devices : Gait belt, Walker, front wheel MACI LAND, PT - 12/01/2020 11:50 EST Cognition Assessment, PT Orientation : Not oriented to place, Not oriented to situation, Not oriented to time AMCI LAND, PT - 12/01/2020 11:50 EST Edu Topics Physical Therapy Education Grid Role of Physical Therapy : Verbalizes understanding MACI LAND, PT - 12/01/2020 11:50 EST Indication Assesessment, PT Physical Therapy Indicated : Yes PT Problem List : Impaired, activities daily living, Impaired, bed mobility, Impaired, cognition, Impaired, coordination/proprioception, Impaired, endurance tolerance, Impaired, gait, Impaired, sitting balance, Impaired, stair mobility, Impaired, standing balance, Impaired, strength, Impaired, transfers, Pain limiting function Potential Barriers To Therapy : Cognitive deficit Rehabilitation Potential : Fair MACI LAND, PT - 12/01/2020 11:50 EST Plan of Care, PT PT Tx Plan/Goals Established w Patient : Yes PT Frequency Rehab : Five days per week PT Duration Rehab : Fourteen days PT Treatments Planned : Balance training, Bed mobility training, Gait training, Safety education, Stair training, Therapeutic exercises, Transfer training MACI LAND, PT - 12/01/2020 11:50 EST Shelter Goals Mobility/Bed Mobility LTG PT Grid Goal #1 Goal #2 Activity : Supine to sit Sit to stand Assist : Supervision or set-up Supervision or set-up Date to Meet : 12/15/2020 EST 12/15/2020 EST Goal Status : Intial Goal Intial Goal MACI LAND, PT - 12/01/2020 11:50 EST MACI LAND, PT - 12/01/2020 11:50 EST Transfer LTG Grid Goal #1 Destination : Wheelchair, standard Assist : Supervision or set-up Date to Meet : 12/15/2020 EST Goal Status : Intial Goal MACI LAND PT - 12/01/2020 11:50 EST Ambulation LTG Grid Goal #1 Device : Walker, front wheel Distance : 100' Assist : Supervision or set-up Date to Meet : 12/15/2020 EST Goal Status : Intial Goal MACI LAND, PT - 12/01/2020 11:50 EST Treatment Note Subjective Comment : Patient agreed to PTx. RN ok'd PTx. Additional Objective Information : Patient confused and distractable requiring steady cues for safety and mobility. Patient grateful to ambulate stating he feels better. Patient requires cues for AD management and obtastcle negotiation. Patient fatigues and easily SOA. Patient with cervical collar on throughout PTx. Patient up in chair with chair alarm. Sister in room Assessment : Patient demonstrates decreased independence and safety with functional mobility, transfers, and gait. Patient also demonstrates decreased activity tolerance and dynamic balance. Patient would benefit from skilled PT services in order to improve in these areas, minimize functional deficits, promote safety and independence, improve quality of life and return to PLOF. Plan for Treatment : Continue POC MACI LAND, PT - 12/01/2020 11:50 EST Pain Assessment Pain Scaled Used : 0-10 Pain scale Pain Score Pre-Intervention : 0 MACI LAND PT - 12/01/2020 11:50 EST Image 1 - Images currently included in the form version of this document have not been included in the text rendition version of the form. Anticipated Discharge Needs, OT/PT Anticipated Discharge to : [facility], [facility] Recommend Continued Therapy at Discharge : Yes MACI LAND PT - 12/01/2020 11:[address] [facility] Charges Gait Training Each 15 Min : 1 PT Eval Moderate Complexity : 1 MACI LAND PT - 12/01/2020 11:50 EST documented in this encounter Plan of Treatment Not on file documented as of this encounter Visit Diagnoses Not on filedocumented in this encounter
[2025-04-24 21:00] LABS: Direct LDL Cholesterol 51.15 mg/dL (100-129)
[2025-04-24 21:02] LABS: Troponin I < 0.01 ng/ml (0.00-0.034)
[2025-04-24 21:30] VITALS: BP 130/101; PULSE 87; RESP 20; O2SAT 94
--- NOTE | 2025-04-24 21:35 | PC.NURSE ---
Pt states he is unable to urinate, ok with in/out cath. In/Out cath performed, specimen collected with no issues. UA sent to lab.
[2025-04-24 21:37] LABS: Microscopic, Urine URINE MICROSCOPIC (MICROSCOPIC)
[2025-04-24 21:38] LABS: Appearance,Urine CLEAR (Clear); Bilirubin,Urine Negative (Negative); Blood, Urine Negative (Negative); Color,Urine YELLOW (Yellow); Glucose,Urine (UA) Negative (Negative); Ketones,Urine Negative (Negative); Leukocyte Esterase,Urine Negative (Negative); Nitrate,Urine Negative (Negative); PH,Urine 7.5 (5.0-8.5); Protein,Urine Negative (Negative); Urobilinogen,Urine 0.2 EU/dl (0.2)
[2025-04-24 21:49] LABS: Amphetamine/Metha Screen,Urine Negative ng/ml (<1000); Barbiturates Screen,Urine Negative ng/ml (<200)
[2025-04-24 21:50] LABS: Benzodiazepines Screen,Urine Negative ng/ml (<200)
[2025-04-24 21:51] LABS: Cannabinoid Screen,Urine Negative ng/ml (<50); Cocaine Screen,Urine Negative ng/ml (<300)
[2025-04-24 21:52] LABS: Bacteria,Urine 1+ /lpf; Methadone Screen,Urine Negative ng/ml (<300); Squamous Epithelial Cell,Urine 20-50 #/hpf (0-5)
[2025-04-24 21:53] LABS: Opiate Screen,Urine Negative ng/ml (<300); Phencyclidine Screen,Urine Negative ng/ml (<25)
[2025-04-24 22:00] VITALS: BP 124/64; PULSE 64; RESP 20; O2SAT 93
[2025-04-24 22:30] VITALS: BP 145/82; PULSE 79; RESP 20; O2SAT 94
[2025-04-24 22:43] VITALS: BP 145/82; PULSE 69; RESP 16; TEMP 36.6; O2SAT 96
--- NOTE | 2025-04-24 22:54 | PC.NURSE ---
Report called to MARY [place] [facility] [place] [facility]
--- NOTE | 2025-04-24 22:55 | PC.NURSE ---
called EMS for transfer back to nursing facility.
== END 2025-04-24 23:45 ==
PROVIDERS: Nurse Practitioner; Emergency Provider Emergency Medicine
DX: R29.818 Other symptoms and signs involving the nervous system (principal); J44.9 Chronic obstructive pulmonary disease, unspecified; I25.10 Atherosclerotic heart disease of native coronary artery without angina pectoris; I10 Essential (primary) hypertension; E78.5 Hyperlipidemia, unspecified; Z87.891 Personal history of nicotine dependence
CPT/HCPCS: 70450; 70496; 70498; 71045; 72125; 80053; 80061; 80307; 80320; 81001; 84484; 85025; 85610; 85730; 87086; 93005; 99285; Q9967

== ENCOUNTER 2025-04-27 08:52 | Outpatient (CLI) | payer MEDICARE, MEDICAID, SELFPAY ==
--- OUTSIDE RECORDS SUMMARY | 2025-03-17 06:20 | XMS_ITS | Continuity of Care Document ---
Author Organization [address] [place] [address] [address] [facility] [address] [place] [address] Phone Care Team Providers Care Controls Design Engineer Name Role Phone Josefina Castillo OD Unavailable Unavailable Allergies, Adverse Reactions, Alerts Substance Reaction Status Criticality polymyxin B Active No Information NEOMYCIN SULFATE Active No Informat ion BACITRACIN ZINC Active No Informati on bacitracin Active No Information Medications Medication Instructions Dosage Effective Dates (start - stop) Status Comments simethicone 80 mg chewable tablet - Active acetaminophen 500 mg tablet - Active aspirin 81 mg chewable tablet - Active senna 8.6 mg tablet - Active cholecalciferol (vitamin D3) 50 mcg (2,000 unit) tablet - Active Oyster Shell Calcium-500 500 mg (as carbonate 1,250 mg) tablet - Active sodium chloride 1,000 mg soluble tablet - Active DOK 100 mg tablet - Active ClearLax 17 gram/dose oral powder - Active polyethylene glycol 3350 17 gram/dose oral powder - Active guaifenesin 100 mg/5 mL oral liquid - Active cetirizine 10 mg tablet - Ac tive Lasix 20 mg tablet take 1 tablet by ora l route every day for Agitation 20 MG - Active Thalomid 50 mg capsule take 1 capsule by oral route every day at bedtime and at least 1 hour after the evening meal 50 MG - Active Procedures Procedure Date COMPRE OPH EXAM EST PT 1/ SBSQ NF CARE SF MDM 10 Trim Dystrophic nail(s) DEBRIDE NAIL 1-5 Warranty Lower Denture Warranty Upper Denture Periodic Oral Evaluation SBSQ NF CARE SF MDM 10 Trim dystrophic nail(s) in length, any n umber Debride mycotic, thick nails 1-5 2024 Trim nail(s) SBSQ NF CARE LOW MDM 20 PARING/CUTG B9 HYPRKER LES 1 DEBRIDE NAIL 1-5 Trim nail(s) Periodic Oral Evaluation Complete Series Of Radiographic Images J Warranty Replacement #1 PARING/CUTG B9 HYPRKER LES 1 DEBRIDE NAIL 1-5 Trim nail(s) COMPRE OPH EXAM EST PT 1/ PARING/CUTG B9 HYPRKER LES 1 DEBRIDE NAIL 1-5 Trim nail(s) Complete Denture - Maxillary Complete Denture - Mandibular Assessment for hearing aid Assessment for hearing aid Assessment for hearing aid Assessment for hearing aid Assessment for hearing aid NURSING FAC CARE SUBSEQ Try In House/Extended Care Facility Call Bite Registration TRIM SKIN LESION DEBRIDE NAIL 1-5 TRIM NAIL(S) Denture Impression House/Extended Care Facility Call Complete Denture - Maxillary Complete Denture - Mandibular Denture ID House/Extended Care Facility Call Try In TRIM SKIN LESION DEBRIDE NAIL 1-5 TRIM NAIL(S) Denture Impression Periodic Oral Evaluation TRIM SKIN LESION DEBRIDE NAIL 1-5 TRIM NAIL(S) SPEECH AUDIOMETRY THRESHOLD; PURE TONE AUDIOMETRY (THRESHOLD); AIR AN D BONE Vision svcs frames purchases FITTING OF SPECTACLES DETERMINATION OF REFRACTIVE STATE Lens spher bifoc plano 4.00d FUNDUS PHOTOGRAPHY EYE EXAM & TREATMENT TRIM SKIN LESION DEBRIDE NAIL 1-5 TRIM NAIL(S) TRIM SKIN LESION DEBRIDE NAIL 1-5 TRIM NAIL(S) House/Extended Care Facility Call Try In NURSING FAC CARE SUBSEQ TRIM SKIN LESIONS 2 TO 4 DEBRIDE NAIL 6 OR MORE NURSING FAC CARE SUBSEQ Denture Impression House/Extended Care Facility Call TRIM NAIL(S) DEBRIDE NAIL 1-5 TRIM SKIN LESIONS 2 TO 4 EYE EXAM & TREATMENT DEBRIDE NAIL 1-5 TRIM NAIL(S) DEBRIDE NAIL 1-5 NURSING FAC CARE SUBSEQ Compsve Oral Eval- New/Est Pat 21 TRIM SKIN LESION DEBRIDE NAIL 1-5 TRIM NAIL(S) NURSING FAC CARE SUBSEQ TRIM SKIN LESION DEBRIDE NAIL 6 OR MORE PURE TONE AUDIOMETRY (THRESHOLD); AIR AN D BONE SPEECH AUDIOMETRY THRESHOLD; TRIM SKIN LESION DEBRIDE NAIL 6 OR MORE EYE EXAM & TREATMENT DEBRIDE NAIL 6 OR MORE DEBRIDE NAIL 1-5 TRIM SKIN LESIONS 2 TO 4 TRIM NAIL(S) Subsequent Nursing Facility Care 2019 DEBRIDEMENT OF NAIL(S) BY ANY METHOD(S); 6 OR MORE Paring/cutting 2-4 benign lesions Compsve Oral Eval- New/Est Pat 19 DEBRIDEMENT OF NAIL(S) BY ANY METHOD(S); 6 OR MORE EYE EXAM & TREATMENT DEBRIDEMENT OF NAIL(S) BY ANY METHOD(S); 1 TO 5 Subsequent Nursing Facility Care 2017 DEBRIDEMENT OF NAIL(S) BY ANY METHOD(S); 6 OR MORE Advance Directives Directive Yes / No Effective Date File Name No Information Encounters Encounter Description Practice Location Reason(s) For Visit Diagnoses Date Provider Providers Copied on Encounter [address] [place] [address], [id number] [place] [address], [id number], tel:[phone] [place] Blurry vision (chief complaint) PresbyopiaPres ence of intraocular lens 5 Anna Rocha. RICA. Referring Provider: Abimael Victor. [facility] CARE SF MDM [address] [place] [address], [id number] [place] [address], [id number], tel:[phone] [place] ear care exam, hearing loss (chief complaint) Tinnitus, bilateral 5 [place], [place]. Referring Provider: Abimael Victor. [facility] [place], [address] [place] [address] 300, [place], [place], [id number], tel:[phone] [place] Other specified peripheral vascular diseasesNail dystrophyOnych ogryphosisOthe r abnormalities of gait and mobility 5 [place]. [facility] [place], [address] [place], [place] [address], [place], [place], [id number], [place] tel:[phone] [place] Complete loss of teeth, unspecified cause, unspecified class Jan- 5 Elsi Baker. [address] [place] [address], [address], [place], [address], [place]. tel:[phone] Referring Provider: Abimael Victor. [address] [place] [address] [facility] [place], [address] [place] [address] 300, [place], [place], [id number], [place] tel:[phone] [place] Encounter for dental examination and cleaning without abnormal findings 5 Geri Tamayo. [address] [facility], [address], [place], [place], [id number], [place]. tel:[phone] Referring Provider: Abimael Victor. [facility] SF MDM [address] [place] [address] [place], [address] [place] [address] 300, [place], [place], [id number], [place] tel:[phone] [place] ear care exam, hearing loss (chief complaint) Unspecified hearing loss, bilateral 5 [place]. Referring Provider: Abimael Victor. [facility] [place], [address] [place] [address] 300, [place], [place], [id number], [place] tel:[phone] [place] Other specified peripheral vascular diseasesNail dystrophyOnych ogryphosisCorn s and callositiesXer osis cutis 5 [place]. [facility] NF CARE LOW MDM 20 [facility], [address] [place] [address] 300, [place], [place], [id number], [place] tel:[phone] [place] Nail dystrophyOnych ogryphosisOthe r specified peripheral vascular diseases 4 [place]. [address] [place] [address], [address] [place] [address], [place], [place], [id number], tel:[phone] [place] No Information 4 [place]. [address] [place] [address], [address] [place] [address] 300, [place], [place], [id number], tel:[phone] [place] Nail dystrophyOther specified peripheral vascular diseasesTinea unguiumCorns and callosities 4 Cachorro Gutierrez. [address] [place] [address], [address], [place], [facility], . [address] [place] [address], [address] [place] [address], [place], [place], [id number], tel:[phone] [place] Encounter for dental examination and cleaning without abnormal findings 4 Torito Daniels. [address] [place] [address], [address], [place], [place], [id number], [place]. tel:[phone] Referring Provider: Abimael Victor. [address] [place] [address], [address] [place] [address], [place], [place], [id number], tel:[phone] [place] Presbyopia March-0 4 Sudhir Chinchilla. , [place]. [address] [place] [address], [address] [place] [address], [place], [place], [id number], tel:[phone] [place] Corns and callositiesNai l dystrophyOther specified peripheral vascular diseasesTinea unguium 4 Cachorro Gutierrez. [address] [place] [address], [address], [place], [address], . Referring Provider: Abimael Victor. [address] [place] [address], [address] [place] [address] 300, [place], [place], [id number], tel:[phone] [place] floaters (chief complaint) Vitreous degeneration, bilateralPresb yopia 4 Sudhir Lemaa. , [place]. Referring Provider: Abimael Victor. [address] [place] [address], [address] [place] [address], [place], [place], [id number], tel:[phone] [place] Corns and callositiesNai l dystrophyOther specified peripheral vascular diseasesTinea unguium 4 Cachorro Gutierrez. [address] [facility], [address], [place], [address], [place]. Referring Provider: Abimael Victor. [address] [place] [address], [address] [place] [address] 300, [place], [place], [id number], [place] tel:[phone] [place] Complete loss of teeth, unspecified cause, unspecified class 4 Ugarte Jeremiah. [address] [place] [address], [address], [place], [place], [id number], [place]. tel:[phone] Referring Provider: Aibmael Victor. [address] [place] [address], [address] [place] [address], [place], [place], [id number], tel:[phone] [place] Sensorineural hearing loss, bilateral 4 Yadi SouzaSODDY [place]. Referring Provider: Abimael Victor. NURSING FAC CARE SUBSEQ [address] [place] [address], [address] [place] [address], [place], [place], [id number], tel:[phone] [place] hearing loss (chief complaint) Tinnitus, bilateral 3 Thor-Hard larry Lois. [address] [facility], [address], [place], [address], [place]. Referring Provider: Abimael Victor. [address] [place] [address], [address] [place] [address], [place], [place], [id number], [place] tel:[phone] [place] Encounter for dental examination and cleaning without abnormal findings 3 Clifford Reed. [address] [facility], [address], [place], [place], [id number], [place]. tel:[phone] Referring Provider: Abimael Victor. [address] [place], [place] [address], [place], [place], [id number], [place] tel:[phone] [place] No Information 3 [place], [place], [id number], [place]. tel:[phone] Referring Provider: Abimael Victor. [facility] [place], [address], [place], [place], [id number], [place] tel:[phone] [place] Nail dystrophyOther specified peripheral vascular diseasesTinea unguiumCorns and callosities 3 Cachorro Gutierrez. [address] [facility], [address], [place], [address], [place]. Referring Provider: Abimael Victor. [facility], [address] [place], [place] [address], [place], [place], [id number], tel:[phone] [place] No Information 3 Cachorro Gutierrez. [address], [address], [place], [address], [place]. [facility], [address], [place], [place], [id number], [place] tel:[phone] [place] No Information 3 [place]. [address] [place] [address], [address] [place] [address] [address], [place], [place], [id number], [place] tel:[phone] [place] Encounter for dental examination and cleaning without abnormal findings 3 [place]. Referring Provider: Abimael Victor. [facility], [address] [place] [address] [address], [place], [place], [id number], [place] tel:[phone] [place] Complete loss of teeth, unspecified cause, unspecified classEncounter for dental examination and cleaning without abnormal findings 3 Elsi Baker. [address] [facility], [address], [place], [address], [place]. tel:[phone] Referring Provider: Abimael Victor. [address] [place] [address], [address] [place], [place] [address], [place], [place], [id number], [place] tel:[phone] [place] Encounter for dental examination and cleaning without abnormal findings 3 Elsi Samuel. [address] [facility], [address], [place], [address], [place]. tel:[phone] Referring Provider: Abimael Victor. [facility] [place], [address] [place], [place] [address], [place], [place], [id number], [place] tel:[phone] [place] Nail dystrophyCorns and callositiesOth er specified peripheral vascular diseasesTinea unguium 3 Cachorro Gutierrez. [address] [facility], [address], [place], [address], [place]. Referring Provider: Abimael Victor. [facility] [place], [address] [place], [place] [address], [place], [place], [id number], [place] tel:[phone] [place] Encounter for dental examination and cleaning without abnormal findings 3 [place]. Referring Provider: Abimael Victor. [facility] [place], [address] [place], [place] [address], [place], [place], [id number], [place] tel:[phone] [place] Nail dystrophyCorns and callositiesOth er specified peripheral vascular diseasesTinea unguium Jan- 3 Cachorro Gutierrez. [address] [facility], [address], [place], [address], . Referring Provider: Abimael Victor. [facility] [place], [address] [place], [place] [address], [place], [place], [id number], [place] tel:[phone] [place] Sensorineural hearing loss, bilateral Jan-0 3 [place]. Referring Provider: Abimael Victor. [facility] [place], [address] [place], [place] [address], [place], [place], [id number], [place] tel:[phone] [place] Presbyopia Fe- 3 Sudhir ChinchillaSODDY [place]. [facility] [place], [address] [place] [address] 300, [place], [place], [id number], [place] tel:[phone] [place] Blurry vision (chief complaint) Vitreous degeneration, bilateral 2 Sudhir Chinchilla. , [place]. Referring Provider: Abimael Victor. [address] [place] [address] [facility] [place], [address] [place] [address] 300, [place], [place], [address], [place] tel:[phone] [place] Corns and callositiesNai l dystrophyOther specified peripheral vascular diseasesTinea unguium Oct- 2 Cachorro Gutierrez. [address] [facility], [address], [place], [address], [place]. Referring Provider: Abimael Sy. [address] [place] [address], [address] [place] [address] 300, [place], [place], [id number], tel:[phone] [place] Nail dystrophyCorns and callositiesOth er specified peripheral vascular diseasesTinea unguium 2 Cachorro Gutierrez. [address] [place] [address], [address], [place], [address], [place]. Referring Provider: Abimael Victor. [address] [place] [address] [facility] [place], [address] [place] [address], [place], [place], [id number], [place] tel:[phone] [place] Encounter for dental exam and cleaning w/o abnormal findings 2 [facility]. , [place]. Referring Provider: Abimael Victor. NURSING FAC CARE SUBSEQ [address] [place] [address], [address] [place] [address] 300, [place], [place], [id number], [place] tel:[phone] [place] hearing loss (chief complaint) Tinnitus, bilateral 2 Thor-Hard larry Lois. [address] [place] [address], [address], [place], [address], [place]. Referring Provider: Abimael Victor. NURSING FAC CARE SUBSEQ [address] [place] [address] [facility] [place], [address] [place] [address] 300, [place], [place], [id number], [place] tel:[phone] [place] Corns and callositiesTin ea unguiumOther specified peripheral vascular diseasesXerosi s cutisPain in right toe(s)Pain in left toe(s) 2 [facility]. , [place]. Referring Provider: Damaris Otero. [address] [place] [address], [address] [place] [address] 300, [place], [place], [id number], tel:[phone] [place] Encounter for dental exam and cleaning w/o abnormal findings 2 Clifford Reed. [address] [place] [address], [address], [place], [place], [id number], [place]. tel:[phone] Referring Provider: Abimael Victor. [address] [place] [address], [address] [place] [address] 300, [place], [place], [id number], [place] tel:[phone] [place] Corns and callositiesTin ea unguiumOther specified peripheral vascular diseasesNail dystrophy 2 [facility]. , [place]. Referring Provider: Abimael Victor. [address] [place] [address], [address] [place], [place] [address], [place], [place], [id number], [place] tel:[phone] [place] Decreased vision (chief complaint) Vitreous degeneration, bilateral 2 Gabrielt Belkis. [address] [place] [address], [address], [place], [address], [place]. Referring Provider: Abimael Victor. [address] [place] [address], [address] [place] [address] 300, [place], [place], [id number], [place] tel:[phone] [place] Nail dystrophyOther specified peripheral vascular diseasesTinea unguium 1 [facility]. , [place]. Referring Provider: Abimael Victor. NURSING FAC CARE SUBSEQ [address] [place] [address], [address] [place] [address] 300, [place], [place], [id number], [place] tel:[phone] [place] Nail dystrophyPain in right toe(s)Pain in left toe(s)Other specified peripheral vascular diseasesTinea unguium 1 [facility]. , [place]. Referring Provider: Abimael Victor. [address] [place] [address], [address] [place] [address] 300, [place], [place], [id number], [place] tel:[phone] [place] Encounter for dental exam and cleaning w/o abnormal findings 1 Clifford Reed. [address] [facility], [address], [place], [place], [id number], [place]. tel:[phone] Referring Provider: Abimael Victor. [address] [place] [address], [address] [place] [address] 300, [place], [place], [id number], [place] tel:[phone] [place] Corns and callositiesNai l dystrophyTinea unguiumOther specified peripheral vascular diseases 1 Cachorro Gutierrez. [address] [place] [address], [address], [place], [address], [place]. Referring Provider: Abimael Victor. NURSING FAC CARE SUBSEQ [address] [place] [address], [address] [place] [address] 300, [place], [place], [id number], tel:[phone] [place] ear care exam (chief complaint) Sensorineural hearing loss, bilateral 1 Thor-Hard larry Lois. [address] [facility], [address], [place], [address], [place]. Referring Provider: Abimael Victor. [address] [place] [address], [address] [place] [address] 300, [place], [place], [id number], tel:[phone] [place] Tinea unguiumCorns and callositiesOth er specified peripheral vascular diseases 1 Cachorro Gutierrez. [address] [facility], [address], [place], [address], [place]. Referring Provider: Abimael Victor. [address] [place] [address], [address] [place] [address] 300, [place], [place], [id number], [place] tel:[phone] [place] Sensorineural hearing loss, bilateral 0 Jasso Chelci. [address] [place] [address], [address], [place], [place], [id number], [place]. tel:[phone] Referring Provider: Abimael Victor. [address] [place] [address], [address] [place] [address] 300, [place], [place], [id number], tel:[phone] [place] Tinea unguiumOther specified peripheral vascular diseasesCorns and callosities 0 Cachorro Gutierrez. [address] [facility], [address], [place], [address], [place]. Referring Provider: Fatoumata Justice. [address] [place] [address], [address] [place] [address] 300, [place], [place], [id number], [place] tel:[phone] [place] Medical eye problem (chief complaint) Vitreous degeneration, bilateral Sep- 0 Argoniajolly Cervantes. [address] [facility], [place], [address], [place]. tel:[phone] Referring Provider: Abimael Victor. [address] [place] [address], [address] [place] [address] 300, [place], [place], [id number], tel:[phone] [place] Tinea unguiumPain in left toe(s)Pain in right toe(s) 0 Cachorro Gutierrez. [address] [facility], [address], [place], [address], [place]. Referring Provider: Ronnie Shaffer. [address] [place] [address], [address] [place] [address], [place], [place], [id number], tel:[phone] [place] Tinea unguiumOther specified peripheral vascular diseasesCorns and callositiesNai l dystrophy 0 Cachorro Gutierrez. [address] [facility], [address], [place], [address], [place]. Referring Provider: Abimael Victor. Subsequent Nursing Facility Care [facility], [address] [place] [address] 300, [place], [place], [id number], [place] tel:[phone] [place] hearing loss (chief complaint) Unspecified hearing loss, bilateral 0 [place]-Hard larry Lois. [address] [facility], [address], [place], [address], [place]. Referring Provider: Abimael Victor. [address] [place] [address], [address] [place] [address] 300, [place], [place], [id number], [place] tel:[phone] [place] Tinea unguiumOther specified peripheral vascular diseasesCorns and callosities Sep- 0 9 Cachorro Gutierrez. [address] [facility], [address], [place], [address], [place]. Referring Provider: Abimael Victor. [address] [place] [address], [address] [facility], [place], [place], [id number], [place] tel:[phone] [place] Encounter for dental exam and cleaning w/o abnormal findings Jul-2 9 Elsi Baker. [address] [facility], [address], [place], [address], [place]. tel:[phone] Referring Provider: Abimael Victor. [address] [place] [address], [address] [place], [place] [address], [place], [place], [id number], [place] tel:[phone] [place] Tinea unguiumPain in left toe(s)Pain in right toe(s) Jul- 9 Cachorro Gutierrez. [address] [facility], [address], [place], [address], [place]. Referring Provider: Abimael Victor. [address] [place] [address], [address] [place], [place] [address], [place], [place], [id number], [place] tel:[phone] [place] medical eye evaluation (chief complaint) Vitreous degeneration, bilateral Aug- 9 Donna Tamayo. [address] [facility], [address], [place], [address], [place]. Referring Provider: Abimael Victor. [address] [place] [address], [address] [place], [place] [address], [place], [place], [id number], [place] tel:[phone] [place] Tinea unguiumPain in right toe(s)Pain in left toe(s) 9 Cachorro Gutierrez. [address] [facility], [address], [place], [address], [place]. Referring Provider: Abimael Victor. Subsequent Nursing Facility Care [facility], [address] [place], [place] [address], [place], [place], [id number], [place] tel:[phone] [place] ear care exam (chief complaint) Unspecified hearing loss, bilateral 8 Thor-Hard larry Lois. [address], [address], [place], [address], [place]. Referring Provider: Abimael Victor. [address] [place] [address], [address] [address], [place], [place], [id number], [place] tel:[phone] [place] Tinea unguiumPain in left toe(s)Pain in right toe(s) 8 Cachorro Gutierrez. [address], [address], [place], [address], [place]. Family History Family Member Type Diagnosis Age At Onset No Information Payers Payer name Insurance type Covered democrat ID Authoriza tion(s) Medicare [facility] [id number] Medicaid [facility] [id number] Social History Type Description Quantity Date Captured Comments Alcohol Use Details Unknown Caffeine Use Details Unknown Tobacco Use Status No Information Smoking Status No Information Sex Male Chief Complaint And Reason For Visit From encounter dated '03/17/2025 10:20'. Blurry vision (chief complaint). Description: The 64 year old patient presents for evaluation of Blurry vision in the right eye and left eye. pt is mostly non verbal Patient denies: eye pain. Reason For Referral Reason For Referral No Information Plan Of Treatment Date Type Action Status Appointment Alexi Ribeiro BOOKED Patient Education Learning About Dental Care and Your Health Problem completed Patient Education Dental X-Ray: About Thi s Test completed Patient Education Learning About Dentures completed Patient Education Tinnitus: After Your Vi sit completed Patient Education Learning About Dentures completed Patient Education Learning About Dentures completed Patient Education Learning About Dentures completed Patient Education Learning About Dental Care and Your Health Problem completed Patient Education Learning About Dentures completed Patient Education Learning About Dentures completed Patient Education Learning About Dentures completed Patient Education Learning About Dental Care and Your Health Problem completed Patient Education Learning About Dentures completed Patient Education Tinnitus: After Your Vi sit completed Patient Education Learning About Dentures completed Patient Education Toenail Fungus: Care In structions completed Patient Education Learning About Dental Care and Your Health Problem completed Patient Education Toenail Fungus: Care In structions completed Patient Education Learning About Your Ear s completed Patient Education Toenail Fungus: Care In structions completed Patient Education Toenail Fungus: Care In structions completed Patient Education Reduced Vision: Care In structions completed Patient Education Toenail Fungus: Care In structions completed Patient Education Earwax Blockage: Care I nstructions completed Patient Education Toenail Fungus: Care In structions completed Patient Education Learning About Dental C are and Your H~ completed Patient Education Toenail Fungus: Care In structions completed Patient Education Reduced Vision: Care In structions completed Patient Education Toenail Fungus: Care In structions completed Patient Education Earwax Blockage: Care I nstructions completed Patient Education Toenail Fungus: Care In structions completed History Of Present Illness Encounter Date Complaint History Of Prese nt Illness Blurry vision The 64 year old patient presents for evaluation of Blurry vision in the right eye and left eye. pt is mostly non verbal Patient denies: eye pain. floaters The 63 year old patient presents for evaluation of floaters in the right eye and left eye. It occurs with no pattern. The symptom is occasional. Patient denies: flashes and eye pain. Blurry vision The 62 year old male presents for evaluation of Blurry vision in the right eye and left eye. It occurs always. The onset was gradual. It affects both near and far vision. Decreased vision The 61 year old male presents for evaluation of Decreased vision in the right eye and left eye. It occurs doing close work. The onset was gradual. It affects near vision. The symptom is frequent. The condition is mild. Medical eye problem The 59 year old male presents for evaluation of Medical eye problem in the right eye and left eye. Floaters/better hearing loss The symptoms are reported as being mild. The symptoms occur constantly. Patient is not interested in audiology services at this time. Patient denies history of cerumen impaction. Pt agrees to ear exam and cleaning if needed. medical eye evaluation The 58 ye ar old male presents for evaluation of medical eye evaluation in the right eye and left eye. It occurs all the time. The onset was gradual. It affects [facility] not affected. The symptom is frequent. The condition is moderate. Eye health eval ear care exam Facility request s ear eval for possible cerumen that may be worsening hearing or causing issues. Facility requests cerumen removal if needed. pt denies ear related issues. Patient denies history of cerumen impaction. Pt agrees to ear exam and cleaning if needed. Patient is not interested in audiology services at this time. Functional Status Date Functional Assessmen t No Information Instructions Date Instruction Additional Infor shannan Return in 12-15 chasity hs for dilated fundus exam. Related to Presence of intraocular lens Impression/Plan - Im plants are clear and stable in both eyes. We will monitor at regular intervals Related to Presence of intraocular lens Follow up - Return i n 12-15 months for dilated fundus exam. Related to Presence of intraocular lens Impression/Plan - Mi nimal distance rx. Doing well with readers. Recheck 12 mos Related to Presbyopia F/U in 12-15 months or sooner prn. Would recommend audiology referral if patient, family, physician, and/or facility wishes to pursue audiology services. Related to Tinnitus, bilateral All of the documente d thickened nails (which includes those nails 2 mm or more in thickness, and possible mycotic component to the nails) were debrided in both length and thickness using both a nail nipper and an electric rotary surface grinder tender in an atraumatic fashion; this was performed in an attempt to prevent pain and reduce risk of infection. Alcohol applied to the digits afterwards. Related to Onychogryphosis PT instructed to con tinue use of DME equipment for safety, mobility, and reducing risk of falls/injury. Will continue to monitor. Pt denies recent falls in the past 3 months. Related to Other abnormalities of gait and mobility Discussed using comp ression stockings to assist in localize swelling and venous return, and the vermin exterminator benefits of using compression stockings. Reinforced the importance of proper adherence to using the zoran hose, and compression stockings. Will continue to monitor. Related to Other specified peripheral vascular diseases All dystrophic nails were debrided in length and thickness as needed to prevent pain and other symptoms. Related to Nail dystrophy Follow up in 6-9 mon ths for evaluation as per protocol. Would recommend audiology referral at this time for evaluation patient wishes to pursue. Pt saw Audiology- per 02/12/24 hearing aid statement needs to be signed by physician. Related to Unspecified hearing loss, bilateral Pt states she has be en compliant with nursing care applying saav and has noted moderate improvement. PT instructed to continue complaince with application of moisturizers from nursing. Will reassess in 2-3 months. Related to Xerosis cutis Asymptomatic for kylah n and negative for excessive build up to the point of requiring debridement or pairing, will reassess in 2-3 months. Discussed if callusosities become painful or continue to grow in size/shape that we will remove at that time, pt agreeable with plan. Related to Corns and callosities Discussed using comp ression stockings to assist in localize swelling and venous return, and the [facility] benefits of using compression stockings. Reinforced the importance of proper adherence to using the zoran hose, and compression stockings. Will continue to monitor. Related to Other specified peripheral vascular diseases All documented dystr ophic nails were reduced in length as needed to prevent pain and other symptoms. Related to Nail dystrophy All documented thick ened nails were debrided using a rotary tool and nail nipper. Related to Onychogryphosis All documented dystr ophic nails were reduced in length as needed to prevent pain and other symptoms. Related to Nail dystrophy All documented thick ened nails were debrided using a rotary tool and nail nipper. Related to Onychogryphosis Discussed using comp ression stockings to assist in localize swelling and venous return, and the vermin exterminator benefits of using compression stockings. Reinforced the importance of proper adherence to using the zoran hose, and compression stockings. Will continue to monitor. Related to Other specified peripheral vascular diseases All of the calluses were debrided/pared to prevent further tissue breakdown and pain. Related to Corns and callosities All dystrophic nails were debrided in length and thickness as needed to prevent pain and other symptoms. Related to Nail dystrophy Toenails 1 b/l were debrided in length and thickness without incident. Follow up in 2-3 months. Related to Tinea unguium All of the calluses were debrided/pared to prevent further tissue breakdown and pain. Related to Corns and callosities All dystrophic nails were debrided in length and thickness as needed to prevent pain and other symptoms. Related to Nail dystrophy Toenails 1 b/l were debrided in length and thickness without incident. Follow up in 2-3 months. Related to Tinea unguium Return in 12-15 chasity hs for dilated fundus exam. Related to Vitreous degeneration, bilateral Impression/Plan - Gl asses order will be processed at request of resident. Related to Presbyopia Impression/Plan - Vi treous floaters are present; however, no holes, breaks, or tears are evident. Related to Vitreous degeneration, bilateral Follow up - Return i n 12-15 months for dilated fundus exam. Related to Vitreous degeneration, bilateral All of the calluses were debrided/pared to prevent further tissue breakdown and pain. Related to Corns and callosities All dystrophic nails were debrided in length and thickness as needed to prevent pain and other symptoms. Related to Nail dystrophy Toenails 1 b/l were debrided in length and thickness without incident. Follow up in 2-3 months. Related to Tinea unguium Bilateral Linx Quatt ro KATARINA aids will be orderd with size 2 wires and medium closed domes in the color beige with approval. Related to Sensorineural hearing loss, bilateral f/u with audiology a s scheduled. Follow up prn. Related to Tinnitus, bilateral All of the calluses were debrided/pared to prevent further tissue breakdown and pain. Related to Corns and callosities All dystrophic nails were debrided in length and thickness as needed to prevent pain and other symptoms. Related to Nail dystrophy Toenails 1 b/l were debrided in length and thickness without incident. Follow up in 2-3 months. Related to Tinea unguium All of the calluses were debrided/pared to prevent further tissue breakdown and pain. Related to Corns and callosities Toenails 1 b/l were debrided in length and thickness without incident. Follow up in 2-3 months. Related to Tinea unguium All dystrophic nails were debrided in length and thickness as needed to prevent pain and other symptoms. Related to Nail dystrophy All dystrophic nails were debrided in length and thickness as needed to prevent pain and other symptoms. Related to Nail dystrophy All of the calluses were debrided/pared to prevent further tissue breakdown and pain. Related to Corns and callosities Toenails 1 b/l were debrided in length and thickness without incident. Follow up in 2-3 months. Related to Tinea unguium Follow-up at next vi sit for hearing aid evaluation. Related to Sensorineural hearing loss, bilateral Return in 12-15 chasity hs for dilated fundus exam. Related to Vitreous degeneration, bilateral Impression/Plan - Vi treous floaters are present; however, no holes, breaks, or tears are evident. Related to Vitreous degeneration, bilateral Follow up - Return i n 12-15 months for dilated fundus exam. Related to Vitreous degeneration, bilateral All dystrophic nails were debrided in length and thickness as needed to prevent pain and other symptoms. Related to Nail dystrophy Toenails 1 b/l were debrided in length and thickness without incident. Follow up in 2-3 months. Related to Tinea unguium All of the calluses were debrided/pared to prevent further tissue breakdown and pain. Related to Corns and callosities All dystrophic nails were debrided in length and thickness as needed to prevent pain and other symptoms. Related to Nail dystrophy All of the calluses were debrided/pared to prevent further tissue breakdown and pain. Related to Corns and callosities Toenails 1 b/l were debrided in length and thickness without incident. Follow up in 2-3 months. Related to Tinea unguium Recommend referral t o audiology per patient's request. Follow up prn. Related to Tinnitus, bilateral Toenails 1-5 b/l wer e debrided in length and thickness without incident. Follow up in 2-3 months. Related to Tinea unguium All of the calluses were debrided/pared to prevent further tissue breakdown and pain. Related to Corns and callosities Orders for Ammonium lactate 12% to feet daily for two months Related to Xerosis cutis All of the calluses were debrided/pared to prevent further tissue breakdown and pain. Related to Corns and callosities Toenails 1x2 b/l wer e debrided in length and thickness, rest were trimmed without incident. Follow up in 2-3 months. Related to Tinea unguium We will schedule an appoinment in 12-15 months for a dilated fundus exam. Related to Vitreous degeneration, bilateral Follow up - We will schedule an appoinment in 12-15 months for a dilated fundus exam. Related to Vitreous degeneration, bilateral Impression/Plan - Vi treous floaters are present; however, no holes, breaks, or tears are evident. Related to Vitreous degeneration, bilateral All dystrophic nails were debrided in length and thickness as needed to prevent pain and other symptoms. Follow up 2-3 months Related to Nail dystrophy Nails 1-5 debrided b /l without incident Related to Nail dystrophy Toenails 1 b/l were debrided in length and thickness without incident. Follow up in 2-3 months. Related to Tinea unguium All of the calluses were debrided/pared to prevent further tissue breakdown and pain. Related to Corns and callosities All dystrophic nails were debrided in length and thickness as needed to prevent pain and other symptoms. Related to Nail dystrophy Follow up prn. Related to Senso rineural hearing loss, bilateral Toenails 1-5 b/l wer e debrided in length and thickness without incident. Follow up in 2-3 months. Related to Tinea unguium All of the calluses were debrided/pared to prevent further tissue breakdown and pain. Related to Corns and callosities All of the calluses were debrided/pared to prevent further tissue breakdown and pain. Related to Corns and callosities Toenails 1-5 b/l wer e debrided in length and thickness without incident. Follow up in 2-3 months. Related to Tinea unguium Impression/Plan - Vi treous floaters are present; however, no holes, breaks, or tears are evident. Related to Vitreous degeneration, bilateral Toenails 1-5 b/l wer e debrided in length and thickness without incident. Follow up in 2-3 months. Related to Tinea unguium Toenails 1 b/l were debrided in length and thickness without incident. Follow up in 2-3 months. Related to Tinea unguium All dystrophic nails were debrided in length and thickness as needed to prevent pain and other symptoms. Related to Nail dystrophy All of the calluses were debrided/pared to prevent further tissue breakdown and pain. Related to Corns and callosities Follow up prn. Related to Unspe cified hearing loss, bilateral Debrided callus medi al IPJ of hallux b/l with a nail nipper and rasp. Related to Corns and callosities Toenails 1-5 b/l wer e debrided in length and thickness without incident. Follow up in 2-3 months. Related to Tinea unguium Toenails 1-5 b/l wer e debrided in length and thickness without incident. Follow up in 2-3 months. Related to Tinea unguium We will schedule an appoinment in 12-15 months for a dilated fundus exam. Related to Vitreous degeneration, bilateral Impression/Plan Related to Vitre ous degeneration, bilateral Follow up - We will schedule an appoinment in 12-15 months for a dilated fundus exam. Related to Vitreous degeneration, bilateral Impression/Plan - Vi treous floaters are present; however, no holes, breaks, or tears are evident. Related to Vitreous degeneration, bilateral Toenails 1 b/l were debrided in length and thickness without incident. Remainder of toenails were trimmed. Follow up in 2-3 months. Related to Tinea unguium follow up in 12-[address] [facility] or sooner if needed. Related to Unspecified hearing loss, bilateral Toenails 1-5 b/l wer e debrided in length and thickness without incident. Follow up in 2-3 months. Related to Tinea unguium Assessments Type Assessment Date assessment Presbyopia impression {oph_plan_.impression_dtls} assessment Presence of intraocular lens March impression {oph_plan_.impression_dtls} Patient Care Teams Name Effective Dates (start - stop) Status Members No Information
--- OUTSIDE RECORDS SUMMARY | 2025-04-27 08:56 | XMS_ITS | Encounter Summary ---
Author Organization [employer] Address [address] [place] [address] Care Team Providers Care Heading Pinner Name Role Phone Unavailable Primary Care Provider Unavailabl e Encounter Details Date Type Department Care Team (Late st Contact Info) Description 12/02/2020 Transcribed Document [facility] [place] [facility] [place] [address] ProviderFabi MD [address] [place] [address] Social History Tobacco Use Types [...] - Fabi ProviderMD - 12/02/2020 6:00 AM NET MAKER Pain Assessment Entered On: 12/02/2020 10:09 EST [...]
--- OUTSIDE RECORDS SUMMARY | 2025-04-27 08:56 | XMS_ITS | Encounter Summary ---
Author Organization [employer] Address [address] [place] [address] Care Team Providers Care Machine Fitter Name Role Phone Unavailable Primary Care Provider Unavailabl e Encounter Details Date Type Department Care Team (Late st Contact Info) Description 12/01/2020 Transcribed Document [facility] [place] [facility] [place] [address] ProviderFabi MD [address] [place] [address] Social History Tobacco Use Types [...] - Fabi Provider, - 12/01/2020 12:28 PM CHIP SILO TENDER Treatment Intervention, PT Entered On: 12/02/2020 16:31 [...] MACI LAND, PT - 12/02/2020 16:29 EST Correction Goals Mobility/Bed Mobility LTG PT Grid Goal [...] scale Pain Score Pre-Intervention : 0 MACI LADN PT - 12/02/2020 16:29 EST Image 1 - Images currently included in the form version of this document have not been included in the text rendition version of the form. Anticipated Discharge Needs, OT/PT Anticipated Discharge to : Unit, rehabilitation, Unit, fpc Recommend Continued Therapy at Discharge : Yes MACI LAND PT - 12/02/2020 16:[address] [facility] PT Charges PT Ther Activities Ea 15 Min : 1 MACI LAND PT - 12/02/2020 16:29 EST documented in this encounter Plan of Treatment Not on file documented as of this encounter Visit Diagnoses Not on filedocumented in this encounter
--- OUTSIDE RECORDS SUMMARY | 2025-04-27 08:56 | XMS_ITS | Encounter Summary ---
Author Organization [employer] Address [address] [place] [address] Care Team Providers Care Licensed Practical Nurse Clinic Nurse Name Role Phone Unavailable Primary Care Provider Unavailabl e Encounter Details Date Type Department Care Team (Late st Contact Info) Description 12/01/2020 Transcribed Document [facility] Neurology - [address] [facility] [address] [place] [address] Brad Castillo MD [address] [id number] Social History Tobacco Use Types Packs/Day Years [...] rehab at discharge, pts lives at a senior care, h/o TBI -medicine following VTE Prophylaxis - [...] to lift arms above head 4/5 bilateral vp of global marketing documented in this encounter Plan of Treatment Not on file documented as of this encounter Visit Diagnoses Not on filedocumented in this encounter
--- OUTSIDE RECORDS SUMMARY | 2025-04-27 08:56 | XMS_ITS | Encounter Summary ---
Author Organization [employer] Address [address] [place] [address] Care Team Providers Care Field Sales Specialist Name Role Phone Unavailable Primary Care Provider Unavailabl e Encounter Details Date Type Department Care Team (Late st Contact Info) Description 11/30/2020 Transcribed Document [facility] [place] [facility] [place] [address] ProviderFabi MD [address] [place] [address] Social History Tobacco Use Types [...] - Fabi ProviderMD - 11/30/2020 6:19 PM KINDERGARTEN INSTRUCTIONAL ASSISTANT Pain Assessment Entered On: 12/01/2020 15:49 EST [...]
--- OUTSIDE RECORDS SUMMARY | 2025-04-27 08:56 | XMS_ITS | Encounter Summary ---
Author Organization [employer] Address [address] [place] [address] Care Team Providers Care Marketing Agent Name Role Phone Unavailable Primary Care Provider Unavailabl e Encounter Details Date Type Department Care Team (Late st Contact Info) Description 12/02/2020 Transcribed Document [facility] [place] Medicine [facility] [place] [address] ProviderFabi MD [address] [place] [address] Social History Tobacco Use Types [...] - Fabi ProviderMD - 12/02/2020 4:50 PM CALENDER TENDER Discharge Summary, PT Entered On: 12/02/2020 16:51 [...] MACI LAND, PT - 12/02/2020 16:50 EST Snf Goals Mobility/Bed Mobility LTG PT Grid Goal [...] EST Electronically signed by Abraham East Conversion Community Engagement Specialist Cerner at 02/19/2023 10:08 AM CDT documented in this encounter Plan of Treatment Not on file documented as of this encounter Visit Diagnoses Not on filedocumented in this encounter
--- OUTSIDE RECORDS SUMMARY | 2025-04-27 08:56 | XMS_ITS | Encounter Summary ---
Author Organization [employer] Address [address] [place] [address] Care Team Providers Care [address] Project Manager Name Role Phone Unavailable Primary Care Provider Unavailabl e Encounter Details Date Type Department Care Team (Late st Contact Info) Description 12/02/2020 Transcribed Document [facility] [place] Family Medicine [address] [place] [address] ProviderFabi MD [address] [place] [address] Social History Tobacco Use Types [...] - Historical ProviderMD - 12/02/2020 3:15 PM COMMUNICATIONS SUPERINTENDENT Event Note Entered On: 12/02/2020 15:15 EST Performed On: 12/02/2020 15:15 EST by SILVIO ANTONY RN Event Note Event Date/Time : 12/02/2020 15:15 EST Description of Event : called report to SILVIO Yen RN - 12/02/2020 15:15 EST Electronically signed by Abraham East Conversion [employer] Terminal Superintendent Kamala at 02/19/2023 9:46 AM CDT documented in this encounter Plan of Treatment Not on file documented as of this encounter Visit Diagnoses Not on filedocumented in this encounter
--- OUTSIDE RECORDS SUMMARY | 2025-04-27 08:56 | XMS_ITS | Encounter Summary ---
Author Organization [employer] Address [address] [place] [address] Care Team Providers Care Scaffolder Name Role Phone Unavailable Primary Care Provider Unavailabl e Encounter Details Date Type Department Care Team (Late st Contact Info) Description 12/01/2020 Transcribed Document [facility] [place] Family Medicine [facility] [place] [address] ProviderFabi MD [address] [place] [address] Social History Tobacco Use Types [...] - Fabi ProviderMD - 12/01/2020 12:00 PM CURING BIN OPERATOR Pain Assessment Entered On: 12/01/2020 15:55 EST [...]
--- OUTSIDE RECORDS SUMMARY | 2025-04-27 08:56 | XMS_ITS | Encounter Summary ---
Author Organization [employer] Address [address] [place] [address] Care Team Providers Care Supervisor Liquid Yeast Name Role Phone Unavailable Primary Care Provider Unavailabl e Encounter Details Date Type Department Care Team (Late st Contact Info) Description 12/02/2020 Transcribed Document [facility] Neurology - [address] [facility] [address] [place] [address] Angel Todd MD [address] [place] [address] Social History Tobacco Use Types Packs/Day Years [...]
--- OUTSIDE RECORDS SUMMARY | 2025-04-27 08:56 | XMS_ITS | Encounter Summary ---
Author Organization [employer] Address [address] [place] [address] Care Team Providers Care Sponsorship Manager Name Role Phone Unavailable Primary Care Provider Unavailabl e Encounter Details Date Type Department Care Team (Late st Contact Info) Description 11/30/2020 Transcribed Document [facility] [place] [facility] [place] [address] ProviderFabi MD [address] [place] [address] Social History Tobacco Use Types [...] - Historical ProviderMD - 11/30/2020 6:25 PM NUCLEAR WORKER TECHNICIAN Evaluation, Physical Therapy Entered On: 12/01/2020 12:28 [...] and Environment Living Situation, Therapy : Other: [facility] Patient Lives With : Caregiver(s) Persons [...] that patient is able to ambulate however half-way does not allow patient to ambulate and [...] oriented to situation, Not oriented to time MACI LAND, PT - 12/01/2020 11:50 EST Edu [...] MACI LAND, PT - 12/01/2020 11:50 EST Senior Care Goals Mobility/Bed Mobility LTG PT Grid Goal [...] Needs, OT/PT Anticipated Discharge to : Unit, halfway Recommend Continued Therapy at Discharge : Yes [...]
--- OUTSIDE RECORDS SUMMARY | 2025-04-27 08:56 | XMS_ITS | Encounter Summary ---
Author Organization [employer] Address [address] [place] [address] Care Team Providers Care Film Reader Name Role Phone Unavailable Primary Care Provider Unavailabl e Encounter Details Date Type Department Care Team (Late st Contact Info) Description 11/30/2020 Transcribed Document [facility] [place] [address] ProviderFabi MD [address] [place] [address] Social History Tobacco Use Types [...] - Fabi ProviderMD - 11/30/2020 4:09 PM REPRODUCTIVE ENDOCRINOLOGIST [facility] Main OR Preop Summary Primary Physician: BRAD CASTILLO MD-SNU Finalized Date/Time: 12/11/20 16:34:08 Pt. Name: ALEXI GRIJALVA /Sex: 1960 Male Med Rec #: [id number] Physician: BRAD CASTILLO MD-SNU Financial #: [id number] Pt. Type: I Room/Bed: 647/1 Admit/Disch: 11/30/20 06:39:00 - 12/02/20 16:16:00 Institution: [facility] PreOp Case Times Entry 1 In Preop 11/30/20 10:20:00 Ready for Holding n/a Room Patient Ready for 11/30/20 14:20:00 Surgery Patient Out of Preop 11/30/20 14:57:00 Patient Out of n/a Holding Room Last Modified By: Meli Grimaldo Nurse Makeup Sales Advisor 12/11/20 16:34:04 [facility] PreOp Case Times Audit 12/11/20 16:34:04 State Game Protector: [id number] Modifier: [id number] <+> 1 Patient Out of Preop Finalized By: Meli Grimaldo, Nurse Spike Machine Heater Signatures Signed By: Meli Grimaldo Nurse Makeup Sales Advisor 12/11/20 16:34 Electronically signed by [facility] Conversion Manager Case Management Cerner at 02/19/2023 9:43 AM CDT documented in this encounter Plan of Treatment Not on file documented as of this encounter Visit Diagnoses Not on filedocumented in this encounter
--- OUTSIDE RECORDS SUMMARY | 2025-04-27 08:56 | XMS_ITS | Encounter Summary ---
Author Organization [employer] i[employer] Address [address] [place] [address] Care Team Providers Care Pacs Administrator Name Role Phone Unavailable Primary Care Provider Unavailabl e Encounter Details Date Type Department Care Team (Late st Contact Info) Description 12/02/2020 Transcribed Document [facility] [place] [address] ProviderFabi MD [address] [place] [address] Social History Tobacco Use Types [...] - Fabi ProviderMD - 12/02/2020 5:07 PM FUNERAL HOME DIRECTOR Nursing Discharge Summary Entered On: 12/02/2020 17:08 [...] 12/02/2020 17:07 EST Electronically signed by Cruzito, [facility] Conversion Organisation And Methods Analyst Cerner at 02/19/2023 9:54 AM CDT documented in this encounter Plan of Treatment Not on file documented as of this encounter Visit Diagnoses Not on filedocumented in this encounter
--- OUTSIDE RECORDS SUMMARY | 2025-04-27 08:56 | XMS_ITS | Encounter Summary ---
Author Organization [employer] Address [address] [place] [address] Care Team Providers Care Continuous Towel Roller Name Role Phone Unavailable Primary Care Provider Unavailabl e Encounter Details Date Type Department Care Team (Late st Contact Info) Description 12/02/2020 Transcribed Document [facility] Neurology - [address] [facility] [address] [place] [address] Angel Todd MD [address] [place] [address] Social History Tobacco Use Types Packs/Day Years [...] 12/02/2020 Primary Care Provider ROSIBEL ODONNELL (MD [facility] Discharge Diagnosis Cervical myelopathy 12/02/2020 G95.9 ICD-10-CM Procedures SN - Proc - Procedure: Lumbar Fusion Posterior 3 Level (11/30/20 16:47:00) Reason for Hospitalization Stable cervical fusion Hospital Course 60-year-old male with history of TBI and lives in a longterm , was initially evaluated in the office [...] voice nod head yes/no to questions equal crumb packer incision cdi bandage intact and dry rachel [...] 1 Tab, PRN, Oral, Daily Flonase 1 [place], Nostrils Both, Daily fluvoxaMINE 50 mg oral tablet 50 mg = 1 Tab, Oral, BID Incruse Ellipta 62.5 mcg/inh inhalation powder 1 Puff, Inhalation, [id number] levothyroxine 25 mcg (0.025 mg) oral tablet [...]
--- OUTSIDE RECORDS SUMMARY | 2025-04-27 08:56 | XMS_ITS | Encounter Summary ---
Author Organization [employer] Address [address] [place] [address] Care Team Providers Care Pharmacist Intern Name Role Phone Unavailable Primary Care Provider Unavailabl e Encounter Details Date Type Department Care Team (Late st Contact Info) Description 12/02/2020 Transcribed Document [facility] [place] [address] [place] [address] ProviderFabi MD [address] [place], [place] [id number] Social History Tobacco Use Types Packs/Day Years [...] - Historical ProviderMD - 12/02/2020 1:42 PM GALLEY WORKER Stroke/Warfarin Instructions Entered On: 12/02/2020 13:42 EST Performed On: 12/02/2020 13:42 EST by SILVIO ANTONY RN Stroke/Warfarin Instructions Stroke/TIA Discharge Ins : N/A Warfarin Discharge Ins : N/A SILVIO ANTONY RN - 12/02/2020 13:42 EST documented in this encounter Plan of Treatment Not on file documented as of this encounter Visit Diagnoses Not on filedocumented in this encounter
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
--- OUTSIDE RECORDS SUMMARY | 2025-04-27 08:56 | XMS_ITS | Encounter Summary ---
Author Organization [employer] Address [address] [place] [address] Care Team Providers Care Manual Lathe Machinist Name Role Phone Unavailable Primary Care Provider Unavailabl e Encounter Details Date Type Department Care Team (Late st Contact Info) Description 11/30/2020 Transcribed Document [facility] [place] Family Medicine [facility] [place] [address] ProviderFabi MD [address] [place] [address] Social History Tobacco Use Types [...] - Fabi ProviderMD - 11/30/2020 4:09 PM FOOD DEMONSTRATOR [facility] Main OR PACU Summary Primary Physician: BRAD CASTILLO MD-SN Finalized Date/Time: 11/30/20 22:00:25 Pt. Name: ALEXI GRIJALVA ELLIE WileyO.B./Sex: 1960 Male Med Rec #: [id number] Physician: BRAD CASTILLO MD-SN Financial #: [id number] Pt. Type: I Room/Bed: ASA/4 Admit/Disch: 11/30/20 06:39:00 - Institution: [facility] Main OR PACU I Case Times Entry 1 In PACU I 11/30/20 18:48:00 Ready for PACU 11/30/20 21:43:00 Discharge Discharge from PACU 11/30/20 21:43:00 I Last Modified By: Venus Montaño RN 11/30/20 21:59:38 [facility] Main OR PACU I Case Times Audit 11/30/20 21:59:38 Ingredient Specialist: [id number] Modifier: [id number] <+> 1 Ready for PACU Discharge <+> 1 Discharge from PACU I Finalized By: Venus Montaño RN Document Signatures Signed By: Venus Montaño RN 11/30/20 22:00 Electronically signed by Cruzito [facility] Conversion Integration Lead Cerner at 02/19/2023 9:48 AM CDT documented in this encounter Plan of Treatment Not on file documented as of this encounter Visit Diagnoses Not on filedocumented in this encounter
--- OUTSIDE RECORDS SUMMARY | 2025-04-27 08:56 | XMS_ITS | Encounter Summary ---
Author Organization [employer] Address [address] [place] [address] Care Team Providers Care Driller Hand Name Role Phone Unavailable Primary Care Provider Unavailabl e Encounter Details Date Type Department Care Team (Late st Contact Info) Description 12/01/2020 Transcribed Document [facility] [place] Family Medicine [facility] [place] [address] ProviderFabi MD [address] [place] [address] Social History Tobacco Use Types [...] - Historical ProviderMD - 12/01/2020 11:39 AM INSURANCE LOSS ASSESSOR UM Authorization Entered On: 12/01/2020 11:39 EST Performed On: 12/01/2020 11:39 EST by Allie Nicholas Rn-Utilization Review Primary Insurance Authorization Authorization and Policy Numbers : Insurance 1 Health Plan: MEDICARE Policy Number: [id number] Authorization Number: Insurance 2 Health Plan: MEDICAID OF [place] Policy Number: [id number] Authorization Number: Insurance Primary Name : Medicare Authorization Status-Primary : No precert required Authorization Number-Primary : NPR for Medicare Authorized Service Begin Date-Primary : 11/30/2020 EST Historical Authorization Comments-Primary : Comment 1: Pt is mauricio for INPT Cervical Discectomy Fusion Posterior on 11-30-20 Medicare: NPR (TRA GOLDBERG, Edger Feeder 11/28/2020 14:02) Allie Nicholas Rn-Utilization Review - 12/01/2020 11:39 EST documented in this encounter Plan of Treatment Not on file documented as of this encounter Visit Diagnoses Not on filedocumented in this encounter
--- OUTSIDE RECORDS SUMMARY | 2025-04-27 08:56 | XMS_ITS | Clinical Summary ---
Author Organization [facility] [facility] Address [address] [place] [address] Phone Care Team Providers Care Gravity Manager Name Role Phone Unavailable Primary Care [...] age to complete this topic Insurance [place]ICA[place] PART A AND B
--- OUTSIDE RECORDS SUMMARY | 2025-04-27 08:56 | XMS_ITS | Clinical Summary ---
Author Organization [employer] Address [address] [place] [address] Care Team Providers Care Hobber Name Role Phone Unavailable Primary Care Provider [...]
--- OUTSIDE RECORDS SUMMARY | 2025-04-27 08:56 | XMS_ITS | Encounter Summary ---
Author Organization [employer] Address [address] [place] [address] Care Team Providers Care Community Affairs Director Name Role Phone Unavailable Primary Care Provider Unavailabl e Encounter Details Date Type Department Care Team (Late st Contact Info) Description 11/25/2020 Transcribed Document [facility] [place] Family Medicine [facility] [place] [address] ProviderFabi MD [address] [place] [address] Social History Tobacco Use Types [...] - Fabi ProviderMD - 11/25/2020 10:54 AM BANKMAN PAT Adult Entered On: 11/25/2020 10:59 EST [...] Source : Measured Height Entry Format : [place] Height, Feet : 0 ft(Converted to: 0 cm, 0 Inch) Constance Boone RN - 11/28/2020 12:34 EST Height, Inches : 65 Inch(Converted to: 5 ft 5 Inch, 165.10 cm) Clinical Height : 165.1 cm Constance Boone RN - 11/28/2020 12:48 EST Weight Source : Standing scale Weight Entry Format : [place] Constance Boone RN - 11/28/2020 12:34 EST [place] Body Weight : 61 kg Constance Boone [...] Alli Greene Rn - 11/25/2020 10:54 EST [place] Suicide Severity Rating Scale (C-SSRS) CSSRS Past [...] Arrival on Unit : Wheelchair Support Person/Patient Reimbursement Analyst : Yes Support Person/Pt Rep Name : [facility] Support Person/Pt Rep Contact Information : [phone] ext. 100 Want Family/Rep/Phys Notified of Admit : No Alli Greene Rn - 11/25/2020 10:54 EST Emergency Contact #1 : faheem hahn Emergency Contact #1 Phone Number : `[phone] Emergency Contact #1 Relationship : `sister Emergency Contact #2 : `hood hero Emergency Contact #2 ` Emergency Contact #2 Relationship : sisterConstance BacaRAYO - 11/28/2020 12:34 EST Information Obtained From : Care provider Information Obtained from, Name(s) : Misa, Social Service Primary Language : Turkish Preferred Communication Mode : Verbal Communication Barrier : Cognitive Briar Cutter Needed : No Alli Greene Rn [...]
--- OUTSIDE RECORDS SUMMARY | 2025-04-27 08:56 | XMS_ITS | Encounter Summary ---
Author Organization [employer] Address [address] [place] [address] Care Team Providers Care Firer Electric Locomotive Name Role Phone Unavailable Primary Care Provider Unavailabl e Encounter Details Date Type Department Care Team (Late st Contact Info) Description 12/02/2020 Transcribed Document [facility] [place] [facility] [address] [facility] [address] [place] [address] Brad Castillo MD [address] [place] [address] Social History Tobacco Use Types [...] rehab at discharge, pts lives at a assisted, h/o TBI - medicine following VTE Prophylaxis [...] voice nod head yes/no to questions equal gun stock checker incision cdi bandage intact and dry rachel has been removed facially symmetric documented in this encounter Plan of Treatment Not on file documented as of this encounter Visit Diagnoses Not on filedocumented in this encounter
--- OUTSIDE RECORDS SUMMARY | 2025-04-27 08:56 | XMS_ITS | Encounter Summary ---
Author Organization [employer] Address [address] [place] [address] Care Team Providers Care Talent Scout Name Role Phone Unavailable Primary Care Provider Unavailabl e Encounter Details Date Type Department Care Team (Late st Contact Info) Description 11/30/2020 Transcribed Document [facility] [place] [facility] [place] [address] ProviderFabi MD [address] [place] [address] Social History Tobacco Use Types [...] - Fabi ProviderMD - 11/30/2020 6:25 PM POOL TABLE OPERATOR Evaluation, Occupational Therapy Entered On: 12/01/2020 14:18 EST Performed On: 12/01/2020 13:49 EST by TOM SILVERIO, OTR/L General Information, OT Visit Type, OT : Initial evaluation Patient Orders : Order Date Order Ordering MD 11/30/2020 18:25 Occupational Therapy Evaluation and Treatme Ordered By: BRAD CASTILLO MD-[facility] Active Diagnoses : 11/30/2020 12:00 Disease of [...] Patient is a 60yo M admitted to [facility] on 11/30 with cervical myelopathy, RUE pain, now s/p C3-7 laminectomy, C2-T2 fusion on 11/30. PMHx TBI, Bipolar, Anxiety, Delusions, VT, falls, vascular dementia, COPD TOM SILVERIO OTR/L [...] Environment, OT Living Situation, Therapy : Other: [facility] Patient Lives With : Caregiver(s) Persons [...] Per patient/sister was I with ADLs at [facility], limited history from patient d/t cognitive status. Was mobilizing in wheelchair primarily at long term per PT/family though able to ambulate with [...] SILVERIO OTR/Patti - 12/01/2020 14:06 EST Hand Fire Fighters Dispatcher Test : 3+/5 BUE Fine Motor Coordination [...] TOM SILVERIO OTR/Patti - 12/01/2020 14:06 EST Long-Term Goals, OT Grooming LTG Grid Goal #1 [...] participated in interview as able. Patient at long term and I at [facility] with ADLs, mobilizing primarily in wheelchair but [...] TOM SILVERIO OTR/Patti - 12/01/2020 14:06 EST Electronically signed by Abraham [place] Conversion Transverse Abdominal Muscle Surgeon Cerner at 02/19/2023 9:54 AM CDT documented in this encounter Plan of Treatment Not on file documented as of this encounter Visit Diagnoses Not on filedocumented in this encounter
--- OUTSIDE RECORDS SUMMARY | 2025-04-27 08:56 | XMS_ITS | Encounter Summary ---
Author Organization [employer] Address [address] [place] [address] Care Team Providers Care Generator Operator Name Role Phone Unavailable Primary Care Provider Unavailabl e Encounter Details Date Type Department Care Team (Late st Contact Info) Description 11/30/2020 Transcribed Document [facility] [address] [facility] [address] [place] [address] Angel Todd MD [address] [place] [id number] Social History Tobacco Use Types Packs/Day Years [...] needed for constipation, 0 Refill(s) Flonase: 1 [place], Nostrils Both, Daily, 0 Refill(s) Incruse Ellipta 62.5 mcg/inh inhalation powder: 1 Puff, Inhalation, [id number], doses should be taken at least 24 [...] 1 Tab, PRN, Oral, Daily Flonase 1 [place], Nostrils Both, Daily fluvoxaMINE 50 mg oral tablet 50 mg = 1 Tab, Oral, BID Incruse Ellipta 62.5 mcg/inh inhalation powder 1 Puff, Inhalation, [id number] levothyroxine 25 mcg (0.025 mg) oral tablet [...] (Selected) Vitamin D deficiency / SNOMED CT 47709170 / Confirmed Vascular dementia with behavior disturbance / SNOMED CT 0461900134 / Confirmed Unsteadiness on feet / SNOMED CT 142376513 / Confirmed Traumatic brain injury / SNOMED CT 936765 / Confirmed AR (obstructive sleep apnea) / SNOMED CT 089462521 / Confirmed MN (myocardial infarction) / SNOMED CT 39119223 / Confirmed Muscle weakness / SNOMED CT 01766284 / Confirmed Mixed hyperlipidemia / SNOMED CT 241548541 / Confirmed Hypothyroidism / SNOMED CT 39047157 / Confirmed History of obstructive sleep apnea / IMO 76768058 / Confirmed GERD (gastroesophageal reflux disease) / SNOMED CT 226525719 / Confirmed Repeated falls / SNOMED CT 149320640 / Confirmed Primary hypertension / SNOMED CT 14388267 / Confirmed Eating disorder / SNOMED CT 927990135 / Confirmed Dysphagia / SNOMED CT 65440896 / Confirmed Delusional disorder / SNOMED CT 44849350 / Confirmed COPD (chronic obstructive pulmonary disease) / SNOMED CT 26381759 / Confirmed Bipolar 2 disorder / SNOMED CT 217094655 / Confirmed Anxiety / SNOMED CT 59476718 / Confirmed Adjustment disorder with depressed mood / SNOMED CT 52181046 / Confirmed Gait disturbance / SNOMED CT 05957004 / Confirmed, Active Problems (21) Adjustment disorder with depressed mood Anxiety Bipolar 2 disorder COPD (chronic obstructive pulmonary disease) neck pain and RUE radiculopathy Delusional disorder Dysphagia Eating disorder Gait disturbance GERD (gastroesophageal reflux disease) History of obstructive sleep apnea Hypothyroidism MN (myocardial infarction) Mixed hyperlipidemia Muscle weakness AR [...] Extraocular movements are intact, glasses. HENT: Normocephalic, [place]. Neck: Supple, Non-tender. Respiratory: Lungs are clear to auscultation, Respirations are non-labored. Cardiovascular: Normal rate, Regular rhythm, No murmur, No gallop, No edema. Gastrointestinal: Soft, Non-tender. Genitourinary: No costovertebral angle tenderness. Lymphatics: No lymphadenopathy neck, axilla, groin. Musculoskeletal: painful ROM neck, RUE pain/weakness, uses wc due to being a resident in a fci. Integumentary: Warm, Dry, [place]. Neurologic: Alert, Oriented. Psychiatric: Cooperative, Appropriate mood [...]
--- OUTSIDE RECORDS SUMMARY | 2025-04-27 08:56 | XMS_ITS | Encounter Summary ---
Author Organization [employer] Address [address] [place] [address] Care Team Providers Care Asphalt Mixer Name Role Phone Unavailable Primary Care Provider Unavailabl e Encounter Details Date Type Department Care Team (Late st Contact Info) Description 12/01/2020 Transcribed Document [facility] [place] Family Medicine [facility] [place] [address] ProviderFabi MD [address] [place] [address] Social History Tobacco Use Types [...] - Fabi ProviderMD - 12/01/2020 2:19 PM BU[place]ARO Treatment Intervention, OT Entered On: 12/02/2020 12:36 [...] MERE TOLBERT COTA - 12/02/2020 12:22 EST Cutlery Grinder Goals, OT Grooming LTG Grid Goal #1 [...] Needs, OT/PT Anticipated Discharge to : Unit, detention MERE TOLBERT [place] - 12/02/2020 12:[address] [facility] [facility] OT Charges [place] OT Ther Activities Ea 15 Min-[place] : 1 MERE TOLBERT COTA - 12/02/2020 12:22 EST Electronically signed by Cruzito, [facility] Conversion Director Custom Fidelner at 02/19/2023 9:54 AM CDT documented in this encounter Plan of Treatment Not on file documented as of this encounter Visit Diagnoses Not on filedocumented in this encounter
--- OUTSIDE RECORDS SUMMARY | 2025-04-27 08:56 | XMS_ITS | Encounter Summary ---
Author Organization [employer] Address [address] [place] [id number] Care Team Providers Care Range Management Specialist Name Role Phone Unavailable Primary Care Provider Unavailabl e Encounter Details Date Type Department Care Team (Late st Contact Info) Description 11/30/2020 Transcribed Document [facility] [place] [facility] [place] [address] ProviderFabi MD [address] [place] [address] Social History Tobacco Use Types [...] - Fabi ProviderMD - 11/30/2020 4:09 PM SANDWICH ARTIST [facility] Main OR IntraOp Summary Primary Physician: BRAD CASTILLO MD-SNU Finalized Date/Time: 12/01/20 14:35:25 Pt. Name: ALEXI GRIJALVA /Sex: 1960 Male Med Rec #: [id number] Physician: BRAD CASTILLO MD-SNU Financial #: [id number] Pt. Type: I Room/Bed: [facility]/ Admit/Disch: 11/30/20 06:39:00 - Institution: [facility] IntraOp Case Attendance Entry 1 Entry 2 Entry 3 Case Attendee BRAD CASTILLO SWINFORD, ASHLEE, CRNA BOWEN, JON B, MD-ANS MD-SNU Role Performed Surgeon/Proceduralist, CLAY TEMPERER/Nurse Store Operations Associate Anesthesiologist of First Record Time In 11/30/20 15:00:00 11/30/20 15:00:00 11/30/20 15:00:00 Time Out 11/30/20 18:43:00 11/30/20 16:02:00 11/30/20 17:51:00 Procedure Lumbar Fusion Posterior Lumbar Fusion Posterior Lumbar Fusion Posterior 3 Level 3 Level 3 Level Other Attendee Superficial Wound Closed By: Last Modified By: Joan Ugatre, RN Joan Ugarte, RN Joan Ugarte, RN 11/30/20 18:43:07 11/30/20 18:43:07 11/30/20 18:43:07 Entry 4 Entry 5 Entry 6 Case Attendee BROWN KENYON Patsy D, RN Roxanne Pierson RN Role Performed Physician media center assistant Mechanical Assembly, First Mechanical Assembly, Second Time In 11/30/20 15:00:00 11/30/20 15:00:00 [...] Scrub OTHER, ATTENDEE Gi Erwin Tech Diagnostic Cushion Worker Role Performed Scrub, First Scrub, Second Enterprise Sales Executive Time In 11/30/20 15:00:00 11/30/20 15:00:00 11/30/20 [...] Entry 12 Case Attendee OTHER, ATTENDEE #1 Reo [place], CLAY TEMPERER BENTLEY LAGOS, ASHLEE Role Performed Patient Safety Tech, Ancillary CLAY TEMPERER/Nurse Store Operations Associate CLAY TEMPERER/Nurse Store Operations Associate Time In 11/30/20 15:00:00 11/30/20 16:02:00 11/30/20 [...] BOWEN, JON B, -ANS Role Performed Physician media center assistant Anesthesiologist Time In 11/30/20 17:02:00 11/30/20 17:51:00 Time Out 11/30/20 18:43:00 11/30/20 18:43:00 Procedure Lumbar Fusion Posterior Lumbar Fusion Posterior 3 Level 3 Level Other Attendee Superficial Wound Closed By: Last Modified By: Joan Ugarte, RN Joan Ugarte, RN 11/30/20 18:43:07 11/30/20 18:43:07 [facility] IntraOp Case Attendance Audit 11/30/20 18:43:07 Surveillance Director: BRINDA Modifier: SMITHPD 1 <+> Time Out [...] Lumbar Fusion Posterior 3 Level 11/30/20 18:07:18 Surveillance Director: SMITHPD Modifier: SMITHPD 6 <+> Time Out 6 <*> Procedure Lumbar Fusion Posterior 3 Level 14 <+> Case Attendee 14 <*> Procedure Lumbar Fusion Posterior 3 Level 11/30/20 18:01:10 Surveillance Director: SMITHPD Modifier: SMITHPD 3 <+> Time Out 3 <*> Procedure Lumbar Fusion Posterior 3 Level 12 <+> Time Out 12 <*> Procedure Lumbar Fusion Posterior 3 Level <+> 14 Role Performed <+> 14 Time In <+> 14 Procedure 11/30/20 17:14:11 Surveillance Director: SMITHPD Modifier: SMITHPD 4 <+> Time Out 4 <*> Procedure Lumbar Fusion Posterior 3 Level <+> 13 Case Attendee <+> 13 Role Performed <+> 13 Time In <+> 13 Procedure 11/30/20 16:51:54 Surveillance Director: SMITHPD Modifier: SMITHPD 8 <+> Time Out 8 <*> Procedure Lumbar Fusion Posterior 3 Level 11/30/20 16:42:58 Surveillance Director: SMITHPD Modifier: SMITHPD 9 <*> Case Attendee [id number] 9 <*> Procedure Lumbar Fusion Posterior 3 Level 11/30/20 16:42:39 Surveillance Director: SMITHPD Modifier: SMITHPD 1 <*> Procedure Lumbar [...] <+> 12 Time In <+> 12 Procedure [facility] IntraOp Case Times Entry 1 Patient In Room Time 11/30/20 15:00:00 Out Room Time 11/30/20 18:43:00 Anesthesia Start Time 11/30/20 15:00:00 Stop Time 11/30/20 18:43:00 Surgery / Procedure Times Start Time 11/30/20 16:09:00 Stop Time 11/30/20 17:51:00 Last Modified By: Joan Ugarte RN 11/30/20 18:42:35 [facility] IntraOp Case Times Audit 11/30/20 18:42:35 Surveillance Director: BRINDA Modifier: SMITHPD <+> 1 Out Room Time <+> 1 Stop Time 11/30/20 18:00:03 Surveillance Director: BRINDA Modifier: SMITHPD <+> 1 Stop Time 11/30/20 17:39:49 Surveillance Director: BRINDA Modifier: SMITHPD <+> 1 Start Time [facility] IntraOp Cautery Entry 1 Entry 2 ESU Identification Cautery Type Monopolar ESU BiPolar ESU Cautery Type Comments ID Number [id number] ID Type Hospital Number Hospital Number Cautery [...] Joan Ugarte RN 11/30/20 15:32:47 11/30/20 15:33:10 [facility] IntraOp Cautery Audit 11/30/20 15:33:10 Surveillance Director: BRINDA Modifier: SMITHPD <+> 2 Cautery Type <+> 2 Coag Setting <+> 2 Cut Setting <+> 2 ID Number <+> 2 ID Type [facility] IntraOp Communication Entry 1 Communication To Family/Significant other Comment START Communication By Joan Ugarte, RN Last Modified By: Joan Ugarte RN 11/30/20 15:33:21 [facility] IntraOp Counts Verification Entry 1 Procedure Lumbar Fusion Posterior 3 Level Count Info Count Type Sponge, Sharps, Miscellaneous Counts Verification Baseline/pre-procedure Sequence Count Results Not Applicable Counts Performed By Count Performed By Philipp Monique Scrub (Scrub) Tech Count Performed By Roxanne Pierson RN (RN) Last Modified By: Joan Ugarte RN 11/30/20 15:33:41 [facility] IntraOp Counts Final Entry 1 Procedure Lumbar Fusion Posterior 3 Level Final Count Info Count Type Sponge, Sharps, Miscellaneous Counts Verification Skin Closure/end of Sequence procedure Count Results Correct, surgeon notified Counts Performed By Count Performed By Philipp Monique Scrub (Scrub) Tech Count Performed By Roxanne Pierson RN (RN) Last Modified By: Joan Ugarte RN 11/30/20 17:35:27 [facility] IntraOp Counts Final Audit 11/30/20 17:35:27 Surveillance Director: BRINDA Modifier: SMITHPD 1 <*> Procedure Lumbar Fusion Posterior 3 Level 1 <+> Count Performed By (Scrub) 1 <+> Count Performed By (RN) [facility] IntraOp Departure from OR Entry 1 Integumentary Assessment Integumentary WDL with patient Assessment WDL specific variances Patient's Normal [place]-TGICAL SITE C2 Integumentary -T1 Variance(s) Transfer/Handoff Transfer to PACU Phase I Handoff Method Phone call Handoff Reported to NAKITA GUILLEN RN Post-op Transport Stretcher/Gurney Via Patient Transport ALLISON KING MD-DANAY, Accompanied by Joan Ugarte, RN Last Modified By: Joan Ugarte RN 11/30/20 18:43:06 [facility] IntraOp Departure from OR Audit 11/30/20 18:43:06 Surveillance Director: BRINDA Modifier: SMITHPD 1 <*> Patient Transport Accompanied by ALLISON KING MD-ANS 11/30/20 18:02:20 Surveillance Director: BRINDA Modifier: KENYETTAPD 1 <*> Patient Transport Accompanied by BROWN KENYON [facility] IntraOp Drains and Tubes Entry 1 Device Type Kumar Marcos round drain Size 15 F Drain/Tube Activity Inserted Drain/Tube Suction Bulb Drain/Tube Drainage Serous Device Location OP SITE Method of Drainage Compression Tube Dressing Dry, Intact Condition Last Modified By: Joan Ugarte RN 11/30/20 17:25:26 [facility] IntraOp Dressing and Packing Entry 1 Type Dressing Location OPERATIVE SITE Applied By ERNIE SIMS PA Other Comments COVERDERM, ASPEN COLLAR , REGULAR Last Modified By: Joan Ugarte RN 11/30/20 17:33:59 [facility] IntraOp Fire Risk Assessment Entry 1 Fire [...] Modified By: Joan Ugarte RN 11/30/20 16:59:30 [facility] IntraOp General Case Vending Supervisor 1 Case Information OR OR 10 [facility] Case Level 1 Room Verified Yes Wound Class I - Clean Specialty SN Neurosurgery Anesthesia Type General ASA Class 3 Diagnosis Preop Diagnosis CERVICAL SPONDYLOSIS WITH MYELOPATHY Postop Same As Preop No Postop Diagnosis SEE DOCTOR POST OPERATIVE NOTE Last Modified By: Joan Ugarte RN 11/30/20 16:59:36 [facility] IntraOp General Case Data Audit 11/30/20 16:59:36 Surveillance Director: BRINDA Modifier: SMITH <+> 1 Room Verified [facility] IntraOp Implant Log Entry 1 Entry 2 Entry 3 Type Tissue Implant Implant (Synthetic) Implant (Synthetic) (Biologic) Implant Log Implant Type Hardware Hardware Tissue Implant Type Other Implant BONE VIVIGEN FRMBLE 1020.35.130 3.5 X 30MM [id number] 3.5 X 12MM Identification [facility][id number] [facility] Description Implant Quantity 1 2 4 Implant Site OP SITE OPERATIVE SITE OPERATIVE SITE Implant [id number] Identification Model Number Implant Identification Serial Number Implant Identification Lot Number Implant Lifenet:Lifenet Identification Transplant Srv Guide Visitor Name: Implant [id number] Identification Catalog Number Implant Size Implant Has an Yes Expiration Date Implant Expiration 11/17/21 Date Wasted Radioactive Material Time Implanted Tissue Implant Continue for Tissue Implant Documentation Tissue Identification Number Graft Prep Per Guide Visitor Instructions: Tissue Preparation Method: Reconstitution Solution: Reconstitution Solution Lot Number Reconstitution Solution Expiration Date: Thawing Solution Thawing Solution Lot Number Thawing Solution Expiration Date Preparation Materials, Other Preparation Materials, Other Lot Number Preparation Materials, Other Expiration Date Tissue Prepared/Processed By Guide Visitor Paperwork Completed Implant Type Comment Last Modified [...] Number Implant Identification Lot Number Implant Identification Guide Visitor Name: Implant Identification Catalog Number Implant Size Implant Has an Expiration Date Implant Expiration Date Wasted Radioactive Material Time Implanted Tissue Implant Continue for Tissue Implant Documentation Tissue Identification Number Graft Prep Per Guide Visitor Instructions: Tissue Preparation Method: Reconstitution Solution: Reconstitution Solution Lot Number Reconstitution Solution Expiration Date: Thawing Solution Thawing Solution Lot Number Thawing Solution Expiration Date Preparation Materials, Other Preparation Materials, Other Lot Number Preparation Materials, Other Expiration Date Tissue Prepared/Processed By Guide Visitor Paperwork Completed Implant Type Comment Last Modified [...] Number Implant Identification Lot Number Implant Identification Guide Visitor Name: Implant Identification Catalog Number Implant Size Implant Has an Expiration Date Implant Expiration Date Wasted Radioactive Material Time Implanted Tissue Implant Continue for Tissue Implant Documentation Tissue Identification Number Graft Prep Per Guide Visitor Instructions: Tissue Preparation Method: Reconstitution Solution: Reconstitution Solution Lot Number Reconstitution Solution Expiration Date: Thawing Solution Thawing Solution Lot Number Thawing Solution Expiration Date Preparation Materials, Other Preparation Materials, Other Lot Number Preparation Materials, Other Expiration Date Tissue Prepared/Processed By Guide Visitor Paperwork Completed Implant Type Comment Last Modified By: Joan Ugarte, Joan Tillman, RN Joan Ugarte RN 11/30/20 17:32:04 11/30/20 17:32:04 11/30/20 17:32:04 [facility] IntraOp Implant Log Audit 11/30/20 17:32:04 Surveillance Director: BRINDA Modifier: BRINDA <+> 2 Implant Identification [...] <+> 9 Implant Type <+> 9 Type [facility] IntraOp Intraoperative Assessment Entry 1 Handoff Method [...] Modified By: Joan Ugarte RN 11/30/20 17:54:00 [facility] IntraOp Intraoperative Assessment Audit 11/30/20 17:54:00 Surveillance Director: BRINDA Modifier: BRINDA <+> 1 Intraoperative Assessment Comment [facility] IntraOp Intraoperative Equipment Entry 1 Type Equipment Equipment Equipment Rosa Elena Suction System ID Number [id number] Intraop Monitoring Electrocardiogram Three lead placement (ECG) Electrode Placement Blood Pressure Non-Invasive BP Device Source Blood Pressure Arm, right upper Location Pulse Oximeter Hand, left Probe Site Antiembolic Devices Antiembolic Devices Sequential compression device, knee high Antiembolic Device Bilateral Location Antiembolic Device [id number] ID Number Scopes Photo/Video Documentation Photo No Video No Intraop Equipment SCDS ON AND WORKING Comment PRIOR TO INDUCTION Last Modified By: Joan Ugarte RN 11/30/20 17:10:38 [facility] IntraOp Medication Admin Entry 1 Entry 2 Entry 3 Medication/Irrigant Bacitracin 50,00units MICKEY IRR NACL 0.9PCT thrombin 5000units powder vial 1.5L [id number] topical powder - [id number] Combo Med List 1 - Combo Med Time Administered Route of ADDED TO IRRIGATION IRRIGATION - BASIN TOPICAL - Administration Dose Dose 94172 5000 Unit of Measure units units Volume Administered By BRAD CASTILLO TUTT, MATTHEW PAIGE, TUTT, MATTHEW PAIGE, MD-SNU MD-SNU MD-SNU Procedure Irrigation Irrigant Volume In Irrigant Volume Out Last Modified By: Joan Ugarte, Joan Tillman, Joan Tillman RN 11/30/20 17:09:13 11/30/20 17:09:13 11/30/20 17:09:13 Entry 4 Entry 5 Entry 6 Medication/Irrigant lidocaine 1% w/ bacitracin ointment -- SPNG SURGFOAM epinephrine 1:100,000 [id number] 30ml vial - [id number] Combo Med List Time Administered Route of LOCAL TOPICAL TOPICAL Administration Dose Dose 20 1 1 Unit of Measure ml pkt pkt Volume Administered By BRAD CASTILLO TUTT, MATTHEW PAIGE, TUTT, MATTHEW PAIGE, MD-SNU MD-SNU MD-SNU Procedure Irrigation Irrigant Volume In Irrigant Volume Out Last Modified By: Joan Ugarte RN Smith, Patsy D, RN Joan Ugarte RN 11/30/20 17:39:29 11/30/20 17:09:13 11/30/20 17:09:13 [facility] IntraOp Medication Admin Audit 11/30/20 17:39:29 Surveillance Director: BRINDA Modifier: KENYETTAPD 4 <*> Medication/Irrigant lidocaine 1% w/ epinephrine 1:100,000 30ml vial - [id number] <+> Dose [facility] IntraOp Patient Positioning Entry 1 Procedure Lumbar Fusion Posterior 3 Level Body Position Prone Left Arm Position Tucked and padded at side Right Arm Position Tucked and padded at side Left Leg Position Uncrossed, parallel Right Leg Position Uncrossed, parallel Feet Uncrossed Yes Pressure Points Yes Checked Positioning Devices [place] w/ Head Pins, Pillows, Safety Strap, Thighs Positioning Device AIRO BED USED Comments Positioned By BRAD CASTILLO MD-SNU, AZALEA LOBO, ASHLEE, BROWN KENYON, Joan Ugarte, RN, Roxanne Pierson RN Position Verified Positioning Yes Verified by Anesthesia Positioning Yes Verified by Surgeon Last Modified By: Joan Ugarte RN 11/30/20 16:54:08 [facility] IntraOp Sign In Entry 1 Patient, Site, [...] Modified By: Joan Ugarte RN 11/30/20 16:51:01 [facility] IntraOp Sign Out Entry 1 RN Confirmation [...] Modified By: Joan Ugarte RN 11/30/20 18:42:55 [facility] IntraOp Sign Out Audit 11/30/20 18:42:55 Surveillance Director: BRINDA Modifier: KENYETTAPD <+> 1 RN Sign Out Signature <+> 1 RN Sign Out Signature Date/Time [facility] IntraOp Skin Prep Entry 1 Procedure Lumbar [...] Modified By: Joan Ugarte RN 11/30/20 16:49:17 [facility] IntraOp Surgical Procedures Entry 1 Procedure Lumbar Fusion Posterior 3 Level Additional (C2-T1 POSTERIOR Procedure CERVICAL DECOMPRESSION Description AND FUSION WITH AIRO) Primary Procedure Yes Primary Surgeon BRAD CASTILLO MD-SNU Start 11/30/20 16:09:00 Stop 11/30/20 17:51:00 Anesthesia Type General Specialty SN Neurosurgery Wound Class I - Clean Last Modified By: Joan Ugarte RN 11/30/20 18:42:43 [facility] IntraOp Surgical Procedures Audit 11/30/20 18:42:43 Surveillance Director: BRINDA Modifier: BRINDA <+> 1 Start <+> 1 Stop [facility] IntraOp Temp Regulation Devices Entry 1 Temp Regulation Temperature Forced Air Warming Regulation Device device, Warm blankets Temperature 21087 Regulation Device Serial/Unit Number Temperature Lower body Regulation Site Temperature Device 43 C Setting Temperature AZALEA LOBO, ASHLEE Regulation Device Applied by Temperature TEMPERATURE REGULATION Regulation Comment MONITORED AND CONTROLLED BY ANESTHESIA PROVIDER. Last Modified By: Joan Ugarte RN 11/30/20 16:46:55 [facility] IntraOP Time Out Entry 1 Procedure to [...]
--- OUTSIDE RECORDS SUMMARY | 2025-04-27 08:56 | XMS_ITS | Referral Summary ---
Author Organization [employer] Address [address] [place] [address] Care Team Providers Care Crusher Loader Operator Name Role Phone Unavailable Primary Care [...]
--- OUTSIDE RECORDS SUMMARY | 2025-04-27 08:56 | XMS_ITS | Encounter Summary ---
Author Organization [employer] Address [address] [place] [address] Care Team Providers Care Spray Foam Installer Name Role Phone Unavailable Primary Care Provider Unavailabl e Encounter Details Date Type Department Care Team (Late st Contact Info) Description 11/30/2020 Transcribed Document [facility] Neurology - [address] [facility] [address] [place] [id number] Angel Todd MD [address] [place] [address] Social History Tobacco Use Types [...] Intraoperative CT scan with spinal stereotactic navigation. PIPE FITTER FIRE SPRINKLER SYSTEMS: Daniel Howard. TYPE OF ANESTHESIA: GEA. DESCRIPTION [...] was exposed using stereotactic navigation and the [employer] system. C2 pars screws were placed bilaterally. [...] LOSS: 200 mL. DRAINS: Kumar-Marcos. COMPLICATIONS: None. /[id number] MD ARELIS Bella/EMMA / ARELIS / MODL /[id number] CC: Cielo Sanabria, documented in this encounter Plan of Treatment Not on file documented as of this encounter Visit Diagnoses Not on filedocumented in this encounter
--- OUTSIDE RECORDS SUMMARY | 2025-04-27 08:56 | XMS_ITS | Encounter Summary ---
Author Organization [employer] Address [address] [place] [address] Care Team Providers Care Wireless Internet Installer Name Role Phone Unavailable Primary Care Provider Unavailabl e Encounter Details Date Type Department Care Team (Late st Contact Info) Description 12/02/2020 Transcribed Document [facility] [place] [address] ProviderFabi MD [address] [place] [address] Social History Tobacco Use Types [...] - Fabi ProviderMD - 12/02/2020 2:47 PM GILL NET STRINGER Final Discharge Planning Entered On: 12/02/2020 14:58 EST Performed On: 12/02/2020 14:47 EST by JAQUI COLÓN RN-Him Clerk Final Discharge Planning Discharge Arrangements : Patient Post-Acute Information Patient Name: ROSELYN GRIJALVA Gender: Male : [birth year] Age: 60 Years Curaspfiorella Referral(s): Service: Organization: Business Address: Phone Number: Acute Rehab [facility] [address] [facility], [place], [address] Patient Offered Choice/Affiliations Explained : [...] : IRF -Inpatient Rehabilitation Facility-[facility] JAQUI COLÓN RN-Him Clerk - 12/02/2020 14:47 EST Final Narrative Note Final Narrative Note : [facility] @ 4p. D/W pt at bedside, state gamaríadifiorella Saini on phone, sister Mayra on phone, Joshua/Judie CUNHA-NEAL/Bobby, and bedside RAYO Bull. JAQUI COLÓN RN-Him Clerk - 12/02/2020 14:47 EST Electronically signed by [facility] Conversion Plaster Caster Cerner at 02/19/2023 9:53 AM CDT documented in this encounter Plan of Treatment Not on file documented as of this encounter Visit Diagnoses Not on filedocumented in this encounter
--- OUTSIDE RECORDS SUMMARY | 2025-04-27 08:56 | XMS_ITS | Encounter Summary ---
Author Organization [employer] Address [address] [place] [address] Care Team Providers Care Foot Miter Operator Name Role Phone Unavailable Primary Care Provider Unavailabl e Encounter Details Date Type Department Care Team (Late st Contact Info) Description 12/02/2020 Transcribed Document [facility] [place] [address] ProviderFabi MD [address] [place] [address] Social History Tobacco Use Types [...] - Fabi ProviderMD - 12/02/2020 2:30 PM CROP AND SOIL TECHNICIAN On Going Discharge Planning Entered On: 12/02/2020 14:47 EST Performed On: 12/02/2020 14:30 EST by JAQUI COLÓN RN-Crane Operator CabLocal Flatbed Driver Progress Note Discharge Arrangements : Patient Post-Acute [...] Attend Multidisciplinary Rounds? : Yes JAQUI COLÓN RN-Crane Operator Cab - 12/02/2020 14:30 EST Electronically signed by [facility] Conversion Wheat And Oats Flake Miller Cerner at 02/19/2023 9:44 AM CDT documented in this encounter Plan of Treatment Not on file documented as of this encounter Visit Diagnoses Not on filedocumented in this encounter
--- OUTSIDE RECORDS SUMMARY | 2025-04-27 08:56 | XMS_ITS | Encounter Summary ---
Author Organization [employer] Address [address] [place] [address] Care Team Providers Care Reference Assistant Name Role Phone Unavailable Primary Care Provider Unavailabl e Encounter Details Date Type Department Care Team (Late st Contact Info) Description 12/02/2020 Transcribed Document [facility] [place] Medicine [facility] [place] [address] ProviderFabi MD [address] [place] [address] Social History Tobacco Use Types [...] Fabi Flores MD - 12/02/2020 1:44 PM BACK PAD INSPECTOR [facility] [place] [address] ROSELYN GRIJALVA :1960 Visit Time:11/30/2020 Your Visit Summary Your Care Team Admitting Physician - BRAD CASTILLO MD-SNU Attending Physician - BRAD CASTILLO MD-ARNOLD Primary Care Physician - ROSIBEL ODONNELL (REF)MD-[facility] Referring Physician - BRAD CASTILLO MD-SNU [...] EST Comments Appointment has been made Where: [address] [place] [address] [email or web address] [address] (SATURDAY ONLY) [place] [address]- Follow Up with BRAD CASTILLO MD-SNU When 12/19/2020 03:15 PM EST Comments Return for suture/staple removal Where: [address] [place] [address] [email or web address] [address] (SATURDAY ONLY) [place] [address]- Medications What How Much When [...] Oral At Bedtime fluticasone nasal (Flonase) 1 Moody(s) Nostrils Both Every Day fluvoxaMINE (fluvoxaMINE 50 [...] and water are not available, use hand wreath inspector. ? Change your dressing as told by [...] or a bad smell. Medicines ??? Take lnqu-jlm-nppudbq and prescription medicines only as told by [...] urine clear or pale yellow. ? Take tqsx-pfn-fohvfdl or prescription medicines. ? Eat foods that [...] and water are not available, use hand wreath inspector. ? Change your dressing as told by [...] or a bad smell. Medicines ??? Take kbao-twu-gcjkide and prescription medicines only as told by [...] urine clear or pale yellow. ? Take ufzg-jei-swnvbww or prescription medicines. ? Eat foods that [...] Reviewed: 04/07/2017 Elsevier Patient Education ?? 2020 [employer] Emergency Awareness and Preventative Care STROKE [...] Assistance with quitting is available by contacting 3-796-FKTK-NOW. This is a free resource providing counseling, support, and referral. Or you may contact your personal physician. [place] Suicide Prevention Lifeline: The National Suicide Prevention [...] range between ( 0.0 and 7.0 ) [place] #: 1.16 K/uL -- Normal range between ( 0.16 and 1.00 ) [place] #: 0.07 x10(3)/uL -- Normal range between ( 0.00 and 0.80 ) [place] %: 10.1 % -- Normal range between [...] was given the opportunity to ask questions. Patient/Information Clerk [employer] Name: Patient/Information Clerk [employer] Signature: Relationship to Patient: Clinician/Hospital Information Clerk [employer]obile [employer] Signature: Date: Electronically signed by Cruzito, [facility] Conversion Turner And Former Automatic Cerner at 02/19/2023 9:42 AM CDT documented in this encounter Plan of Treatment Not on file documented as of this encounter Visit Diagnoses Not on filedocumented in this encounter
--- OUTSIDE RECORDS SUMMARY | 2025-04-27 08:56 | XMS_ITS | Encounter Summary ---
Author Organization [employer] Address [address] [place] [address] Care Team Providers Care Games Manager Name Role Phone Unavailable Primary Care Provider Unavailabl e Encounter Details Date Type Department Care Team (Late st Contact Info) Description 11/30/2020 Transcribed Document [facility] [place] [facility] [place] [address] ProviderFabi MD [address] [place], [place] [id number] Social History Tobacco Use Types Packs/Day Years [...] - Fabi ProviderMD - 11/30/2020 10:13 PM AUDIT ASSOCIATE Meds to Bed Enrollment Entered On: 12/01/2020 7:28 EST Performed On: 11/30/2020 22:13 EST by SUE ALAS RPh Meds to Bed Enrollment Patient Enrollment Decision: : No/do not enroll in meds to bed program Reason for Declining Meds to Bed Program: : Discharge to facility SUE ALAS RPh - 12/01/2020 7:28 EST Electronically signed by Abraham [place] Conversion Potable Water Treatment Operator Cerner at 02/19/2023 9:46 AM CDT documented in this encounter Plan of Treatment Not on file documented as of this encounter Visit Diagnoses Not on filedocumented in this encounter
--- OUTSIDE RECORDS SUMMARY | 2025-04-27 08:56 | XMS_ITS | Encounter Summary ---
Author Organization [employer] Address [address] [place] [address] Care Team Providers Care Eating Disorder Specialist Name Role Phone Unavailable Primary Care Provider Unavailabl e Encounter Details Date Type Department Care Team (Late st Contact Info) Description 11/28/2020 Transcribed Document [facility] [place] [facility] [place] [address] ProviderFabi MD [address] [place] [address] Social History Tobacco Use Types [...] - Fabi ProviderMD - 11/28/2020 2:02 PM PLASTICS PROCESS HAND UM Authorization Entered On: 11/28/2020 14:03 EST Performed On: 11/28/2020 14:02 EST by TRA GOLDBERG, Medical Oncologist Primary Insurance Authorization Authorization and Policy Numbers : Insurance 1 Health Plan: MEDICARE Policy Number: [id number] Authorization Number: Insurance 2 Health Plan: [place] Policy Number: [id number] Authorization Number: Insurance Primary Name : Medicare Authorization Status-Primary : No precert required Authorization Number-Primary : NPR for Medicare Authorized Service Begin Date-Primary : 11/30/2020 EST Authorization Comments-Primary : Pt is mauricio for INPT Cervical Discectomy Fusion Posterior on 11-30-20 Medicare: NPR Historical Authorization Comments-Primary : No Authorization Comments Found TRA GOLDBERG, Medical Oncologist - 11/28/2020 14:02 EST Secondary Insurance Authorization Authorization and Policy Numbers : Insurance 1 Health Plan: MEDICARE Policy Number: [id number] Authorization Number: Insurance 2 Health Plan: [place] Policy Number: [id number] Authorization Number: Insurance Secondary Name : [facility] [id number] Authorized Service Begin Date-Secondary : 11/30/2020 EST Historical Authorization Comments-Secondary : No Authorization Comments Found TRA GOLDBERG, Medical Oncologist - 11/28/2020 14:02 EST Electronically signed by Cruzito [facility] Conversion Commission Specialist Cerner at 02/19/2023 10:03 AM CDT documented in this encounter Plan of Treatment Not on file documented as of this encounter Visit Diagnoses Not on filedocumented in this encounter
--- OUTSIDE RECORDS SUMMARY | 2025-04-27 08:56 | XMS_ITS | Encounter Summary ---
Author Organization [employer] Address [address] [place] [address] Care Team Providers Care Manager It Security Name Role Phone Unavailable Primary Care Provider Unavailabl e Encounter Details Date Type Department Care Team (Late st Contact Info) Description 12/02/2020 Transcribed Document [facility] [place] Medicine [facility] [place] [address] ProviderFabi MD [address] [place] [address] Social History Tobacco Use Types [...] - Historical ProviderMD - 12/02/2020 1:42 PM DEPUTY K 9 Nursing Discharge Summary Entered On: 12/02/2020 13:43 EST Performed On: 12/02/2020 13:42 EST by SILVIO ANTONY desktop technician Documentation Discharge Date/Time : 12/02/2020 15:30 EST [...] 12/02/2020 13:42 EST Electronically signed by Cruzito [facility] Conversion Sales Promotion Officer Ceryemi at 02/19/2023 9:48 AM CDT documented in this encounter Plan of Treatment Not on file documented as of this encounter Visit Diagnoses Not on filedocumented in this encounter
--- OUTSIDE RECORDS SUMMARY | 2025-04-27 08:56 | XMS_ITS | Encounter Summary ---
Author Organization [employer] Address [address] [place] [address] Care Team Providers Care Dry Wall Installer Name Role Phone Unavailable Primary Care Provider Unavailabl e Encounter Details Date Type Department Care Team (Late st Contact Info) Description 12/05/2020 Transcribed Document [facility] [place] Medicine [facility] [place] [address] ProviderFabi MD [address] [place] [address] Social History Tobacco Use Types [...] - Fabi ProviderMD - 12/05/2020 10:59 PM REAL ESTATE SALES MANAGER PLEASE MODIFY BEFORE SIGNING CLINICAL DOCUMENTATION CLARIFICATION [...] ] Albuterol As per MAR sheet on CDS/Advertising Executive Signature: Henry.Korey Phone #: [phone] Extn [phone] Date/Time: 12/06/2020 This is a permanent part of the Medical Record Q47 2019 [facility] Updated: documented in this encounter Plan of Treatment Not on file documented as of this encounter Visit Diagnoses Not on filedocumented in this encounter
--- OUTSIDE RECORDS SUMMARY | 2025-04-27 08:56 | XMS_ITS | Encounter Summary ---
Author Organization [employer] Address [address] [facility] [place] [address] Care Team Providers Care Cuff Stitcher Name Role Phone Unavailable Primary Care Provider Unavailabl e Encounter Details Date Type Department Care Team (Late st Contact Info) Description 11/30/2020 Transcribed Document [facility] [address] [place] [address] Danielle Rosales MD [address] [address] Social History Tobacco Use Types [...] is a 60 yo male admitted to [facility] per Dr. Todd for a cervical fusion. [...] disease) History of obstructive sleep apnea Hypothyroidism HI (myocardial infarction) Mixed hyperlipidemia Muscle weakness AR [...] 1 Tab, PRN, Oral, Daily Flonase 1 [place], Nostrils Both, Daily fluvoxaMINE 50 mg oral tablet 50 mg = 1 Tab, Oral, BID Incruse Ellipta 62.5 mcg/inh inhalation powder 1 Puff, Inhalation, [id number] levothyroxine 25 mcg (0.025 mg) oral tablet [...]
--- OUTSIDE RECORDS SUMMARY | 2025-04-27 08:56 | XMS_ITS | Encounter Summary ---
Author Organization [employer] Address [address] [place] [address] Care Team Providers Care Battery Tester Name Role Phone Unavailable Primary Care Provider Unavailabl e Encounter Details Date Type Department Care Team (Late st Contact Info) Description 12/01/2020 Transcribed Document [facility] [place] Family Medicine [facility] [place] [address] ProviderFabi MD [address] [place], [place] [id number] Social History Tobacco Use Types Packs/Day Years [...] - Historical ProviderMD - 12/01/2020 11:11 AM DOWNSTREAM BIOMANUFACTURING TECHNICIAN Attempt to Treat, OT Entered On: 12/01/2020 12:45 EST Performed On: 12/01/2020 11:11 EST by JADIEL SHIN OTR/Patti Attempt to Treat Unable to Treat Due To : Patient Unavailable Inability to Treat Comment : Pt eating lunch at this time. OT will follow up as schedule permits. Notification : RAYO Solares SHEENAGH E, OTR/Patti - 12/01/2020 12:44 EST Electronically signed by Cruzito [facility] Conversion Acid Conditioning Worker Cerner at 02/19/2023 10:08 AM CDT documented in this encounter Plan of Treatment Not on file documented as of this encounter Visit Diagnoses Not on filedocumented in this encounter
--- NOTE | 2025-04-27 08:59 | CT_ITS ---
FINAL REPORT CLINICAL HISTORY: ABNORMAL CHEST XRAY COMPARISON: Chest x-ray 04/25/2025 FINDINGS: CT CHEST without contrast COMPARISON: Chest x-ray 04/25/2025. TECHNIQUE: Axial CT without contrast This study was performed with techniques to keep radiation doses as low as reasonably achievable, (ALARA). Individualized dose reduction techniques using automated exposure control or adjustment of mA and/or kV according to the patient's size were employed. FINDINGS: No acute lung disease is present . No pleural or pericardial effusion is seen . No adenopathy or mass lesion is present . Multiple old right rib fractures are present. The portions of the upper abdomen visualized are unremarkable. IMPRESSION: 1. No pulmonary abnormality is identified. This study was performed using automated techniques to achieve radiation exposure as low as reasonably achievable Reviewed, Interpreted and Dictated by Adrianna Milner MD Transcribed by Magnolia Carrillo Authenticated and . [facility]
== END 2025-04-27 23:59 | disposition home or self-care (01) ==
PROVIDERS: PCP Nurse Practitioner Family; Visit Provider Nurse Practitioner Family
DX: R05.3 Chronic cough (principal); R93.89 Abnormal findings on diagnostic imaging of other specified body structures
CPT/HCPCS: 71250

== ENCOUNTER 2025-08-20 12:49 | Outpatient (CLI) | payer MEDICARE, MEDICAID, SELFPAY ==
--- OUTSIDE RECORDS SUMMARY | 2025-08-20 12:52 | XMS_ITS | Clinical Summary ---
Author Organization [employer] Address [address] [place] [address] Phone Care Team Providers Care Merchandising Representative Name Role Phone Unavailable Primary Care Provider [...] on file Sexual Orientation Not on file Plan of Treatment Health Maintenance Due Date Last Done Comments Wellness Exam Medicare 1963 Hepatitis C Screening 1977 DTaP/TDaP/Td (1 - Tdap) 1978 Cologuard 2004 Colon Cancer Screening 2004 Colonoscopy 2004 FIT 2004 Sigmoidoscopy 2004 Virtual Colonography 2004 Pneumococcal Vaccine 50+ (1 of 1 - PCV) 2009 Zoster (1 of 2) 2009 COVID-19 Vaccine ( - 2023-2 5 season) 2025 Influenza Vaccine (#1) 2025 Hepatitis B Vaccine Aged Out No longe r eligible based on patient's age to complete this topic Meningococcal B Vaccine Aged Out No l onger eligible based on patient's age to complete this topic Insurance [place] [address]
[2025-08-20 13:03] LABS: Hematocrit 43.3 % (42.0-52.0); Hemoglobin 14.3 g/dL (14.1-18.0); Mean Corpuscular HGB Conc 33.0 g/dL (31.8-35.4); Mean Corpuscular Hemoglobin 31.8 pg (27.0-31.2); Mean Corpuscular Volume 96.2 fl (80-94); Nucleated Red Blood Cells % 0 %; Platelet Count 165 K/mm3 (142-424); Red Blood Count 4.50 M/mm3 (4.60-6.20); Red Cell Distribution Width-SD 49.4 fL; White Blood Count 6.5 K/mm3 (4.8-10.8)
[2025-08-20 13:29] LABS: Alanine Aminotransferase 13 U/L (12-78); Albumin Level 3.0 g/dl (3.5-5.0); Albumin/Globulin Ratio 1.1 (1.1-1.8); Alkaline Phosphatase 61 U/L (38-126); Anion Gap 8.8 mEq/L (5-15); Aspartate Amino Transferase 25 U/L (17-59); Bilirubin,Total 0.3 mg/dl (0.2-1.3); Blood Urea Nitrogen 23 mg/dl (9-20); Calcium 9.2 mg/dl (8.4-10.2); Carbon Dioxide 35 mmol/L (22.0-30.0); Chloride 100 mmol/L (98-107); Creatinine,Serum 0.80 mg/dl (0.66-1.25); Estimated Glomerular Filt Rate 97 ml/min (>60); GFR (African American) 117 ML/MIN (>60); Globulin 2.7 g/dL (1.3-3.2); Glucose 86 mg/dl (74-100); Potassium 4.8 mmoL/L (3.5-5.1); Sodium 139 mmol/L (136-145); Total Protein,Serum 5.7 g/dl (6.3-8.2)
[2025-08-20 14:00] LABS: Thyroid Stimulating Hormone 3.26 uIU/mL (0.465-4.68)
== END 2025-08-20 23:59 | disposition home or self-care (01) ==
LOC: LAB.DROPOF 12:50
PROVIDERS: PCP Nurse Practitioner Family; Visit Provider Nurse Practitioner Family
DX: E03.9 Hypothyroidism, unspecified (principal); F01.518 Vascular dementia, unspecified severity, with other behavioral disturbance; F06.2 Psychotic disorder with delusions due to known physiological condition; E46 Unspecified protein-calorie malnutrition; M62.81 Muscle weakness (generalized); F43.21 Adjustment disorder with depressed mood; J44.9 Chronic obstructive pulmonary disease, unspecified; E78.2 Mixed hyperlipidemia; F22 Delusional disorders; J84.89 Other specified interstitial pulmonary diseases; K21.9 Gastro-esophageal reflux disease without esophagitis
CPT/HCPCS: 80053; 84443; 85027

== ENCOUNTER 2025-08-22 19:16 | Emergency (ER) | payer MEDICARE, MEDICAID, SELFPAY ==
--- OUTSIDE RECORDS SUMMARY | 2025-08-09 05:50 | XMS_ITS | Continuity of Care Document ---
Author Organization [address] [place] [address] Address [address] [facility] [address] [place] [address] Phone Care Team Providers Care Line Technician Name Role Phone Elsi JOSEPHSamuel Unavailable Unavailable Allergies, Adverse Reactions, Alerts Substance [...] 50 MG - Active Procedures Procedure Date Periodic Oral Evaluation Trim normal nail, any number Debride mycotic nails 5 or less 025 Trim Dystrophic nail(s) DEBRIDE NAIL 1-5 COMPRE OPH EXAM EST PT / SBS[facility] NF CARE SF MDM 10 Trim [...] Trim nail(s) COMPRE OPH EXAM EST PT / PARING/CUTG B9 HYPRKER LES 1 DEBRIDE NAIL [...] 19 DEBRIDEMENT OF NAIL(S) BY ANY METHOD(S); OR MORE EYE EXAM & TREATMENT DEBRIDEMENT OF NAIL(S) BY ANY METHOD(S); 1 TO 5 Subsequent Nursing Facility Care 2017 DEBRIDEMENT OF NAIL(S) BY ANY METHOD(S); OR MORE Advance Directives Directive Yes / No Effective Date File Name No Information Encounters Encounter Description Practice Location Reason(s) For Visit Diagnoses Date Provider Providers Copied on Encounter [address] [place] [address], [address] [facility] [address], [place], [id number], [place] tel:[phone] [facility] Encounter for dental examination and cleaning without abnormal findings 5 Elsi Baker. [address] [facility], [address], [place], [address], [place]. tel:[phone] Referring Provider: Abimael Victor. [facility], [address] [place] [address] [address], [place], [place], [id number], [place] tel:[phone] [facility] Nail dystrophyOnych ogryphosisOthe r specified peripheral vascular diseases 5 [place], [place]. [facility], [address] [place], [place] [address] [address], [place], [place], [id number], [place] tel:[phone] [facility] Nail dystrophyOnych ogryphosisOthe r specified peripheral vascular diseases 5 [place]. [facility] [place], [address] [place], [place] [address] [address], [place], [place], [id number], [place] tel:[phone] [facility] Blurry vision (chief complaint) PresbyopiaPres ence of intraocular lens 5 [place]. Referring Provider: Abimael Victor. [facility] CARE SF MDM 10 [facility] [place], [address] [place] [address] [address], [place], [place], [id number], [place] tel:[phone] [facility] ear care exam, hearing loss (chief complaint) Tinnitus, bilateral 5 [place]. Referring Provider: Abimael Victor. [facility], [address] [place] [address] 300, [place], [place], [id number], [place] tel:[phone] [facility] Other specified peripheral vascular diseasesNail dystrophyOnych ogryphosisOthe r abnormalities of gait and mobility 5 [place]. [facility] [place], [address] [place], [place] [address] [address], [place], [place], [id number], [place] tel:[phone] [facility] Complete loss of teeth, unspecified cause, unspecified class Mar-0 5 Elsi Baker. [address] [place] [address], [address], [place], [address], [place]. tel:[phone] Referring Provider: Abimael Victor. [facility], [address] [place], [place] [address] [address], [place], [place], [address], [place] tel:[phone] [facility] Encounter for dental examination and cleaning without abnormal findings 5 Geri Tamayo. [address] [facility], [address], [place], [place], [id number], [place]. tel:[phone] Referring Provider: Abimael Victor. [facility] NF CARE SF MDM 10 [facility], [address] [place] [address] 300, [place], [place], [address], [place] tel:[phone] [facility] ear [facility] exam, hearing loss (chief complaint) Unspecified hearing loss, bilateral 5 [place], [place]. Referring Provider: Abimael Victor. [facility], [address] [place] [address], [place], [place], [id number], tel:[phone] [facility] Other specified peripheral vascular diseasesNail dystrophyOnych ogryphosisCorn s and callositiesXer osis cutis 5 [place]. [facility] CARE LOW MDM 20 [facility], [address] [place] [address], [place], [place], [id number], [place] tel:[phone] [facility] Nail dystrophyOnych ogryphosisOthe r specified peripheral vascular diseases 4 [place]. [facility] [place], [address] [place] [address], [place], [place], [address], [place] tel:[phone] [facility] No Information 4 [place]. [facility] [place], [address] [place] [address] 300, [place], [place], [id number], [place] tel:[phone] [facility] Nail dystrophyOther specified peripheral vascular diseasesTinea unguiumCorns and callosities 4 Cachorro Gutierrez. [id number] [place] [address], [address], [place], [address], [place]. [facility], [address] [place] [address], [place], [place], [address], tel:[phone] [facility] Encounter for dental examination and cleaning without abnormal findings 4 Torito Daniels. [address] [place] [address], [address], [place], [place], [address], . tel:[phone] Referring Provider: Abimael Victor. [facility] [place], [address] [place] [address], [place], [place], [address], tel:[phone] [facility] Presbyopia 4 [place]. [facility] [place], [address] [place] [address], [place], [place], [address], tel:[phone] [facility] Corns and callositiesNai l dystrophyOther specified peripheral vascular diseasesTinea unguium 4 Cachorro Gutierrez. [address] [place] [address], [address], [place], [facility], . Referring Provider: Abimael Victor. [facility] [place], [address] [place], [place] [address] [address], [place], [place], [id number], tel:[phone] [facility] floaters (chief complaint) Vitreous degeneration, bilateralPresb yopia 4 [place]. Referring Provider: Abimael Victor. [facility] [place], [address] [place] [address], [place], [place], [address], tel:[phone] [facility] Corns and callositiesNai l dystrophyOther specified peripheral vascular diseasesTinea unguium 4 Cachorro Noriega [address] [place] [address], [address], [place], [address], . Referring Provider: Abimael Victor. [facility] [place], [address] [place] [address], [place], [place], [address], tel:[phone] [facility] Complete loss of teeth, unspecified cause, unspecified class 4 Torito Daniels. [address] [place] [address], [address], [place], [place], [id number], [place]. tel:[phone] Referring Provider: Abimael Victor. [address] [place] [address], [address] [place] [address], [place], [place], [id number], [place] tel:[phone] [facility] Sensorineural hearing loss, bilateral 4 [place]. Referring Provider: Abimael Victor. NURSING FAC CARE SUBSEQ [address] [place] [address], [address] [place] [address], [place], [place], [address], [place] tel:[phone] [facility] hearing loss (chief complaint) Tinnitus, bilateral 3 Thor-Hard larry Lois. [address] [place] [address], [address], [place], [address], [place]. Referring Provider: Abimael Victor. [address] [place] [address], [address] [place] [address], [place], [place], [id number], [place] tel:[phone] [facility] Encounter for dental examination and cleaning without abnormal findings 3 Clifford Reed. [address] [facility], [address], [place], [place], [id number], [place]. tel:[phone] Referring Provider: Abimael Victor. [address] [place] [address], [address] [place] [address], [place], [place], [id number], [place] tel:[phone] [facility] No Information 3 [place], [place], [id number], [place]. tel:[phone] Referring Provider: Abimael Victor. [address] [place] [address] [facility] [place], [address] [place] [address] 300, [place], [place], [address], [place] tel:[phone] [facility] Nail dystrophyOther specified peripheral vascular diseasesTinea unguiumCorns and callosities 3 Cachorro Gutierrez. [address] [facility], [address], [place], [address], [place]. Referring Provider: Abimael Victor. [address] [place] [address], [address] [place] [address], [place], [place], [id number], [place] tel:[phone] [facility] No Information 3 Cachorro Gutierrez. [address] [place] [address], [address], [place], [address], . [address] [place] [address], [address] [place], [place] [address] [address], [place], [place], [address], tel:[phone] [facility] No Information 3 [place], [place]. [address] [place] [address], [address] [place], [place] [address] [address], [place], [place], [address], tel:[phone] [facility] Encounter for dental examination and cleaning without abnormal findings 3 [place]. Referring Provider: Abimael Victor. [address] [place] [address], [address] [place], [place] [address], [place], [place], [address], tel:[phone] [facility] Complete loss of teeth, unspecified cause, unspecified classEncounter for dental examination and cleaning without abnormal findings 3 Elsi Baker. [address] [place] [address], [address], [place], [address], . tel:[phone] Referring Provider: Abimael Victor. [address] [place] [address], [address] [place], [place] [address] [address], [place], [place], [address], tel:[phone] [facility] Encounter for dental examination and cleaning without abnormal findings 3 Elsi Baker. [address] [place] [address], [address], [place], [address], [place]. tel:[phone] Referring Provider: Abimael Victor. [address] [place] [address], [address] [place] [address], [place], [place], [address], [place] tel:[phone] [facility] Nail dystrophyCorns and callositiesOth er specified peripheral vascular diseasesTinea unguium 3 Cachorro Gutierrez. [address] [place] [address], [address], [place], [address], [place]. Referring Provider: Abimael Victor. [address] [place] [address], [address] [place] [address], [place], [place], [address], [place] tel:[phone] [facility] Encounter for dental examination and cleaning without abnormal findings 0 - 3 [place], [place]. Referring Provider: Abimael Victor. [address] [place] [address] [facility] [place], [address] [place] [address] 300, [place], [place], [address], [place] tel:[phone] [facility] Nail dystrophyCorns and callositiesOth er specified peripheral vascular diseasesTinea unguium Jan- 7- 3 Cachorro Gutierrez. [address] [facility], [address], [place], [address], [place]. Referring Provider: Abimael Victor. [address] [place] [address], [address] [place] [address], [place], [place], [address], [place] tel:[phone] [facility] Sensorineural hearing loss, bilateral Jan-0 - 3 [place]. Referring Provider: Abimael Victor. [address] [place] [address], [address] [place] [address], [place], [place], [address], [place] tel:[phone] [facility] Presbyopia Fe-2 - 3 [place]. [facility], [address] [place] [address], [place], [place], [id number], tel:[phone] [facility] Blurry vision (chief complaint) Vitreous degeneration, bilateral Oct- 2 [place]. Referring Provider: Abimael Victor. [facility] [place], [address] [place] [address] 300, [place], [place], [address], [place] tel:[phone] [facility] Corns and callositiesNai l dystrophyOther specified peripheral vascular diseasesTinea unguium Oct-0 6- 2 Cachorro Gutierrez. [address], [address], [place], [address], [place]. Referring Provider: Abimael Sy. [address] [place] [address], [address] [place] [address], [place], [place], [address], [place] tel:[phone] [facility] Nail dystrophyCorns and callositiesOth er specified peripheral vascular diseasesTinea unguium Jul- 2 Cachorro Gutierrez. [address] [facility], [address], [place], [address], [place]. Referring Provider: Abimael Victor. [address] [place] [address], [address] [place] [address] 300, [place], [place], [address], [place] tel:[phone] [facility] Encounter for dental exam and cleaning w/o abnormal findings 2 [place], [place]. Referring Provider: Abimael Victor. NURSING FAC CARE SUBSEQ [address] [place] [address], [address] [place] [address] 300, [place], [place], [address], [place] tel:[phone] [facility] hearing loss (chief complaint) Tinnitus, bilateral 2 [place]-Hard larry Lois. [address] [facility], [address], [place], [address], [place]. Referring Provider: Abimael Victor. NURSING FAC CARE SUBSEQ [address] [place] [address], [address] [place] [address] 300, [place], [place], [address], [place] tel:[phone] [facility] Corns and callositiesTin ea unguiumOther specified peripheral vascular diseasesXerosi s cutisPain in right toe(s)Pain in left toe(s) 2 [place], [place]. Referring Provider: Damaris Otero. [address] [place] [address], [address] [place] [address] 300, [place], [place], [address], [place] tel:[phone] [facility] Encounter for dental exam and cleaning w/o abnormal findings 2 Clifford Reed. [address] [place] [address], [address], [place], [place], [address], [place]. tel:[phone] Referring Provider: Abimael Victor. [address] [place] [address], [address] [place] [address] 300, [place], [place], [address], [place] tel:[phone] [facility] Corns and callositiesTin ea unguiumOther specified peripheral vascular diseasesNail dystrophy 2 [place]. Referring Provider: Abimael Victor. [facility], [address] [place], [place] [address], [place], [place], [address], [place] tel:[phone] [facility] Decreased vision (chief complaint) Vitreous degeneration, bilateral 2 Donna Tamayo. [address] [facility], [address], [place], [address], [place]. Referring Provider: Abimael Victor. [facility], [address] [place] [address] [address], [place], [place], [address], [place] tel:[phone] [facility] Nail dystrophyOther specified peripheral vascular diseasesTinea unguium 1 [place]. Referring Provider: Abimael Victor. NURSING FAC CARE SUBSEQ [facility] [place], [address] [place] [address] 300, [place], [place], [address], [place] tel:[phone] [facility] Nail dystrophyPain in right toe(s)Pain in left toe(s)Other specified peripheral vascular diseasesTinea unguium 1 [place]. Referring Provider: Abimael Victor. [facility] [place], [address] [place], [place] [address], [place], [place], [address], [place] tel:[phone] [facility] Encounter for dental exam and cleaning w/o abnormal findings 1 Clifford Reed. [address] [facility], [address], [place], [place], [address], [place]. tel:[phone] Referring Provider: Abimael Victor. [facility] [place], [address] [place], [place] [address], [place], [place], [address], [place] tel:[phone] [facility] Corns and callositiesNai l dystrophyTinea unguiumOther specified peripheral vascular diseases 1 Cachorro Gutierrez. [address] [facility], [address], [place], [address], [place]. Referring Provider: Abimael Victor. NURSING FAC CARE SUBSEQ [facility] [place], [address] [place] [address] 300, [place], [place], [address], [place] tel:[phone] [facility] ear care exam (chief complaint) Sensorineural hearing loss, bilateral Apr-2 1 Temple-Hard larry Abreu. [address] [facility], [address], [place], [address], [place]. Referring Provider: Abimael Victor. [facility], [address] [facility], [place], [place], [address], [place] tel:[phone] [facility] Tinea unguiumCorns and callositiesOth er specified peripheral vascular diseases 1 Cachorro Gutierrez. [address] [facility], [address], [place], [address], [place]. Referring Provider: Abimael Victor. [facility], [address] [facility], [place], [place], [address], [place] tel:[phone] [facility] Sensorineural hearing loss, bilateral Sep- 0 Jasso Melyci. [address] [facility], [address], [place], [place], [address], [place]. tel:[phone] Referring Provider: Abimael Victor. [facility], [address] [facility] 300, [place], [place], [address], [place] tel:[phone] [facility] Tinea unguiumOther specified peripheral vascular diseasesCorns and callosities 0 Cachorro Gutierrez. [address] [facility], [address], [place], [address], [place]. Referring Provider: Fatoumata Justice. [facility], [address] [facility], [place], [place], [address], [place] tel:[phone] [facility] Medical eye problem (chief complaint) Vitreous degeneration, bilateral Sep- 0 Yaya Cervantes. [address] [facility], [place], [address], [place]. tel:[phone] Referring Provider: Abimael Victor. [facility], [address] [place] [address] 300, [place], [place], [address], [place] tel:[phone] [facility] Tinea unguiumPain in left toe(s)Pain in right toe(s) 0 Cachorro Gutierrez. [address] [facility], [address], [place], [address], . Referring Provider: Ronnie Shaffer. [address] [place] [address] [facility] [place], [address] [place] [address] 300, [place], [place], [address], tel:[phone] [facility] Tinea unguiumOther specified peripheral vascular diseasesCorns and callositiesNai l dystrophy 0 Cachorro Gutierrez. [address] [facility], [address], [place], [facility], [place]. Referring Provider: Abimael Victor. Subsequent Nursing Facility Care [address] [place] [address], [address] [place] [address] 300, [place], [place], [id number], tel:[phone] [facility] hearing loss (chief complaint) Unspecified hearing loss, bilateral 0 Temple-Hard larry Lois. [address] [facility], [address], [place], [facility], . Referring Provider: Abimael Victor. [address] [place] [address], [address] [place] [address] 300, [place], [place], [address], tel:[phone] [facility] Tinea unguiumOther specified peripheral vascular diseasesCorns and callosities 9 Cachorro Gutierrez. [address] [facility], [address], [place], [facility], . Referring Provider: Abimael Victor. [address] [place] [address], [address] [place] [address], [place], [place], [address], tel:[phone] [facility] Encounter for dental exam and cleaning w/o abnormal findings 9 Elsi Baker. [address] [facility], [address], [place], [address], . tel:[phone] Referring Provider: Abimael Victor. [address] [place] [address], [address] [place] [address], [place], [place], [address], [place] tel:[phone] [facility] Tinea unguiumPain in left toe(s)Pain in right toe(s) Sep 9 Cachorro Gutierrez. [address] [facility], [address], [place], [address], . Referring Provider: Abimael Victor. [address] [place] [address], [address] [place], [place] [address], [place], [place], [address], tel:[phone] [facility] medical eye evaluation (chief complaint) Vitreous degeneration, bilateral 9 Kreinest Belkis. [address] [facility], [address], [place], [address], [place]. Referring Provider: Abimael Victor. [address] [place] [address], [address] [place] [address], [place], [place], [address], tel:[phone] [facility] Tinea unguiumPain in right toe(s)Pain in left toe(s) 9 Cachorro Gutierrez. [address] [facility], [address], [place], [facility], . Referring Provider: Abimael Victor. Subsequent Nursing Facility Care [address] [place] [address], [address] [place] [address], [place], [place], [id number], tel:[phone] [facility] ear care exam (chief complaint) Unspecified hearing loss, bilateral 8 Thor-Hard larry Lois. [address] [facility], [address], [place], [facility], . Referring Provider: Abimael Victor. [address] [place] [address], [address] [place], [place] [address], [place], [place], [id number], tel:[phone] [facility] Tinea unguiumPain in left toe(s)Pain in right toe(s) 8 Cachorro Gutierrez. [address] [facility], [address], [place], [address], . Family History Family Member Type Diagnosis Age At Onset No Information Payers Payer name Insurance type Covered alliance party ID Authoriza tiantonio(s) DDS Medicaid [facility] [id number] Social History Type Description Quantity Date Captured Comments Sex Male Smoking Status No Information Chief Complaint And Reason For Visit No Information Reason For Referral Reason For Referral No [...] No Information Instructions Date Instruction Additional Infor mation This is a chronic st able problem, Will reassess and follow up in 2-3 months Related to Other specified peripheral vascular diseases All of the documente d thickened nails (which includes those nails 2 mm or more in thickness, and possible mycotic component to the nails) were debrided in both length and thickness using both a nail nipper and an electric rotary tankage grinder operator in an atraumatic fashion as needed ; this was performed in an attempt to prevent pain and reduce risk of infection. Alcohol applied to the digits afterwards. PT tolerated procedure well. Related to Onychogryphosis All documented dystr ophic nails were trimmed in length as needed to prevent pain and other symptoms. Patient tolerated procedure well. Related to Nail dystrophy All documented dystr ophic nails were reduced in length as needed to prevent pain and other symptoms. Patient tolerated procedure well. Related to Nail dystrophy All of the documente d thickened nails (which includes those nails 2 mm or more in thickness, and possible mycotic component to the nails) were debrided in both length and thickness using both a nail nipper and an electric rotary tankage grinder operator in an atraumatic fashion as needed ; this was performed in an attempt to prevent pain and reduce risk of infection. Alcohol applied to the digits afterwards. PT tolerated procedure well. Related to Onychogryphosis Discussed using comp ression stockings to assist in localize swelling and venous return, and the skilled nursing benefits of using compression stockings. Reinforced the importance of proper adherence to using the zoran hose, and compression stockings. Will continue to monitor. Related to Other specified peripheral vascular diseases Return in 12-15 chasity hs for dilated [...] pursue audiology services. Related to Tinnitus, bilateral Apr-17-2025 All of the documente d thickened nails (which includes those nails 2 mm or more in thickness, and possible mycotic component to the nails) were debrided in both length and thickness using both a nail nipper and an electric rotary tankage grinder operator in an atraumatic fashion; this was performed [...] localize swelling and venous return, and the intermediate designer benefits of using compression stockings. Reinforced the [...] with plan. Related to Corns and callosities All documented thick ened nails were debrided using a rotary tool and nail nipper. Related to Onychogryphosis All documented dystr ophic nails were reduced in length as needed to prevent pain and other symptoms. Related to Nail dystrophy Discussed using comp ression stockings to assist in localize swelling and venous return, and the skilled nursing benefits of using compression stockings. Reinforced the importance of proper adherence to using the zoran hose, and compression stockings. Will continue to monitor. Related to Other specified peripheral vascular diseases Discussed using comp ression stockings to assist in localize swelling and venous return, and the intermediate designer benefits of using compression stockings. Reinforced the importance of proper adherence to using the zoran hose, and compression stockings. Will continue to monitor. Related to Other specified peripheral vascular diseases All documented thick ened nails were debrided [...] and pain. Related to Corns and callosities Return in 12-15 chasity hs for dilated [...] and other symptoms. Related to Nail dystrophy Follow-up at next vi sit for hearing [...] fundus exam. Related to Vitreous degeneration, bilateral Toenails 1 [...] and other symptoms. Related to Nail dystrophy Recommend referral t o audiology per patient's request. Follow up prn. Related to Tinnitus, bilateral Orders for Ammonium lactate 12% to feet [...] and callosities Follow up prn. Related to Senso rineural hearing loss, bilateral All of the calluses were debrided/pared [...] in 2-3 months. Related to Tinea unguium Follow up prn. Related to Unspe cified [...] Tinea unguium follow up in 12-15 m ont or sooner if needed. Related to Unspecified hearing loss, bilateral Toenails 1-5 b/l wer e debrided in length and thickness without incident. Follow up in 2-3 months. Related to Tinea unguium Assessments Type Assessment Date No Information Patient Care Teams Name Effective Dates (start - stop) Status Members No Information
[2025-08-22] VITALS (8 sets, daily range): BP systolic 117–159; BP diastolic 71–101; PULSE 71–101; RESP 16–20; TEMP 36.5–37.1; O2SAT 90–99
--- OUTSIDE RECORDS SUMMARY | 2025-08-22 19:25 | XMS_ITS | Encounter Summary ---
Author Organization [employer] ([place], [place], [place], [place]) Address [address] [place] [address] Care Team Providers Care Scoring Machine Operator Name Role Phone Unavailable Primary Care Provider Unavailabl e Encounter Details Date Type Department Care Team (Late st Contact Info) Description 11/30/2020 Transcribed Document [facility] [address] [facility] [address] [place] [address] Angel Todd MD [address] [facility] [address] [place] [address] Social History Tobacco Use Types Packs/Day [...] Male : 1960 Associated Diagnoses: None Author: ELLENRYIN APRN Chief Complaint neck, RUE pain Review [...] needed for constipation, 0 Refill(s) Flonase: 1 [place], Nostrils Both, Daily, 0 Refill(s) Incruse Ellipta 62.5 mcg/inh inhalation powder: 1 Puff, Inhalation, [id number], doses should be taken at least 24 [...] 1 Tab, PRN, Oral, Daily Flonase 1 [place], Nostrils Both, Daily fluvoxaMINE 50 mg oral tablet 50 mg = 1 Tab, Oral, BID Incruse Ellipta 62.5 mcg/inh inhalation powder 1 Puff, Inhalation, [id number] levothyroxine 25 mcg (0.025 mg) oral tablet [...] (Selected) Vitamin D deficiency / SNOMED CT 75247831 / Confirmed Vascular dementia with behavior disturbance / SNOMED CT 4568751359 / Confirmed Unsteadiness on feet / SNOMED CT 999953810 / Confirmed Traumatic brain injury / SNOMED CT 267840 / Confirmed AR (obstructive sleep apnea) / SNOMED CT 850942929 / Confirmed GA (myocardial infarction) / SNOMED CT 78155218 / Confirmed Muscle weakness / SNOMED CT 92664823 / Confirmed Mixed hyperlipidemia / SNOMED CT 310587368 / Confirmed Hypothyroidism / SNOMED CT 08840158 / Confirmed History of obstructive sleep apnea / IMO 36785191 / Confirmed GERD (gastroesophageal reflux disease) / SNOMED CT 363190088 / Confirmed Repeated falls / SNOMED CT 278061063 / Confirmed Primary hypertension / SNOMED CT 22993416 / Confirmed Eating disorder / SNOMED CT 123883825 / Confirmed Dysphagia / SNOMED CT 70884786 / Confirmed Delusional disorder / SNOMED CT 19996961 / Confirmed COPD (chronic obstructive pulmonary disease) / SNOMED CT 60646683 / Confirmed Bipolar 2 disorder / SNOMED CT 801330885 / Confirmed Anxiety / SNOMED CT 12992296 / Confirmed Adjustment disorder with depressed mood / SNOMED CT 12356412 / Confirmed Gait disturbance / SNOMED CT 81899445 / Confirmed, Active Problems (21) Adjustment disorder with depressed mood Anxiety Bipolar 2 disorder COPD (chronic obstructive pulmonary disease) neck pain and RUE radiculopathy Delusional disorder Dysphagia Eating disorder Gait disturbance GERD (gastroesophageal reflux disease) History of obstructive sleep apnea Hypothyroidism GA (myocardial infarction) Mixed hyperlipidemia Muscle weakness AR [...] Extraocular movements are intact, glasses. HENT: Normocephalic, [place]. Neck: Supple, Non-tender. Respiratory: Lungs are clear to auscultation, Respirations are non-labored. Cardiovascular: Normal rate, Regular rhythm, No murmur, No gallop, No edema. Gastrointestinal: Soft, Non-tender. Genitourinary: No costovertebral angle tenderness. Lymphatics: No lymphadenopathy neck, axilla, groin. Musculoskeletal: painful ROM neck, RUE pain/weakness, uses wc due to being a resident in a retirement. Integumentary: Warm, Dry, [place]. Neurologic: Alert, Oriented. Psychiatric: Cooperative, Appropriate mood [...]
--- OUTSIDE RECORDS SUMMARY | 2025-08-22 19:25 | XMS_ITS | Encounter Summary ---
Author Organization [employer] ([place], [place], [place], [place]) Address [address] [place] [address] Care Team Providers Care Principal Secretary Name Role Phone Unavailable Primary Care Provider Unavailabl e Encounter Details Date Type Department Care Team (Late st Contact Info) Description 12/01/2020 Transcribed Document [facility] [place] [place] [facility] [place] [address] ProviderFabi MD [address] [place] [address] Social History Tobacco Use Types [...] - Historical ProviderMD - 12/01/2020 11:39 AM LINE CONSTRUCTION SUPERINTENDENT UM Authorization Entered On: 12/01/2020 11:39 EST Performed On: 12/01/2020 11:39 EST by Allie Nicholas Rn-Utilization Review Primary Insurance Authorization Authorization and Policy Numbers : Insurance 1 Health Plan: MEDICARE Policy Number: [id number] Authorization Number: Insurance 2 Health Plan: MED[place]ID OF [place] Policy Number: [id number] Authorization Number: Insurance Primary Name : Medicare Authorization Status-Primary : No precert required Authorization Number-Primary : NPR for Medicare Authorized Service Begin Date-Primary : 11/30/2020 EST Historical Authorization Comments-Primary : Comment 1: Pt is mauricio for INPT Cervical Discectomy Fusion Posterior on 11-30-20 Medicare: NPR (TRA GOLDBERG, Percussion Instrument Repairer 11/28/2020 14:02) Allie Nicholas Rn-Utilization Review - 12/01/2020 11:39 EST Electronically signed by [facility] Conversion Cardiac Surgeon Cerner at 02/19/2023 10:01 AM CDT documented in this encounter Plan of Treatment Not on file documented as of this encounter Visit Diagnoses Not on filedocumented in this encounter
--- OUTSIDE RECORDS SUMMARY | 2025-08-22 19:25 | XMS_ITS | Encounter Summary ---
Author Organization [employer] ([place], [place], [place], [place]) Address [address] [place] [address] Care Team Providers Care Lead Scientist Name Role Phone Unavailable Primary Care Provider Unavailabl e Encounter Details Date Type Department Care Team (Late st Contact Info) Description 12/02/2020 Transcribed Document [facility] Family Medicine [facility] [place] [address] ProviderFabi MD [address] [place] [address] Social History Tobacco Use Types [...] - Fabi ProviderMD - 12/02/2020 2:47 PM PERIOPERATIVE NURSE Final Discharge Planning Entered On: 12/02/2020 14:58 EST Performed On: 12/02/2020 14:47 EST by JAQUI COLÓN RN-Chiropractic Care Final Discharge Planning Discharge Arrangements : Patient Post-Acute Information Patient Name: ROSELYN GRIJALVA Gender: Male : [birth year] Age: 60 Years Curaspan Referral(s): Service: Organization: Business Address: Phone Number: Acute Rehab [facility] [address] [facility], [place], [address] Patient Offered Choice/Affiliations Explained : [...] : IRF -Inpatient Rehabilitation Facility-62 JAQUI COLÓN RN-Chiropractic Care - 12/02/2020 14:47 EST Final Narrative Note Final Narrative Note : Pt dc'd to [facility] today via [facility] De Jesus @ 4p. D/W pt at bedside, [facility] gamaríadian Arleen Saini on phone, sister Mayra on phone, Joshua/Judie CUNHA-NEAL/Bobby, and bedside RAYO Bull. JAQUI COLÓN RN-Chiropractic Care - 12/02/2020 14:47 EST Electronically signed by Cruzito [facility] Conversion Mba Intern Cerner at 02/19/2023 9:53 AM CDT documented in this encounter Plan of Treatment Not on file documented as of this encounter Visit Diagnoses Not on filedocumented in this encounter
--- OUTSIDE RECORDS SUMMARY | 2025-08-22 19:25 | XMS_ITS | Encounter Summary ---
Author Organization [employer] ([place], [place], [place], [place]) Address [address] [place] [address] Care Team Providers Care Mobile Home Technician Name Role Phone Unavailable Primary Care Provider Unavailabl e Encounter Details Date Type Department Care Team (Late st Contact Info) Description 12/02/2020 Transcribed Document [facility] [place] [address] ProviderFabi MD [address] [place] [address] Social History Tobacco Use Types [...] Fabi Flores MD - 12/02/2020 1:44 PM CLEANER [facility] [place] [address] MEGHANJanine ALEXI ARGUETA :1960 Visit Time:11/30/2020 Your Visit Summary Your Care Team Admitting Physician - BRAD CASTILLO MD-SNU Attending Physician - BRAD CASTILLO MD-ARNOLD Primary Care Physician - ROSIBEL ODONNELL (REF)HUDSON Referring Physician - BRAD CASTILLO MD-SNU Your [...] EST Comments Appointment has been made Where: [address] [place], [place] [address] [address] (SATURDAY ONLY) [place] [address]- Follow Up with BRAD CASTILLO MD-SNU When 12/19/2020 03:15 PM EST Comments Return for suture/staple removal Where: [address] [place], [place] [address] [address] (SATURDAY ONLY) [place] [address]- Medications What How Much When [...] Oral At Bedtime fluticasone nasal (Flonase) 1 [place](s) Nostrils Both Every Day fluvoxaMINE (fluvoxaMINE 50 [...] and water are not available, use hand release of information clerk. ? Change your dressing as told by [...] or a bad smell. Medicines ??? Take itfy-pei-yqumhko and prescription medicines only as told by [...] urine clear or pale yellow. ? Take kjew-wnl-zrgvzby or prescription medicines. ? Eat foods that [...] and water are not available, use hand release of information clerk. ? Change your dressing as told by [...] or a bad smell. Medicines ??? Take erwg-iqg-crpuapw and prescription medicines only as told by [...] urine clear or pale yellow. ? Take ptmj-fwp-noqplrr or prescription medicines. ? Eat foods that [...] Reviewed: 04/07/2017 Elsevier Patient Education ?? 2020 [employer] Emergency Awareness and Preventative Care STROKE [...] Assistance with quitting is available by contacting 4-147-HDQO-NOW. This is a free resource providing counseling, support, and referral. Or you may contact your personal physician. [employer] Suicide Prevention Lifeline: The National Suicide Prevention [...] range between ( 0.0 and 7.0 ) [place] #: 1.16 K/uL -- Normal range between ( 0.16 and 1.00 ) Eos #: 0.07 x10(3)/uL -- Normal range between ( 0.00 and 0.80 ) [place] %: 10.1 % -- Normal range between [...] in OR: CR CT in OR Patient Name:ALEXI GRIJALVA I have received and understand this information and was given the opportunity to ask questions. Patient/Aircraft Part Assembler Name: Patient/Aircraft Part Assembler Signature: Relationship to Patient: Clinician/Hospital Aircraft Part Assembler Signature: Date: documented in this encounter Plan of Treatment Not on file documented as of this encounter Visit Diagnoses Not on filedocumented in this encounter
--- OUTSIDE RECORDS SUMMARY | 2025-08-22 19:25 | XMS_ITS | Encounter Summary ---
Author Organization [employer] ([place], [place], [place], [place]) Address [address] [place] [address] Care Team Providers Care Office Administration Instructor Name Role Phone Unavailable Primary Care Provider Unavailabl e Encounter Details Date Type Department Care Team (Late st Contact Info) Description 12/02/2020 Transcribed Document [facility] [facility] [place] [address] ProviderFabi MD [address] [place] [address] Social History Tobacco Use Types [...] Conversion Note - Historical ProviderMD - 12/02/2020 4:50 PM CRUSHER MACHINE OPERATOR Discharge Summary, PT Entered On: 12/02/2020 16:51 [...] MACI LAND, PT - 12/02/2020 16:50 EST Residential Goals Mobility/Bed Mobility LTG PT Grid Goal [...] MACI LAND, PT - 12/02/2020 16:50 EST documented in this encounter Plan of Treatment Not on file documented as of this encounter Visit Diagnoses Not on filedocumented in this encounter
--- OUTSIDE RECORDS SUMMARY | 2025-08-22 19:25 | XMS_ITS | Encounter Summary ---
Author Organization [employer] ([place], [place], [place], [place]) Address [address] [place] [address] Care Team Providers Care Branch Lead Name Role Phone Unavailable Primary Care Provider Unavailabl e Encounter Details Date Type Department Care Team (Late st Contact Info) Description 12/02/2020 Transcribed Document [facility] [address] [address] Angel Todd MD [address] [place] [address] [address] [place] [address] Social History Tobacco Use Types [...] Date 12/02/2020 Primary Care Provider ROSIBEL ODONNELL (REFMD Jenny-[facility] Discharge Diagnosis Cervical myelopathy 12/02/2020 G95.9 ICD-10-CM Procedures SN - Proc - Procedure: Lumbar Fusion Posterior 3 Level (11/30/20 16:47:00) Reason for Hospitalization Stable cervical fusion Hospital Course 60-year-old male with history of TBI and lives in a snf , was initially evaluated in the office [...] voice nod head yes/no to questions equal patient services specialist incision cdi bandage intact and dry rachel [...] 1 Tab, PRN, Oral, Daily Flonase 1 [place], Nostrils Both, Daily fluvoxaMINE 50 mg oral tablet 50 mg = 1 Tab, Oral, BID Incruse Ellipta 62.5 mcg/inh inhalation powder 1 Puff, Inhalation, E29EEpa levothyroxine 25 mcg (0.025 mg) oral tablet [...]
--- OUTSIDE RECORDS SUMMARY | 2025-08-22 19:25 | XMS_ITS | Encounter Summary ---
Author Organization [employer] ([place], [place], [place], [place]) Address [address] [place] [address] Care Team Providers Care Senior Network Security Engineer Name Role Phone Unavailable Primary Care Provider Unavailabl e Encounter Details Date Type Department Care Team (Late st Contact Info) Description 12/02/2020 Transcribed Document [facility] Family Medicine [facility] [place] [address] ProviderFabi MD [facility] [place] [address] Social History Tobacco Use Types [...] - Fabi ProviderMD - 12/02/2020 2:30 PM TRANSFER CLERK On Going Discharge Planning Entered On: 12/02/2020 14:47 EST Performed On: 12/02/2020 14:30 EST by JAQUI COLÓN RN-Cattle ExaminerBingo Caller Progress Note Discharge Arrangements : Patient Post-Acute [...] Attend Multidisciplinary Rounds? : Yes JAQUI COLÓN RN-Cattle Examiner - 12/02/2020 14:30 EST Electronically signed by [facility], [facility] Conversion E Commerce Merchandising Coordinator Cerner at 02/19/2023 9:44 AM CDT documented in this encounter Plan of Treatment Not on file documented as of this encounter Visit Diagnoses Not on filedocumented in this encounter
--- OUTSIDE RECORDS SUMMARY | 2025-08-22 19:25 | XMS_ITS | Encounter Summary ---
Author Organization [employer] ([place], [place], [place], [place]) Address [address] [place] [address] Care Team Providers Care Director Compliance Name Role Phone Unavailable Primary Care Provider Unavailabl e Encounter Details Date Type Department Care Team (Late st Contact Info) Description 12/01/2020 Transcribed Document [facility] [place] Family Medicine [facility] [place] [address] ProviderFabi MD [address] [place] [address] Social History Tobacco Use Types [...] - Fabi ProviderMD - 12/01/2020 12:00 PM CHILD DEVELOPMENT ASSOCIATE TEACHER Pain Assessment Entered On: 12/01/2020 15:55 EST [...]
--- OUTSIDE RECORDS SUMMARY | 2025-08-22 19:25 | XMS_ITS | Encounter Summary ---
Author Organization [employer] ([place], [place], [place], [place]) Address [address] [place] [address] Care Team Providers Care Patient Service Rep Name Role Phone Unavailable Primary Care Provider Unavailabl e Encounter Details Date Type Department Care Team (Late st Contact Info) Description 11/30/2020 Transcribed Document [facility] [place] [facility] [place] [address] ProviderFabi MD [address] [place] [address] Social History Tobacco Use Types [...] Conversion Note - Historical ProviderMD - 11/30/2020 10:13 PM STEEPLE JACK Meds to Bed Enrollment Entered On: 12/01/2020 [...]
--- OUTSIDE RECORDS SUMMARY | 2025-08-22 19:25 | XMS_ITS | Encounter Summary ---
Author Organization [employer] ([place], [place], [place], [place]) Address [address] [place] [address] Care Team Providers Care Twisting Frame Changer Name Role Phone Unavailable Primary Care Provider Unavailabl e Encounter Details Date Type Department Care Team (Late st Contact Info) Description 12/02/2020 Transcribed Document [facility] [place] [facility] [place] [address] ProviderFabi MD [address] [place] [address] Social History Tobacco Use Types Packs/Day [...] - Fabi ProviderMD - 12/02/2020 5:07 PM SODA DIALYZER Nursing Discharge Summary Entered On: 12/02/2020 17:08 [...] - 12/02/2020 17:07 EST Electronically signed by [facility], [facility] Conversion Postulant Cerner at 02/19/2023 9:54 AM CDT documented in this encounter Plan of Treatment Not on file documented as of this encounter Visit Diagnoses Not on filedocumented in this encounter
--- OUTSIDE RECORDS SUMMARY | 2025-08-22 19:25 | XMS_ITS | Encounter Summary ---
Author Organization [employer] ([place], [place], [place], [place]) Address [address] [place] [address] Care Team Providers Care Continuity Reader Name Role Phone Unavailable Primary Care Provider Unavailabl e Encounter Details Date Type Department Care Team (Late st Contact Info) Description 12/01/2020 Transcribed Document [facility] Neurology - [address] [address] Brad Castillo MD [facility] [address] [place] [address] Social History Tobacco Use Types [...] rehab at discharge, pts lives at a long-term, h/o TBI -medicine following VTE Prophylaxis - [...] to lift arms above head 4/5 bilateral tassel clipper documented in this encounter Plan of Treatment Not on file documented as of this encounter Visit Diagnoses Not on filedocumented in this encounter
--- OUTSIDE RECORDS SUMMARY | 2025-08-22 19:25 | XMS_ITS | Encounter Summary ---
Author Organization [employer] ([place], [place], [place], [place]) Address [address] [place] [address] Care Team Providers Care Mutton Puncher Name Role Phone Unavailable Primary Care Provider Unavailabl e Encounter Details Date Type Department Care Team (Late st Contact Info) Description 11/25/2020 Transcribed Document [facility] [place] [facility] [place] [address] ProviderFabi MD [address] [place] [address] Social History Tobacco Use Types [...] - Fabi ProviderMD - 11/25/2020 10:54 AM BUSINESS AGENT PAT Adult Entered On: 11/25/2020 10:59 EST [...] Initial assessment Pain Scale Goal : 3 Paolo, Constance L, RN - 11/28/2020 12:34 EST Height and Weight, Clinical Dosing Clinical Dosing Weight : 68.64 kg Weight, Pounds : 151 lb Body Surface Area (BSA) : 1.76 m2 Body Mass Index : 25.2 kg/m2 (HI) Constance Boone RN - 11/28/2020 12:48 EST Height Source : Measured Height Entry Format : Miner Height, Feet : 0 ft(Converted to: 0 cm, 0 Inch) Constance Boone RN - 11/28/2020 12:34 EST Height, Inches : 65 Inch(Converted to: 5 ft 5 Inch, 165.10 cm) Clinical Height : 165.1 cm Constance Boone RN - 11/28/2020 12:48 EST Weight Source : Standing scale Weight Entry Format : Miner Constance Boone RN - 11/28/2020 12:34 EST [place] Body Weight : 61 kg Constance Boone [...] COVID19 symptoms since test? : No ALHAJI LEGRE RN - 11/30/2020 11:39 EST Is this [...] Alli Greene Rn - 11/25/2020 10:54 EST [place] Suicide Severity Rating Scale (C-SSRS) CSSRS Past [...] Arrival on Unit : Wheelchair Support Person/Patient Dressmaker Helper : Yes Support Person/Pt Rep Name : [facility] Support Person/Pt Rep Contact Information : [phone] ext. 100 Want Family/Rep/Phys Notified of Admit : No Alli Greene Rn - 11/25/2020 10:54 EST Emergency Contact #1 : faheem hahn Emergency Contact #1 Phone Number : `[phone] Emergency Contact #1 Relationship : `sister Emergency Contact #2 : `hood hero Emergency Contact #2 ` Emergency Contact #2 Relationship : sister` Constance BooneRAYO - 11/28/2020 12:34 EST Information Obtained From : Care provider Information Obtained from, Name(s) : Misa, Social Service Primary Language : Albanian Preferred Communication Mode : Verbal Communication Barrier : Cognitive Fruit Ii Farmworker Needed : No Alli Greene Rn - [...]
--- OUTSIDE RECORDS SUMMARY | 2025-08-22 19:25 | XMS_ITS | Encounter Summary ---
Author Organization [employer] ([place], [place], [place], [place]) Address [address] [place] [address] Care Team Providers Care Quarrying Manager Name Role Phone Unavailable Primary Care Provider Unavailabl e Encounter Details Date Type Department Care Team (Late st Contact Info) Description 11/30/2020 Transcribed Document [facility] Family Medicine [facility] [place] [address] ProviderFabi MD [address] [place] [address] Social History Tobacco Use Types [...] - Historical ProviderMD - 11/30/2020 6:25 PM SUTURE POLISHER Evaluation, Physical Therapy Entered On: 12/01/2020 12:28 EST Performed On: 12/01/2020 11:50 EST by MACI LAND, JESSIE General Information, PT Visit Type, PT : Initial evaluation Patient Orders : Order Date Order Ordering 11/30/2020 18:25 Physical Therapy Eval and Treat Ordered By: BRAD CASTILLO MD-[facility] Active Diagnoses : 11/30/2020 12:00 Disease of [...] and Environment Living Situation, Therapy : Other: [facility] Patient Lives With : Caregiver(s) Persons [...] that patient is able to ambulate however fci does not allow patient to ambulate and [...] MACI LAND, PT - 12/01/2020 11:50 EST Learning Consultant Goals Mobility/Bed Mobility LTG PT Grid Goal [...] MACI LAND, PT - 12/01/2020 11:50 EST Ambulation LTG [...] Needs, OT/PT Anticipated Discharge to : Unit, [facility] Recommend Continued Therapy at Discharge : Yes MACI LAND PT - 12/01/2020 11:[address] [facility] Charges Gait Training Each 15 Min : 1 PT Eval Moderate Complexity : 1 MACI LAND, PT - 12/01/2020 11:50 EST Electronically signed by [facility] Conversion Credit Reporting Clerk Cerner at 02/19/2023 9:43 AM CDT documented in this encounter Plan of Treatment Not on file documented as of this encounter Visit Diagnoses Not on filedocumented in this encounter
--- OUTSIDE RECORDS SUMMARY | 2025-08-22 19:25 | XMS_ITS | Encounter Summary ---
Author Organization [employer] ([place], [place], [place], [place]) Address [address] [place] [address] Care Team Providers Care Loan Counselor Name Role Phone Unavailable Primary Care Provider Unavailabl e Encounter Details Date Type Department Care Team (Late st Contact Info) Description 12/02/2020 Transcribed Document [facility] [place] [address] ProvideraFbi MD [facility] [place] [address] Social History Tobacco Use Types [...] - Historical ProviderMD - 12/02/2020 1:42 PM ANIMAL COP Nursing Discharge Summary Entered On: 12/02/2020 13:43 EST Performed On: 12/02/2020 13:42 EST by SILVIO ANTONY float phlebotomist Documentation Discharge Date/Time : 12/02/2020 15:30 EST [...]
--- OUTSIDE RECORDS SUMMARY | 2025-08-22 19:25 | XMS_ITS | Referral Summary ---
Author Organization [employer] ([place], [place], [place]) Address [address] [place] [address] Care Team Providers Care Line O Scribe Operator Name Role Phone Unavailable Primary Care [...]
--- OUTSIDE RECORDS SUMMARY | 2025-08-22 19:25 | XMS_ITS | Encounter Summary ---
Author Organization [employer] ([place], [place], [place], [place]) Address [address] [place] [address] Care Team Providers Care Sales Account Executive Name Role Phone Unavailable Primary Care Provider Unavailabl e Encounter Details Date Type Department Care Team (Late st Contact Info) Description 12/01/2020 Transcribed Document [facility] [place] [facility] [place] [address] ProviderFabi MD [address] [place] [address] Social History Tobacco Use Types [...] Conversion Note - Historical ProviderMD - 12/01/2020 2:19 PM TRANSPORTATION SECURITY OFFICER Treatment Intervention, OT Entered On: 12/02/2020 12:36 EST Performed On: 12/02/2020 10:27 EST by MERE TOLBERT COTA General Information, OT Visit Type, OT : Treatment Note Patient Orders : Order Date Order Ordering 11/30/2020 18:25 Occupational Therapy Evaluation and Treatme Ordered By: BRAD CASTILLO MD-[facility] 12/01/2020 14:19 OT Additional Tx Ordered By: [...] 10:27 EST Treatment Time : 17 Minute(s) EMRE TOLBERT COTA - 12/02/2020 12:22 EST Plan of Care, OT OT Tx Plan/Goals Established w Patient : Yes MERE TOLBERT COTA - 12/02/2020 12:22 EST Landmen Goals, OT Grooming LTG Grid Goal #1 [...] Pain Score Pre-Intervention : 0 MERE TOLBERT COTA - 12/02/2020 12:22 EST Image 1 - Images currently included in the form version of this document have not been included in the text rendition version of the form. Anticipated Discharge Needs, OT/PT Anticipated Discharge to : Unit, [facility] MERE TOLBERT [place] - 12/02/2020 12:[address] [facility] OT Charges [place] OT Ther Activities Ea 15 Min-[place] : 1 MERE TOLBERT COTA - 12/02/2020 12:22 EST documented in this encounter Plan of Treatment Not on file documented as of this encounter Visit Diagnoses Not on filedocumented in this encounter
--- OUTSIDE RECORDS SUMMARY | 2025-08-22 19:25 | XMS_ITS | Encounter Summary ---
Author Organization [employer] ([place], [place], [place], [place]) Address [address] [place] [address] Care Team Providers Care Mainspring Strip Inspector Name Role Phone Unavailable Primary Care Provider Unavailabl e Encounter Details Date Type Department Care Team (Late st Contact Info) Description 11/30/2020 Transcribed Document [facility] [address] [facility] [address] [place] [address] Angel Todd MD [address] [facility] [address] [place] [address] Social History Tobacco Use Types [...] Intraoperative CT scan with spinal stereotactic navigation. BACK ROLLER: Daniel Howard. TYPE OF ANESTHESIA: GEA. DESCRIPTION [...] was exposed using stereotactic navigation and the [employer] system. C2 pars screws were placed bilaterally. [...] LOSS: 200 mL. DRAINS: Kumar-Marcos. COMPLICATIONS: None. /[id number] MD ARELIS Bella/EMMA / ARELIS / MODL /[id number] CC: Cielo Sanabria, documented in this encounter Plan of Treatment Not on file documented as of this encounter Visit Diagnoses Not on filedocumented in this encounter
--- OUTSIDE RECORDS SUMMARY | 2025-08-22 19:25 | XMS_ITS | Encounter Summary ---
Author Organization [employer] ([place], [place], [place]) Address [address] [place] [address] Care Team Providers Care Geographic Analyst Name Role Phone Unavailable Primary Care Provider Unavailabl e Encounter Details Date Type Department Care Team (Late st Contact Info) Description 11/30/2020 Transcribed Document [facility] [place] [facility] [place] [address] ProviderFabi MD [address] [place] [address] Social History Tobacco Use Types [...] - Fabi ProviderMD - 11/30/2020 4:09 PM PER DIEM RN [facility] Main OR IntraOp Summary Primary Physician: BRAD CASTILLO MD-ARNOLD Finalized Date/Time: 12/01/20 14:35:25 Pt. Name: ALEXI GRIJALVA /Sex: 1960 Male Med Rec #: [id number] Physician: BRAD CASTILLO MD-ARNOLD Financial #: [id number] Pt. Type: I Room/Bed: [facility]/1 Admit/Disch: 11/30/20 06:39:00 - Institution: [facility] IntraOp Case Attendance Entry 1 Entry 2 Entry 3 Case Attendee BRAD CASTILLO SWINFORD, ASHLEE, CRNA BOWEN, JON B, MD-ANS -SNU Role Performed Surgeon/Proceduralist, HEALTH INFORMATICS ADVISOR/Nurse Mortician Helper Anesthesiologist of First Record Time In 11/30/20 [...] RN Roxanne Pierson RN Role Performed Physician producer assistant Regulatory Intern, First Regulatory Intern, Second Time In 11/30/20 15:00:00 11/30/20 15:00:00 [...] Attendee Philipp Monique, Scrub OTHER, ATTENDEE Gi Erwin, Tech Diagnostic Broadcast Operations Manager Role Performed Scrub, First Scrub, Second Service Parts Driver Time In 11/30/20 15:00:00 11/30/20 15:00:00 11/30/20 15:00:00 Time Out 11/30/20 18:43:00 11/30/20 16:51:00 11/30/20 18:43:00 Procedure Lumbar Fusion Posterior Lumbar Fusion Posterior Lumbar Fusion Posterior 3 Level 3 Level 3 Level Other Attendee MICHELE FAN, JUSTINE Superficial Wound Closed By: Last Modified By: Joan Ugarte, RN Joan Ugarte, RN Joan Ugarte, RN 11/30/20 18:43:07 11/30/20 18:43:07 11/30/20 18:43:07 Entry 10 Entry 11 Entry 12 Case Attendee OTHER, ATTENDEE #1 Roe Mansfield, HEALTH INFORMATICS ADVISOR BENTLEY LAGOS, HEALTH INFORMATICS ADVISOR Role Performed Pipe Cleaning Machine Operator, Ancillary HEALTH INFORMATICS ADVISOR/Nurse Mortician Helper HEALTH INFORMATICS ADVISOR/Nurse Mortician Helper Time In 11/30/20 15:00:00 11/30/20 16:02:00 11/30/20 [...] Entry 13 Entry 14 Case Attendee ERNIE SIMS, ALLISON LARA MD-ANS Role Performed Physician producer assistant Anesthesiologist Time In 11/30/20 17:02:00 11/30/20 17:51:00 Time Out 11/30/20 18:43:00 11/30/20 18:43:00 Procedure Lumbar Fusion Posterior Lumbar Fusion Posterior 3 Level 3 Level Other Attendee Superficial Wound Closed By: Last Modified By: Joan Ugarte, RN Joan Ugarte, RN 11/30/20 18:43:07 11/30/20 18:43:07 [facility] IntraOp Case Attendance Audit 11/30/20 18:43:07 Printer Slotter Operator: BRINDA Modifier: BRINDA 1 <+> Time Out 1 <*> Procedure [...] Lumbar Fusion Posterior 3 Level 11/30/20 18:07:18 Printer Slotter Operator: SMITHPD Modifier: SMITHPD 6 <+> Time Out 6 <*> Procedure Lumbar Fusion Posterior 3 Level 14 <+> Case Attendee 14 <*> Procedure Lumbar Fusion Posterior 3 Level 11/30/20 18:01:10 Printer Slotter Operator: SMITHPD Modifier: SMITHPD 3 <+> Time Out 3 <*> Procedure Lumbar Fusion Posterior 3 Level 12 <+> Time Out 12 <*> Procedure Lumbar Fusion Posterior 3 Level <+> 14 Role Performed <+> 14 Time In <+> 14 Procedure 11/30/20 17:14:11 Printer Slotter Operator: SMITHPD Modifier: SMITHPD 4 <+> Time Out 4 <*> Procedure Lumbar Fusion Posterior 3 Level <+> 13 Case Attendee <+> 13 Role Performed <+> 13 Time In <+> 13 Procedure 11/30/20 16:51:54 Printer Slotter Operator: SMITHPD Modifier: SMITHPD 8 <+> Time Out 8 <*> Procedure Lumbar Fusion Posterior 3 Level 11/30/20 16:42:58 Printer Slotter Operator: SMITHPD Modifier: SMITHPD 9 <*> Case Attendee SHOAIB KVNG Janine 9 <*> Procedure Lumbar Fusion Posterior 3 Level 11/30/20 16:42:39 Printer Slotter Operator: SMITHPD Modifier: SMITHPD 1 <*> Procedure Lumbar [...] <+> 12 Time In <+> 12 Procedure [facility] IntraOp Case Times Entry 1 Patient In Room Time 11/30/20 15:00:00 Out Room Time 11/30/20 18:43:00 Anesthesia Start Time 11/30/20 15:00:00 Stop Time 11/30/20 18:43:00 Surgery / Procedure Times Start Time 11/30/20 16:09:00 Stop Time 11/30/20 17:51:00 Last Modified By: Joan Ugarte RN 11/30/20 18:42:35 [facility] IntraOp Case Times Audit 11/30/20 18:42:35 Printer Slotter Operator: BRINDA Modifier: SMITHPD <+> 1 Out Room Time <+> 1 Stop Time 11/30/20 18:00:03 Printer Slotter Operator: BRINDA Modifier: KENYETTAPD <+> 1 Stop Time 11/30/20 17:39:49 Printer Slotter Operator: BRINDA Modifier: SMITHPD <+> 1 Start Time [facility] IntraOp Cautery Entry 1 Entry 2 ESU Identification Cautery Type Monopolar ESU BiPolar ESU Cautery Type Comments ID Number [id number] ID Type Hospital Number Hospital Number Cautery [...] Joan Ugarte RN 11/30/20 15:32:47 11/30/20 15:33:10 [facility] IntraOp Cautery Audit 11/30/20 15:33:10 Printer Slotter Operator: BRINDA Modifier: KENYETTAPD <+> 2 Cautery Type <+> 2 Coag Setting <+> 2 Cut Setting <+> 2 ID Number <+> 2 ID Type [facility] IntraOp Communication Entry 1 Communication To Family/Significant other Comment START Communication By Joan Ugarte, RAYO Last Modified By: Joan Ugarte RN 11/30/20 15:33:21 [facility] IntraOp Counts Verification Entry 1 Procedure Lumbar Fusion Posterior 3 Level Count Info Count Type Sponge, Sharps, Miscellaneous Counts Verification Baseline/pre-procedure Sequence Count Results Not Applicable Counts Performed By Count Performed By Philipp Monique Scrub (Scrub) Tech Count Performed By Roxanne Pierson RN (RN) Last Modified By: Joan Ugarte RN 11/30/20 15:33:41 [facility] IntraOp Counts Final Entry 1 Procedure Lumbar Fusion Posterior 3 Level Final Count Info Count Type Sponge, Sharps, Miscellaneous Counts Verification Skin Closure/end of Sequence procedure Count Results Correct, surgeon notified Counts Performed By Count Performed By Philipp Monique Scrub (Scrub) Tech Count Performed By Roxanne Pierson RN (RN) Last Modified By: Joan Ugarte RN 11/30/20 17:35:27 [facility] IntraOp Counts Final Audit 11/30/20 17:35:27 Printer Slotter Operator: BRINDA Modifier: SMITHPD 1 <*> Procedure Lumbar Fusion Posterior 3 Level 1 <+> Count Performed By (Scrub) 1 <+> Count Performed By (RN) [facility] IntraOp Departure from OR Entry 1 Integumentary Assessment Integumentary WDL with patient Assessment WDL specific variances Patient's Normal [place]-TGICAL SITE C2 Integumentary -T1 Variance(s) Transfer/Handoff Transfer to PACU Phase I Handoff Method Phone call Handoff Reported to NAKITA GUILLEN RN Post-op Transport Stretcher/Gurney Via Patient Transport ALLISON KING MD-ANS, Accompanied by Joan Ugarte, RN Last Modified By: Joan Ugarte RN 11/30/20 18:43:06 [facility] IntraOp Departure from OR Audit 11/30/20 18:43:06 Printer Slotter Operator: BRINDA Modifier: SMITHPD 1 <*> Patient Transport Accompanied by ALLISON KING MD-ANS 11/30/20 18:02:20 Printer Slotter Operator: BRINDA Modifier: SMITHPD 1 <*> Patient Transport Accompanied by BROWN KENYON [facility] IntraOp Drains and Tubes Entry 1 Device Type Kumar Marcos round drain Size 15 F Drain/Tube Activity Inserted Drain/Tube Suction Bulb Drain/Tube Drainage Serous Device Location OP SITE Method of Drainage Compression Tube Dressing Dry, Intact Condition Last Modified By: Joan Ugarte RN 11/30/20 17:25:26 [facility] IntraOp Dressing and Packing Entry 1 Type Dressing Location OPERATIVE SITE Applied By ERNIE SIMS PA Other Comments COVERDERM, ASPEN COLLAR , REGULAR Last Modified By: Joan Ugarte RN 11/30/20 17:33:59 [facility] IntraOp Fire Risk Assessment Entry [...] Modified By: Joan Ugarte RN 11/30/20 16:59:30 [facility] IntraOp General Case Hematology Oncology Consultant 1 Case Information OR OR 10 [facility] Case Level 1 Room Verified Yes Wound Class I - Clean Specialty SN Neurosurgery Anesthesia Type General ASA Class 3 Diagnosis Preop Diagnosis CERVICAL SPONDYLOSIS WITH MYELOPATHY Postop Same As Preop No Postop Diagnosis SEE DOCTOR POST OPERATIVE NOTE Last Modified By: Joan Ugarte RN 11/30/20 16:59:36 [facility] IntraOp General Case Data Audit 11/30/20 16:59:36 Printer Slotter Operator: BRINDA Modifier: BRINDA <+> 1 Room Verified [facility] IntraOp Implant Log Entry 1 Entry 2 Entry 3 Type Tissue Implant Implant (Synthetic) Implant (Synthetic) (Biologic) Implant Log Implant Type Hardware Hardware Tissue Implant Type Other Implant BONE VIVIGEN FRMBLE 1020.35.130 3.5 X 30MM [id number] 3.5 X 12MM Identification CELL [facility]-[id number] [facility] Description Implant Quantity 1 2 4 Implant Site OP SITE OPERATIVE SITE OPERATIVE SITE Implant [id number] Identification Model Number Implant Identification Serial Number Implant Identification Lot Number Implant Lifenet:Lifenet Identification Transplant Srv Healthcare Prof Name: Implant [id number] Identification Catalog Number Implant Size Implant Has an Yes Expiration Date Implant Expiration 11/17/21 Date Wasted Radioactive Material Time Implanted Tissue Implant Continue for Tissue Implant Documentation Tissue Identification Number Graft Prep Per Healthcare Prof Instructions: Tissue Preparation Method: Reconstitution Solution: Reconstitution Solution Lot Number Reconstitution Solution Expiration Date: Thawing Solution Thawing Solution Lot Number Thawing Solution Expiration Date Preparation Materials, Other Preparation Materials, Other Lot Number Preparation Materials, Other Expiration Date Tissue Prepared/Processed By Healthcare Prof Paperwork Completed Implant Type Comment Last Modified [...] Number Implant Identification Lot Number Implant Identification Healthcare Prof Name: Implant Identification Catalog Number Implant Size Implant Has an Expiration Date Implant Expiration Date Wasted Radioactive Material Time Implanted Tissue Implant Continue for Tissue Implant Documentation Tissue Identification Number Graft Prep Per Healthcare Prof Instructions: Tissue Preparation Method: Reconstitution Solution: Reconstitution Solution Lot Number Reconstitution Solution Expiration Date: Thawing Solution Thawing Solution Lot Number Thawing Solution Expiration Date Preparation Materials, Other Preparation Materials, Other Lot Number Preparation Materials, Other Expiration Date Tissue Prepared/Processed By Healthcare Prof Paperwork Completed Implant Type Comment Last Modified [...] Number Implant Identification Lot Number Implant Identification Healthcare Prof Name: Implant Identification Catalog Number Implant Size Implant Has an Expiration Date Implant Expiration Date Wasted Radioactive Material Time Implanted Tissue Implant Continue for Tissue Implant Documentation Tissue Identification Number Graft Prep Per Healthcare Prof Instructions: Tissue Preparation Method: Reconstitution Solution: Reconstitution Solution Lot Number Reconstitution Solution Expiration Date: Thawing Solution Thawing Solution Lot Number Thawing Solution Expiration Date Preparation Materials, Other Preparation Materials, Other Lot Number Preparation Materials, Other Expiration Date Tissue Prepared/Processed By Healthcare Prof Paperwork Completed Implant Type Comment Last Modified By: Joan Ugarte, Joan Tillman, Joan Tillman RN 11/30/20 17:32:04 11/30/20 17:32:04 11/30/20 17:32:04 [facility] IntraOp Implant Log Audit 11/30/20 17:32:04 Printer Slotter Operator: BRINDA Modifier: BRINDA <+> 2 Implant Identification [...] <+> 9 Implant Type <+> 9 Type [facility] IntraOp Intraoperative Assessment Entry 1 [...] Modified By: Joan Ugarte RN 11/30/20 17:54:00 [facility] IntraOp Intraoperative Assessment Audit 11/30/20 17:54:00 Printer Slotter Operator: BRINDA Modifier: KENYETTAPD <+> 1 Intraoperative Assessment Comment [facility] IntraOp Intraoperative Equipment Entry 1 Type Equipment Equipment Equipment Rosa Elena Suction System ID Number [id number] Intraop Monitoring Electrocardiogram Three lead placement (ECG) Electrode Placement Blood Pressure Non-Invasive BP Device Source Blood Pressure Arm, right upper Location Pulse Oximeter Hand, left Probe Site Antiembolic Devices Antiembolic Devices Sequential compression device, knee high Antiembolic Device Bilateral Location Antiembolic Device [id number] ID Number Scopes Photo/Video Documentation Photo No Video No Intraop Equipment SCDS ON AND WORKING Comment PRIOR TO INDUCTION Last Modified By: Joan Ugarte RN 11/30/20 17:10:38 [facility] IntraOp Medication Admin Entry 1 Entry 2 Entry 3 Medication/Irrigant Bacitracin 50,00units MICKEY IRR NACL 0.9PCT thrombin 5000units powder vial 1.5L [id number] topical powder - [id number] Combo Med List 1 - Combo Med Time Administered Route of ADDED TO IRRIGATION IRRIGATION - BASIN TOPICAL - Administration Dose Dose [id number] Unit of Measure units units Volume Administered By BRAD CASTILLO TUTT, MATTHEW PAIGE, TUTT, MATTHEW PAIGE, MD-SNU MD-SNU MD-SNU Procedure Irrigation Irrigant Volume In Irrigant Volume Out Last Modified By: Joan Ugarte, Joan Tillman, Joan Tillman RN 11/30/20 17:09:13 11/30/20 17:09:13 11/30/20 17:09:13 Entry 4 Entry 5 Entry 6 Medication/Irrigant lidocaine 1% w/ bacitracin ointment -- SPNG SURGFOAM epinephrine 1:100,000 [id number] 30ml vial - [id number] Combo Med List Time Administered Route of LOCAL TOPICAL TOPICAL Administration Dose Dose 20 1 1 Unit of Measure ml pkt pkt Volume Administered By BRAD CASTILLO TUTT, MATTHEW PAIGE, TUTT, MATTHEW PAIGE, MD-SNU MD-SNU MD-SNU Procedure Irrigation Irrigant Volume In Irrigant Volume Out Last Modified By: Joan Ugarte, Joan Tillman, Joan Tillman RN 11/30/20 17:39:29 11/30/20 17:09:13 11/30/20 17:09:13 [facility] IntraOp Medication Admin Audit 11/30/20 17:39:29 Printer Slotter Operator: BRINDA Modifier: SMITHPD 4 <*> Medication/Irrigant lidocaine 1% w/ epinephrine 1:100,000 30ml vial - [id number] <+> Dose [facility] IntraOp Patient Positioning Entry 1 Procedure Lumbar Fusion Posterior 3 Level Body Position Prone Left Arm Position Tucked and padded at side Right Arm Position Tucked and padded at side Left Leg Position Uncrossed, parallel Right Leg Position Uncrossed, parallel Feet Uncrossed Yes Pressure Points Yes Checked Positioning Devices [place] w/ Head Pins, Pillows, Safety Strap, Thighs Positioning Device AIRO BED USED Comments Positioned By BRAD CASTILLO MD-SNU, AZALEA LOBO, ASHLEE, BROWN KENYON, Joan Ugarte, RAYO, Roxanne Pierson, RAYO Position Verified Positioning Yes Verified by Anesthesia Positioning Yes Verified by Surgeon Last Modified By: Joan Ugarte RN 11/30/20 16:54:08 [facility] IntraOp Sign In Entry 1 [...] Modified By: Joan Ugarte RN 11/30/20 16:51:01 [facility] IntraOp Sign Out Entry 1 [...] Modified By: Joan Ugarte RN 11/30/20 18:42:55 [facility] IntraOp Sign Out Audit 11/30/20 18:42:55 Printer Slotter Operator: BRINDA Modifier: [email or web address] <+> 1 RN Sign Out Signature <+> 1 RN Sign Out Signature Date/Time [facility] IntraOp Skin Prep Entry 1 Procedure Lumbar Fusion Posterior 3 Level Prescribed N/A Pre-Surgical Prep Completed Prep Area BACK OF HEAD TO BELOW SHOULDERS Intraop Prep Integumentary WDL Assessment WDL Prep Agents Alcohol, Chlorhexadine gluconate, Other Prep by Joan Ugarte, RN Skin Prep Comment ALCOHOL AND HIBICLENS PREP BY DR. CASTILLO, PURPREP BY Debbie UGARET RN Hair Removal Methods Clipper/Scissors Hair Removal Site BACK OF HEAD/ NECK Hair Removal By BROWN KENYON Last Modified By: Joan Ugarte RN 11/30/20 16:49:17 [facility] IntraOp Surgical Procedures Entry 1 Procedure Lumbar Fusion Posterior 3 Level Additional (C2-T1 POSTERIOR Procedure CERVICAL DECOMPRESSION Description AND FUSION WITH AIRO) Primary Procedure Yes Primary Surgeon BRAD CASTILLO MD-SNU Start 11/30/20 16:09:00 Stop 11/30/20 17:51:00 Anesthesia Type General Specialty Neurosurgery Wound Class I - Clean Last Modified By: Joan Ugarte RN 11/30/20 18:42:43 [facility] IntraOp Surgical Procedures Audit 11/30/20 18:42:43 Printer Slotter Operator: BRINDA Modifier: BRINDA <+> 1 Start <+> 1 Stop [facility] IntraOp Temp Regulation Devices Entry 1 Temp Regulation Temperature Forced Air Warming Regulation Device device, Warm blankets Temperature 21670 Regulation Device Serial/Unit Number Temperature Lower body Regulation Site Temperature Device 43 C Setting Temperature LASHELL, AZALEA, HEALTH INFORMATICS ADVISOR Regulation Device Applied by Temperature TEMPERATURE REGULATION Regulation Comment MONITORED AND CONTROLLED BY ANESTHESIA PROVIDER. Last Modified By: Joan Ugarte RN 11/30/20 16:46:55 [facility] IntraOP Time Out Entry 1 [...] Unfinalizing Freetext Reason for Unfinalizing 12/01/20 14:32 WATTSDR Correct Billing documented in this encounter Plan of Treatment Not on file documented as of this encounter Visit Diagnoses Not on filedocumented in this encounter
--- OUTSIDE RECORDS SUMMARY | 2025-08-22 19:25 | XMS_ITS | Encounter Summary ---
Author Organization [employer] ([place], [place], [place], [place]) Address [address] [place] [address] Care Team Providers Care Student Support Services Director Name Role Phone Unavailable Primary Care Provider Unavailabl e Encounter Details Date Type Department Care Team (Late st Contact Info) Description 12/02/2020 Transcribed Document [facility] [place] [facility] [place] [address] ProviderFabi MD [address] [place] [address] Social History Tobacco Use Types [...] - Fabi ProviderMD - 12/02/2020 6:00 AM CLINICAL MASSAGE THERAPIST Pain Assessment Entered On: 12/02/2020 10:09 EST [...]
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
--- OUTSIDE RECORDS SUMMARY | 2025-08-22 19:25 | XMS_ITS | Encounter Summary ---
Author Organization [employer] ([place], [place], [place], [place]) Address [address] [place] [address] Care Team Providers Care Lab Nurse Name Role Phone Unavailable Primary Care Provider Unavailabl e Encounter Details Date Type Department Care Team (Late st Contact Info) Description 11/30/2020 Transcribed Document [facility] Radiology [address] [place] [address] Danielle Rosales MD [address] [place] [address] Social History Tobacco Use Types Packs/Day [...] is a 60 yo male admitted to [facility] per Dr. Todd for a cervical [...] disease) History of obstructive sleep apnea Hypothyroidism [place] (myocardial infarction) Mixed hyperlipidemia Muscle weakness AR [...] 1 Tab, PRN, Oral, Daily Flonase 1 [place], Nostrils Both, Daily fluvoxaMINE 50 mg oral tablet 50 mg = 1 Tab, Oral, BID Incruse Ellipta 62.5 mcg/inh inhalation powder 1 Puff, Inhalation, [id number] levothyroxine 25 mcg (0.025 mg) oral tablet [...] Rate 18 (NOV 30 11:00) 18 (NOV 30:00) 18 (NOV 30:00) SBP 114 (NOV 30:00) 114 (NOV 30:00) 114 (NOV 30:00) DBP 67 (NOV 30 11:00) 67 (NOV 30 11:00) 67 (NOV 30 11:00) SpO2 94 (NOV 30 11:00) 94 (NOV 30 11:00) 94 (NOV 30:00) General: [Alert and oriented, no acute distress]. [...]
--- OUTSIDE RECORDS SUMMARY | 2025-08-22 19:25 | XMS_ITS | Clinical Summary ---
Author Organization [employer] ([place], [place], [place], [place]) Address [address] [place] [address] Care Team Providers Care Supervisor Prop Making Name Role Phone Unavailable Primary Care Provider [...]
--- OUTSIDE RECORDS SUMMARY | 2025-08-22 19:25 | XMS_ITS | Encounter Summary ---
Author Organization [employer] ([place], [place], [place], [place]) Address [address] [place] [address] Care Team Providers Care Route Supervisor Name Role Phone Unavailable Primary Care Provider Unavailabl e Encounter Details Date Type Department Care Team (Late st Contact Info) Description 12/02/2020 Transcribed Document [facility] [place] [facility] [place] [address] ProviderFabi MD [address] [place] [address] Social History Tobacco Use Types [...] - Historical ProviderMD - 12/02/2020 3:15 PM AIR TESTER Event Note Entered On: 12/02/2020 15:15 EST [...]
--- OUTSIDE RECORDS SUMMARY | 2025-08-22 19:25 | XMS_ITS | Encounter Summary ---
Author Organization [employer] ([place], [place], [place], [place]) Address [address] [place] [address] Care Team Providers Care Gas Utility Worker Name Role Phone Unavailable Primary Care Provider Unavailabl e Encounter Details Date Type Department Care Team (Late st Contact Info) Description 12/02/2020 Transcribed Document [facility] [place] [address] [place] [address] ProviderFabi MD [address] [place] [address] Social History Tobacco Use Types [...] - Historical ProviderMD - 12/02/2020 1:42 PM RECEIVING TEAM MEMBER Stroke/Warfarin Instructions Entered On: 12/02/2020 13:42 EST [...]
--- OUTSIDE RECORDS SUMMARY | 2025-08-22 19:25 | XMS_ITS | Clinical Summary ---
Author Organization [facility] Address [address] [place] [address] Phone Care Team Providers Care Gang Miner Name Role Phone Unavailable Primary Care Provider [...] of 2) 2009 COVID-19 Vaccine ( - 2024-2 6 season) 2025 Influenza Vaccine (#1) 2025 Hepatitis B Vaccine Aged Out No longe r eligible based on patient's age to complete this topic Meningococcal B Vaccine Aged Out No l onger eligible based on patient's age to complete this topic Insurance [place] [address]
--- OUTSIDE RECORDS SUMMARY | 2025-08-22 19:25 | XMS_ITS | Encounter Summary ---
Author Organization [employer] ([place], [place], [place], [place]) Address [address] [place] [address] Care Team Providers Care Tire Shop Mechanic Name Role Phone Unavailable Primary Care Provider Unavailabl e Encounter Details Date Type Department Care Team (Late st Contact Info) Description 11/30/2020 Transcribed Document [facility] [place] [address] [place] [address] ProviderFabi MD [address] [place] [address] Social History Tobacco Use Types [...] Conversion Note - Historical ProviderMD - 11/30/2020 4:09 PM SEGMENT ASSEMBLER [facility] Main OR Preop Summary Primary Physician: BRAD CASTILLO MD-ARNOLD Finalized Date/Time: 12/11/20 16:34:08 Pt. Name: ALEXI GRIJALVA /Sex: 1960 Male Med Rec #: [id number] Physician: BRAD CASTILLO MD-ARNOLD Financial #: [id number] Pt. Type: I Room/Bed: 647/1 Admit/Disch: 11/30/20 06:39:00 - 12/02/20 16:16:00 Institution: [facility] PreOp Case Times Entry 1 In Preop 11/30/20 10:20:00 Ready for Holding n/a Room Patient Ready for 11/30/20 14:20:00 Surgery Patient Out of Preop 11/30/20 14:57:00 Patient Out of n/a Holding Room Last Modified By: Meli Grimalod Nurse Massage Therapy Instructor 12/11/20 16:34:04 [facility] PreOp Case Times Audit 12/11/20 16:34:04 Market Research Senior Project Manager: [id number] Modifier: [id number] <+> 1 Patient Out of Preop Finalized By: Meli Grimaldo, Nurse Animation Producer Signatures Signed By: Meli Grimaldo Nurse Massage Therapy Instructor 12/11/20 16:34 Electronically signed by Cruzito [facility] Conversion Paperhanger Contractor Cerner at 02/19/2023 9:43 AM CDT documented in this encounter Plan of Treatment Not on file documented as of this encounter Visit Diagnoses Not on filedocumented in this encounter
--- OUTSIDE RECORDS SUMMARY | 2025-08-22 19:25 | XMS_ITS | Encounter Summary ---
Author Organization [employer] ([place], [place], [place], [place]) Address [address] [place] [address] Care Team Providers Care House Mover Helper Name Role Phone Unavailable Primary Care Provider Unavailabl e Encounter Details Date Type Department Care Team (Late st Contact Info) Description 12/05/2020 Transcribed Document [facility] [place] Medicine [facility] [place] [address] ProviderFabi MD [address] [place] [address] Social History Tobacco Use Types [...] - Fabi ProviderMD - 12/05/2020 10:59 PM SATELLITE COMMUNICATIONS OPERATOR PLEASE MODIFY BEFORE SIGNING CLINICAL DOCUMENTATION CLARIFICATION [...] ] Albuterol As per MAR sheet on CDS/Glazing Superintendent Signature: Jalenu Phone #: [phone] Extn [phone] Date/Time: 12/06/2020 This is a permanent part of the Medical Record Q47 2019 [facility] Updated: documented in this encounter Plan of Treatment Not on file documented as of this encounter Visit Diagnoses Not on filedocumented in this encounter
--- OUTSIDE RECORDS SUMMARY | 2025-08-22 19:25 | XMS_ITS | Encounter Summary ---
Author Organization [employer] ([place], [place], [place], [place]) Address [address] [place] [address] Care Team Providers Care Process Coordinator Name Role Phone Unavailable Primary Care Provider Unavailabl e Encounter Details Date Type Department Care Team (Late st Contact Info) Description 11/30/[address] [facility] [place] [facility] [place] [address] ProviderFabi MD [address] [place] [address] Social History Tobacco Use Types [...] - Historical ProviderMD - 11/30/2020 6:25 PM BOMB TECHNICIAN Evaluation, Occupational Therapy Entered On: 12/01/2020 14:18 EST Performed On: 12/01/2020 13:49 EST by TOM SILVERIO, OTR/L General Information, OT Visit Type, OT : Initial evaluation Patient Orders : Order Date Order Ordering MD 11/30/2020 18:25 Occupational Therapy Evaluation and Treatme Ordered By: BRAD CASTILLO MD-[facility] Active Diagnoses : 11/30/2020 12:00 Disease of [...] Patient is a 60yo M admitted to [facility] on 11/30 with cervical myelopathy, RUE pain, now s/p C3-7 laminectomy, C2-T2 fusion on 11/30. PMHx TBI, Bipolar, Anxiety, Delusions, DE, falls, vascular dementia, COPD TOM SILVERIO OTR/Patti - 12/01/2020 14:06 EST General Status Patient [...] Environment, OT Living Situation, Therapy : Other: [employer] Patient Lives With : Caregiver(s) Persons Providing [...] Per patient/sister was I with ADLs at [facility], limited history from patient d/t cognitive status. Was mobilizing in wheelchair primarily at jail per PT/family though able to ambulate with rollator TOM SILVERIO OTR/Patti - 12/01/2020 14:06 EST Upper Extremity Upper [...] SILVERIO OTR/Patti - 12/01/2020 14:06 EST Hand Licensed Guide Test : 3+/5 BUE Fine Motor Coordination [...] limited information (i.e. regarding PLOF), slowed processing TOM SILVERIO OTR/L - 12/01/2020 14:06 EST Indication Assessment, OT Occupational Therapy Indicated : Yes Problem List, OT : Impaired, bed mobility, Impaired, activities daily living, Impaired, endurance tolerance, Impaired functional mobility, Impaired, standing balance, Impaired, strength, Impaired, transfers, Pain limiting function RICHARD SILVERIOABELLE CassWELLINGTON/L - 12/01/2020 14:06 EST Plan of Care, OT OT Tx Plan/Goals Established w Patient : Yes OT Frequency Rehab : Five days per week OT Duration Rehab : Fourteen days OT Treatments Planned : Activities of daily living, Balance training, Functional mobility training, Safety education, Therapeutic activities, Therapeutic exercises RICHARD SILVERIOABELLE CassWELLINGTON/Patti - 12/01/2020 14:06 EST Halfway Goals, OT Grooming LTG Grid Goal #1 Activity : Grooming Assist : Supervision or set up Date to Meet : 12/15/2020 EST Goal Status : Initial goal RICHARD SILVERIOABELLE CassVERAR/L - 12/01/2020 14:06 EST Dressing, Lower Body LTG Grid Goal #1 Activity : Dressing, Lower Body Assist : Supervision or set up Equipment : Other: AE PRN Date to Meet : 12/15/2020 EST Goal Status : Initial goal RICHARD SILVERIOABELLE Cass OTR/L - 12/01/2020 14:06 EST Toilet Transfer LTG Grid Goal #1 Activity : Toilet Transfer, Ambulatory Assist : Supervision or set up Date to Meet : 12/15/2020 EST Goal Status : Initial goal RICHARD SILVERIOABELLE Cass OTR/L - 12/01/2020 14:06 EST Treatment Note Subjective Comment : Patient agreeable to OT evaluation Patient's Response to Treatment : Tolerated, limited by pain Additional Objective Information : Patient encountered semi-supine in bed on 0.5L O2 via NC, O2 92%, participated in interview as able. Patient at jail and I at PLOF with ADLs, mobilizing primarily in wheelchair but [...] for Treatment : See POC TOM SILVERIO OTR/L - 12/01/2020 14:06 EST Pain Assessment Pain [...] Therapy at Discharge : Yes TOM SILVERIO OTR/L - 12/01/2020 14:[address] [facility] OT Charges OT Selfcare/Hm Mgmt Ea 15 Min : 1 OT Eval Moderate Complexity : 1 TOM SILVERIO OTR/L - 12/01/2020 14:06 EST documented in this encounter Plan of Treatment Not on file documented as of this encounter Visit Diagnoses Not on filedocumented in this encounter
--- OUTSIDE RECORDS SUMMARY | 2025-08-22 19:25 | XMS_ITS | Encounter Summary ---
Author Organization [employer] ([place], [place], [place], [place]) Address [address] [place] [address] Care Team Providers Care Public Policy Mediator Name Role Phone Unavailable Primary Care Provider Unavailabl e Encounter Details Date Type Department Care Team (Late st Contact Info) Description 12/01/2020 Transcribed Document [facility] [place] [facility] [place] [address] ProviderFabi MD [address] [place] [address] Social History Tobacco Use Types [...] Conversion Note - Historical ProviderMD - 12/01/2020 12:28 PM TUBING DRIER Treatment Intervention, PT Entered On: 12/02/2020 16:31 EST Performed On: 12/02/2020 11:36 EST by MACI LAND PT General Information, PT Visit Type, PT : Treatment Note Patient Orders : Order Date Order Ordering 11/30/2020 18:25 Physical Therapy Eval and Treat Ordered By: BRAD CASTILLO MD-[facility] 12/01/2020 12:28 Physical Therapy Additional Tx Ordered [...] Plan/Goals Established w Patient : Yes MACI LAND PT - 12/02/2020 16:29 EST Doll Wigs Hackler Goals Mobility/Bed Mobility LTG PT Grid Goal [...] MACI LAND, PT - 12/02/2020 16:29 EST Ambulation LTG [...] Pre-Intervention : 0 MACI LAND PT - 12/02/2020 16:29 EST Image 1 - Images currently included in the form version of this document have not been included in the text rendition version of the form. Anticipated Discharge Needs, OT/PT Anticipated Discharge to : Unit, rehabilitation, Unit, assisted Recommend Continued Therapy at Discharge : Yes MACI LAND PT - 12/02/2020 16:29 EST [place] PT Charges PT Ther Activities Ea 15 Min : 1 MACI LAND PT - 12/02/2020 16:29 EST Electronically signed by [facility] Conversion Dowel Inserting Machine Operator Cerner at 02/24/2023 1:10 PM CDT documented in this encounter Plan of Treatment Not on file documented as of this encounter Visit Diagnoses Not on filedocumented in this encounter
--- OUTSIDE RECORDS SUMMARY | 2025-08-22 19:25 | XMS_ITS | Encounter Summary ---
Author Organization [employer] ([place], [place], [place]) Address [address] [place] [address] Care Team Providers Care Loan And Credit Manager Name Role Phone Unavailable Primary Care Provider Unavailabl e Encounter Details Date Type Department Care Team (Late st Contact Info) Description 11/30/2020 Transcribed Document [facility] [place] [address] [place] [address] ProviderFabi MD [address] [place] [address] Social History Tobacco Use Types [...] - Fabi ProviderMD - 11/30/2020 4:09 PM JOB SETTER HONING [facility] Main OR PACU Summary Primary Physician: BRAD CASTILLO MD-SNU Finalized Date/Time: 11/30/20 22:00:25 Pt. Name: ROSELYN GRIJALVA /Sex: 1960 Male Med Rec #: [id number] Physician: BRAD CASTILLO MD-SNU Financial #: [id number] Pt. Type: I Room/Bed: ASA/4 Admit/Disch: 11/30/20 06:39:00 - Institution: [facility] Main OR PACU I Case Times Entry 1 In PACU I 11/30/20 18:48:00 Ready for PACU 11/30/20 21:43:00 Discharge Discharge from PACU 11/30/20 21:43:00 I Last Modified By: Venus Montaño RN 11/30/20 21:59:38 [facility] Main OR PACU I Case Times Audit 11/30/20 21:59:38 Plastic Straightening Roll Operator: [id number] Modifier: [id number] <+> 1 Ready for PACU Discharge <+> 1 Discharge from PACU I Finalized By: eVnus Montaño RN Document Signatures Signed By: Venus Montaño RN 11/30/20 22:00 Electronically signed by Cruzito [facility] Conversion Accountant Property Cerner at 02/19/2023 9:48 AM CDT documented in this encounter Plan of Treatment Not on file documented as of this encounter Visit Diagnoses Not on filedocumented in this encounter
--- OUTSIDE RECORDS SUMMARY | 2025-08-22 19:25 | XMS_ITS | Encounter Summary ---
Author Organization [employer] ([place], [place], [place], [place]) Address [address] [place] [address] Care Team Providers Care Website Developer Name Role Phone Unavailable Primary Care Provider Unavailabl e Encounter Details Date Type Department Care Team (Late st Contact Info) Description 11/28/2020 Transcribed Document [facility] [place] Medicine [facility] [place] [address] ProviderFabi MD [address] [place] [address] Social History Tobacco Use Types Packs/Day Years Used Date Smoking Tobacco: Never Assessed Sex and Gender Information Value Date Recorded Sex Assigned at Male 05/01/2022 10:55 AM CDT Legal Sex Male 10:55 AM CDT Gender Identity Male 05/01/2022 10:55 AM CDT Sexual Orientation Not on file documented as of this encounter Miscellaneous Notes * Cerner Conversion Note - Historical ProviderMD - 11/28/2020 2:02 PM ENVIRONMENTAL RESOURCE SPECIALIST UM Authorization Entered On: 11/28/2020 14:03 EST Performed On: 11/28/2020 14:02 EST by TRA GOLDBERG, Online Education Manager Primary Insurance Authorization Authorization and Policy Numbers : Insurance 1 Health Plan: MEDICARE Policy Number: [id number] Authorization Number: Insurance 2 Health Plan: [place] Policy Number: [id number] Authorization Number: Insurance Primary Name : Medicare Authorization Status-Primary : No precert required Authorization Number-Primary : NPR for Medicare Authorized Service Begin Date-Primary : 11/30/2020 EST Authorization Comments-Primary : Pt is mauricio for INPT Cervical Discectomy Fusion Posterior on 11-30-20 Medicare: NPR Historical Authorization Comments-Primary : No Authorization Comments Found TRA GOLDBERG, Online Education Manager - 11/28/2020 14:02 EST Secondary Insurance Authorization Authorization and Policy Numbers : Insurance 1 Health Plan: MEDICARE Policy Number: [id number] Authorization Number: Insurance 2 Health Plan: [place] Policy Number: [id number] Authorization Number: Insurance Secondary Name : [facility] [id number] Authorized Service Begin Date-Secondary : 11/30/2020 EST Historical Authorization Comments-Secondary : No Authorization Comments Found TRA GOLDBERG, Online Education Manager - 11/28/2020 14:02 EST documented in this encounter Plan of Treatment Not on file documented as of this encounter Visit Diagnoses Not on filedocumented in this encounter
--- OUTSIDE RECORDS SUMMARY | 2025-08-22 19:25 | XMS_ITS | Encounter Summary ---
Author Organization [employer] ([place], [place], [place], [place]) Address [address] [place] [address] Care Team Providers Care Set Up Mold Technician Name Role Phone Unavailable Primary Care Provider Unavailabl e Encounter Details Date Type Department Care Team (Late st Contact Info) Description 12/01/2020 Transcribed Document [facility] [place] [facility] [place] [address] ProviderFabi MD [address] [place] [address] Social History Tobacco Use Types [...] - Historical ProviderMD - 12/01/2020 11:11 AM GERMAN TEACHER Attempt to Treat, OT Entered On: 12/01/2020 12:45 EST Performed On: 12/01/2020 11:11 EST by JADIEL SHIN OTR/Patti Attempt to Treat Unable to Treat Due To : Patient Unavailable Inability to Treat Comment : Pt eating lunch at this time. OT will follow up as schedule permits. Notification : RAYO Solares SHEENAGH E, OTR/Patti - 12/01/2020 12:44 EST Electronically signed by Cruzito [facility] Conversion Meat Carver Cerner at 02/19/2023 10:08 AM CDT documented in this encounter Plan of Treatment Not on file documented as of this encounter Visit Diagnoses Not on filedocumented in this encounter
--- OUTSIDE RECORDS SUMMARY | 2025-08-22 19:25 | XMS_ITS | Encounter Summary ---
Author Organization [employer] ([place], [place], [place], [place]) Address [address] [place] [address] Care Team Providers Care Modern Languages Professor Name Role Phone Unavailable Primary Care Provider Unavailabl e Encounter Details Date Type Department Care Team (Late st Contact Info) Description 11/30/2020 Transcribed Document [facility] [place] [facility] [place] [address] ProviderFabi MD [address] [place] [address] Social History Tobacco Use Types [...] - Fabi ProviderMD - 11/30/2020 6:19 PM SUPERVISOR Pain Assessment Entered On: 12/01/2020 15:49 EST [...]
--- OUTSIDE RECORDS SUMMARY | 2025-08-22 19:25 | XMS_ITS | Encounter Summary ---
Author Organization [employer] ([place], [place], [place], [place]) Address [address] [place] [address] Care Team Providers Care Pharmacovigilance Safety Expert Name Role Phone Unavailable Primary Care Provider Unavailabl e Encounter Details Date Type Department Care Team (Late st Contact Info) Description 12/02/[address] [facility] - [address] [facility] [address] [place] [address] Angel Todd MD [address] [facility] [address] [place] [address] Social History Tobacco Use Types [...] MD - 12/02/2020 9:46 AM EST Patient: ALEXI GRIJALVA Age: 60 [...]
--- OUTSIDE RECORDS SUMMARY | 2025-08-22 19:25 | XMS_ITS | Encounter Summary ---
Author Organization [employer] ([place], [place], [place], [place]) Address [address] [place] [address] Care Team Providers Care Principal Mechanical Engineer Name Role Phone Unavailable Primary Care Provider Unavailabl e Encounter Details Date Type Department Care Team (Late st Contact Info) Description 12/02/2020 Transcribed Document [facility] Neurology - [address] [id number] Brad Castillo MD [facility] [address] [place] [address] Social History Tobacco Use Types [...] rehab at discharge, pts lives at a shelter, h/o TBI - medicine following VTE Prophylaxis [...] voice nod head yes/no to questions equal accounting generalist incision cdi bandage intact and dry rachel has been removed facially symmetric documented in this encounter Plan of Treatment Not on file documented as of this encounter Visit Diagnoses Not on filedocumented in this encounter
--- NOTE | 2025-08-22 19:26 | CT_ITS ---
PROCEDURE INFORMATION: Exam: CT Cervical Spine Without Contrast Exam date and time: 08/22/2025 8:44 PM Age: 65 years old Clinical indication: Injury or trauma; Fall; Blunt trauma; Additional info: Fall, neck pain TECHNIQUE: Imaging protocol: Computed tomography of the cervical spine without contrast. Radiation optimization: All CT scans at this facility use at least one of these dose optimization techniques: automated exposure control; mA and/or kV adjustment per patient size (includes targeted exams where dose is matched to clinical indication); or iterative reconstruction. 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 Postsurgical changes compatible with posterior fusion with transpedicular screws, and vertical stabilizing bars between levels C2 through T2 with laminectomies of C4 through C7. The vertebral bodies are maintained in height and alignment. No evidence of acute osseous abnormality. Lungs: Lung apices are normal. Soft tissues: Unremarkable. IMPRESSION: 1. Postsurgical changes compatible with posterior fusion with transpedicular screws, and vertical stabilizing bars between levels C2 through T2 with laminectomies of C4 through C7. 2. No evidence of acute osseous abnormality.
--- NOTE | 2025-08-22 19:26 | XR_ITS ---
PROCEDURE INFORMATION: Exam: XR Pelvis Exam date and time: 08/22/2025 8:44 PM Age: 65 years old Clinical indication: Injury or trauma; Fall; Blunt trauma (contusions or hematomas); Bilateral; Pelvic region TECHNIQUE: Imaging protocol: Radiologic exam of the pelvis. Views: 1 or 2 view. COMPARISON: CR XR HIP RT 2-3V W/PELVIS 06/16/2024 1:11 PM FINDINGS: Bones/joints: Chronic left pubic rami irregularities. No acute fracture or dislocation. Soft tissues: Unremarkable. Vasculature: Vascular calcifications. IMPRESSION: No acute fracture or dislocation.
--- NOTE | 2025-08-22 19:26 | CT_ITS ---
PROCEDURE INFORMATION: Exam: CT Head Without Contrast Exam date and time: 08/22/2025 8:43 PM Age: 65 years old Clinical indication: Injury or trauma; Fall; Blunt trauma (contusions or hematomas); Additional info: Fall, head trauma TECHNIQUE: Imaging protocol: Computed tomography of the head without contrast. Radiation optimization: All CT scans at this facility use at least one of these dose optimization techniques: automated exposure control; mA and/or kV adjustment per patient size (includes targeted exams where dose is matched to clinical indication); or iterative reconstruction. COMPARISON: CT HEAD/BRAIN WO CON 04/24/2025 8:31 PM FINDINGS: Brain: There is moderate diffuse cerebral volume loss present. Multiple subcortical and deep hypoattenuating white matter foci are present, likely related to small vessel senescent changes and can also be seen with prior infectious / inflammatory insult, or prior traumatic events. No hyperattenuating foci are identified to suggest acute intracranial hemorrhage. Cerebral ventricles: No ventriculomegaly. Paranasal sinuses: Moderate ethmoid sinus mucosal thickening is present. Mastoid air cells: Visualized mastoid air cells are well aerated. Bones: Unremarkable. No acute fracture. Soft tissues: Unremarkable. IMPRESSION: 1. Multiple subcortical and deep hypoattenuating white matter foci are present, likely related to small vessel senescent changes and can also be seen with prior infectious / inflammatory insult, or prior traumatic events. 2. No hyperattenuating foci are identified to suggest acute intracranial hemorrhage.
--- NOTE | 2025-08-22 19:36 | ECG_ITS ---
APPROVED REPORT Exam: Resting ECG HR:83 bpm ECG Measurements Heart Rate 83 AXES [place] 172 P 58 QRSd 97 QRS 14 QT 344 T 81 QTc 383 Conclusion SINUS RHYTHM NONSPECIFIC T-WAVE ABNORMALITY BORDERLINE ECG UNCONFIRMED REPORT Electronically signed by : SHANNEN REIS, 08/24/2025 02:50:24
[2025-08-22 19:39] LABS: Lactate Venous 1.7 mmol/L (0.4-2.0); VBG HCO3 32.4 mmol/L (23-30); VBG PCO2 65.0 mmol/L (35-51); VBG PH 7.32 mmol/L (7.31-7.41); VBG PO2 43.9 mmol/L (28-40)
[2025-08-22] MEDS: METHYLPREDNISOLONE SOD SUCC 125MG VIAL 60 MG IV (19:46)
[2025-08-22] MEDS: MAGNESIUM SULFATE IN WATER 2 GM/50 ML PIGGYBACK IV (19:47)
[2025-08-22 19:48] LABS: Albumin Level 3.8 g/dl (3.5-5.0); Chloride 95 mmol/L (98-107); Sodium 135 mmol/L (136-145)
[2025-08-22 19:49] LABS: Potassium 4.2 mmoL/L (3.5-5.1)
[2025-08-22] MEDS: IPRATROPIUM/ALBUTEROL 3 ML NEB 9 ML IH (19:49)
[2025-08-22 19:51] LABS: Alanine Aminotransferase 12 U/L (12-78); Anion Gap 10.2 mEq/L (5-15); Aspartate Amino Transferase 33 U/L (17-59); Blood Urea Nitrogen 21 mg/dl (9-20); Carbon Dioxide 34 mmol/L (22.0-30.0); Creatinine Clearance Estimated 0 mL/min (50-200); Creatinine,Serum 0.80 mg/dl (0.66-1.25); Estimated Glomerular Filt Rate 97 ml/min (>60); GFR (African American) 117 ML/MIN (>60)
[2025-08-22 19:52] LABS: Albumin/Globulin Ratio 1.0 (1.1-1.8); Alkaline Phosphatase 65 U/L (38-126); Bilirubin,Total 0.5 mg/dl (0.2-1.3); Calcium 9.0 mg/dl (8.4-10.2); Globulin 3.9 g/dL (1.3-3.2); Glucose 107 mg/dl (74-100); Total Protein,Serum 7.7 g/dl (6.3-8.2)
[2025-08-22 20:01] LABS: NT Pro Brain Natriuretic Pep. 110 pg/mL (0-125)
[2025-08-22 20:07] LABS: Troponin I < 0.01 ng/ml (0.00-0.034)
--- NOTE | 2025-08-22 20:19 | ED_ITS ---
Discharge Plan Disposition Patient Disposition: Home, Self-Care Prescriptions Prescriptions: New azithromycin 250 mg tablet 250 mg PO DAILY 4 Days Qty: 4 0RF Rx Instructions: start on day 2 of therapy No Action aspirin [Aspir-81] 81 mg tablet,delayed release (DR/EC) 81 mg PO DAILY pravastatin 40 mg tablet 40 mg PO HS divalproex 500 mg tablet,delayed release (DR/EC) 500 mg PO BID levothyroxine [Synthroid] 25 mcg tablet 25 mcg PO DAILYDM acetaminophen [Tylenol Extra Strength] 500 mg tablet 1,000 mg PO Q6HP PRN (Reason: Fever Or Pain) polyethylene glycol 3350 [Miralax] 17 gram/dose powder 17 g PO HS aripiprazole [Abilify] 20 mg Tablet 20 mg PO DAILY trazodone 50 mg Tablet 50 mg PO HS sennosides-docusate sodium [Senna Plus] 8.6-50 mg Tablet 2 tab PO HS lactulose 10 gram/15 mL Solution 30 g PO MOWEFR cholecalciferol (vitamin D3) [Vitamin D3] 50 mcg (2,000 unit) Tablet 50 mcg PO DAILY albuterol sulfate 2.5 mg /3 mL (0.083 %) Solution For Nebulization 2.5 mg INHALATION Q8HP PRN (Reason: Shortness Of Breath) fluvoxamine 100 mg Tablet 100 mg PO BID bisacodyl 10 mg Suppository 10 mg NH DAILYP PRN (Reason: Constipation) benztropine 1 mg Tablet 1 mg PO BID simethicone 80 mg Tablet,Chewable 80 mg PO Q8HP PRN (Reason: EXCESSIVE GAS) omeprazole 20 mg Tablet,Delayed Release (Dr/Ec) 20 mg PO HS Anoro Ellipta 62.5-25 mcg/actuation Blister With Device 1 inh INHALATION DAILY azithromycin [azithromycin] 250 mg tablet 250 mg PO DIRECTED Qty: 6 0RF Rx Instructions: Take two (2) tablets on day #1, then one (1) tablet day #2 thru #5 cefdinir 300 mg capsule 300 mg PO BID Qty: 14 0RF doxycycline hyclate 100 mg capsule 100 mg PO DAILY Qty: 10 0RF Referrals Follow up/Referrals: Provider,Referral, MD [Primary Care Provider, Medical] - See instructions Activity Restrictions/Add. Instructions Additional Instructions/Restrictions: You are being put on azithromycin for a COPD exacerbation. Take this as prescribed. If you develop any new or worsening symptoms, or if you become concerned for your help for any reason, return to the emergency department for evaluation Clinical Impressions Clinical Impression: Fall, COPD exacerbation Stand Alone Forms Stand Alone Forms: Transfer Record - ED Print Language Print Language: [place] Discharge ED Provider: Miguel Reyez Adult HPI General Chief complaint: Fall Stated complaint: Fall Time Seen by Provider: 08/22/25 19:19 Mode of Arrival: EMS Source of Information: Patient and EMS Description of Symptoms (Recalled from ER Triage Doc. by RN): EMS states they was called to a resident who fell out of bed, states it was around a 2ft drop. Denies LOC, or N&V. EMS states he had audible wheezing, so he gave a duo with improvement. Patient complains of a headache, and a stomach ache. History of Present Illness HPI narrative: Alexi Ribeiro is a 65y male with a history of bipolar disorder, OH, HTN, HLD, GERD, dementia, TBI, COPD who presents to the ED with EMS after an unwitnessed fall. Per EMS, patient was at his [facility]pc and was reportedly in his bed when he fell approximately 2 feet onto the ground. This was unwitnessed. No loss of consciousness at the time that he was found. Patient has a history of dementia and has been at his baseline according to fpc staff. Per EMS, he was noted to be wheezing and they gave him a DuoNeb treatment. Patient complains of neck pain. He is alert to self and place but otherwise not oriented to year Related Data Home Medications ?Medication ?Instructions ?Recorded ?Confirmed aspirin 81 mg tablet,delayed 81 mg PO DAILY heart heal th 03/07/18 08/18/22 release (Aspir-) pravastatin 40 mg tablet 40 mg PO HS Cholesterol 05/0 02/1908/18/22 acetaminophen 500 mg tablet 1,000 mg PO Q6HP PRN Fever Or Pain 07/12/20 08/18/22 (Tylenol Extra Strength) levothyroxine 25 mcg tablet 25 mcg PO DAILYDM thyroid 07/12/20 08/18/22 (Synthroid) polyethylene glycol 3350 17 17 g PO HS constipation 08/18/22 gram/dose oral powder (Miralax) divalproex 500 mg tablet,delayed 500 mg PO BID bipolar 03/27/21 08/17/22 release aripiprazole 20 mg tablet (Abilify) 20 mg PO DAILY DEL USIONS 08/17/22 08/17/22 cholecalciferol (vitamin D3) 50 50 mcg PO DAILY Supple ment 08/17/22 08/17/22 mcg (2,000 unit) tablet (Vitamin D3) lactulose 10 gram/15 mL oral 30 g PO MOWEFR constipati on 08/17/22 08/18/22 solution sennosides 8.6 mg-docusate sodium 2 tab PO HS constipa tion 08/17/22 08/18/22 50 mg tablet (Senna Plus) trazodone 50 mg tablet 50 mg PO HS adjustment disor sheryl 08/17/22 08/17/22 with depressive mood albuterol sulfate 2.5 mg/3 mL 2.5 mg inhalation Q8HP P RN 08/18/22 08/18/22 (0.083 %) solution for nebulization Shortness Of Breat h benztropine 1 mg tablet 1 mg PO BID DELUSIONS 08/18/22 bisacodyl 10 mg rectal suppository 10 mg NH DAILYP PRN Constipation 08/18/22 08/18/22 fluvoxamine 100 mg tablet 100 mg PO BID MOOD 08/18/22 08/18/22 omeprazole 20 mg tablet,delayed 20 mg PO HS Reflux/Aci d reflux 08/18/22 08/18/22 release simethicone 80 mg chewable tablet 80 mg PO Q8HP PRN EX CESSIVE GAS 08/18/22 08/18/22 umeclidinium 62.5 mcg-vilanterol 1 inh inhalation DEEDEE Y SHORTNESS 08/18/22 08/18/22 25 mcg/actuation powdr for OF BREATH inhalation (Anoro Ellipta) Previous Rx's ?Medication ?Instructions ?Recorded azithromycin 250 mg tablet 250 mg PO DIRECTED #6 ta bs 08/19/22 cefdinir 300 mg capsule 300 mg PO BID #14 caps 08/19 doxycycline hyclate 100 mg capsule 100 mg PO DAILY #10 caps 10/10/22 azithromycin 250 mg tablet 250 mg PO DAILY 4 days #4 t abs 08/22/25 Allergies Allergy/AdvReac Type Severity Reaction Status Date / Time bacitracin (From Neosporin Allergy Mild Verified 03/27/21 11:13 ([id number])) neomycin (From Neosporin Allergy Mild Verified 03/27/21 11:13 ([id number])) polymyxin B (From Neosporin Allergy Mild Verified 03/27/21 11:13 ([id number])) [facility] Disclaimer: The information contained in this section may have been updated after the patient was seen, as this information can be updated by other users. Medical History History of bipolar disorder History of hypothyroidism History of myocardial infarction HTN (hypertension) HLD (hyperlipidemia) GERD (gastroesophageal reflux disease) Depressed CAD (coronary artery disease) COPD (chronic obstructive pulmonary disease) TBI (traumatic brain injury) Dementia Abnormal EKG Family History Other No significant family history Social History Smoking Status: Former smoker tobacco type: cigarettes packs per day: 1 alcohol intake: never substance use type: denies use current occupational status: retired Travel in the last 8 weeks?: None household members: caregiver housing: fpc Have you lived/traveled outside US in past 30 days?: No Contact w/someone who lives/traveled outside US past 30 days?: No Exposure to someone with infectious disease in past 14 days?: No Do you have a fever (greater than 100.4 F or 38 C)?: No Have you tested positive for COVID-19?: No Exposed to someone with COVID-19 in past 14 days?: No Do you have a sore throat?: No Do you have a cough?: No Do you have any weakness?: No Do you have any diarrhea?: No Are you experiencing any unusual bleeding?: No Do you have any muscle aches/pain?: No Do you have any abdominal pain?: No Are you experiencing loss of taste or smell?: No Other Medical History Have you received the Flu Vaccine for this season: No Have you received the Pneumonia Vaccine: No ROS Obtained: Yes Systems reviewed as appropriate & no additional complaints except as documented Physical Exam General General appearance: alert and in no apparent distress Comment: And cervical collar Head Head exam: atraumatic, normocephalic and normal inspection Eye Eye exam: Present normal appearance and PERRL ENT ENT exam: Present normal external ear exam Neck Neck exam: Present trachea midline; Absent tenderness Chest Chest inspection: Present symmetric chest wall rise; Absent tenderness Respiratory Respiratory exam: Present normal lung sounds bilaterally and wheezes; Absent respiratory distress or stridor Cardiovascular Cardiovascular exam: Present regular rate and normal rhythm Abdominal Exam Abdominal exam: Present soft; Absent tenderness or guarding exam: Present deferred Extremities Exam Extremities exam: Present normal inspection and edema Back Exam Back exam: Present normal inspection; Absent vertebral tenderness (No C/T/L- spine tenderness, deformity or step-off) Neurological Exam Neurological exam: Present alert; Absent oriented X3 (Oriented to self and location but not year. Following commands, moving all extremities.) Psychiatric Psychiatric exam: Present normal affect Skin Skin exam: Present warm and dry Medical Decision Making Medical Records Screening: Per USPSTF and CDC recommendations, given the prevalence of disease in our region, it is our hospital?s policy to screen for HIV and viral Hepatitis for all patients aged 18 and over and those with ongoing risk factors. Rao Inquiry Pt receiving controlled substance: No Vital Signs: 08/22/25 19:29 08/22/25 19:35 08/22/25 19:40 Temperature 97.7 F 98.8 F Temperature Source Oral Pulse Rate 78 Pulse Rate [Left] 71 Respiratory Rate 17 20 Blood Pressure 147/81 H Blood Pressure [Right Arm] 159/99 H Blood Pressure Mean [Right Arm] 119 Blood Pressure Source Blood Pressure Position 02 Sat by Pulse Oximetry 93 L 90 L 93 L Oxygen Delivery Method Room Air Room Air Oxygen Flow Rate (LPM) 08/22/25 20:00 08/22/25 20:30 08/22/25 21:01 Temperature Temperature Source Pulse Rate 88 86 85 Pulse Rate [Left] Respiratory Rate Blood Pressure 152/99 H 143/101 H 117/83 Blood Pressure [Right Arm] Blood Pressure Mean [Right Arm] Blood Pressure Source Blood Pressure Position 02 Sat by Pulse Oximetry 95 95 99 Oxygen Delivery Method Nasal Cannula Nasal Cannula Nasal Cannula Oxygen Flow Rate (LPM) 2 2 2 08/22/25 21:30 08/22/25 22:18 Temperature 98.3 F Temperature Source Pulse Rate 93 H 101 H Pulse Rate [Left] Respiratory Rate 16 Blood Pressure 127/71 157/99 H Blood Pressure [Right Arm] Blood Pressure Mean [Right Arm] Blood Pressure Source Automatic Cuff Blood Pressure Position Sitting 02 Sat by Pulse Oximetry 98 Oxygen Delivery Method Nasal Cannula Room Air Oxygen Flow Rate (LPM) 2 Lab Data Lab Results 08/22/25 19:24: VBG pH 7.32, VBG pCO2 65.0 H, VBG pO2 43.9 H, VBG HCO3 32.4 H, V BG Total CO2 34.4 H, VBG O2 Saturation 75.3 H, VBG Base Excess 6.3 H, VBG Lactic Acid 1.7 08/22/25 19:29: WBC 8.5 D, RBC 4.75, Hgb 14.8, Hct 45.5, MCV 95.8 H, MCH 31.2, MCHC 32.5, RDW 13.8, Plt Count 155, MPV 13.3 H, Neut % (Auto) 68.2, Lymph % (Auto) 18.6, [place] % (Auto) 10.7 H, Eos % (Auto) 2.1, Baso % (Auto) 0.2, Neut # (Auto) 5.8, Lymph # (Auto) 1.6, [place] # (Auto) 0.9, Eos # (Auto) 0.2, Baso # (Auto) 0.0, Sodium 135 L, Potassium 4.2, Chloride 95 L, Carbon Dioxide 34 H, Anion Gap 10.2, BUN 21 H, Creatinine 0.80, Estimated Creat Clear 0, Estimated GFR 97, Est GFR ( Amer) 117, Glucose 107 H, Calcium 9.0, Total Bilirubin 0.5, AST 33 D, ALT 12, Alkaline Phosphatase 65, Troponin I < 0.01, NT-Pro-B Natriuret Pep 110, Total Protein 7.7 D, Albumin 3.8, Globulin 3.9 H, A lbumin/Globulin Ratio 1.0 L 08/22/25 21:23: Urine Color Yellow, Urine Appearance Clear, Urine pH 6.5, Ur Specific [place] 1.020, Urine Protein Negative, Urine Glucose (UA) Negative, Urine Ketones Trace, Urine Blood Negative, Urine Nitrate Negative, Urine Bilirubin Negative, Urine Urobilinogen 1.0, Ur Leukocyte Esterase Negative, Urine RBC Occasional, Urine WBC None, Ur Squamous Epith Cells None, Urine Bacteria None 08/22/25 19:29 08/22/25 19:29 Orders (Tests/Meds): ED MEDICATIONS Discontinued Medications Generic Name Dose Route Start Last Admin Trade Name Terri PRN Reason Stop Dose Admin Albuterol/Ipratropium 9 ml 08/22/25 19:24 08/22/25 19:49 Ipratropium/Albuterol 3 Ml Neb IH 08/22/25 19:25 9 ml ONCE ONE Administration Azithromycin 500 mg 08/22/25 22:33 08/22/25 22:49 Azithromycin 250mg Tablet PO 08/22/25 22:34 500 mg ONCE ONE Administration Magnesium Sulfate 2 gm in 50 mls @ 50 mls/hr 08/22/25 19:24 08/22/25 20:42 Magnesium Sulfate 2gm/50ml Premix IV 08/22/25 20:23 Infused ONCE ONE Infusion Methylprednisolone Sodium Succinate 60 mg 08/22/25 19:24 08/22/25 19:46 Methylprednisolone Sod Succ 125mg Vial IV 08/22/25 19:25 60 mg ONCE ONE Administration ORDERS Category Date Time Status CT cervical spine wo con Stat Cat Scan 08/22/25 19:[address] head/brain wo con Stat Cat Scan 08/22/25 19:26 Completed CXR --portable [XR chest portable] Stat Exams 08/22/25 20:52 Completed Pelvis XR 1-2 views [XR pelvis 1-2V] Stat Exams 08/22/25 19:26 Completed BNP [NT Pro Brain Natriuretic Pep.] Stat Lab 08/22/25 19:29 Completed CBC w/Auto Diff [Complete Blood Count Auto Diff] Stat Lab 08/22/25 19:29 Completed CMP [Comprehensive Metabolic Panel] Stat Lab 08/22/25 19:29 Completed Troponin I Stat Lab 08/22/25 19:29 Completed UA [Urinalysis and Microscopic] Stat Lab 08/22/25 21:23 Completed VBG [Venous Blood Gas] Stat RT 08/22/25 19:24 Completed ECG Data Tracing #1: I reviewed this ECG and interpreted as documented below: NSR. No ST elevation or depression. QTc WNL at 383 Medical Decision Narrative: Alexi Ribeiro is a 65y male with a history of bipolar disorder, OH, HTN, HLD, GERD, dementia, TBI, COPD who presents to the ED with EMS after an unwitnessed fall. Per EMS, patient was at his [facility] and was reportedly in his bed when he fell approximately 2 feet onto the ground. This was unwitnessed. No loss of consciousness at the time that he was found. Patient has a history of dementia and has been at his baseline according to fpc staff. Per EMS, he was noted to be wheezing and they gave him a DuoNeb treatment. Patient complains of neck pain. He is alert to self and place but otherwise not oriented to year. On arrival, patient is alert and receiving a breathing treatment via EMS. He is oriented to self and location but not year, and according to fpc this is his baseline. Patient has no complaints at this time. He does not recall events that led him here. He has no tenderness in the midline C/T/L-spine. No step-offs or deformities. No evidence of external head trauma. Abdomen is soft, nontender nondistended. There is no tenderness over the anterior chest wall. Cardiopulmonary exam shows bilateral breath sounds bilaterally but he does have expiratory wheezing bilaterally, even after his breathing treatment. He does not have any significant peripheral edema and is moving all extremities appropriately. Patient arrived in a cervical collar and will remain in 1 at this time. Differential diagnosis includes, but is not limited to: Intracranial hemorrhage, C-spine fracture, COPD exacerbation, pneumonia, electrolyte derangement, dehydration, ACS, cardiac arrhythmia, among others. The most morbid conditions were considered and workup was based on these. Workup in the emergency department included: CBC with differential, VBG with lactate, CMP, troponin, NT proBNP, urinalysis, CT head without contrast, CT C- spine without contrast, chest x-ray, pelvis x-ray. Patient was treated with 2 g of IV magnesium sulfate, continuous DuoNeb, and 80 mg of IV methylprednisolone for COPD exacerbation. X-ray imaging was interpreted by me personally. No pelvic fractures are appreciated. Chest x-ray interpreted by me personally. No focal consolidation, no pneumothorax, no widened mediastinum, no enlargement of the cardiac silhouette. Unremarkable chest x-ray. See radiology report for details. EKG is without evidence of ischemia. See interpretation above Laboratory studies are unremarkable nonactionable. His pCO2 is elevated at 65 but pH is normal at 7.32, bicarb is compensated and is elevated at 32.4. Lactate is normal at 1.7. Mild hyponatremia of 135 but electrolytes grossly unremarkable nonactionable. No LIVAN. Glucose normal at 107. Initial troponin less than 0.01. NT proBNP within normal limits. Urinalysis without evidence of infection. CT imaging was interpreted by me personally. No acute cervical spine fractures or malalignment. Hardware from previous surgery appears to be in place. No intracranial hemorrhage, mass, or midline shift See radiology report for details. Patient C-spine was cleared Via Nexus criteria. On reassessment, patient's wheezing has greatly improved. He is maintaining oxygen saturations at around 90 to 92% on room air. We discussed this further with the fpc and they state that he does not normally wear oxygen but his O2 level at baseline is around 90-92. Given this, do not feel that any additional workup is indicated at this time and he is appropriate for return back to his fpc given there are no traumatic injuries and he is at his baseline oxygen level. Patient was given 500 mg of oral azithromycin here and a 4-day course of 2050 mg daily to go home with given his cough in the setting of COPD exacerbation. Critical Care Critical Care Time Critical Care Time: Yes Attestation: On 08/22/25, the high probability of a clinically significant, sudden or life threatening deterioration of the following system(s) required my full and direct attention, intervention and personal management. The time I documented below is in addition to time spent performing reported procedures but includes the following listed in this critical care notation. Total Time Total Critical Care Time: 35
[2025-08-22 20:51] LABS: Hematocrit 45.5 % (42.0-52.0); Hemoglobin 14.8 g/dL (14.1-18.0); Immature Granulocytes % 0.2 %; Mean Corpuscular HGB Conc 32.5 g/dL (31.8-35.4); Mean Corpuscular Hemoglobin 31.2 pg (27.0-31.2); Mean Corpuscular Volume 95.8 fl (80-94); Nucleated Red Blood Cells % 0 %; Platelet Count 155 K/mm3 (142-424); Red Blood Count 4.75 M/mm3 (4.60-6.20); Red Cell Distribution Width-SD 48.9 fL; White Blood Count 8.5 K/mm3 (4.8-10.8)
--- NOTE | 2025-08-22 20:52 | XR_ITS ---
PROCEDURE INFORMATION: Exam: XR Chest Exam date and time: 08/22/2025 8:44 PM Age: 65 years old Clinical indication: Injury or trauma; Fall; Shortness of breath; Blunt trauma (contusions or hematomas); Additional info: SOB, fall, HX copd TECHNIQUE: Imaging protocol: Radiologic exam of the chest. Views: 1 view. COMPARISON: CT CHEST WO CON 04/27/2025 9:17 AM FINDINGS: Lungs: Mild peripheral pulmonary scarring. Stigmata of old granulomatous disease. Pleural spaces: Unremarkable. No pleural effusion. No pneumothorax. Heart/Mediastinum: Unremarkable. No cardiomegaly. Bones/joints: Postsurgical changes of the cervicothoracic spine. Old bilateral rib fractures. IMPRESSION: No acute findings.
[2025-08-22 21:30] LABS: Microscopic, Urine URINE MICROSCOPIC (MICROSCOPIC)
[2025-08-22 21:31] LABS: Bilirubin,Urine Negative (Negative); Color,Urine YELLOW (Yellow); Glucose,Urine (UA) Negative (Negative); Ketones,Urine TRACE (Negative); Leukocyte Esterase,Urine Negative (Negative); PH,Urine 6.5 (5.0-8.5); Protein,Urine Negative (Negative); Specific Gravity, Urine 1.020 (1.005-1.030); Urobilinogen,Urine 1.0 EU/dl (0.2)
[2025-08-22 21:40] LABS: RBC,Urine Occasional #/hpf (0-3)
--- NOTE | 2025-08-22 22:24 | PC.NURSE ---
DC assessment documented in error.
[2025-08-22] MEDS: AZITHROMYCIN 250MG TABLET 500 MG PO (22:49)
== END 2025-08-22 23:47 | disposition home or self-care (01) ==
PROVIDERS: Emergency Provider Student in an Organized Health Care Education/Training Program
DX: J44.1 Chronic obstructive pulmonary disease with (acute) exacerbation (principal); M54.2 Cervicalgia; F03.90 Unspecified dementia, unspecified severity, without behavioral disturbance, psychotic disturbance, mood disturbance, and anxiety; W06.XXXA Fall from bed, initial encounter; Z87.891 Personal history of nicotine dependence
CPT/HCPCS: 70450; 71045; 72125; 72170; 80053; 81001; 82803; 83880; 84484; 85025; 93005; 96365; 96375; 99285; J2919; J3475

== ENCOUNTER 2025-08-24 19:36 | Outpatient (CLI) | payer MEDICARE, MEDICAID, SELFPAY ==
--- OUTSIDE RECORDS SUMMARY | 2025-08-24 19:40 | XMS_ITS | Encounter Summary ---
Author Organization [employer] ([place], [place], [place], [place]) Address [address] [place] [address] Care Team Providers Care Honest [employer] Member Name Role Phone Unavailable Primary Care Provider Unavailabl e Encounter Details Date Type Department Care Team (Late st Contact Info) Description 11/30/2020 Transcribed Document [facility] [place] [facility] [place] [address] ProviderFabi MD [address] [place] [address] Social History Tobacco Use Types [...] - Historical ProviderMD - 11/30/2020 10:13 PM DIRECTOR OF MANAGED CARE Meds to Bed Enrollment Entered On: 12/01/2020 [...]
--- OUTSIDE RECORDS SUMMARY | 2025-08-24 19:40 | XMS_ITS | Encounter Summary ---
Author Organization [employer] ([place], [place], [place], [place]) Address [address] [place] [address] Care Team Providers Care Medical Practice Administrator Name Role Phone Unavailable Primary Care Provider Unavailabl e Encounter Details Date Type Department Care Team (Late st Contact Info) Description 11/28/2020 Transcribed Document [facility] [place] [facility] [place] [address] ProviderFabi MD [address] [place] [address] Social History Tobacco Use [...] - Historical ProviderMD - 11/28/2020 2:02 PM SYNCHRONIZER UM Authorization Entered On: 11/28/2020 14:03 EST Performed On: 11/28/2020 14:02 EST by TRA GOLDBERG, Preform Machine Operator Primary Insurance Authorization Authorization and Policy Numbers : Insurance 1 Health Plan: MEDICARE Policy Number: [id number] Authorization Number: Insurance 2 Health Plan: [place] Policy Number: [id number] Authorization Number: Insurance Primary Name : Medicare Authorization Status-Primary : No precert required Authorization Number-Primary : NPR for Medicare Authorized Service Begin Date-Primary : 11/30/2020 EST Authorization Comments-Primary : Pt is mauricio for INPT Cervical Discectomy Fusion Posterior on 11-30-20 Medicare: NPR Historical Authorization Comments-Primary : No Authorization Comments Found TRA GOLDBERG, Preform Machine Operator - 11/28/2020 14:02 EST Secondary Insurance Authorization Authorization and Policy Numbers : Insurance 1 Health Plan: MEDICARE Policy Number: [id number] Authorization Number: Insurance 2 Health Plan: [place] Policy Number: [id number] Authorization Number: Insurance Secondary Name : [facility] [id number] Authorized Service Begin Date-Secondary : 11/30/2020 EST Historical Authorization Comments-Secondary : No Authorization Comments Found TRA GOLDBERG, Preform Machine Operator - 11/28/2020 14:02 EST documented in this encounter Plan of Treatment Not on file documented as of this encounter Visit Diagnoses Not on filedocumented in this encounter
--- OUTSIDE RECORDS SUMMARY | 2025-08-24 19:40 | XMS_ITS | Encounter Summary ---
Author Organization [email or web address] ([place], [place], [place], [place]) Address [address] [place] [address] Care Team Providers Care Funeral Director And Embalmer Name Role Phone Unavailable Primary Care Provider Unavailabl e Encounter Details Date Type Department Care Team (Late st Contact Info) Description 12/01/2020 Transcribed Document [facility] [place] Family Medicine [facility] [place] [address] ProviderFabi MD [address] [place] [address] Social History Tobacco Use Types [...] - Historical ProviderMD - 12/01/2020 2:19 PM WINE AND SPIRITS CLERK Treatment Intervention, OT Entered On: 12/02/2020 12:36 EST Performed On: 12/02/2020 10:27 EST by MERE TOLBERT COTA General Information, OT Visit Type, OT : Treatment Note Patient Orders : Order Date Order Ordering 11/30/2020 18:25 Occupational Therapy Evaluation and Treatme Ordered By: BRAD CASTILLO MD-[facility] 12/01/2020 14:19 OT Additional Tx Ordered By: [...] MERE TOLBERT COTA - 12/02/2020 12:22 EST Head Holder Goals, OT Grooming LTG Grid Goal #1 [...] OT/PT Anticipated Discharge to : Unit, halfway MERE TOLBERT [place] - 12/02/2020 12:[address] [facility] OT Charges [place] OT Ther Activities Ea 15 Min-[place] : 1 MERE TOLBERT COTA - 12/02/2020 12:22 EST documented in this encounter Plan of Treatment Not on file documented as of this encounter Visit Diagnoses Not on filedocumented in this encounter
--- OUTSIDE RECORDS SUMMARY | 2025-08-24 19:40 | XMS_ITS | Encounter Summary ---
Author Organization [employer] ([place], [place], [place], [place]) Address [address] [place] [address] Care Team Providers Care Shank Faker Name Role Phone Unavailable Primary Care Provider Unavailabl e Encounter Details Date Type Department Care Team (Late st Contact Info) Description 11/30/2020 Transcribed Document [facility] [place] Family Medicine [address] [place] [address] ProviderFabi MD [address] [place] [address] Social History Tobacco Use Types [...] - Historical ProviderMD - 11/30/2020 4:09 PM INFORMATION CLERK [facility] Main OR Preop Summary Primary Physician: BRAD CASTILLO MD-[facility] Finalized Date/Time: 12/11/20 16:34:08 Pt. Name: ALEXI GRIJALVA /Sex: 1960 Male Med Rec #: [id number] Physician: BRAD CASTILLO MD-[facility] Financial #: [id number] Pt. Type: I Room/Bed: 647/1 Admit/Disch: 11/30/20 06:39:00 - 12/02/20 16:16:00 Institution: [facility] PreOp Case Times Entry 1 In Preop 11/30/20 10:20:00 Ready for Holding n/a Room Patient Ready for 11/30/20 14:20:00 Surgery Patient Out of Preop 11/30/20 14:57:00 Patient Out of n/a Holding Room Last Modified By: Meli Grimaldo Nurse Chemical Checker 12/11/20 16:34:04 [facility] PreOp Case Times Audit 12/11/20 16:34:04 Malt House Operator: [id number] Modifier: [id number] <+> 1 Patient Out of Preop Finalized By: Meli Grimaldo, Nurse Mgmt Analyst Signatures Signed By: Meli Grimaldo Nurse Chemical Checker 12/11/20 16:34 documented in this encounter Plan of Treatment Not on file documented as of this encounter Visit Diagnoses Not on filedocumented in this encounter
--- OUTSIDE RECORDS SUMMARY | 2025-08-24 19:40 | XMS_ITS | Encounter Summary ---
Author Organization [employer] ([place], [place], [place], [place]) Address [address] [place] [address] Care Team Providers Care Medical Transcription Name Role Phone Unavailable Primary Care Provider Unavailabl e Encounter Details Date Type Department Care Team (Late st Contact Info) Description 12/02/2020 Transcribed Document [facility] [place] [facility] [place] [address] ProviderFabi MD [facility] [place] [place] [address] Social History Tobacco Use Types [...] - Fabi ProviderMD - 12/02/2020 2:30 PM GAME TECHNICIAN On Going Discharge Planning Entered On: 12/02/2020 14:47 EST Performed On: 12/02/2020 14:30 EST by JAQUI COLÓN RN-Search Marketing AnalystExtractions Technician Progress Note Discharge Arrangements : Patient Post-Acute [...] Attend Multidisciplinary Rounds? : Yes JAQUI COLÓN RN-Search Marketing Analyst - 12/02/2020 14:30 EST Electronically signed by [facility], [facility] Conversion Harvester Operator Cerner at 02/19/2023 9:44 AM CDT documented in this encounter Plan of Treatment Not on file documented as of this encounter Visit Diagnoses Not on filedocumented in this encounter
--- OUTSIDE RECORDS SUMMARY | 2025-08-24 19:40 | XMS_ITS | Encounter Summary ---
Author Organization [employer] ([place], [place], [place], [place]) Address [address] [place] [address] Care Team Providers Care Medical/Surgery Registered Nurse Name Role Phone Unavailable Primary Care Provider Unavailabl e Encounter Details Date Type Department Care Team (Late st Contact Info) Description 12/05/2020 Transcribed Document [facility] [place] [facility] [place] [address] ProviderFabi MD [address] [place] [address] Social History Tobacco Use [...] - Fabi ProviderMD - 12/05/2020 10:59 PM CHEMICAL PROCESSING LABORER PLEASE MODIFY BEFORE SIGNING CLINICAL DOCUMENTATION CLARIFICATION [...] ] Albuterol As per MAR sheet on CDS/Talend Developer Signature: Jalenu Phone #: [phone] Extn [id number] Date/Time: 12/06/2020 This is a permanent part of the Medical Record Q47 2019 [facility] Updated: documented in this encounter Plan of Treatment Not on file documented as of this encounter Visit Diagnoses Not on filedocumented in this encounter
--- OUTSIDE RECORDS SUMMARY | 2025-08-24 19:40 | XMS_ITS | Encounter Summary ---
Author Organization [employer] ([place], [place], [place], [place]) Address [address] [place] [address] Care Team Providers Care Logistics Supply Officer Name Role Phone Unavailable Primary Care Provider Unavailabl e Encounter Details Date Type Department Care Team (Late st Contact Info) Description 11/30/2020 Transcribed Document [facility] [place] [address] ProviderFabi MD [address] [place] [address] Social History Tobacco Use Types [...] - Historical ProviderMD - 11/30/2020 6:25 PM PELT SALTER Evaluation, Physical Therapy Entered On: 12/01/2020 12:28 EST Performed On: 12/01/2020 11:50 EST by MACI LAND, JESSIE General Information, PT Visit Type, PT : Initial evaluation Patient Orders : Order Date Order Ordering 11/30/2020 18:25 Physical Therapy Eval and Treat Ordered By: BRAD CASTILLO MD-[facility] Active Diagnoses : 11/30/2020 12:00 [...] and Environment Living Situation, Therapy : Other: [facility] Patient Lives With : Caregiver(s) Persons [...] that patient is able to ambulate however correction does not allow patient to ambulate and [...] MACI LAND, PT - 12/01/2020 11:50 EST Outcome Analyst Goals Mobility/Bed Mobility LTG PT Grid Goal [...] Needs, OT/PT Anticipated Discharge to : Unit, [facility] Recommend Continued Therapy at Discharge : Yes MACI LAND PT - 12/01/2020 11:[address] [facility] PT Charges Gait Training Each 15 Min : 1 PT Eval Moderate Complexity : 1 MACI LAND, PT - 12/01/2020 11:50 EST Electronically signed by Cruzito [facility] Conversion Fixing Machine Operator Cerner at 02/19/2023 9:43 AM CDT documented in this encounter Plan of Treatment Not on file documented as of this encounter Visit Diagnoses Not on filedocumented in this encounter
--- OUTSIDE RECORDS SUMMARY | 2025-08-24 19:40 | XMS_ITS | Encounter Summary ---
Author Organization [employer] ([place], [place], [place], [place]) Address [address] [place] [address] Care Team Providers Care Mens Locker Room Attendant Name Role Phone Unavailable Primary Care Provider Unavailabl e Encounter Details Date Type Department Care Team (Late st Contact Info) Description 11/30/2020 Transcribed Document [facility] [place] [facility] [place] [address] ProviderFabi MD [address] [place] [address] Social History Tobacco Use Types [...] - Fabi ProviderMD - 11/30/2020 6:19 PM RAG SHREDDER Pain Assessment Entered On: 12/01/2020 15:49 EST [...]
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
--- OUTSIDE RECORDS SUMMARY | 2025-08-24 19:40 | XMS_ITS | Encounter Summary ---
Author Organization [employer] ([place], [place], [place], [place]) Address [address] [place] [address] Care Team Providers Care Director Post Name Role Phone Unavailable Primary Care Provider Unavailabl e Encounter Details Date Type Department Care Team (Late st Contact Info) Description 11/30/2020 Transcribed Document [facility] [place] [address] [place] [address] ProviderFabi MD [address] [place] [address] Social History Tobacco Use Types [...] - Fabi ProviderMD - 11/30/2020 4:09 PM MEAT CARRIER [facility] Main OR PACU Summary Primary Physician: BRAD CASTILLO MD-SNU Finalized Date/Time: 11/30/20 22:00:25 Pt. Name: ROSELYN GRIJALVA /Sex: 1960 Male Med Rec #: [id number] Physician: BRAD CASTILLO MD-SNU Financial #: [id number] Pt. Type: I Room/Bed: ASA/4 Admit/Disch: 11/30/20 06:39:00 - Institution: [facility] Main OR PACU I Case Times Entry 1 In PACU I 11/30/20 18:48:00 Ready for PACU 11/30/20 21:43:00 Discharge Discharge from PACU 11/30/20 21:43:00 I Last Modified By: Venus Montaño RN 11/30/20 21:59:38 [facility] Main OR PACU I Case Times Audit 11/30/20 21:59:38 Jigsaw Operator: [id number] Modifier: [id number] <+> 1 Ready for PACU Discharge <+> 1 Discharge from PACU I Finalized By: Venus Montaño RN Document Signatures Signed By: Venus Montaño RN 11/30/20 22:00 Electronically signed by Cruzito [facility] Conversion Refinery Operator Polymerization Plant Cerner at 02/19/2023 9:48 AM CDT documented in this encounter Plan of Treatment Not on file documented as of this encounter Visit Diagnoses Not on filedocumented in this encounter
--- OUTSIDE RECORDS SUMMARY | 2025-08-24 19:40 | XMS_ITS | Encounter Summary ---
Author Organization [employer] ([place], [place], [place], [place]) Address [address] [place] [address] Care Team Providers Care Prover Name Role Phone Unavailable Primary Care Provider Unavailabl e Encounter Details Date Type Department Care Team (Late st Contact Info) Description 12/02/2020 Transcribed Document [facility] [place] [facility] [address] ProviderFabi MD [address] [place] [address] Social History Tobacco Use Types [...] Fabi Flores MD - 12/02/2020 1:44 PM FACILITY EXAMINER [facility] [place] [address] MEGHANALEXI Mehta :1960 Visit Time:11/30/2020 Your Visit Summary Your [...] EST Comments Appointment has been made Where: [address] [place], [place] [address] [address] (SATURDAY ONLY) [place] [address]- Follow Up with BRAD CASTILLO MD-SNU When 12/19/2020 03:15 PM EST Comments Return for suture/staple removal Where: [address] [place], [place] [address] [address] (SATURDAY ONLY) [place] [address]- Medications What How Much When [...] Oral At Bedtime fluticasone nasal (Flonase) 1 [place]on(s) Nostrils Both Every Day fluvoxaMINE (fluvoxaMINE 50 [...] and water are not available, use hand senior sustainability advisor. ? Change your dressing as told by [...] or a bad smell. Medicines ??? Take jzdf-gki-gookmvd and prescription medicines only as told by [...] urine clear or pale yellow. ? Take tmaw-ilh-nzuutwt or prescription medicines. ? Eat foods that [...] and water are not available, use hand senior sustainability advisor. ? Change your dressing as told by [...] or a bad smell. Medicines ??? Take jwho-eec-udhdpbm and prescription medicines only as told by [...] urine clear or pale yellow. ? Take xoau-bbd-evkrcgd or prescription medicines. ? Eat foods that [...] Reviewed: 04/07/2017 Elsevier Patient Education ?? 2020 [employer] Emergency Awareness and Preventative Care STROKE [...] Assistance with quitting is available by contacting 9-008-JYSY-NOW. This is a free resource providing counseling, support, and referral. Or you may contact your personal physician. [address] Suicide Prevention Lifeline: The National Suicide Prevention [...] range between ( 0.0 and 7.0 ) [place] #: 1.16 K/uL -- Normal range between ( 0.16 and 1.00 ) Eos #: 0.07 x10(3)/uL -- Normal range between ( 0.00 and 0.80 ) [place] %: 10.1 % -- Normal range between [...] was given the opportunity to ask questions. Patient/Vice President Client Services Name: Patient/Vice President Client Services Signature: Relationship to Patient: Clinician/Hospital Vice President Client Services Signature: Date: Electronically signed by Cruzito, Dennys Conversion Licensed Mortgage Loan Officer Kamala at 02/19/2023 9:42 AM CDT documented in this encounter Plan of Treatment Not on file documented as of this encounter Visit Diagnoses Not on filedocumented in this encounter
--- OUTSIDE RECORDS SUMMARY | 2025-08-24 19:40 | XMS_ITS | Encounter Summary ---
Author Organization [employer] ([place], [place], [place], [place]) Address [address] [place] [address] Care Team Providers Care Forwarder Operator Name Role Phone Unavailable Primary Care Provider Unavailabl e Encounter Details Date Type Department Care Team (Late st Contact Info) Description 12/01/2020 Transcribed Document [facility] Neurology - [address] [address] Brad Castillo MD [facility] [address] [place] [address] Social History Tobacco Use Types [...] rehab at discharge, pts lives at a fpc, h/o TBI -medicine following VTE Prophylaxis - [...] to lift arms above head 4/5 bilateral lubrication technician documented in this encounter Plan of Treatment Not on file documented as of this encounter Visit Diagnoses Not on filedocumented in this encounter
--- OUTSIDE RECORDS SUMMARY | 2025-08-24 19:40 | XMS_ITS | Encounter Summary ---
Author Organization [employer] ([place], [place]) Address [address] [place] [address] Care Team Providers Care Wrapper Operator Name Role Phone Unavailable Primary Care Provider Unavailabl e Encounter Details Date Type Department Care Team (Late st Contact Info) Description 12/01/2020 Transcribed Document [facility] [place] Family Medicine [facility] [place] [address] ProviderFabi MD [address] [place] [address] Social History Tobacco Use Types [...] - Fabi ProviderMD - 12/01/2020 12:00 PM SPEECH LANGUAGE PATHOLOGIST PRN Pain Assessment Entered On: 12/01/2020 15:55 EST [...] the text rendition version of the form. Electronically signed by Cruzito, Abraham Conversion Automotive Service Manager Cerner at 02/19/2023 9:44 AM CDT documented in this encounter Plan of Treatment Not on file documented as of this encounter Visit Diagnoses Not on filedocumented in this encounter
--- OUTSIDE RECORDS SUMMARY | 2025-08-24 19:40 | XMS_ITS | Clinical Summary ---
Author Organization [facility] Address [address] [place] [address] Phone Care Team Providers Care Beater Boss Name Role Phone Unavailable Primary Care Provider [...] age to complete this topic Insurance MEDICAID [place] [address]
--- OUTSIDE RECORDS SUMMARY | 2025-08-24 19:40 | XMS_ITS | Encounter Summary ---
Author Organization [employer] ([place], [place], [place], [place]) Address [address] [place] [address] Care Team Providers Care Handyperson Name Role Phone Unavailable Primary Care Provider Unavailabl e Encounter Details Date Type Department Care Team (Late st Contact Info) Description 12/01/2020 Transcribed Document [facility] [place] Family Medicine [facility] [place] [address] ProviderFabi MD [address] [place] [address] Social History Tobacco Use Types [...] - Historical ProviderMD - 12/01/2020 12:28 PM YARD PIPE GRADER Treatment Intervention, PT Entered On: 12/02/2020 16:31 EST Performed On: 12/02/2020 11:36 EST by MACI LAND PT General Information, PT Visit Type, PT : Treatment Note Patient Orders : Order Date Order Ordering 11/30/2020 18:25 Physical Therapy Eval and Treat Ordered By: BRAD CASTILLO MD-[facility] 12/01/2020 12:28 Physical Therapy Additional Tx Ordered [...] MACI LAND PT - 12/02/2020 16:29 EST Delivery Truck Driver Goals Mobility/Bed Mobility LTG PT Grid Goal [...] Anticipated Discharge to : Unit, rehabilitation, Unit, [facility] Recommend Continued Therapy at Discharge : Yes MACI LAND PT - 12/02/2020 16:29 EST [place] PT Charges PT Ther Activities Ea 15 Min : 1 MACI LAND PT - 12/02/2020 16:29 EST documented in this encounter Plan of Treatment Not on file documented as of this encounter Visit Diagnoses Not on filedocumented in this encounter
--- OUTSIDE RECORDS SUMMARY | 2025-08-24 19:40 | XMS_ITS | Encounter Summary ---
Author Organization [employer] ([place], [place], [place], [place]) Address [address] [place] [address] Care Team Providers Care Allergy And Immunology Chief Name Role Phone Unavailable Primary Care Provider Unavailabl e Encounter Details Date Type Department Care Team (Late st Contact Info) Description 11/25/2020 Transcribed Document [facility] Family Medicine [facility] [place] [address] ProviderFabi MD [address] [place] [address] Social History Tobacco Use Types [...] - Fabi ProviderMD - 11/25/2020 10:54 AM PROGRAM LEAD PAT Adult Entered On: 11/25/2020 10:59 EST [...] Source : Measured Height Entry Format : Cook Height, Feet : 0 ft(Converted to: 0 cm, 0 Inch) Constance Boone RN - 11/28/2020 12:34 EST Height, Inches : 65 Inch(Converted to: 5 ft 5 Inch, 165.10 cm) Clinical Height : 165.1 cm Constance Boone RN - 11/28/2020 12:48 EST Weight Source : Standing scale Weight Entry Format : Cook Constance Boone RN - 11/28/2020 12:34 EST [place] Body Weight : 61 kg Constance Boone [...] Alli Greene Rn - 11/25/2020 10:54 EST [place] Suicide Severity Rating Scale (C-SSRS) CSSRS Past [...] Arrival on Unit : Wheelchair Support Person/Patient Printing Pressman : Yes Support Person/Pt Rep Name : [facility] Support Person/Pt Rep Contact Information : [phone] ext. 100 Want Family/Rep/Phys Notified of Admit : No Alli Greene Rn - 11/25/2020 10:54 EST Emergency Contact #1 : faheem hahn Emergency Contact #1 Phone Number : `[phone] Emergency Contact #1 Relationship : `sister Emergency Contact #2 : `hood hero Emergency Contact #2 ` Emergency Contact #2 Relationship : sister` Constance BooneRAYO - 11/28/2020 12:34 EST Information Obtained From : Care provider Information Obtained from, Name(s) : Misa, Social Service Primary Language : Hungarian Preferred Communication Mode : Verbal Communication Barrier : Cognitive Private Sector Executive Needed : No Alli Greene Rn - [...]
--- OUTSIDE RECORDS SUMMARY | 2025-08-24 19:40 | XMS_ITS | Encounter Summary ---
Author Organization [employer] ([place], [place], [place], [place]) Address [address] [place] [address] Care Team Providers Care Educational Technology Coordinator Name Role Phone Unavailable Primary Care Provider Unavailabl e Encounter Details Date Type Department Care Team (Late st Contact Info) Description 12/01/2020 Transcribed Document [facility] Family Medicine [facility] [place] [address] ProviderFabi MD [address] [place] [address] Social History Tobacco Use [...] - Historical ProviderMD - 12/01/2020 11:11 AM CLINIC SCHEDULER Attempt to Treat, OT Entered On: 12/01/2020 12:45 EST Performed On: 12/01/2020 11:11 EST by JADIEL SHIN OTR/Patti Attempt to Treat Unable to Treat Due To : Patient Unavailable Inability to Treat Comment : Pt eating lunch at this time. OT will follow up as schedule permits. Notification : RAYO Solares SHEENAGH E, OTR/Patti - 12/01/2020 12:44 EST documented in this encounter Plan of Treatment Not on file documented as of this encounter Visit Diagnoses Not on filedocumented in this encounter
--- OUTSIDE RECORDS SUMMARY | 2025-08-24 19:40 | XMS_ITS | Clinical Summary ---
Author Organization [employer] ([place], [place], [place], [place]) Address [address] [place] [address] Care Team Providers Care Oxyacetylene Cutter Name Role Phone Unavailable Primary Care Provider [...]
--- OUTSIDE RECORDS SUMMARY | 2025-08-24 19:40 | XMS_ITS | Encounter Summary ---
Author Organization [employer] ([place], [place], [place], [place]) Address [address] [place] [address] Care Team Providers Care Entomology Teacher Name Role Phone Unavailable Primary Care Provider Unavailabl e Encounter Details Date Type Department Care Team (Late st Contact Info) Description 11/30/2020 Transcribed Document [facility] [address] [facility] [address] [place] [address] Angel Todd MD [address] [facility] [address] [place] [address] Social History Tobacco Use Types [...] needed for constipation, 0 Refill(s) Flonase: 1 [place], Nostrils Both, Daily, 0 Refill(s) Incruse Ellipta 62.5 mcg/inh inhalation powder: 1 Puff, Inhalation, [id number], doses should be taken at least 24 [...] 1 Tab, PRN, Oral, Daily Flonase 1 [place], Nostrils Both, Daily fluvoxaMINE 50 mg oral tablet 50 mg = 1 Tab, Oral, BID Incruse Ellipta 62.5 mcg/inh inhalation powder 1 Puff, Inhalation, [id number] levothyroxine 25 mcg (0.025 mg) oral tablet [...] (Selected) Vitamin D deficiency / SNOMED CT 47228352 / Confirmed Vascular dementia with behavior disturbance / SNOMED CT 9494854807 / Confirmed Unsteadiness on feet / SNOMED CT 709805089 / Confirmed Traumatic brain injury / SNOMED CT 337382 / Confirmed AR (obstructive sleep apnea) / SNOMED CT 886852758 / Confirmed WA (myocardial infarction) / SNOMED CT 40012831 / Confirmed Muscle weakness / SNOMED CT 26159965 / Confirmed Mixed hyperlipidemia / SNOMED CT 917525324 / Confirmed Hypothyroidism / SNOMED CT 90404860 / Confirmed History of obstructive sleep apnea / IMO 64792363 / Confirmed GERD (gastroesophageal reflux disease) / SNOMED CT 124071232 / Confirmed Repeated falls / SNOMED CT 746419624 / Confirmed Primary hypertension / SNOMED CT 97908808 / Confirmed Eating disorder / SNOMED CT 149753527 / Confirmed Dysphagia / SNOMED CT 42752975 / Confirmed Delusional disorder / SNOMED CT 06364840 / Confirmed COPD (chronic obstructive pulmonary disease) / SNOMED CT 04052454 / Confirmed Bipolar 2 disorder / SNOMED CT 028518206 / Confirmed Anxiety / SNOMED CT 39281787 / Confirmed Adjustment disorder with depressed mood / SNOMED CT 77936969 / Confirmed Gait disturbance / SNOMED CT 44909101 / Confirmed, Active Problems (21) Adjustment disorder with depressed mood Anxiety Bipolar 2 disorder COPD (chronic obstructive pulmonary disease) neck pain and RUE radiculopathy Delusional disorder Dysphagia Eating disorder Gait disturbance GERD (gastroesophageal reflux disease) History of obstructive sleep apnea Hypothyroidism [place] (myocardial infarction) Mixed hyperlipidemia Muscle weakness AR [...] Extraocular movements are intact, glasses. HENT: Normocephalic, [place]. Neck: Supple, Non-tender. Respiratory: Lungs are clear to auscultation, Respirations are non-labored. Cardiovascular: Normal rate, Regular rhythm, No murmur, No gallop, No edema. Gastrointestinal: Soft, Non-tender. Genitourinary: No costovertebral angle tenderness. Lymphatics: No lymphadenopathy neck, axilla, groin. Musculoskeletal: painful ROM neck, RUE pain/weakness, uses wc due to being a resident in a retirement. Integumentary: Warm, Dry, [place]isk. Neurologic: Alert, Oriented. Psychiatric: Cooperative, Appropriate mood [...]
--- OUTSIDE RECORDS SUMMARY | 2025-08-24 19:40 | XMS_ITS | Encounter Summary ---
Author Organization [employer] ([place], [place], [place], [place]) Address [address] [place] [address] Care Team Providers Care Dehairing Machine Tender Name Role Phone Unavailable Primary Care Provider Unavailabl e Encounter Details Date Type Department Care Team (Late st Contact Info) Description 11/30/2020 Transcribed Document [facility] Family Medicine [facility] [place] [address] ProviderFabi MD [address] [place] [address] Social History Tobacco Use Types [...] - Historical ProviderMD - 11/30/2020 6:25 PM SENIOR SAFETY MANAGEMENT CONSULTANT Evaluation, Occupational Therapy Entered On: 12/01/2020 14:18 EST Performed On: 12/01/2020 13:49 EST by TOM SILVERIO, OTR/L General Information, OT Visit Type, OT : Initial evaluation Patient Orders : Order Date Order Ordering MD 11/30/2020 18:25 Occupational Therapy Evaluation and Treatme Ordered By: BRAD CASTILLO MD-[facility] Active Diagnoses : 11/30/2020 12:00 Disease [...] Patient is a 60yo M admitted to [facility] on 11/30 with cervical myelopathy, RUE pain, now s/p C3-7 laminectomy, C2-T2 fusion on 11/30. PMHx TBI, Bipolar, Anxiety, Delusions, [place], falls, vascular dementia, COPD TOM SILVERIO OTR/Patti [...] Environment, OT Living Situation, Therapy : Other: [facility] Patient Lives With : Caregiver(s) Persons [...] Per patient/sister was I with ADLs at [facility], limited history from patient d/t cognitive status. Was mobilizing in wheelchair primarily at senior living per PT/family though able to ambulate with [...] SILVERIO OTR/Patti - 12/01/2020 14:06 EST Hand Building Construction Supervisor Test : 3+/5 BUE Fine Motor Coordination [...] RICHARD SILVERIOABELLE CassWELLINGTON/Patti - 12/01/2020 14:06 EST [facility] Goals, OT Grooming LTG Grid Goal #1 [...] participated in interview as able. Patient at senior living and I at [facility] with ADLs, mobilizing [...]
--- OUTSIDE RECORDS SUMMARY | 2025-08-24 19:40 | XMS_ITS | Encounter Summary ---
Author Organization [employer] ([place], [place], [place], [place]) Address [address] [place] [address] Care Team Providers Care Application Support Manager Name Role Phone Unavailable Primary Care Provider Unavailabl e Encounter Details Date Type Department Care Team (Late st Contact Info) Description 12/02/2020 Transcribed Document [facility] [place] Family Medicine [address] [place] [address] ProviderFabi MD [address] [place] [address] Social History Tobacco Use Types [...] - Historical ProviderMD - 12/02/2020 1:42 PM COMMUTER PILOT Stroke/Warfarin Instructions Entered On: 12/02/2020 13:42 EST [...]
--- OUTSIDE RECORDS SUMMARY | 2025-08-24 19:40 | XMS_ITS | Encounter Summary ---
Author Organization [employer] ([place], [place], [place], [place]) Address [address] [place] [address] Care Team Providers Care Seismic Prospecting Supervisor Name Role Phone Unavailable Primary Care Provider Unavailabl e Encounter Details Date Type Department Care Team (Late st Contact Info) Description 11/30/2020 Transcribed Document [facility] [address] [facility] [address] [place] [address] Angel Todd MD [address] [facility] [address] [place] [address] Social History Tobacco Use Types [...] Intraoperative CT scan with spinal stereotactic navigation. OFFLINE EDITOR: Daniel Howard. TYPE OF ANESTHESIA: GEA. DESCRIPTION [...] was exposed using stereotactic navigation and the Coinkite system. C2 pars screws were placed bilaterally. [...] LOSS: 200 mL. DRAINS: Kumar-Marcos. COMPLICATIONS: None. /[id number] MD ARELIS Bella/EMMA / ARELIS / MODL /[id number] CC: Cielo Sanabria, documented in this encounter Plan of Treatment Not on file documented as of this encounter Visit Diagnoses Not on filedocumented in this encounter
--- OUTSIDE RECORDS SUMMARY | 2025-08-24 19:40 | XMS_ITS | Encounter Summary ---
Author Organization [employer] ([place], [place], [place], [place]) Address [address] [place] [address] Care Team Providers Care Level Vial Inside Grinder Name Role Phone Unavailable Primary Care Provider Unavailabl e Encounter Details Date Type Department Care Team (Late st Contact Info) Description 12/01/2020 Transcribed Document [facility] Family Medicine [facility] [place] [address] ProviderFabi MD [address] [place] [address] Social History Tobacco Use Types [...] - Historical ProviderMD - 12/01/2020 11:39 AM SEROLOGY TEACHER UM Authorization Entered On: 12/01/2020 11:39 EST Performed On: 12/01/2020 11:39 EST by Allie Nicholas Rn-Utilization Review Primary Insurance Authorization Authorization and Policy Numbers : Insurance 1 Health Plan: MEDICARE Policy Number: [id number] Authorization Number: Insurance 2 Health Plan: MEDICAID OF [place] Policy Number: [id number] Authorization Number: Insurance Primary Name : Medicare Authorization Status-Primary : No precert required Authorization Number-Primary : NPR for Medicare Authorized Service Begin Date-Primary : 11/30/2020 EST Historical Authorization Comments-Primary : Comment 1: Pt is mauricio for INPT Cervical Discectomy Fusion Posterior on 11-30-20 Medicare: NPR (TRA GOLDBERG, Director Of Strategic Initiatives 11/28/2020 14:02) Allie Nicholas Rn-Utilization Review - 12/01/2020 11:39 EST Electronically signed by [facility] Conversion Pathology Supervisor Cerner at 02/19/2023 10:01 AM CDT documented in this encounter Plan of Treatment Not on file documented as of this encounter Visit Diagnoses Not on filedocumented in this encounter
--- OUTSIDE RECORDS SUMMARY | 2025-08-24 19:40 | XMS_ITS | Referral Summary ---
Author Organization [employer] ([place], [place], [place], [place]) Address [address] [place] [address] Care Team Providers Care Fig Washer Name Role Phone Unavailable Primary Care Provider [...]
--- OUTSIDE RECORDS SUMMARY | 2025-08-24 19:40 | XMS_ITS | Encounter Summary ---
Author Organization [employer] ([place], [place], [place], [place]) Address [address] [place] [address] Care Team Providers Care Electrical Assembly Supervisor Name Role Phone Unavailable Primary Care Provider Unavailabl e Encounter Details Date Type Department Care Team (Late st Contact Info) Description 11/30/2020 Transcribed Document [facility] Family Medicine [facility] [place] [address] ProviderFabi MD [address] [place] [address] Social History Tobacco Use Types [...] - Fabi ProviderMD - 11/30/2020 4:09 PM PESTICIDE CHEMIST [facility] Main OR IntraOp Summary Primary Physician: BRAD CASTILLO MD-ARNOLD Finalized Date/Time: 12/01/20 14:35:25 Pt. Name: ALEXI GRIJALVA /Sex: 1960 Male Med Rec #: [id number] Physician: BRAD CASTILLO MD-ARNOLD Financial #: [id number] Pt. Type: I Room/Bed: [facility]/1 Admit/Disch: 11/30/20 06:39:00 - Institution: [facility] IntraOp Case Attendance Entry 1 Entry 2 Entry 3 Case Attendee BRAD CASTILLO SWINFORD, ASHLEE, CRNA BOWEN, JON B, MD-ANS -SNU Role Performed Surgeon/Proceduralist, LEGGER PRESS OPERATOR/Nurse Solar Energy Specialist Anesthesiologist of First Record Time In 11/30/20 [...] RN Roxanne Pierson RN Role Performed Physician administrative library assistant Brazing Machine Operator Helper, First Brazing Machine Operator Helper, Second Time In 11/30/20 15:00:00 11/30/20 15:00:00 [...] Scrub OTHER, ATTENDEE Gi Erwin, Tech Diagnostic Graduate Internship Role Performed Scrub, First Scrub, Second Public Health Teacher Time In 11/30/20 15:00:00 11/30/20 15:00:00 11/30/20 [...] Case Attendee OTHER, ATTENDEE #1 Roe Mansfield, LEGGER PRESS OPERATOR BENTLEY LAGOS, LEGGER PRESS OPERATOR Role Performed Supervisor [employer], Ancillary LEGGER PRESS OPERATOR/Nurse Solar Energy Specialist LEGGER PRESS OPERATOR/Nurse Solar Energy Specialist Time In 11/30/20 15:00:00 11/30/20 16:02:00 11/30/20 [...] SIMS, ALLISON LARA MD-ANS Role Performed Physician administrative library assistant Anesthesiologist Time In 11/30/20 17:02:00 11/30/20 17:51:00 Time Out 11/30/20 18:43:00 11/30/20 18:43:00 Procedure Lumbar Fusion Posterior Lumbar Fusion Posterior 3 Level 3 Level Other Attendee Superficial Wound Closed By: Last Modified By: Joan Ugarte, RN Joan Ugarte, RN 11/30/20 18:43:07 11/30/20 18:43:07 [facility] IntraOp Case Attendance Audit 11/30/20 18:43:07 Brewery Technician: BRINDA Modifier: BRINDA 1 <+> Time Out [...] Lumbar Fusion Posterior 3 Level 11/30/20 18:07:18 Brewery Technician: SMITHPD Modifier: SMITHPD 6 <+> Time Out 6 <*> Procedure Lumbar Fusion Posterior 3 Level 14 <+> Case Attendee 14 <*> Procedure Lumbar Fusion Posterior 3 Level 11/30/20 18:01:10 Brewery Technician: SMITHPD Modifier: SMITHPD 3 <+> Time Out 3 <*> Procedure Lumbar Fusion Posterior 3 Level 12 <+> Time Out 12 <*> Procedure Lumbar Fusion Posterior 3 Level <+> 14 Role Performed <+> 14 Time In <+> 14 Procedure 11/30/20 17:14:11 Brewery Technician: SMITHPD Modifier: SMITHPD 4 <+> Time Out 4 <*> Procedure Lumbar Fusion Posterior 3 Level <+> 13 Case Attendee <+> 13 Role Performed <+> 13 Time In <+> 13 Procedure 11/30/20 16:51:54 Brewery Technician: SMITHPD Modifier: SMITHPD 8 <+> Time Out 8 <*> Procedure Lumbar Fusion Posterior 3 Level 11/30/20 16:42:58 Brewery Technician: SMITHPD Modifier: SMITHPD 9 <*> Case Attendee SHOAIB KVNG Janine 9 <*> Procedure Lumbar Fusion Posterior 3 Level 11/30/20 16:42:39 Brewery Technician: SMITHPD Modifier: SMITHPD 1 <*> Procedure Lumbar [...] <+> 12 Time In <+> 12 Procedure [facility] IntraOp Case Times Entry 1 Patient In Room Time 11/30/20 15:00:00 Out Room Time 11/30/20 18:43:00 Anesthesia Start Time 11/30/20 15:00:00 Stop Time 11/30/20 18:43:00 Surgery / Procedure Times Start Time 11/30/20 16:09:00 Stop Time 11/30/20 17:51:00 Last Modified By: Joan Ugarte RN 11/30/20 18:42:35 [facility] IntraOp Case Times Audit 11/30/20 18:42:35 Brewery Technician: BRINDA Modifier: SMITHPD <+> 1 Out Room Time <+> 1 Stop Time 11/30/20 18:00:03 Brewery Technician: BRINDA Modifier: KENYETTAPD <+> 1 Stop Time 11/30/20 17:39:49 Brewery Technician: BRINDA Modifier: SMITHPD <+> 1 Start Time [facility] IntraOp Cautery Entry 1 Entry 2 ESU Identification Cautery Type Monopolar ESU BiPolar ESU Cautery Type Comments ID Number [id number] ID Type Hospital Number Hospital Number Cautery [...] Joan Ugarte RN 11/30/20 15:32:47 11/30/20 15:33:10 [facility] IntraOp Cautery Audit 11/30/20 15:33:10 Brewery Technician: BRINDA Modifier: KENYETTAPD <+> 2 Cautery Type <+> 2 Coag Setting <+> 2 Cut Setting <+> 2 ID Number <+> 2 ID Type [facility] IntraOp Communication Entry 1 Communication To Family/Significant other Comment START Communication By Joan Ugarte, RAYO Last Modified By: Joan Ugarte RN 11/30/20 15:33:21 [facility] IntraOp Counts Verification Entry 1 Procedure Lumbar Fusion Posterior 3 Level Count Info Count Type Sponge, Sharps, Miscellaneous Counts Verification Baseline/pre-procedure Sequence Count Results Not Applicable Counts Performed By Count Performed By Philipp Monique Scrub (Scrub) Tech Count Performed By Roxanne Pierson RN (RN) Last Modified By: Joan Ugarte RN 11/30/20 15:33:41 [facility] IntraOp Counts Final Entry 1 Procedure Lumbar Fusion Posterior 3 Level Final Count Info Count Type Sponge, Sharps, Miscellaneous Counts Verification Skin Closure/end of Sequence procedure Count Results Correct, surgeon notified Counts Performed By Count Performed By Philipp Monique Scrub (Scrub) Tech Count Performed By Roxanne Pierson RN (RN) Last Modified By: Joan Ugarte RN 11/30/20 17:35:27 [facility] IntraOp Counts Final Audit 11/30/20 17:35:27 Brewery Technician: BRINDA Modifier: SMITHPD 1 <*> Procedure Lumbar Fusion Posterior 3 Level 1 <+> Count Performed By (Scrub) 1 <+> Count Performed By (RN) [facility] IntraOp Departure from OR Entry 1 Integumentary Assessment Integumentary WDL with patient Assessment WDL specific variances Patient's Normal [place]-TG[place] SITE C2 Integumentary -T1 Variance(s) Transfer/Handoff Transfer to PACU Phase I Handoff Method Phone call Handoff Reported to NAKITA GUILLEN RN Post-op Transport Stretcher/Gurney Via Patient Transport ALLISON KING MD-ANS, Accompanied by Joan Ugarte, RN Last Modified By: Joan Ugarte RN 11/30/20 18:43:06 [facility] IntraOp Departure from OR Audit 11/30/20 18:43:06 Brewery Technician: BRINDA Modifier: SMITHPD 1 <*> Patient Transport Accompanied by ALLISON KING MD-ANS 11/30/20 18:02:20 Brewery Technician: BRINDA Modifier: SMITHPD 1 <*> Patient Transport Accompanied by BROWN KENYON [facility] IntraOp Drains and Tubes Entry 1 Device Type Kumar Marcos round drain Size 15 F Drain/Tube Activity Inserted Drain/Tube Suction Bulb Drain/Tube Drainage Serous Device Location OP SITE Method of Drainage Compression Tube Dressing Dry, Intact Condition Last Modified By: Joan Ugarte RN 11/30/20 17:25:26 [facility] IntraOp Dressing and Packing Entry 1 Type Dressing Location OPERATIVE SITE Applied By ERNIE SIMS PA Other Comments COVERDERM, ASPEN COLLAR , REGULAR Last Modified By: Joan Ugarte RN 11/30/20 17:33:59 [facility] IntraOp Fire Risk Assessment Entry 1 Fire [...] Modified By: Joan Ugarte RN 11/30/20 16:59:30 [facility] IntraOp General Case Button Broacher 1 Case Information OR OR 10 [facility] Case Level 1 Room Verified Yes Wound Class I - Clean Specialty SN Neurosurgery Anesthesia Type General ASA Class 3 Diagnosis Preop Diagnosis CERVICAL SPONDYLOSIS WITH MYELOPATHY Postop Same As Preop No Postop Diagnosis SEE DOCTOR POST OPERATIVE NOTE Last Modified By: Joan Ugarte RN 11/30/20 16:59:36 [facility] IntraOp General Case Data Audit 11/30/20 16:59:36 Brewery Technician: BRINDA Modifier: BRINDA <+> 1 Room Verified [facility] IntraOp Implant Log Entry 1 Entry 2 Entry 3 Type Tissue Implant Implant (Synthetic) Implant (Synthetic) (Biologic) Implant Log Implant Type Hardware Hardware Tissue Implant Type Other Implant BONE VIVIGEN FRMBLE [id number] 3.5 X 30MM [id number] 3.5 X 12MM Identification CELL [id number] [facility] Description Implant Quantity 1 2 4 Implant Site OP SITE OPERATIVE SITE OPERATIVE SITE Implant [id number] Identification Model Number Implant Identification Serial Number Implant Identification Lot Number Implant Lifenet:Lifenet Identification Transplant Srv Talent Acquisition Manager Name: Implant [id number] Identification Catalog Number Implant Size Implant Has an Yes Expiration Date Implant Expiration 11/17/21 Date Wasted Radioactive Material Time Implanted Tissue Implant Continue for Tissue Implant Documentation Tissue Identification Number Graft Prep Per Talent Acquisition Manager Instructions: Tissue Preparation Method: Reconstitution Solution: Reconstitution Solution Lot Number Reconstitution Solution Expiration Date: Thawing Solution Thawing Solution Lot Number Thawing Solution Expiration Date Preparation Materials, Other Preparation Materials, Other Lot Number Preparation Materials, Other Expiration Date Tissue Prepared/Processed By Talent Acquisition Manager Paperwork Completed Implant Type Comment Last Modified [...] Number Implant Identification Lot Number Implant Identification Talent Acquisition Manager Name: Implant Identification Catalog Number Implant Size Implant Has an Expiration Date Implant Expiration Date Wasted Radioactive Material Time Implanted Tissue Implant Continue for Tissue Implant Documentation Tissue Identification Number Graft Prep Per Talent Acquisition Manager Instructions: Tissue Preparation Method: Reconstitution Solution: Reconstitution Solution Lot Number Reconstitution Solution Expiration Date: Thawing Solution Thawing Solution Lot Number Thawing Solution Expiration Date Preparation Materials, Other Preparation Materials, Other Lot Number Preparation Materials, Other Expiration Date Tissue Prepared/Processed By Talent Acquisition Manager Paperwork Completed Implant Type Comment Last Modified [...] Number Implant Identification Lot Number Implant Identification Talent Acquisition Manager Name: Implant Identification Catalog Number Implant Size Implant Has an Expiration Date Implant Expiration Date Wasted Radioactive Material Time Implanted Tissue Implant Continue for Tissue Implant Documentation Tissue Identification Number Graft Prep Per Talent Acquisition Manager Instructions: Tissue Preparation Method: Reconstitution Solution: Reconstitution Solution Lot Number Reconstitution Solution Expiration Date: Thawing Solution Thawing Solution Lot Number Thawing Solution Expiration Date Preparation Materials, Other Preparation Materials, Other Lot Number Preparation Materials, Other Expiration Date Tissue Prepared/Processed By Talent Acquisition Manager Paperwork Completed Implant Type Comment Last Modified By: Joan Ugarte, Joan Tillman, Joan Tillman RN 11/30/20 17:32:04 11/30/20 17:32:04 11/30/20 17:32:04 [facility] IntraOp Implant Log Audit 11/30/20 17:32:04 Brewery Technician: BRINDA Modifier: BRINDA <+> 2 Implant Identification [...] <+> 9 Implant Type <+> 9 Type [facility] IntraOp Intraoperative Assessment Entry 1 Handoff Method [...] Modified By: Joan Ugarte RN 11/30/20 17:54:00 [facility] IntraOp Intraoperative Assessment Audit 11/30/20 17:54:00 Brewery Technician: BRINDA Modifier: [email or web address] <+> 1 Intraoperative Assessment Comment [facility] IntraOp Intraoperative Equipment Entry 1 Type Equipment Equipment Equipment Rosa Elena Suction System ID Number [id number] Intraop Monitoring Electrocardiogram Three lead placement (ECG) Electrode Placement Blood Pressure Non-Invasive BP Device Source Blood Pressure Arm, right upper Location Pulse Oximeter Hand, left Probe Site Antiembolic Devices Antiembolic Devices Sequential compression device, knee high Antiembolic Device Bilateral Location Antiembolic Device [id number] ID Number Scopes Photo/Video Documentation Photo No Video No Intraop Equipment SCDS ON AND WORKING Comment PRIOR TO INDUCTION Last Modified By: Joan Ugarte RN 11/30/20 17:10:38 [facility] IntraOp Medication Admin Entry 1 Entry 2 Entry 3 Medication/Irrigant Bacitracin 50,00units MICKEY IRR NACL 0.9PCT thrombin 5000units powder vial 1.5L [id number] topical powder - [id number] Combo Med List 1 - Combo Med Time Administered Route of ADDED TO IRRIGATION IRRIGATION - BASIN TOPICAL - Administration Dose Dose [id number] Unit of Measure units units Volume Administered By BRAD CASTILLO TUTT, MATTHEW PAIGE, TUTT, MATTHEW PAIGE, MD-SNU MD-SNU MD-SNU Procedure Irrigation Irrigant Volume In Irrigant Volume Out Last Modified By: Joan Ugarte, Joan Tillman, Joan Tillman RN 11/30/20 17:09:13 11/30/20 17:09:13 11/30/20 17:09:13 Entry 4 Entry 5 Entry 6 Medication/Irrigant lidocaine 1% w/ bacitracin ointment -- SPNG SURGFOAM epinephrine 1:100,000 [id number] 30ml vial - [id number] Combo Med List Time Administered Route of LOCAL TOPICAL TOPICAL Administration Dose Dose 20 1 1 Unit of Measure ml pkt pkt Volume Administered By BRAD CASTILLO TUTT, MATTHEW PAIGE, TUTT, MATTHEW PAIGE, MD-SNU MD-SNU MD-SNU Procedure Irrigation Irrigant Volume In Irrigant Volume Out Last Modified By: Joan Ugarte, Joan Tillman, Joan Tillman RN 11/30/20 17:39:29 11/30/20 17:09:13 11/30/20 17:09:13 [facility] IntraOp Medication Admin Audit 11/30/20 17:39:29 Brewery Technician: BRINDA Modifier: SMITHPD 4 <*> Medication/Irrigant lidocaine 1% w/ epinephrine 1:100,000 30ml vial - [id number] <+> Dose [facility] IntraOp Patient Positioning Entry 1 Procedure Lumbar Fusion Posterior 3 Level Body Position Prone Left Arm Position Tucked and padded at side Right Arm Position Tucked and padded at side Left Leg Position Uncrossed, parallel Right Leg Position Uncrossed, parallel Feet Uncrossed Yes Pressure Points Yes Checked Positioning Devices [place] w/ Head Pins, Pillows, Safety Strap, Thighs Positioning Device AIRO BED USED Comments Positioned By BRAD CASTILLO MD-SNU, AZALEA LOBO, ASHLEE, BROWN KENYON, Joan Ugarte, RAYO, Roxanne Pierson, RAYO Position Verified Positioning Yes Verified by Anesthesia Positioning Yes Verified by Surgeon Last Modified By: Joan Ugarte RN 11/30/20 16:54:08 [facility] IntraOp Sign In Entry 1 Patient, Site, [...] Modified By: Joan Ugarte RN 11/30/20 16:51:01 [facility] IntraOp Sign Out Entry 1 RN Confirmation [...] Modified By: Joan Ugarte RN 11/30/20 18:42:55 [facility] IntraOp Sign Out Audit 11/30/20 18:42:55 Brewery Technician: BRINDA Modifier: [email or web address] <+> 1 RN Sign Out Signature <+> 1 RN Sign Out Signature Date/Time [facility] IntraOp Skin Prep Entry 1 Procedure Lumbar [...] Modified By: Joan Ugarte RN 11/30/20 16:49:17 [facility] IntraOp Surgical Procedures Entry 1 Procedure Lumbar Fusion Posterior 3 Level Additional (C2-T1 POSTERIOR Procedure CERVICAL DECOMPRESSION Description AND FUSION WITH AIRO) Primary Procedure Yes Primary Surgeon BRAD CASTILLO MD-SNU Start 11/30/20 16:09:00 Stop 11/30/20 17:51:00 Anesthesia Type General Specialty Neurosurgery Wound Class I - Clean Last Modified By: Joan Ugarte RN 11/30/20 18:42:43 [facility] IntraOp Surgical Procedures Audit 11/30/20 18:42:43 Brewery Technician: BRINDA Modifier: BRINDA <+> 1 Start <+> 1 Stop [facility] IntraOp Temp Regulation Devices Entry 1 Temp Regulation Temperature Forced Air Warming Regulation Device device, Warm blankets Temperature 55383 Regulation Device Serial/Unit Number Temperature Lower body Regulation Site Temperature Device 43 C Setting Temperature LASHELL, AZALEA, LEGGER PRESS OPERATOR Regulation Device Applied by Temperature TEMPERATURE REGULATION Regulation Comment MONITORED AND CONTROLLED BY ANESTHESIA PROVIDER. Last Modified By: Joan Ugarte RN 11/30/20 16:46:55 [facility] IntraOP Time Out Entry 1 Procedure to [...]
--- OUTSIDE RECORDS SUMMARY | 2025-08-24 19:40 | XMS_ITS | Encounter Summary ---
Author Organization [employer] ([place], [place], [place], [place]) Address [address] [place] [address] Care Team Providers Care Half Backer Name Role Phone Unavailable Primary Care Provider Unavailabl e Encounter Details Date Type Department Care Team (Late st Contact Info) Description 11/30/2020 Transcribed Document [facility] Radiology [address] [place] [address] Danielle Rosales MD [address] [place] [address] Social History Tobacco Use Types Packs/Day [...] is a 60 yo male admitted to [facility] per Dr. Todd for a cervical [...] disease) History of obstructive sleep apnea Hypothyroidism [place] (myocardial infarction) Mixed hyperlipidemia Muscle weakness AR [...] 1 Tab, PRN, Oral, Daily Flonase 1 [place], Nostrils Both, Daily fluvoxaMINE 50 mg oral tablet 50 mg = 1 Tab, Oral, BID Incruse Ellipta 62.5 mcg/inh inhalation powder 1 Puff, Inhalation, [id number] levothyroxine 25 mcg (0.025 mg) oral tablet [...]
--- OUTSIDE RECORDS SUMMARY | 2025-08-24 19:41 | XMS_ITS | Encounter Summary ---
Author Organization [employer] ([place], [place], [place], [place]) Address [address] [place] [address] Care Team Providers Care Truck Technician Name Role Phone Unavailable Primary Care Provider Unavailabl e Encounter Details Date Type Department Care Team (Late st Contact Info) Description 12/02/2020 Transcribed Document [facility] Family Medicine [facility] [place] [address] ProviderFabi MD [facility] [place] [address] Social History Tobacco Use Types [...] - Historical ProviderMD - 12/02/2020 1:42 PM INTEGRATION SOLUTION ARCHITECT Nursing Discharge Summary Entered On: 12/02/2020 13:43 EST Performed On: 12/02/2020 13:42 EST by SILVIO ANTONY head field hockey coach Documentation Discharge Date/Time : 12/02/2020 15:30 EST [...]
--- OUTSIDE RECORDS SUMMARY | 2025-08-24 19:41 | XMS_ITS | Encounter Summary ---
Author Organization [employer] ([place], [place], [place], [place]) Address [address] [place] [address] Care Team Providers Care Assault Amphibious Vehicle Crewman Name Role Phone Unavailable Primary Care Provider Unavailabl e Encounter Details Date Type Department Care Team (Late st Contact Info) Description 12/02/2020 Transcribed Document [facility] [place] [facility] [place] [address] ProviderFabi MD [address] [place] [address] Social History Tobacco Use Types [...] - Fabi ProviderMD - 12/02/2020 2:47 PM HARDBOARD PANEL PRINTER Final Discharge Planning Entered On: 12/02/2020 14:58 EST Performed On: 12/02/2020 14:47 EST by JAQUI COLÓN RN-Stove Carriage Operator Final Discharge Planning Discharge Arrangements : Patient Post-Acute Information Patient Name: ROSELYN GRIJALVA Gender: Male : [birth year] Age: 60 Years [place] Referral(s): Service: Organization: Business Address: Phone Number: Acute Rehab [facility] [address] [facility], [place], [address] Patient Offered Choice/Affiliations Explained : [...] : IRF -Inpatient Rehabilitation Facility-62 JAQUI COLÓN RN-Stove Carriage Operator - 12/02/2020 14:47 EST Final Narrative Note Final Narrative Note : [facility] today via [facility] @ 4p. D/W pt at bedside, [facility] gamaríadian Arleen Saini on phone, sister Mayra on phone, Joshua/Judie CUNHA-NEAL/Bobby, and bedside RAYO Bull. JAQUI COLÓN RN-Stove Carriage Operator - 12/02/2020 14:47 EST Electronically signed by [facility] Conversion Exchange Trouble Shooter Cerner at 02/19/2023 9:53 AM CDT documented in this encounter Plan of Treatment Not on file documented as of this encounter Visit Diagnoses Not on filedocumented in this encounter
--- OUTSIDE RECORDS SUMMARY | 2025-08-24 19:41 | XMS_ITS | Encounter Summary ---
Author Organization [employer] ([place], [place], [place], [place]) Address [address] [place] [address] Care Team Providers Care Single Spindle Screw Machine Operator Name Role Phone Unavailable Primary Care Provider Unavailabl e Encounter Details Date Type Department Care Team (Late st Contact Info) Description 12/02/2020 Transcribed Document [facility] [address] [address] Angel Todd MD [address] [place] [address] [address] [place] [address] Social History Tobacco Use Types [...] 12/02/2020 Primary Care Provider ROSIBEL ODONNELL (REFMD [facility] Discharge Diagnosis Cervical myelopathy 12/02/2020 G95.9 ICD-10-CM Procedures SN - Proc - Procedure: Lumbar Fusion Posterior 3 Level (11/30/20 16:47:00) Reason for Hospitalization Stable cervical fusion Hospital Course 60-year-old male with history of TBI and lives in a intermediate , was initially evaluated in the office [...] voice nod head yes/no to questions equal molybdenum steamer operator incision cdi bandage intact and dry rachel [...] 1 Tab, PRN, Oral, Daily Flonase 1 [place], Nostrils Both, Daily fluvoxaMINE 50 mg oral tablet 50 mg = 1 Tab, Oral, BID Incruse Ellipta 62.5 mcg/inh inhalation powder 1 Puff, Inhalation, [id number] levothyroxine 25 mcg (0.025 mg) oral tablet [...]
--- OUTSIDE RECORDS SUMMARY | 2025-08-24 19:41 | XMS_ITS | Encounter Summary ---
Author Organization [employer] ([place], [place], [place], [place]) Address [address] [place] [address] Care Team Providers Care Bakery Decorator Name Role Phone Unavailable Primary Care Provider Unavailabl e Encounter Details Date Type Department Care Team (Late st Contact Info) Description 12/02/2020 Transcribed Document [facility] Family Medicine [facility] [place] [address] ProviderFabi MD [address] [place] [address] Social History Tobacco Use Types [...] - Historical ProviderMD - 12/02/2020 4:50 PM RADIAL DRILL OPERATOR Discharge Summary, PT Entered On: 12/02/2020 [...] MACI LAND, PT - 12/02/2020 16:50 EST Retirement Goals Mobility/Bed Mobility LTG PT Grid Goal [...]
--- OUTSIDE RECORDS SUMMARY | 2025-08-24 19:41 | XMS_ITS | Encounter Summary ---
Author Organization [employer] ([place], [place], [place], [place]) Address [address] [place] [address] Care Team Providers Care Control Director Name Role Phone Unavailable Primary Care Provider Unavailabl e Encounter Details Date Type Department Care Team (Late st Contact Info) Description 12/02/2020 Transcribed Document [facility] Neurology - [address] [address] Brad Castillo MD [facility] [address] [place] [address] Social History Tobacco Use Types [...] rehab at discharge, pts lives at a nursing home, h/o TBI - medicine following VTE Prophylaxis [...] voice nod head yes/no to questions equal tactical debriefer incision cdi bandage intact and dry rachel has been removed facially symmetric documented in this encounter Plan of Treatment Not on file documented as of this encounter Visit Diagnoses Not on filedocumented in this encounter
--- OUTSIDE RECORDS SUMMARY | 2025-08-24 19:41 | XMS_ITS | Encounter Summary ---
Author Organization [facility] [employer] ([place], [place], [place], [place]) Address [address] [place] [address] Care Team Providers Care Car Hopper Name Role Phone Unavailable Primary Care Provider Unavailabl e Encounter Details Date Type Department Care Team (Late st Contact Info) Description 12/02/2020 Transcribed Document [facility] Neurology - [address] [facility] [address] [place] [address] Angel Todd MD [address] [facility] [address] [place] [address] Social History Tobacco Use Types [...]
--- OUTSIDE RECORDS SUMMARY | 2025-08-24 19:41 | XMS_ITS | Encounter Summary ---
Author Organization [employer] ([place], [place], [place], [place]) Address [address] [place] [address] Care Team Providers Care Educational Programming Director Name Role Phone Unavailable Primary Care Provider Unavailabl e Encounter Details Date Type Department Care Team (Late st Contact Info) Description 12/02/2020 Transcribed Document [facility] Family Medicine [facility] [place] [address] ProviderFabi MD [address] [place] [address] Social History Tobacco Use Types [...] - Fabi ProviderMD - 12/02/2020 6:00 AM SR. PRICING ANALYST Pain Assessment Entered On: 12/02/2020 10:09 EST [...] version of the form. Electronically signed by [facility] Conversion Reference And Instruction Librarian Cerner at 02/19/2023 9:50 AM CDT documented in this encounter Plan of Treatment Not on file documented as of this encounter Visit Diagnoses Not on filedocumented in this encounter
--- OUTSIDE RECORDS SUMMARY | 2025-08-24 19:41 | XMS_ITS | Encounter Summary ---
Author Organization [employer] ([place], [place], [place], [place]) Address [address] [place] [address] Care Team Providers Care Sodder Name Role Phone Unavailable Primary Care Provider Unavailabl e Encounter Details Date Type Department Care Team (Late st Contact Info) Description 12/02/2020 Transcribed Document [facility] [place] Family Medicine [facility] [place] [address] ProviderFabi MD [address] [place] [id number] Social History Tobacco Use Types Packs/Day [...] - Fabi ProviderMD - 12/02/2020 5:07 PM [employer]WARE ENGINEER Nursing Discharge Summary Entered On: 12/02/2020 17:08 [...] - 12/02/2020 17:07 EST Electronically signed by [facility], [facility] Conversion Hearing Aid Assistant Cerner at 02/19/2023 9:54 AM CDT documented in this encounter Plan of Treatment Not on file documented as of this encounter Visit Diagnoses Not on filedocumented in this encounter
--- OUTSIDE RECORDS SUMMARY | 2025-08-24 19:41 | XMS_ITS | Encounter Summary ---
Author Organization [employer] ([place], [place], [place], [place]) Address [address] [place] [address] Care Team Providers Care Hotel Registration Clerk Name Role Phone Unavailable Primary Care Provider Unavailabl e Encounter Details Date Type Department Care Team (Late st Contact Info) Description 12/02/2020 Transcribed Document [facility] [place] [facility] [place] [address] ProviderFabi MD [address] [place] [address] Social History Tobacco Use Types [...] - Historical ProviderMD - 12/02/2020 3:15 PM PANTRY GOODS MAKER Event Note Entered On: 12/02/2020 15:15 EST [...]
[2025-08-24 21:47] LABS: Coronavirus 19, PCR Not Detected (NotDetected); Influenza A, PCR Not Detected (NotDetected); Influenza B, PCR Not Detected (NotDetected)
== END 2025-08-24 23:59 | disposition home or self-care (01) ==
LOC: LAB.DROPOF 19:38
PROVIDERS: PCP Nurse Practitioner Family; Visit Provider Nurse Practitioner Family
DX: R50.9 Fever, unspecified (principal); R09.02 Hypoxemia
CPT/HCPCS: 87636

== ENCOUNTER 2025-09-26 13:51 | Emergency (ER) | payer MEDICARE, MEDICAID, SELFPAY ==
[2025-09-26] VITALS (7 sets, daily range): BP systolic 130–156; BP diastolic 68–94; PULSE 63–76; RESP 15–19; TEMP 36.4–36.7; O2SAT 90–96; BMI 24.5
--- NOTE | 2025-09-26 13:51 | CT_ITS ---
PROCEDURE INFORMATION: Exam: CT Head Without Contrast Exam date and time: 09/26/2025 2:25 PM Age: 65 years old Clinical indication: Injury or trauma; Fall; Blunt trauma (contusions or hematomas) TECHNIQUE: Imaging protocol: Computed tomography of the head without contrast. Radiation optimization: All CT scans at this facility use at least one of these dose optimization techniques: automated exposure control; mA and/or kV adjustment per patient size (includes targeted exams where dose is matched to clinical indication); or iterative reconstruction. COMPARISON: CT HEAD/BRAIN WO CON 08/22/2025 8:43 PM FINDINGS: Brain: No acute intracranial hemorrhage.. There is moderate diffuse heterogeneity of the white matter attenuation, consistent with chronic white matter ischemic changes. Moderate cerebral atrophy Cerebral ventricles: No ventriculomegaly. Paranasal sinuses: Opacities in the left maxillary sinus may represent sinusitis midline New contour abnormality in the anterior wall of the left maxillary sinus. Series 3, image 20.. New contour abnormality of the posterolateral wall of left maxillary sinus series 3, image 20. Air hemorrhage level in the left maxillary sinus. Minimally displaced fracture of the floor of the left maxillary sinus series 1001 image 12, 13. Mastoid air cells: Visualized mastoid air cells are well aerated. Bones: Lucency in the left zygomatic arch was not present on August 22. Findings consistent with nondisplaced fracture (series 3, image 15 -17). Soft tissues: Unremarkable. IMPRESSION: 1. No acute intracranial hemorrhage.. 2. Lucency in the left zygomatic arch was not present on August 22. Findings consistent with new nondisplaced fracture (series 3, image 15 -17). 3. New contour abnormality in the anterior wall of the left maxillary sinus. Series 3, image 20.. Consistent with acute fracture 4. New contour abnormality of the posterolateral wall of left maxillary sinus series 3, image 20. 5. New Air hemorrhage level in the left maxillary sinus. 6. New Minimally displaced fracture of the floor of the left maxillary sinus series 1001 image 12, 13.
--- NOTE | 2025-09-26 13:51 | XR_ITS ---
PROCEDURE INFORMATION: Exam: XR Chest Exam date and time: 09/26/2025 2:34 PM Age: 65 years old Clinical indication: Cough; Additional info: Cough SOB TECHNIQUE: Imaging protocol: Radiologic exam of the chest. Views: 1 view. COMPARISON: CR XR CHEST PORTABLE 08/22/2025 8:44 PM FINDINGS: Lungs: Unremarkable. No consolidation. Pleural spaces: Unremarkable. No pleural effusion. No pneumothorax. Heart/Mediastinum: Unremarkable. No cardiomegaly. Bones/joints: Posterior cervical fusion . Degenerative changes in the glenohumeral joint IMPRESSION: No acute findings.
--- NOTE | 2025-09-26 13:51 | CT_ITS ---
PROCEDURE INFORMATION: Exam: CT Cervical Spine Without Contrast Exam date and time: 09/26/2025 2:28 PM Age: 65 years old Clinical indication: Injury or trauma; Fall; Blunt trauma TECHNIQUE: Imaging protocol: Computed tomography of the cervical spine without contrast. Radiation optimization: All CT scans at this facility use at least one of these dose optimization techniques: automated exposure control; mA and/or kV adjustment per patient size (includes targeted exams where dose is matched to clinical indication); or iterative reconstruction. COMPARISON: CT CERVICAL SPINE WO CON 08/22/2025 8:44 PM FINDINGS: Bones: Posterior cervical fusion C2 through T2. No acute fracture of the cervical spine. No subluxation or dislocation of the cervical spine. Compression of the superior endplate of C7 consistent with chronic prior fracture. Lucencies around the pedicular screws of C4 and C5 may indicate loosening. Intervertebral disc space narrowing C3 through C7 may represent degenerative disc disease.. Anterior osteophyte formation C3 through C7. Posterior osteophyte formation C3 through C7. Degenerative changes in the facets at multiple levels. Degenerative changes at C1/C2. 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 Thyroid: The thyroid is unremarkable Soft tissues: Unremarkable. IMPRESSION: 1. Posterior cervical fusion C2 through T2. 2. No acute fracture of the cervical spine. 3. No subluxation or dislocation of the cervical spine. 4. Compression of the superior endplate of C7 consistent with chronic prior fracture. 5. Lucencies around the pedicular screws of C4 and C5 may indicate loosening. 6. Intervertebral disc space narrowing C3 through C7 may represent degenerative disc disease..
--- NOTE | 2025-09-26 13:54 | HMH.EDCP ---
Discharge Plan Disposition Patient Disposition: Home, Self-Care Condition: Good Prescriptions Prescriptions: New prednisone 20 mg tablet 20 mg PO BID 5 Days Qty: 10 0RF azithromycin 250 mg tablet See Rx Instructions .ROUTE .COMPLEX Qty: 6 0RF Rx Instructions: For 250 mg dose pack: take 500 mg today (day 1), then 250 mg for 4 days (days 2-5) No Action aspirin [Aspir-81] 81 mg tablet,delayed release (DR/EC) 81 mg PO DAILY pravastatin 40 mg tablet 40 mg PO HS divalproex 500 mg tablet,delayed release (DR/EC) 500 mg PO BID levothyroxine [Synthroid] 25 mcg tablet 25 mcg PO DAILYDM acetaminophen [Tylenol Extra Strength] 500 mg tablet 1,000 mg PO Q6HP PRN (Reason: Fever Or Pain) polyethylene glycol 3350 [Miralax] 17 gram/dose powder 17 g PO HS aripiprazole [Abilify] 20 mg Tablet 20 mg PO DAILY trazodone 50 mg Tablet 50 mg PO HS sennosides-docusate sodium [Senna Plus] 8.6-50 mg Tablet 2 tab PO HS lactulose 10 gram/15 mL Solution 30 g PO MOWEFR cholecalciferol (vitamin D3) [Vitamin D3] 50 mcg (2,000 unit) Tablet 50 mcg PO DAILY albuterol sulfate 2.5 mg /3 mL (0.083 %) Solution For Nebulization 2.5 mg INHALATION Q8HP PRN (Reason: Shortness Of Breath) fluvoxamine 100 mg Tablet 100 mg PO BID bisacodyl 10 mg Suppository 10 mg IN DAILYP PRN (Reason: Constipation) benztropine 1 mg Tablet 1 mg PO BID simethicone 80 mg Tablet,Chewable 80 mg PO Q8HP PRN (Reason: EXCESSIVE GAS) omeprazole 20 mg Tablet,Delayed Release (Dr/Ec) 20 mg PO HS Anoro Ellipta 62.5-25 mcg/actuation Blister With Device 1 inh INHALATION DAILY azithromycin [azithromycin] 250 mg tablet 250 mg PO DIRECTED Qty: 6 0RF Rx Instructions: Take two (2) tablets on day #1, then one (1) tablet day #2 thru #5 cefdinir 300 mg capsule 300 mg PO BID Qty: 14 0RF doxycycline hyclate 100 mg capsule 100 mg PO DAILY Qty: 10 0RF azithromycin 250 mg tablet 250 mg PO DAILY 4 Days Qty: 4 0RF Rx Instructions: start on day 2 of therapy Referrals Follow up/Referrals: Indiana Maciel APRN [Primary Care Provider, Medical] - See instructions Activity Restrictions/Add. Instructions Additional Instructions/Restrictions: Your CT scans showed multiple facial fractures. Facial Surgery will call the [facility] within the next week to establish a follow up appointment for these fractures. You may expect some mild bleeding from the nose over the next few days, this is to be expected. Please follow the following sinus precautions: Do NOT blow your nose Sneeze with your mouth open Avoid heavy lifting >10 pounds Avoid drinking through straws Avoid smoking Elevate the head of bed to 45 Degrees if able Use nasal saline if needed Clinical Impressions Clinical Impression: Fall, Acute exacerbation of chronic obstructive pulmonary disease, Closed fracture of left maxillary sinus, Closed fracture of left zygomatic arch Print Language Print Language: Persian Discharge ED Provider: Wil Lopez HPI <Kelby Albert MD - Last Filed: 09/26/25 15:02> General Chief Complaint: Fall Stated Complaint: FALL FROM STANDING POSITION NO LOC Time Seen by Provider: 09/26/25 13:51 History of Present Illness HPI narrative: Patient is a 65-year-old male with past medical history of hypertension, hyperlipidemia, COPD not on oxygen, previous TBI with alert oriented x 2 baseline who presents to the emergency department for evaluation of traumatic injury sustained in a fall. Patient is ambulatory only with gait belt and assistance reportedly and is otherwise in a wheelchair but is being helped to walk. Patient reportedly fell while up from his chair no definitive loss of consciousness no anticoagulants reported. Patient is complaining of neck pain. No other acute complaints at this time. Please note that above description of symptoms, in this electronic medical record under categorization of recalled from ER triage doctor by RN are reflective of an initial nursing assessment, however, is not reflective of my full history and physical exam that was personally taken and clarified. Consequentially, this preceding description of symptoms, which may include the patient's categorized chief complaint in the EMR, do not reflect my personal clinical impression, and the ultimate description of history of present illness and patient stated complaints should be deferred to this section of the note. Unless stated otherwise or congruent with this section of the note, additional signs, symptoms, or incongruence should be interpreted as inaccurate with my clinical impression. Related Data Home Medications ?Medication ?Instructions ?Recorded ?Confirmed aspirin 81 mg tablet,delayed 81 mg PO DAILY heart health 03/07/18 08/18/22 release (Aspir-) pravastatin 40 mg tablet 40 mg PO HS Cholesterol 03/07/18 08/18/22 acetaminophen 500 mg tablet 1,000 mg PO Q6HP PRN Fever Or Pain 07/12/20 08/18/22 (Tylenol Extra Strength) levothyroxine 25 mcg tablet 25 mcg PO DAILYDM thyroid 07/12/20 08/18/22 (Synthroid) polyethylene glycol 3350 17 17 g PO HS constipation 07/12/20 08/18/22 gram/dose oral powder (Miralax) divalproex 500 mg tablet,delayed 500 mg PO BID bipolar 03/27/21 08/17/22 release aripiprazole 20 mg tablet (Abilify) 20 mg PO DAILY DELUSIONS 08/17/22 08/17/22 cholecalciferol (vitamin D3) 50 50 mcg PO DAILY Supplement 08/17/22 08/17/22 mcg (2,000 unit) tablet (Vitamin D3) lactulose 10 gram/15 mL oral 30 g PO MOWEFR constipation 08/17/22 08/18/22 solution sennosides 8.6 mg-docusate sodium 2 tab PO HS constipation 08/17/22 08/18/22 50 mg tablet (Senna Plus) trazodone 50 mg tablet 50 mg PO HS adjustment disorder 08/17/22 08/17/22 with depressive mood albuterol sulfate 2.5 mg/3 mL 2.5 mg inhalation Q8HP PRN 08/18/22 08/18/22 (0.083 %) solution for nebulization Shortness Of Breath benztropine 1 mg tablet 1 mg PO BID DELUSIONS 08/18/22 08/18/22 bisacodyl 10 mg rectal suppository 10 mg IN DAILYP PRN Constipation 08/18/22 08/18/22 fluvoxamine 100 mg tablet 100 mg PO BID MOOD 08/18/22 08/18/22 omeprazole 20 mg tablet,delayed 20 mg PO HS Reflux/Acid reflux 08/18/22 08/18/22 release simethicone 80 mg chewable tablet 80 mg PO Q8HP PRN EXCESSIVE GAS 08/18/22 08/18/22 umeclidinium 62.5 mcg-vilanterol 1 inh inhalation DAILY SHORTNESS 08/18/22 08/18/22 25 mcg/actuation powdr for OF BREATH inhalation (Anoro Ellipta) Previous Rx's ?Medication ?Instructions ?Recorded azithromycin 250 mg tablet 250 mg PO DIRECTED #6 tabs 08/19/22 cefdinir 300 mg capsule 300 mg PO BID #14 caps 08/19/22 doxycycline hyclate 100 mg capsule 100 mg PO DAILY #10 caps 10/10/22 azithromycin 250 mg tablet 250 mg PO DAILY 4 days #4 tabs 08/22/25 azithromycin 250 mg tablet See Rx Instructions PO .COMPLEX #6 09/26/25 tabs prednisone 20 mg tablet 20 mg PO BID 5 days #10 tabs 09/26/25 Allergies Allergy/AdvReac Type Severity Reaction Status Date / Time bacitracin (From Neosporin Allergy Mild Verified 03/27/21 11:13 ([id number])) neomycin (From Neosporin Allergy Mild Verified 03/27/21 11:13 ([id number])) polymyxin B (From Neosporin Allergy Mild Verified 03/27/21 11:13 ([id number])) [facility] <Kelby Albert MD - Last Filed: 09/26/25 15:02> [facility] Disclaimer: The information contained in this section may have been updated after the patient was seen, as this information can be updated by other users. Medical History History of bipolar disorder History of hypothyroidism History of myocardial infarction HTN (hypertension) HLD (hyperlipidemia) GERD (gastroesophageal reflux disease) Depressed CAD (coronary artery disease) COPD (chronic obstructive pulmonary disease) TBI (traumatic brain injury) Dementia Abnormal EKG Family History Other No significant family history Social History Smoking Status: Current every day smoker tobacco type: cigarettes packs per day: 1 alcohol intake: never substance use type: denies use current occupational status: retired Travel in the last 8 weeks?: None household members: caregiver housing: [facility] Have you lived/traveled outside US in past 30 days?: No Contact w/someone who lives/traveled outside US past 30 days?: No Exposure to someone with infectious disease in past 14 days?: No Do you have a fever (greater than 100.4 F or 38 C)?: No Have you tested positive for COVID-19?: No Exposed to someone with COVID-19 in past 14 days?: No Do you have a sore throat?: No Do you have a cough?: No Do you have any weakness?: No Do you have any diarrhea?: No Are you experiencing any unusual bleeding?: No Do you have any muscle aches/pain?: No Do you have any abdominal pain?: No Are you experiencing loss of taste or smell?: No Other Medical History Have you received the Flu Vaccine for this season: No Have you received the Pneumonia Vaccine: No <Kelby Albert MD - Last Filed: 09/26/25 15:02> ROS Obtained: Yes Systems reviewed as appropriate & no additional complaints except as documented Physical Exam <Kelby Albert MD - Last Filed: 09/26/25 15:02> General General appearance: alert and in no apparent distress Head Head exam: atraumatic and normocephalic Eye Eye exam: Present PERRL and EOMI ENT ENT exam: Present mucous membranes moist Neck Neck exam: Present normal inspection Chest Chest inspection: Present normal inspection and symmetric chest wall rise Respiratory Respiratory exam: Present wheezes and accessory muscle use; Absent normal lung sounds bilaterally or respiratory distress Cardiovascular Cardiovascular exam: Present regular rate and normal rhythm Abdominal Exam Abdominal exam: Present soft; Absent tenderness, guarding or rebound Extremities Exam Extremities exam: Present normal inspection Neurological Exam Neurological exam: Present alert Psychiatric Psychiatric exam: Present normal affect Skin Skin exam: Present warm and dry HEART Score <Kelby Albert MD - Last Filed: 09/26/25 15:02> HEART Score HEART Score assessment performed?: Yes History (anamnesis): Slightly suspicious ECG: Normal Age: >65 years Risk factors: 1-2 risk factors Troponin: </= normal limit HEART Score: 3 <Wil Lopez DO - Last Filed: 09/26/25 16:32> HEART Score HEART Score: 3 Critical Care <Kelby Albert MD - Last Filed: 09/26/25 15:02> Critical Care Time Critical Care Time: No Medical Decision Making <Kelby Albert MD - Last Filed: 09/26/25 15:02> Rao Kaiser Pt receiving controlled substance: No Vital Signs Vital Signs: 09/26/25 13:54 09/26/25 14:01 09/26/25 14:41 Temperature 97.6 F Temperature Source Oral Pulse Rate 63 65 Pulse Rate [Right Radial] 68 Respiratory Rate 19 Blood Pressure 147/68 H 140/81 Blood Pressure [Right Arm] 156/94 H Blood Pressure Mean [Right Arm] 114 Blood Pressure Source [Right Arm] Automatic Cuff Blood Pressure Position [Right Arm] Supine 02 Sat by Pulse Oximetry 95 91 L 95 Oxygen Delivery Method Room Air Room Air Room Air Oxygen Flow Rate (LPM) 09/26/25 15:00 09/26/25 15:30 09/26/25 16:00 Temperature Temperature Source Pulse Rate 74 67 76 Pulse Rate [Right Radial] Respiratory Rate Blood Pressure 149/81 H 141/87 H 138/72 Blood Pressure [Right Arm] Blood Pressure Mean [Right Arm] Blood Pressure Source [Right Arm] Blood Pressure Position [Right Arm] 02 Sat by Pulse Oximetry 93 L 90 L 91 L Oxygen Delivery Method Room Air Room Air Nasal Cannula Oxygen Flow Rate (LPM) 2 Lab Data Labs: Lab Results 09/26/25 14:06: SARS-CoV-2 (PCR) Not detected, Influenza A Untype (PCR) Not detected, Influenza Type B (PCR) Not detected 09/26/25 14:09: WBC 6.2, RBC 4.39 L, Hgb 13.8 L, Hct 42.3, MCV 96.4 H, MCH 31.4 H, MCHC 32.6, RDW 14.0, Plt Count 206, MPV 12.2 H, Neut % (Auto) 49.0, Lymph % (Auto) 37.1, Sac % (Auto) 10.8 H, Eos % (Auto) 1.0, Baso % (Auto) 0.3, Neut # (Auto) 3.0, Lymph # (Auto) 2.3, Sac # (Auto) 0.7, Eos # (Auto) 0.1, Baso # (Auto) 0.0, Sodium 133 L, Potassium 4.4, Chloride 99, Carbon Dioxide 28, Anion Gap 10.4, BUN 14, Creatinine 0.80, Estimated Creat Clear 71, Estimated GFR 97, Est GFR ( Amer) 117, Glucose 108 H, Calcium 9.3, Total Bilirubin 0.7, AST 52, ALT 14, Alkaline Phosphatase 99, Troponin I < 0.01, Total Protein 7.6, Albumin 4.1, Globulin 3.5 H, Albumin/Globulin Ratio 1.2 09/26/25 14:09 09/26/25 14:09 Response Orders (Tests/Meds): ED MEDICATIONS Generic Name Dose Route Start Last Admin Trade Name Freq PRN Reason Stop Dose Admin Sodium Chloride 10 ml 09/26/25 14:25 09/26/25 14:28 Sodium Chloride 0.9% 10ml Syr (Rad Only) IV 10/26/25 14:24 10 ml NEEDED PRN Administration Maintain IV Site Discontinued Medications Generic Name Dose Route Start Last Admin Trade Name Freq PRN Reason Stop Dose Admin Albuterol/Ipratropium 9 ml 09/26/25 13:51 09/26/25 14:19 Ipratropium/Albuterol 3 Ml Neb IH 09/26/25 13:52 9 ml ONCE ONE Administration Azithromycin 500 mg/ Sodium 250 mls @ 250 mls/hr 09/26/25 13:53 09/26/25 15:50 Chloride IV 09/26/25 13:54 Infused ONCE ONE Infusion Magnesium Sulfate 2 gm in 50 mls @ 50 mls/hr 09/26/25 15:02 09/26/25 15:51 Magnesium Sulfate 2gm/50ml Premix IV 09/26/25 16:01 50 mls/hr ONCE ONE Administration Iopamidol 75 ml 09/26/25 14:25 09/26/25 14:27 Iopamidol-370 (76%);100ml Bottle IV 09/26/25 14:26 75 ml ONCE ONE Administration Methylprednisolone Sodium Succinate 125 mg 09/26/25 13:51 09/26/25 14:19 Methylprednisolone Sod Succ 125mg Vial IV 09/26/25 13:52 125 mg ONCE ONE Administration ORDERS Category Date Time Status CT abdomen pelvis w con Stat Cat Scan 09/26/25 14:[address] cervical spine wo con Stat Cat Scan 09/26/25 13:[address] head/brain wo con Stat Cat Scan 09/26/25 13:51 Completed CXR --portable [XR chest portable] Stat Exams 09/26/25 13:51 Completed CBC w/Auto Diff [Complete Blood Count Auto Diff] Stat Lab 09/26/25 14:09 Completed CMP [Comprehensive Metabolic Panel] Stat Lab 09/26/25 14:09 Completed HIV Combo Stat Lab 09/26/25 14:02 Ordered Hepatitis C Ab Qual. W/ RFX Stat Lab 09/26/25 14:02 Ordered Rapid PCR Covid and Flu A/B Stat Lab 09/26/25 14:06 Completed Trop I [Troponin I] Stat Lab 09/26/25 14:09 Completed Troponin I Q3H Lab 09/26/25 17:00 Ordered Troponin I Q3H Lab 09/26/25 20:00 Ordered ECG Data Tracing #1: ECG Narrative: Independently interpreted by me rate is 56, rhythm is regular, axis is normal, no ST elevation in anatomical contiguous leads, QTc 360 MDM Narrative Medical Decision Narrative: In summary patient is a 65-year-old male with past medical history described above who presents to the emergency department for evaluation of traumatic injuries sustained in a fall. Patient is hemodynamically stable nontoxic-appearing upon arrival, afebrile. However patient has diffuse biphasic wheezing with intercostal muscle use, given this and history of COPD workup is necessary with respect to this will be conducted with hematologic labs chest x-ray VBG troponin EKG. Initial inventions with respect to this include DuoNebs x 3, methylprednisolone, azithromycin. Will respect to his fall noncontrasted CT scan of the head and cervical spine will be obtained, no obvious other external trauma that would warrant additional imaging. Upon further questioning patient states that he has abdominal pain for which it is vague and he has a difficult time communicating given the CT of abdomen pelvis with IV contrast will be obtained. Initial workup reviewed by me no significant leukocytosis no transfusable anemia, no LIVAN or critical electrolyte abnormality initial troponin undetectably low, viral swab negative. Chest x-ray informally interpreted by me, no acute dense lobar opacities. CT imaging and repeat evaluation pending at time of transition of care to the oncoming physician, Dr. Lopez. <Wil Lopez, - Last Filed: 09/26/25 16:32> Medical Records Medical records reviewed: Yes I reviewed the patient's medical records. Vital Signs Vital Signs: 09/26/25 13:54 09/26/25 14:01 09/26/25 14:41 Temperature 97.6 F Temperature Source Oral Pulse Rate 63 65 Pulse Rate [Right Radial] 68 Respiratory Rate 19 Blood Pressure 147/68 H 140/81 Blood Pressure [Right Arm] 156/94 H Blood Pressure Mean [Right Arm] 114 Blood Pressure Source [Right Arm] Automatic Cuff Blood Pressure Position [Right Arm] Supine 02 Sat by Pulse Oximetry 95 91 L 95 Oxygen Delivery Method Room Air Room Air Room Air Oxygen Flow Rate (LPM) 09/26/25 15:00 09/26/25 15:30 09/26/25 16:00 Temperature Temperature Source Pulse Rate 74 67 76 Pulse Rate [Right Radial] Respiratory Rate Blood Pressure 149/81 H 141/87 H 138/72 Blood Pressure [Right Arm] Blood Pressure Mean [Right Arm] Blood Pressure Source [Right Arm] Blood Pressure Position [Right Arm] 02 Sat by Pulse Oximetry 93 L 90 L 91 L Oxygen Delivery Method Room Air Room Air Nasal Cannula Oxygen Flow Rate (LPM) 2 Lab Data Labs: Lab Results 09/26/25 14:06: SARS-CoV-2 (PCR) Not detected, Influenza A Untype (PCR) Not detected, Influenza Type B (PCR) Not detected 09/26/25 14:09: WBC 6.2, RBC 4.39 L, Hgb 13.8 L, Hct 42.3, MCV 96.4 H, MCH 31.4 H, MCHC 32.6, RDW 14.0, Plt Count 206, MPV 12.2 H, Neut % (Auto) 49.0, Lymph % (Auto) 37.1, Sac % (Auto) 10.8 H, Eos % (Auto) 1.0, Baso % (Auto) 0.3, Neut # (Auto) 3.0, Lymph # (Auto) 2.3, Sac # (Auto) 0.7, Eos # (Auto) 0.1, Baso # (Auto) 0.0, Sodium 133 L, Potassium 4.4, Chloride 99, Carbon Dioxide 28, Anion Gap 10.4, BUN 14, Creatinine 0.80, Estimated Creat Clear 71, Estimated GFR 97, Est GFR ( Amer) 117, Glucose 108 H, Calcium 9.3, Total Bilirubin 0.7, AST 52, ALT 14, Alkaline Phosphatase 99, Troponin I < 0.01, Total Protein 7.6, Albumin 4.1, Globulin 3.5 H, Albumin/Globulin Ratio 1.2 Response Orders (Tests/Meds): ED MEDICATIONS Generic Name Dose Route Start Last Admin Trade Name Terri PRN Reason Stop Dose Admin Sodium Chloride 10 ml 09/26/25 14:25 09/26/25 14:28 Sodium Chloride 0.9% 10ml Syr (Rad Only) IV 10/26/25 14:24 10 ml NEEDED PRN Administration Maintain IV Site Discontinued Medications Generic Name Dose Route Start Last Admin Trade Name Terri PRN Reason Stop Dose Admin Albuterol/Ipratropium 9 ml 09/26/25 13:51 09/26/25 14:19 Ipratropium/Albuterol 3 Ml Neb IH 09/26/25 13:52 9 ml ONCE ONE Administration Azithromycin 500 mg/ Sodium 250 mls @ 250 mls/hr 09/26/25 13:53 09/26/25 15:50 Chloride IV 09/26/25 13:54 Infused ONCE ONE Infusion Magnesium Sulfate 2 gm in 50 mls @ 50 mls/hr 09/26/25 15:02 09/26/25 15:51 Magnesium Sulfate 2gm/50ml Premix IV 09/26/25 16:01 50 mls/hr ONCE ONE Administration Iopamidol 75 ml 09/26/25 14:25 09/26/25 14:27 Iopamidol-370 (76%);100ml Bottle IV 09/26/25 14:26 75 ml ONCE ONE Administration Methylprednisolone Sodium Succinate 125 mg 09/26/25 13:51 09/26/25 14:19 Methylprednisolone Sod Succ 125mg Vial IV 09/26/25 13:52 125 mg ONCE ONE Administration ORDERS Category Date Time Status CT abdomen pelvis w con Stat Cat Scan 09/26/25 14:[address] cervical spine wo con Stat Cat Scan 09/26/25 13:[address] head/brain wo con Stat Cat Scan 09/26/25 13:51 Completed CXR --portable [XR chest portable] Stat Exams 09/26/25 13:51 Completed CBC w/Auto Diff [Complete Blood Count Auto Diff] Stat Lab 09/26/25 14:09 Completed CMP [Comprehensive Metabolic Panel] Stat Lab 09/26/25 14:09 Completed HIV Combo Stat Lab 09/26/25 14:02 Ordered Hepatitis C Ab Qual. W/ RFX Stat Lab 09/26/25 14:02 Ordered Rapid PCR Covid and Flu A/B Stat Lab 09/26/25 14:06 Completed Trop I [Troponin I] Stat Lab 09/26/25 14:09 Completed Troponin I Q3H Lab 09/26/25 17:00 Ordered Troponin I Q3H Lab 09/26/25 20:00 Ordered MDM Narrative Medical Decision Narrative: In summary patient is a 65-year-old male with past medical history described above who presents to the emergency department for evaluation of traumatic injuries sustained in a fall. Patient is hemodynamically stable nontoxic-appearing upon arrival, afebrile. However patient has diffuse biphasic wheezing with intercostal muscle use, given this and history of COPD workup is necessary with respect to this will be conducted with hematologic labs chest x-ray VBG troponin EKG. Initial inventions with respect to this include DuoNebs x 3, methylprednisolone, azithromycin. Will respect to his fall noncontrasted CT scan of the head and cervical spine will be obtained, no obvious other external trauma that would warrant additional imaging. Upon further questioning patient states that he has abdominal pain for which it is vague and he has a difficult time communicating given the CT of abdomen pelvis with IV contrast will be obtained. Initial workup reviewed by me no significant leukocytosis no transfusable anemia, no LIVAN or critical electrolyte abnormality initial troponin undetectably low, viral swab negative. Chest x-ray informally interpreted by me, no acute dense lobar opacities. CT imaging and repeat evaluation pending at time of transition of care to the oncoming physician, Dr. Lopez. This is Dr. Lopez. I received handoff of care on this patient at shift change. Patient reportedly had a ground-level fall from his [facility] facility. He also presented with wheezing in his bilateral lung ruth and has a history of COPD for which he was treated with DuoNebs and methylprednisolone. At the time of shift changes patient's CT scans were pending. CT scans of the cervical spine were interpreted by radiology and demonstrate chronic findings in the neck with no acute fractures. Additionally, the CT scan of his face shows multiple fractures including left second medic arch, and multiple wall of the left maxillary sinus. Otherwise unremarkable. I had an interactive discussion with the facial surgery service at the [facility]. They state that these injuries are nonoperative after reviewing images. They will call the patient's [facility] this week and schedule him for follow-up sometime in the next month. We will advise sinus precautions to the patient and to have him return if any new or worsening symptoms. Additionally, we will treat the patient with a 5-day course of prednisone and azithromycin for COPD exacerbation
--- OUTSIDE RECORDS SUMMARY | 2025-09-26 14:03 | XMS_ITS | Encounter Summary ---
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 Name: ALEXI GRIJALVA /Sex: 1960 Male Med Rec #: [id number] Physician: BRAD CASTILLO MD-ARNOLD Financial #: [id number] Pt. Type: I Room/Bed: 647/1 Admit/Disch: 11/30/20 06:39:00 - 12/02/20 16:16:00 Institution: [facility] PreOp Case Times Entry 1 In Preop 11/30/20 10:20:00 Ready for Holding n/a Room Patient Ready for 11/30/20 14:20:00 Surgery Patient Out of Preop 11/30/20 14:57:00 Patient Out of n/a Holding Room Last Modified By: Meli Grimaldo Nurse Safety And Security Manager 12/11/20 16:34:04 [facility] PreOp Case Times Audit 12/11/20 16:34:04 Display Specialist: [id number] Modifier: [id number] <+> 1 Patient Out of Preop Finalized By: Meli Grimaldo, Nurse Marketing Instructor Signatures Signed By: Meli Grimaldo Nurse Safety And Security Manager 12/11/20 16:34 Electronically signed by [facility] Conversion Environmental Remediation Engineer Cerner at 02/19/2023 9:43 AM CDT documented in this encounter Plan of Treatment Not on file documented as of this encounter Visit Diagnoses Not on filedocumented in this encounter
--- OUTSIDE RECORDS SUMMARY | 2025-09-26 14:03 | XMS_ITS | Encounter Summary ---
Author Organization [employer] ([place], [place], [place], [place], [place]) Address [address] [place] [address] Care Team Providers Care Wire Winding Machine Operator Name Role Phone Unavailable Primary Care Provider Unavailabl e Encounter Details Date Type Department Care Team (Late st Contact Info) Description 11/28/2020 Transcribed Document [facility] [place] Family Medicine [facility] [place] [address] ProviderFabi MD [address] [place] [address] Social History Tobacco Use Types [...] - Historical ProviderMD - 11/28/2020 2:02 PM CREDIT ADVISOR UM Authorization Entered On: 11/28/2020 14:03 EST Performed On: 11/28/2020 14:02 EST by TRA GOLDBERG, Bedspread Cutter Hand Primary Insurance Authorization Authorization and Policy Numbers : Insurance 1 Health Plan: MEDICARE Policy Number: [id number] Authorization Number: Insurance 2 Health Plan: [place] Policy Number: [id number] Authorization Number: Insurance Primary Name : Medicare Authorization Status-Primary : No precert required Authorization Number-Primary : NPR for Medicare Authorized Service Begin Date-Primary : 11/30/2020 EST Authorization Comments-Primary : Pt is mauricio for INPT Cervical Discectomy Fusion Posterior on 11-30-20 Medicare: NPR Historical Authorization Comments-Primary : No Authorization Comments Found TRA GOLDBERG, Bedspread Cutter Hand - 11/28/2020 14:02 EST Secondary Insurance Authorization Authorization and Policy Numbers : Insurance 1 Health Plan: MEDICARE Policy Number: [id number] Authorization Number: Insurance 2 Health Plan: [place] Policy Number: [id number] Authorization Number: Insurance Secondary Name : [facility] [id number] Authorized Service Begin Date-Secondary : 11/30/2020 EST Historical Authorization Comments-Secondary : No Authorization Comments Found TRA GOLDBERG, Bedspread Cutter Hand - 11/28/2020 14:02 EST documented in this encounter Plan of Treatment Not on file documented as of this encounter Visit Diagnoses Not on filedocumented in this encounter
--- OUTSIDE RECORDS SUMMARY | 2025-09-26 14:03 | XMS_ITS | Encounter Summary ---
Author Organization [employer] ([place], [place], [place], [place], [place]) Address [address] [place] [address] Care Team Providers Care Final Inspector Paper Name Role Phone Unavailable Primary Care Provider Unavailabl e Encounter Details Date Type Department Care Team (Late st Contact Info) Description 12/02/2020 Transcribed Document [facility] [place] Family [place] [facility] [place] [address] ProviderFabi MD [address] [place] [address] Social History Tobacco Use Types Packs/Day Years Used Date Smoking Tobacco: Never Assessed Sex and Gender Information Value Date Recorded Sex Assigned at Male 05/01/2022 10:55 AM CDT Legal Sex Male 10:55 AM CDT Gender Identity Male 05/01/2022 10:55 AM CDT Sexual Orientation Not on file documented as of this encounter Miscellaneous Notes * Cerner Conversion Note - Historical ProviderMD - 12/02/2020 2:30 PM HOUSE MOTHER On Going Discharge Planning Entered On: 12/02/2020 14:47 EST Performed On: 12/02/2020 14:30 EST by JAQUI COLÓN RN-Automatic Lathe TenderDaytime Caregiver Progress Note Discharge Arrangements : Patient Post-Acute [...] Attend Multidisciplinary Rounds? : Yes JAQUI COLÓN RN-Automatic Lathe Tender - 12/02/2020 14:30 EST Electronically signed by [facility] Conversion Environmental Services Specialist Cerner at 02/19/2023 9:44 AM CDT documented in this encounter Plan of Treatment Not on file documented as of this encounter Visit Diagnoses Not on filedocumented in this encounter
--- OUTSIDE RECORDS SUMMARY | 2025-09-26 14:03 | XMS_ITS | Encounter Summary ---
Author Organization [employer] ([place], [place], [place], [place], [place]) Address [address] [place] [address] Care Team Providers Care Pipe Assembly Worker Name Role Phone Unavailable Primary Care Provider Unavailabl e Encounter Details Date Type Department Care Team (Late st Contact Info) Description 12/01/2020 Transcribed Document [facility] [place] Family Medicine [facility] [place] [address] ProviderFabi MD [address] [place] [address] Social History Tobacco Use Types [...] - Historical ProviderMD - 12/01/2020 11:39 AM INSEAMER UM Authorization Entered On: 12/01/2020 11:39 EST Performed On: 12/01/2020 11:39 EST by Allie Nicholas Rn-Utilization Review Primary Insurance Authorization Authorization and Policy Numbers : Insurance 1 Health Plan: MEDICARE Policy Number: [id number] Authorization Number: Insurance 2 Health Plan: [place] Policy Number: [id number] Authorization Number: Insurance Primary Name : Medicare Authorization Status-Primary : No precert required Authorization Number-Primary : NPR for Medicare Authorized Service Begin Date-Primary : 11/30/2020 EST Historical Authorization Comments-Primary : Comment 1: Pt is mauricio for INPT Cervical Discectomy Fusion Posterior on 11-30-20 Medicare: NPR (TRA GOLDBERG, Demi Chef 11/28/2020 14:02) Allie Nicholas Rn-Utilization Review - 12/01/2020 11:39 EST documented in this encounter Plan of Treatment Not on file documented as of this encounter Visit Diagnoses Not on filedocumented in this encounter
--- OUTSIDE RECORDS SUMMARY | 2025-09-26 14:03 | XMS_ITS | Encounter Summary ---
Author Organization [employer] ([place], [place], [place], [place], [place]) Address [address] [place] [address] Care Team Providers Care Barrel Assembly Inspector Name Role Phone Unavailable Primary Care Provider Unavailabl e Encounter Details Date Type Department Care Team (Late st Contact Info) Description 12/02/2020 Transcribed Document [facility] Neurology - [address] [facility] [address] [place] [address] Angel Todd MD [facility] [address] [place] [id number] Social History Tobacco Use Types Packs/Day Years [...] Date 12/02/2020 Primary Care Provider ROSIBEL ODONNELL (REF)MD-[facility] Discharge Diagnosis Cervical myelopathy 12/02/2020 G95.9 ICD-10-CM Procedures SN - Proc - Procedure: Lumbar Fusion Posterior 3 Level (11/30/20 16:47:00) Reason for Hospitalization Stable cervical fusion Hospital Course 60-year-old male with history of TBI and lives in a [place]it[place] , was initially evaluated in the office [...] voice nod head yes/no to questions equal computer analyst supervisor incision cdi bandage intact and dry rachel [...] 1 Tab, PRN, Oral, Daily Flonase 1 [place], Nostrils Both, Daily fluvoxaMINE 50 mg oral tablet 50 mg = 1 Tab, Oral, BID Incruse Ellipta 62.5 mcg/inh inhalation powder 1 Puff, Inhalation, [id number] levothyroxine 25 mcg (0.025 mg) oral tablet [...] LOCO LAUREN MD-ANS RHYNE, HEATHER, MD-ANS DOODNAUTH, DAVANAND C, MD-INT Current Diet Order Diet, Adult - [...]
--- OUTSIDE RECORDS SUMMARY | 2025-09-26 14:03 | XMS_ITS | Encounter Summary ---
Author Organization [employer] ([place], [place], [place], [place], [place]) Address [address] [place] [address] Care Team Providers Care National Sales Executive Name Role Phone Unavailable Primary Care Provider Unavailabl e Encounter Details Date Type Department Care Team (Late st Contact Info) Description 11/25/2020 Transcribed Document [facility] [place] [facility] [place] [address] ProviderFabi MD [address] [place] [address] Social History Tobacco Use Types Packs/Day Years Used Date Smoking Tobacco: Never Assessed Sex and Gender Information Value Date Recorded Sex Assigned at Male 05/01/2022 10:55 AM CDT Legal Sex Male 10:55 AM CDT Gender Identity Male 05/01/2022 10:55 AM CDT Sexual Orientation Not on file documented as of this encounter Miscellaneous Notes * Cerner Conversion Note - Historical ProviderMD - 11/25/2020 10:54 AM SILK SCREEN LAYOUT DRAFTER PAT Adult Entered On: 11/25/2020 10:59 EST [...] Source : Measured Height Entry Format : [place] Height, Feet : 0 ft(Converted to: 0 cm, 0 Inch) Constance Boone RN - 11/28/2020 12:34 EST Height, Inches : 65 Inch(Converted to: 5 ft 5 Inch, 165.10 cm) Clinical Height : 165.1 cm Constance Boone RN - 11/28/2020 12:48 EST Weight Source : Standing scale Weight Entry Format : [place] Constance Boone RN - 11/28/2020 12:34 EST [place] Body Weight : 61 kg Constance Boone [...] Alli Greene Rn - 11/25/2020 10:54 EST [place] Suicide Severity Rating Scale (C-SSRS) CSSRS Past [...] Arrival on Unit : Wheelchair Support Person/Patient Director Of Student Aid : Yes Support Person/Pt Rep Name : [facility] Support Person/Pt Rep Contact Information : [phone] ext. 100 Want Family/Rep/Phys Notified of Admit : No Alli Greene Rn - 11/25/2020 10:54 EST Emergency Contact #1 : faheem hahn Emergency Contact #1 Phone Number : `[phone] Emergency Contact #1 Relationship : `sister Emergency Contact #2 : `hood hero Emergency Contact #2 ` Emergency Contact #2 Relationship : sister` Constance BooneRAYO - 11/28/2020 12:34 EST Information Obtained From : Care provider Information Obtained from, Name(s) : Misa Social Service Primary Language : Bolivian Preferred Communication Mode : Verbal Communication Barrier : Cognitive Dietitian Teaching Needed : No Alli Greene Rn - [...]
--- OUTSIDE RECORDS SUMMARY | 2025-09-26 14:03 | XMS_ITS | Encounter Summary ---
Author Organization [employer] ([place], [place], [place], [place], [place]) Address [address] [place] [address] Care Team Providers Care Gas Appliance Installer Name Role Phone Unavailable Primary Care Provider Unavailabl e Encounter Details Date Type Department Care Team (Late st Contact Info) Description 11/30/2020 Transcribed Document [facility] Neurology - [address] [facility] [address] [place] [address] Angel Todd MD 10[address] [facility] [address] [place] [id number] Social History Tobacco Use Types Packs/Day Years [...] Intraoperative CT scan with spinal stereotactic navigation. ACOUSTICS TEACHER: Daniel Howard. TYPE OF ANESTHESIA: GEA. DESCRIPTION [...] was exposed using stereotactic navigation and the AlertaPhone system. C2 pars screws were placed bilaterally. [...] LOSS: 200 mL. DRAINS: Kumar-Marcos. COMPLICATIONS: None. /[id number] MD ARELIS Bella/EMMA / ARELIS / MODL /[id number] CC: Cielo Daniele, documented in this encounter Plan of Treatment Not on file documented as of this encounter Visit Diagnoses Not on filedocumented in this encounter
--- OUTSIDE RECORDS SUMMARY | 2025-09-26 14:03 | XMS_ITS | Encounter Summary ---
Author Organization [employer] ([place], [place], [place], [place], [place]) Address [address] [place] [address] Care Team Providers Care Pickling Machine Operator Name Role Phone Unavailable Primary Care Provider Unavailabl e Encounter Details Date Type Department Care Team (Late st Contact Info) Description 11/30/2020 Transcribed Document [facility] [place] Family Medicine [facility] [place] [address] ProviderFabi MD [facility] [place] [address] Social History Tobacco Use Types [...] Conversion Note - Historical ProviderMD - 11/30/2020 6:19 PM SOFTWARE SPECIALIST Pain Assessment Entered On: 12/01/2020 15:49 EST [...]
--- OUTSIDE RECORDS SUMMARY | 2025-09-26 14:03 | XMS_ITS | Encounter Summary ---
Author Organization [employer] ([place], [place], [place], [place], [place]) Address [address] [place] [address] Care Team Providers Care Emergency Vehicle Operations Instructor Name Role Phone Unavailable Primary Care Provider Unavailabl e Encounter Details Date Type Department Care Team (Late st Contact Info) Description 11/30/2020 Transcribed Document [facility] [place] Family Medicine [facility] [place] [address] ProviderFabi MD [address] [place] [address] Social History Tobacco Use Types [...] - Historical ProviderMD - 11/30/2020 4:09 PM PROCESSING ENGINEER [facility] Main OR PACU Summary Primary Physician: BRAD CASTILLO MD-SNU Finalized Date/Time: 11/30/20 22:00:25 Pt. Name: ROSELYN GRIJALVA /Sex: 1960 Male Med Rec #: [id number] Physician: BRAD CASTILLO MD-SNU Financial #: [id number] Pt. Type: I Room/Bed: ASA/4 Admit/Disch: 11/30/20 06:39:00 - Institution: [facility] Main OR PACU I Case Times Entry 1 In PACU I 11/30/20 18:48:00 Ready for PACU 11/30/20 21:43:00 Discharge Discharge from PACU 11/30/20 21:43:00 I Last Modified By: Venus Montaño RN 11/30/20 21:59:38 [facility] Main OR PACU I Case Times Audit 11/30/20 21:59:38 Rn Obgyn: [id number] Modifier: [id number] <+> 1 Ready for PACU Discharge <+> 1 Discharge from PACU I Finalized By: Vneus Montaño RN Document Signatures Signed By: Venus Montaño RN 11/30/20 22:00 Electronically signed by Cruzito [facility] Conversion Die Repairer Stamping Cerner at 02/19/2023 9:48 AM CDT documented in this encounter Plan of Treatment Not on file documented as of this encounter Visit Diagnoses Not on filedocumented in this encounter
--- OUTSIDE RECORDS SUMMARY | 2025-09-26 14:03 | XMS_ITS | Encounter Summary ---
Author Organization [employer] ([place], [place], [place], [place], [place]) Address [address] [place] [address] Care Team Providers Care Drainman Name Role Phone Unavailable Primary Care Provider Unavailabl e Encounter Details Date Type Department Care Team (Late st Contact Info) Description 11/30/2020 Transcribed Document [facility] [place] [address] ProviderFabi MD [address] [place] [address] Social History Tobacco Use Types Packs/Day Years Used Date Smoking Tobacco: Never Assessed Sex and Gender Information Value Date Recorded Sex Assigned at Male 05/01/2022 10:55 AM CDT Legal Sex Male 10:55 AM CDT Gender Identity Male 05/01/2022 10:55 AM CDT Sexual Orientation Not on file documented as of this encounter Miscellaneous Notes * Cerner Conversion Note - Historical Provider, - 11/30/2020 6:25 PM VICE PRESIDENT OF DEVELOPMENT Evaluation, Physical Therapy Entered On: 12/01/2020 12:28 EST Performed On: 12/01/2020 11:50 EST by MACI LAND, JESSIE General Information, PT Visit Type, PT : Initial evaluation Patient Orders : Order Date Order Ordering MD 11/30/2020 18:25 Physical Therapy Eval and Treat Ordered By: BRAD CASTILLO MD-[facility] Active Diagnoses : 11/30/2020 12:00 [...] and Environment Living Situation, Therapy : Other: [facility] Patient Lives With : Caregiver(s) Persons [...] that patient is able to ambulate however shelter does not allow patient to ambulate and [...] MACI LAND, PT - 12/01/2020 11:50 EST Care Home Goals Mobility/Bed Mobility LTG PT Grid Goal #1 Goal #2 Activity : Supine to sit Sit to stand Assist : Supervision or set-up Supervision or set-up Date to Meet : 12/15/2020 EST 12/15/2020 EST Goal Status : Intial Goal Intial Goal MACI LAND PT - 12/01/2020 11:50 EST MACI LAND, [...] MACI LAND PT - 12/01/2020 11:50 EST Treatment Note [...] Needs, OT/PT Anticipated Discharge to : Unit, senior care Recommend Continued Therapy at Discharge : Yes [...]
--- OUTSIDE RECORDS SUMMARY | 2025-09-26 14:03 | XMS_ITS | Encounter Summary ---
Author Organization [employer] ([place], [place], [place], [place], [place]) Address [address] [place] [address] Care Team Providers Care Senior Clinical Data Analyst Name Role Phone Unavailable Primary Care Provider Unavailabl e Encounter Details Date Type Department Care Team (Late st Contact Info) Description 12/05/2020 Transcribed Document [facility] [place] Family Medicine [facility] [place] [address] ProviderFabi MD [address] [place] [address] Social History Tobacco Use Types Packs/Day Years Used Date Smoking Tobacco: Never Assessed Sex and Gender Information Value Date Recorded Sex Assigned at Male 05/01/2022 10:55 AM CDT Legal Sex Male 10:55 AM CDT Gender Identity Male 05/01/2022 10:55 AM CDT Sexual Orientation Not on file documented as of this encounter Miscellaneous Notes * Cerner Conversion Note - Historical ProviderMD - 12/05/2020 10:59 PM CINEMA OR THEATRE MANAGER PLEASE MODIFY BEFORE SIGNING CLINICAL DOCUMENTATION [...] determine Physician Signature: Daniel Howard PA-C Date/Time: 74312/19/2020 For continuity of documentation, please document condition [...] ] Albuterol As per MAR sheet on CDS/Senior Corporate Accountant Signature: Jalenu Phone #: [phone] Extn [phone] Date/Time: 12/06/2020 This is a permanent part of the Medical Record Q47 2019 [facility] Updated: documented in this encounter Plan of Treatment Not on file documented as of this encounter Visit Diagnoses Not on filedocumented in this encounter
--- OUTSIDE RECORDS SUMMARY | 2025-09-26 14:03 | XMS_ITS | Referral Summary ---
Author Organization [employer] ([place], [place], [place], [place], [place]) Address [address] [place] [address] Care Team Providers Care Disbursing Agent Name Role Phone Unavailable Primary Care [...]
--- OUTSIDE RECORDS SUMMARY | 2025-09-26 14:03 | XMS_ITS | Clinical Summary ---
Author Organization [employer] ([place], [place], [place], [place], [place]) Address [address] [place] [address] Care Team Providers Care Medical Geneticist Name Role Phone Unavailable Primary Care Provider [...]
--- OUTSIDE RECORDS SUMMARY | 2025-09-26 14:03 | XMS_ITS | Encounter Summary ---
Author Organization [employer] ([place], [place], [place], [place], [place]) Address [address] [place] [address] Care Team Providers Care Tariff Compiling Clerk Name Role Phone Unavailable Primary Care Provider Unavailabl e Encounter Details Date Type Department Care Team (Late st Contact Info) Description 12/02/2020 Transcribed Document [facility] [place] Family Medicine [facility] [place] [address] ProviderFabi MD [address] [place] [address] Social History Tobacco Use Types [...] - Historical ProviderMD - 12/02/2020 3:15 PM JUNIOR TECHNICAL WRITER Event Note Entered On: 12/02/2020 15:15 EST [...]
--- OUTSIDE RECORDS SUMMARY | 2025-09-26 14:03 | XMS_ITS | Encounter Summary ---
Author Organization [employer] ([place], [place], [place], [place], [place]) Address [address] [place] [address] Care Team Providers Care Phlebotomist Associate Name Role Phone Unavailable Primary Care Provider Unavailabl e Encounter Details Date Type Department Care Team (Late st Contact Info) Description 12/02/2020 Transcribed Document [facility] Family Medicine [facility] [place] [address] ProviderFabi MD [address] [place] [address] Social History Tobacco Use Types Packs/Day Years Used Date Smoking Tobacco: Never Assessed Sex and Gender Information Value Date Recorded Sex Assigned at Male 05/01/2022 10:55 AM CDT Legal Sex Male 10:55 AM CDT Gender Identity Male 05/01/2022 10:55 AM CDT Sexual Orientation Not on file documented as of this encounter Miscellaneous Notes * Cerner Conversion Note - Fabi ProviderMD - 12/02/2020 1:44 PM PIPE TESTER [facility] [place] [address] ALEXI GRIJALVA :1960 Visit Time:11/30/2020 Your Visit Summary [...] Follow-Up Appointments Follow Up with BRAD CASTILLO MD-ARNOLD When 01/12/2021 01:00 PM EST Comments Appointment has been made Where: [address] [place] [address] [email or web address] [address] (SATURDAY ONLY) [place] [address]- Follow Up with BRAD CASTILLO MD-ARNOLD When 12/19/2020 03:15 PM EST Comments Return for suture/staple removal Where: [address] [place] [address] [employer] [address] (SATURDAY ONLY) [place] [address]- Medications What How Much When [...] Oral At Bedtime fluticasone nasal (Flonase) 1 Sturdivant(s) Nostrils Both Every Day fluvoxaMINE (fluvoxaMINE 50 [...] and water are not available, use hand distribution system operator. ? Change your dressing as told by [...] or a bad smell. Medicines ??? Take fsge-qbk-ghsqypl and prescription medicines only as told by [...] urine clear or pale yellow. ? Take panl-por-jrnmach or prescription medicines. ? Eat foods that [...] 05/10/2006 Document Revised: 10/03/2018 Document Reviewed: 04/07/2017 [employer] Patient Education ?? 2020 Elsevier Inc. Laminectomy, [...] and water are not available, use hand distribution system operator. ? Change your dressing as told by [...] or a bad smell. Medicines ??? Take qhbj-sen-ifzncjz and prescription medicines only as told by [...] urine clear or pale yellow. ? Take oisq-fie-ofoyxhv or prescription medicines. ? Eat foods that [...] Reviewed: 04/07/2017 Else[employer] Patient Education ?? 2020 [employer] Emergency Awareness and Preventative Care STROKE [...] Assistance with quitting is available by contacting 7-188-EWFF-NOW. This is a free resource providing counseling, support, and referral. Or you may contact your personal physician. [employer] Suicide Prevention Lifeline: The National Suicide Prevention [...] range between ( 0.0 and 7.0 ) Archer #: 1.16 K/uL -- Normal range between ( 0.16 and 1.00 ) Eos #: 0.07 x10(3)/uL -- Normal range between ( 0.00 and 0.80 ) Archer %: 10.1 % -- Normal range between [...] was given the opportunity to ask questions. Patient/Carbon Lamp Cleaner Name: Patient/Carbon Lamp Cleaner Signature: Relationship to Patient: Clinician/Hospital Carbon Lamp Cleaner Signature: Date: documented in this encounter Plan of Treatment Not on file documented as of this encounter Visit Diagnoses Not on filedocumented in this encounter
--- OUTSIDE RECORDS SUMMARY | 2025-09-26 14:03 | XMS_ITS | Encounter Summary ---
Author Organization [employer] ([place], [place], [place], [place], [place]) Address [address] [place] [address] Care Team Providers Care Offset Press Operator Helper Name Role Phone Unavailable Primary Care Provider Unavailabl e Encounter Details Date Type Department Care Team (Late st Contact Info) Description 12/02/2020 Transcribed Document [facility] [place] Family Medicine [facility] [place] [address] ProviderFabi MD [address] [place], [place] [id number] Social History Tobacco Use Types Packs/Day Years [...] - Historical ProviderMD - 12/02/2020 1:42 PM SLASHER TENDER HELPER Stroke/Warfarin Instructions Entered On: 12/02/2020 13:42 EST [...]
--- OUTSIDE RECORDS SUMMARY | 2025-09-26 14:03 | XMS_ITS | Encounter Summary ---
Author Organization [employer] ([place], [place], [place], [place], [place]) Address [address] [place] [address] Care Team Providers Care Windrower Operator Name Role Phone Unavailable Primary Care Provider Unavailabl e Encounter Details Date Type Department Care Team (Late st Contact Info) Description 12/01/2020 Transcribed Document [facility] [place] On [facility] [place] [address] ProviderFabi MD [address] [place] [address] Social History Tobacco Use Types [...] - Historical ProviderMD - 12/01/2020 11:11 AM MANAGER OF IT Attempt to Treat, OT Entered On: 12/01/2020 12:45 EST Performed On: 12/01/2020 11:11 EST by JADIEL SHIN OTR/Patti Attempt to Treat Unable to Treat Due To : Patient Unavailable Inability to Treat Comment : Pt eating lunch at this time. OT will follow up as schedule permits. Notification : RAYO Solares SHEENAGH E, OTR/Patti - 12/01/2020 12:44 EST Electronically signed by Cruzito [facility] Conversion Bowling Alley Mechanic Cerner at 02/19/2023 10:08 AM CDT documented in this encounter Plan of Treatment Not on file documented as of this encounter Visit Diagnoses Not on filedocumented in this encounter
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
--- OUTSIDE RECORDS SUMMARY | 2025-09-26 14:03 | XMS_ITS | Encounter Summary ---
Author Organization [employer] ([place], [place], [place], [place], [place]) Address [address] [place] [address] Care Team Providers Care Corporate Communications Manager Name Role Phone Unavailable Primary Care Provider Unavailabl e Encounter Details Date Type Department Care Team (Late st Contact Info) Description 12/01/2020 Transcribed Document [facility] [facility] [place] [address] ProviderFabi MD [address] [place] [address] Social History Tobacco Use Types Packs/Day Years Used Date Smoking Tobacco: Never Assessed Sex and Gender Information Value Date Recorded Sex Assigned at Male 05/01/2022 10:55 AM CDT Legal Sex Male 10:55 AM CDT Gender Identity Male 05/01/2022 10:55 AM CDT Sexual Orientation Not on file documented as of this encounter Miscellaneous Notes * Cerner Conversion Note - Historical Provider, - 12/01/2020 2:19 PM CARDIOVASCULAR SONOGRAPHER Treatment Intervention, OT Entered On: 12/02/2020 12:36 [...] MERE TOLBERT COTA - 12/02/2020 12:22 EST Skilled Nursing Goals, OT Grooming LTG Grid Goal #1 [...] Treatment : continue with POC MERE TOLBERT COTA - 12/02/2020 12:22 EST Pain Assessment Pain Scaled Used : 0-10 Pain scale Pain Score Pre-Intervention : 0 MERE TOLBERT COTA - 12/02/2020 12:22 EST Image 1 - Images currently included in the form version of this document have not been included in the text rendition version of the form. Anticipated Discharge Needs, OT/PT Anticipated Discharge to : [facility] MERE TOLBRET COTA - 12/02/2020 12:[address] [facility] OT Charges [facility] OT Ther Activities Ea 15 Min-[place] : 1 DIDIMEREYOKASTA - 12/02/2020 12:22 EST documented in this encounter Plan of Treatment Not on file documented as of this encounter Visit Diagnoses Not on filedocumented in this encounter
--- OUTSIDE RECORDS SUMMARY | 2025-09-26 14:03 | XMS_ITS | Encounter Summary ---
Author Organization [employer] ([place], [place], [place], [place], [place]) Address [address] [place] [address] Care Team Providers Care Sales Development Manager Name Role Phone Unavailable Primary Care Provider Unavailabl e Encounter Details Date Type Department Care Team (Late st Contact Info) Description 11/30/2020 Transcribed Document [facility] [address] [place] [address] Danielle Rosales MD [address] [place] [address] Social History Tobacco Use Types Packs/Day [...] is a 60 yo male admitted to [facility] per Dr. Todd for a cervical [...] disease) History of obstructive sleep apnea Hypothyroidism [place] (myocardial infarction) Mixed hyperlipidemia Muscle weakness AR [...] 1 Tab, PRN, Oral, Daily Flonase 1 [place], Nostrils Both, Daily fluvoxaMINE 50 mg oral tablet 50 mg = 1 Tab, Oral, BID Incruse Ellipta 62.5 mcg/inh inhalation powder 1 Puff, Inhalation, [id number] levothyroxine 25 mcg (0.025 mg) oral tablet [...] 18 (NOV 30 11:00) SBP 114 (NOV 30:00) 114 (NOV 30 11:00) 114 (NOV 30:00) DBP 67 (NOV 30 [...]
--- OUTSIDE RECORDS SUMMARY | 2025-09-26 14:03 | XMS_ITS | Clinical Summary ---
Author Organization [facility] Address [address] [place] [address] Phone Care Team Providers Care Clay House Worker Name Role Phone Unavailable Primary Care [...] age to complete this topic Insurance [place] [address]
--- OUTSIDE RECORDS SUMMARY | 2025-09-26 14:03 | XMS_ITS | Encounter Summary ---
Author Organization [employer] ([place], [place], [place], [place], [place]) Address [address] [place] [address] Care Team Providers Care News Commentator Name Role Phone Unavailable Primary Care Provider Unavailabl e Encounter Details Date Type Department Care Team (Late st Contact Info) Description 12/02/2020 Transcribed Document [facility] [place] [facility] [place] [address] ProviderFabi MD [address] [place] [address] Social History Tobacco Use Types Packs/Day [...] - Historical ProviderMD - 12/02/2020 1:42 PM MIXER RUNNER Nursing Discharge Summary Entered On: 12/02/2020 13:43 EST Performed On: 12/02/2020 13:42 EST by SILVIO ANTONY landfill gas collection system operator Documentation Discharge Date/Time : 12/02/2020 15:30 EST [...]
--- OUTSIDE RECORDS SUMMARY | 2025-09-26 14:03 | XMS_ITS | Encounter Summary ---
Author Organization [employer] ([place], [place], [place], [place], [place]) Address [address] [place] [address] Care Team Providers Care Tobacco Curer Name Role Phone Unavailable Primary Care Provider Unavailabl e Encounter Details Date Type Department Care Team (Late st Contact Info) Description 11/30/2020 Transcribed Document [facility] [place] [place] [facility] [place] [address] ProviderFabi MD [address] [place], [place] [id number] Social History Tobacco Use Types Packs/Day Years [...] - Historical ProviderMD - 11/30/2020 10:13 PM STORE SALES CONSULTANT Meds to Bed Enrollment Entered On: 12/01/2020 [...]
--- OUTSIDE RECORDS SUMMARY | 2025-09-26 14:04 | XMS_ITS | Encounter Summary ---
Author Organization [employer] ([place], [place], [place], [place], [place]) Address [address] [place] [address] Care Team Providers Care Skiagrapher Name Role Phone Unavailable Primary Care Provider Unavailabl e Encounter Details Date Type Department Care Team (Late st Contact Info) Description 12/01/[address] [facility] [place] [address] ProviderFabi [place] [address] Social History Tobacco Use Types [...] Conversion Note - Historical Provider, - 12/01/2020 12:28 PM MANAGER ANIMATION Treatment Intervention, PT Entered On: 12/02/2020 16:31 EST Performed On: 12/02/2020 11:36 EST by MACI LAND PT General Information, PT Visit Type, PT : Treatment Note Patient Orders : Order Date Order Ordering 11/30/2020 18:25 Physical Therapy Eval and Treat Ordered By: BRAD CASTILLO MD-[facility] 12/01/2020 12:28 Physical Therapy Additional Tx Ordered [...] MACI LAND PT - 12/02/2020 16:29 EST Care Home Goals Mobility/Bed Mobility LTG [...] Anticipated Discharge to : Unit, rehabilitation, Unit, nursing home Recommend Continued Therapy at Discharge : Yes MACI LAND PT - 12/02/2020 16:29 EST Bernice PT Charges PT Ther Activities Ea 15 Min : 1 MACI LAND PT - 12/02/2020 16:29 EST documented in this encounter Plan of Treatment Not on file documented as of this encounter Visit Diagnoses Not on filedocumented in this encounter
--- OUTSIDE RECORDS SUMMARY | 2025-09-26 14:04 | XMS_ITS | Encounter Summary ---
Author Organization [employer] ([place], [place], [place], [place], [place]) Address [address] [place] [address] Care Team Providers Care Bowling Ball Grader And Marker Name Role Phone Unavailable Primary Care Provider Unavailabl e Encounter Details Date Type Department Care Team (Late st Contact Info) Description 12/02/2020 Transcribed Document [facility] [place] [facility] [place] [address] ProviderFabi MD [address] [place] [address] Social History Tobacco Use Types Packs/Day Years Used Date Smoking Tobacco: Never Assessed Sex and Gender Information Value Date Recorded Sex Assigned at Male 05/01/2022 10:55 AM CDT Legal Sex Male 10:55 AM CDT Gender Identity Male 05/01/2022 10:55 AM CDT Sexual Orientation Not on file documented as of this encounter Miscellaneous Notes * Cerner Conversion Note - Historical ProviderMD - 12/02/2020 6:00 AM CATERING TRUCK DRIVER Pain Assessment Entered On: 12/02/2020 10:09 EST [...]
--- OUTSIDE RECORDS SUMMARY | 2025-09-26 14:04 | XMS_ITS | Encounter Summary ---
Author Organization [employer] ([place], [place], [place], [place], [place]) Address [address] [place] [address] Care Team Providers Care Tube Lancer Name Role Phone Unavailable Primary Care Provider Unavailabl e Encounter Details Date Type Department Care Team (Late st Contact Info) Description 12/02/2020 Transcribed Document [facility] [place] [facility] [place] [address] ProviderFabi MD [address] [place] [address] Social History Tobacco Use Types Packs/Day Years Used Date Smoking Tobacco: Never Assessed Sex and Gender Information Value Date Recorded Sex Assigned at Male 05/01/2022 10:55 AM CDT Legal Sex Male 10:55 AM CDT Gender Identity Male 05/01/2022 10:55 AM CDT Sexual Orientation Not on file documented as of this encounter Miscellaneous Notes * Cerner Conversion Note - Historical ProviderMD - 12/02/2020 5:07 PM WATER RIGHTS SPECIALIST Nursing Discharge Summary Entered On: 12/02/2020 [...] - 12/02/2020 17:07 EST Electronically signed by [facility], [facility] Conversion [place] Brushing Machine Operator Cerner at 02/19/2023 9:54 AM CDT documented in this encounter Plan of Treatment Not on file documented as of this encounter Visit Diagnoses Not on filedocumented in this encounter
--- OUTSIDE RECORDS SUMMARY | 2025-09-26 14:04 | XMS_ITS | Encounter Summary ---
Author Organization [employer] ([place], [place], [place], [place], [place]) Address [address] [place] [address] Care Team Providers Care Senior Salesforce Developer Name Role Phone Unavailable Primary Care Provider Unavailabl e Encounter Details Date Type Department Care Team (Late st Contact Info) Description 11/30/2020 Transcribed Document [facility] [place] [facility] [place] [address] ProviderFabi MD [address] [place] [address] Social History Tobacco Use Types Packs/Day [...] - Historical ProviderMD - 11/30/2020 6:25 PM DEHYDROGENATION OPERATOR Evaluation, Occupational Therapy Entered On: 12/01/2020 14:18 EST Performed On: 12/01/2020 13:49 EST by TOM SILVERIO, OTR/L General Information, OT Visit Type, OT : Initial evaluation Patient Orders : Order Date Order Ordering MD 11/30/2020 18:25 Occupational Therapy Evaluation and Treatme Ordered By: BRAD CASTILLO MD-[facility] Active Diagnoses : 11/30/2020 12:00 [...] a 60yo M admitted to [facility] on 11/30 with cervical myelopathy, RUE pain, now s/p C3-7 laminectomy, C2-T2 fusion on 11/30. PMHx TBI, Bipolar, Anxiety, Delusions, CT, falls, vascular dementia, COPD TOM SILVERIO OTR/Patti [...] Environment, OT Living Situation, Therapy : Other: [facility] Patient Lives With : Caregiver(s) Persons [...] Per patient/sister was I with ADLs at [facility], limited history from patient d/t cognitive status. Was mobilizing in wheelchair primarily at [facility] per PT/family though able to ambulate with [...] SILVERIO OTR/Patti - 12/01/2020 14:06 EST Hand Bag Sorter Test : 3+/5 BUE Fine Motor Coordination [...] limited information (i.e. regarding PLOF), slowed processing RICHARD SILVERIOABELLE CassVERAR/L - 12/01/2020 14:06 EST Indication Assessment, OT Occupational Therapy Indicated : Yes Problem List, OT : Impaired, bed mobility, Impaired, activities daily living, Impaired, endurance tolerance, Impaired functional mobility, Impaired, standing balance, Impaired, strength, Impaired, transfers, Pain limiting function JEMMAKENROY TOMWELLINGTON JIANG/Patti - 12/01/2020 14:06 EST Plan of Care, OT OT Tx Plan/Goals Established w Patient : Yes OT Frequency Rehab : Five days per week OT Duration Rehab : Fourteen days OT Treatments Planned : Activities of daily living, Balance training, Functional mobility training, Safety education, Therapeutic activities, Therapeutic exercises JEMMARICHARD JASMINEWELLINGTON JIANG/Patti - 12/01/2020 14:06 EST [facility] Goals, OT Grooming LTG Grid Goal #1 Activity : Grooming Assist : Supervision or set up Date to Meet : 12/15/2020 EST Goal Status : Initial goal JEMMAKENROY TOMVIRIDIANA Odell OTR/L - 12/01/2020 14:06 EST Dressing, Lower Body LTG Grid Goal #1 Activity : Dressing, Lower Body Assist : Supervision or set up Equipment : Other: AE PRN Date to Meet : 12/15/2020 EST Goal Status : Initial goal JEAN CLAUDE TOM Cass OTR/L - 12/01/2020 14:06 EST Toilet Transfer LTG Grid Goal #1 Activity : Toilet Transfer, Ambulatory Assist : Supervision or set up Date to Meet : 12/15/2020 EST Goal Status : Initial goal JEMMARICHARD JASMINEABELLE Cass OTR/L - 12/01/2020 14:06 EST Treatment Note Subjective Comment : Patient agreeable to OT evaluation Patient's Response to Treatment : Tolerated, limited by pain Additional Objective Information : Patient encountered semi-supine in bed on 0.5L O2 via NC, O2 92%, participated in interview as able. [facility] and [facility] with [facility], mobilizing primarily in wheelchair but [...] TOM SILVERIO OTR/L - 12/01/2020 14:06 EST Electronically signed by [place], [facility] Conversion Snubber Cerner at 02/19/2023 9:54 AM CDT documented in this encounter Plan of Treatment Not on file documented as of this encounter Visit Diagnoses Not on filedocumented in this encounter
--- OUTSIDE RECORDS SUMMARY | 2025-09-26 14:04 | XMS_ITS | Encounter Summary ---
Author Organization [employer] ([place], [place], [place], [place], [place]) Address [address] [place] [address] Care Team Providers Care Clinical Laboratory Scientist Name Role Phone Unavailable Primary Care Provider Unavailabl e Encounter Details Date Type Department Care Team (Late st Contact Info) Description 11/30/2020 Transcribed Document [facility]rology - [facility] [address] [facility] [address] [place] [address] Angel Todd MD [address] [facility] [address] [place] [id number] Social History Tobacco Use Types Packs/Day Years [...] needed for constipation, 0 Refill(s) Flonase: 1 [place], Nostrils Both, Daily, 0 Refill(s) Incruse Ellipta 62.5 mcg/inh inhalation powder: 1 Puff, Inhalation, [id number], doses should be taken at least 24 [...] 1 Tab, PRN, Oral, Daily Flonase 1 [place], Nostrils Both, Daily fluvoxaMINE 50 mg oral tablet 50 mg = 1 Tab, Oral, BID Incruse Ellipta 62.5 mcg/inh inhalation powder 1 Puff, Inhalation, [id number] levothyroxine 25 mcg (0.025 mg) oral tablet [...] (Selected) Vitamin D deficiency / SNOMED CT 92716134 / Confirmed Vascular dementia with behavior disturbance / SNOMED CT 5544034512 / Confirmed Unsteadiness on feet / SNOMED CT 932877405 / Confirmed Traumatic brain injury / SNOMED CT 927940 / Confirmed [place] (obstructive sleep apnea) / SNOMED CT 814984948 / Confirmed [place] (myocardial infarction) / SNOMED CT 21957309 / Confirmed Muscle weakness / SNOMED CT 50676154 / Confirmed Mixed hyperlipidemia / SNOMED CT 287681847 / Confirmed Hypothyroidism / SNOMED CT 87328923 / Confirmed History of obstructive sleep apnea / IMO 53149245 / Confirmed GERD (gastroesophageal reflux disease) / SNOMED CT 722480585 / Confirmed Repeated falls / SNOMED CT 450224130 / Confirmed Primary hypertension / SNOMED CT 31262083 / Confirmed Eating disorder / SNOMED CT 377205581 / Confirmed Dysphagia / SNOMED CT 72221810 / Confirmed Delusional disorder / SNOMED CT 08628275 / Confirmed COPD (chronic obstructive pulmonary disease) / SNOMED CT 56059413 / Confirmed Bipolar 2 disorder / SNOMED CT 185088470 / Confirmed Anxiety / SNOMED CT 89023092 / Confirmed Adjustment disorder with depressed mood / SNOMED CT 15476013 / Confirmed Gait disturbance / SNOMED CT 30259973 / Confirmed, Active Problems (21) Adjustment disorder with depressed mood Anxiety Bipolar 2 disorder COPD (chronic obstructive pulmonary disease) neck pain and RUE radiculopathy Delusional disorder Dysphagia Eating disorder Gait disturbance GERD (gastroesophageal reflux disease) History of obstructive sleep apnea Hypothyroidism [place] (myocardial infarction) Mixed hyperlipidemia Muscle weakness AR [...] Extraocular movements are intact, glasses. HENT: Normocephalic, TE-MOAK. Neck: Supple, Non-tender. Respiratory: Lungs are clear to auscultation, Respirations are non-labored. Cardiovascular: Normal rate, Regular rhythm, No murmur, No gallop, No edema. Gastrointestinal: Soft, Non-tender. Genitourinary: No costovertebral angle tenderness. Lymphatics: No lymphadenopathy neck, axilla, groin. Musculoskeletal: painful ROM neck, RUE pain/weakness, uses wc due to being a resident in a correction. Integumentary: Warm, Dry, [place]. Neurologic: Alert, Oriented. Psychiatric: Cooperative, Appropriate mood [...]
--- OUTSIDE RECORDS SUMMARY | 2025-09-26 14:04 | XMS_ITS | Encounter Summary ---
Author Organization [employer] ([place], [place], [place], [place], [place]) Address [address] [place] [address] Care Team Providers Care Washing Tub Operator Name Role Phone Unavailable Primary Care Provider Unavailabl e Encounter Details Date Type Department Care Team (Late st Contact Info) Description 11/30/2020 Transcribed Document [facility] Family Medicine [place] [address] ProviderFabi MD [address] [place] [address] Social History Tobacco Use Types [...] - Historical ProviderMD - 11/30/2020 4:09 PM FIBERGLASS PRODUCT TESTER [facility] Main OR IntraOp Summary Primary Physician: BRAD CASTILLO MD-ARNOLD Finalized Date/Time: 12/01/20 14:35:25 Pt. Name: ALEXI GRIJALVA /Sex: 1960 Male Med Rec #: [id number] Physician: BRAD CASTILLO MD-SNU Financial #: [id number] Pt. Type: I Room/Bed: [facility]/1 Admit/Disch: 11/30/20 06:39:00 - Institution: [facility] IntraOp Case Attendance Entry 1 Entry 2 Entry 3 Case Attendee BRAD CASTILLO SWINFORD, ASHLEE, CRNA BOWEN, JON B, MD-ANS -SNU Role Performed Surgeon/Proceduralist, BENEFITS ANALYST/Nurse Facilities Manager Anesthesiologist of First Record Time In 11/30/20 [...] RN Roxanne Pierson RN Role Performed Physician ophthalmic assistant Medical Education Specialist, First Medical Education Specialist, Second Time In 11/30/20 15:00:00 11/30/20 15:00:00 [...] Scrub OTHER, ATTENDEE Gi Erwin, Tech Diagnostic Surgical Instrument Repair Specialist Role Performed Scrub, First Scrub, Second Presser And Shaper Knitted Goods Time In 11/30/20 15:00:00 11/30/20 15:00:00 11/30/20 [...] Case Attendee OTHER, ATTENDEE #1 Roe Mansfield, BENEFITS ANALYST BENTLEY LAGOS, BENEFITS ANALYST Role Performed Application Developer Manager, Ancillary BENEFITS ANALYST/Nurse Facilities Manager BENEFITS ANALYST/Nurse Facilities Manager Time In 11/30/20 15:00:00 11/30/20 16:02:00 11/30/20 [...] Attendee ERNIE SIMS PA BOWEN, JON B, MD-ANS Role Performed Physician ophthalmic assistant Anesthesiologist Time In 11/30/20 17:02:00 11/30/20 17:51:00 Time Out 11/30/20 18:43:00 11/30/20 18:43:00 Procedure Lumbar Fusion Posterior Lumbar Fusion Posterior 3 Level 3 Level Other Attendee Superficial Wound Closed By: Last Modified By: Joan Ugarte, RN Joan Ugarte, RN 11/30/20 18:43:07 11/30/20 18:43:07 [facility] IntraOp Case Attendance Audit 11/30/20 18:43:07 [employer] Space Salesperson: BRINDA Modifier: BRINDA 1 <+> Time Out [...] Lumbar Fusion Posterior 3 Level 11/30/20 18:07:18 [employer] Pages Space Salesperson: SMITHPD Modifier: SMITHPD 6 <+> Time Out 6 <*> Procedure Lumbar Fusion Posterior 3 Level 14 <+> Case Attendee 14 <*> Procedure Lumbar Fusion Posterior 3 Level 11/30/20 18:01:10 [employer] Pages Space Salesperson: SMITHPD Modifier: SMITHPD 3 <+> Time Out 3 <*> Procedure Lumbar Fusion Posterior 3 Level 12 <+> Time Out 12 <*> Procedure Lumbar Fusion Posterior 3 Level <+> 14 Role Performed <+> 14 Time In <+> 14 Procedure 11/30/20 17:14:11 [employer] Pages Space Salesperson: SMITHPD Modifier: SMITHPD 4 <+> Time Out 4 <*> Procedure Lumbar Fusion Posterior 3 Level <+> 13 Case Attendee <+> 13 Role Performed <+> 13 Time In <+> 13 Procedure 11/30/20 16:51:54 [employer] Space Salesperson: SMITHPD Modifier: SMITHPD 8 <+> Time Out 8 <*> Procedure Lumbar Fusion Posterior 3 Level 11/30/20 16:42:58 [employer] Space Salesperson: SMITHPD Modifier: SMITHPD 9 <*> Case Attendee KVNG CRAMER Janine 9 <*> Procedure Lumbar Fusion Posterior 3 Level 11/30/20 16:42:39 [employer] Pages Space Salesperson: SMITHPD Modifier: SMITHPD 1 <*> Procedure Lumbar [...] <+> 12 Time In <+> 12 Procedure [facility] IntraOp Case Times Entry 1 Patient In Room Time 11/30/20 15:00:00 Out Room Time 11/30/20 18:43:00 Anesthesia Start Time 11/30/20 15:00:00 Stop Time 11/30/20 18:43:00 Surgery / Procedure Times Start Time 11/30/20 16:09:00 Stop Time 11/30/20 17:51:00 Last Modified By: Joan Ugarte RN 11/30/20 18:42:35 [facility] IntraOp Case Times Audit 11/30/20 18:42:35 [employer] Space Salesperson: BRINDA Modifier: SMITHPD <+> 1 Out Room Time <+> 1 Stop Time 11/30/20 18:00:03 [employer] Space Salesperson: BRINDA Modifier: BRINDA <+> 1 Stop Time 11/30/20 17:39:49 [employer] Space Salesperson: BRINDA Modifier: SMITHPD <+> 1 Start Time [facility] IntraOp Cautery Entry 1 Entry 2 ESU Identification Cautery Type Monopolar ESU BiPolar ESU Cautery Type Comments ID Number [id number] ID Type Hospital Number Hospital Number Cautery [...] Joan Ugarte RN 11/30/20 15:32:47 11/30/20 15:33:10 [facility] IntraOp Cautery Audit 11/30/20 15:33:10 Yellow Pages Space Salesperson: BRINDA Modifier: KENYETTAPD <+> 2 Cautery Type <+> 2 Coag Setting <+> 2 Cut Setting <+> 2 ID Number <+> 2 ID Type [facility] IntraOp Communication Entry 1 Communication To Family/Significant other Comment START Communication By Joan Ugarte, RAYO Last Modified By: Joan Ugarte RN 11/30/20 15:33:21 [facility] IntraOp Counts Verification Entry 1 Procedure Lumbar Fusion Posterior 3 Level Count Info Count Type Sponge, Sharps, Miscellaneous Counts Verification Baseline/pre-procedure Sequence Count Results Not Applicable Counts Performed By Count Performed By Philipp Monique Scrub (Scrub) Tech Count Performed By Roxanne Pierson RN (RN) Last Modified By: Joan Ugarte RN 11/30/20 15:33:41 [facility] IntraOp Counts Final Entry 1 Procedure Lumbar Fusion Posterior 3 Level Final Count Info Count Type Sponge, Sharps, Miscellaneous Counts Verification Skin Closure/end of Sequence procedure Count Results Correct, surgeon notified Counts Performed By Count Performed By Philipp Monique Scrub (Scrub) Tech Count Performed By Roxanne Pierson RN (RN) Last Modified By: Joan Ugarte RN 11/30/20 17:35:27 [facility] IntraOp Counts Final Audit 11/30/20 17:35:27 [employer] Pages Space Salesperson: BRINDA Modifier: SMITHPD 1 <*> Procedure Lumbar Fusion Posterior 3 Level 1 <+> Count Performed By (Scrub) 1 <+> Count Performed By (RN) [facility] IntraOp Departure from OR Entry 1 Integumentary Assessment Integumentary WDL with patient Assessment WDL specific variances Patient's Normal [place]-TGICAL SITE C2 Integumentary -T1 Variance(s) Transfer/Handoff Transfer to PACU Phase I Handoff Method Phone call Handoff Reported to NAKITA GUILLEN RN Post-op Transport Stretcher/Gurney Via Patient Transport ALLISON KING MD-ANS, Accompanied by Joan Ugarte, RN Last Modified By: Joan Ugarte RN 11/30/20 18:43:06 [facility] IntraOp Departure from OR Audit 11/30/20 18:43:06 Yellow Pages Space Salesperson: BRINDA Modifier: SMITHPD 1 <*> Patient Transport Accompanied by ALLISON KING MD-ANS 11/30/20 18:02:20 Yellow Pages Space Salesperson: BRINDA Modifier: SMITHPD 1 <*> Patient Transport Accompanied by BROWN KENYON [facility] IntraOp Drains and Tubes Entry 1 Device Type Kumar Marcos round drain Size 15 F Drain/Tube Activity Inserted Drain/Tube Suction Bulb Drain/Tube Drainage Serous Device Location OP SITE Method of Drainage Compression Tube Dressing Dry, Intact Condition Last Modified By: Joan Ugarte RN 11/30/20 17:25:26 [facility] IntraOp Dressing and Packing Entry 1 Type Dressing Location OPERATIVE SITE Applied By ERNIE SIMS PA Other Comments COVERDERM, ASPEN COLLAR , REGULAR Last Modified By: Joan Ugarte RN 11/30/20 17:33:59 [facility] IntraOp Fire Risk Assessment Entry 1 Fire [...] Modified By: Joan Ugarte RN 11/30/20 16:59:30 [facility] IntraOp General Case Beater Out 1 Case Information OR OR 10 [facility] Case Level 1 Room Verified Yes Wound Class I - Clean Specialty SN Neurosurgery Anesthesia Type General ASA Class 3 Diagnosis Preop Diagnosis CERVICAL SPONDYLOSIS WITH MYELOPATHY Postop Same As Preop No Postop Diagnosis SEE DOCTOR POST OPERATIVE NOTE Last Modified By: Joan Ugarte RN 11/30/20 16:59:36 [facility] IntraOp General Case Data Audit 11/30/20 16:59:36 Yellow Pages Space Salesperson: BRINDA Modifier: SMITH <+> 1 Room Verified [facility] IntraOp Implant Log Entry 1 Entry 2 Entry 3 Type Tissue Implant Implant (Synthetic) Implant (Synthetic) (Biologic) Implant Log Implant Type Hardware Hardware Tissue Implant Type Other Implant BONE VIVIGEN FRMBLE 1020.35.130 3.5 X 30MM [id number] 3.5 X 12MM Identification [id number] Description Implant Quantity 1 2 4 Implant Site OP SITE OPERATIVE SITE OPERATIVE SITE Implant [id number] Identification Model Number Implant Identification Serial Number Implant Identification Lot Number Implant Lifenet:Lifenet Identification Transplant Srv Imaging Services Director Name: Implant [id number] Identification Catalog Number Implant Size Implant Has an Yes Expiration Date Implant Expiration 11/17/21 Date Wasted Radioactive Material Time Implanted Tissue Implant Continue for Tissue Implant Documentation Tissue Identification Number Graft Prep Per Imaging Services Director Instructions: Tissue Preparation Method: Reconstitution Solution: Reconstitution Solution Lot Number Reconstitution Solution Expiration Date: Thawing Solution Thawing Solution Lot Number Thawing Solution Expiration Date Preparation Materials, Other Preparation Materials, Other Lot Number Preparation Materials, Other Expiration Date Tissue Prepared/Processed By Imaging Services Director Paperwork Completed Implant Type Comment Last Modified By: Joan Ugarte, Joan Tillman, Joan Tillman RN 11/30/20 17:15:45 11/30/20 17:32:04 [...] Number Implant Identification Lot Number Implant Identification Imaging Services Director Name: Implant Identification Catalog Number Implant Size Implant Has an Expiration Date Implant Expiration Date Wasted Radioactive Material Time Implanted Tissue Implant Continue for Tissue Implant Documentation Tissue Identification Number Graft Prep Per Imaging Services Director Instructions: Tissue Preparation Method: Reconstitution Solution: Reconstitution Solution Lot Number Reconstitution Solution Expiration Date: Thawing Solution Thawing Solution Lot Number Thawing Solution Expiration Date Preparation Materials, Other Preparation Materials, Other Lot Number Preparation Materials, Other Expiration Date Tissue Prepared/Processed By Imaging Services Director Paperwork Completed Implant Type Comment Last Modified [...] Number Implant Identification Lot Number Implant Identification Imaging Services Director Name: Implant Identification Catalog Number Implant Size Implant Has an Expiration Date Implant Expiration Date Wasted Radioactive Material Time Implanted Tissue Implant Continue for Tissue Implant Documentation Tissue Identification Number Graft Prep Per Imaging Services Director Instructions: Tissue Preparation Method: Reconstitution Solution: Reconstitution Solution Lot Number Reconstitution Solution Expiration Date: Thawing Solution Thawing Solution Lot Number Thawing Solution Expiration Date Preparation Materials, Other Preparation Materials, Other Lot Number Preparation Materials, Other Expiration Date Tissue Prepared/Processed By Imaging Services Director Paperwork Completed Implant Type Comment Last Modified By: Joan Ugarte, Joan Tillman, Joan Tillman RN 11/30/20 17:32:04 11/30/20 17:32:04 11/30/20 17:32:04 [facility] IntraOp Implant Log Audit 11/30/20 17:32:04 Yellow Pages Space Salesperson: BRINDA Modifier: BRINDA <+> 2 Implant Identification [...] <+> 9 Implant Type <+> 9 Type [facility] IntraOp Intraoperative Assessment Entry 1 Handoff Method [...] Modified By: Joan Ugarte RN 11/30/20 17:54:00 [facility] IntraOp Intraoperative Assessment Audit 11/30/20 17:54:00 Yellow Pages Space Salesperson: BRINDA Modifier: BRINDA <+> 1 Intraoperative Assessment Comment [facility] IntraOp Intraoperative Equipment Entry 1 Type Equipment Equipment Equipment Rosa Elena Suction System ID Number [id number] Intraop Monitoring Electrocardiogram Three lead placement (ECG) Electrode Placement Blood Pressure Non-Invasive BP Device Source Blood Pressure Arm, right upper Location Pulse Oximeter Hand, left Probe Site Antiembolic Devices Antiembolic Devices Sequential compression device, knee high Antiembolic Device Bilateral Location Antiembolic Device [id number] ID Number Scopes Photo/Video Documentation Photo No Video No Intraop Equipment SCDS ON AND WORKING Comment PRIOR TO INDUCTION Last Modified By: Joan Ugarte RN 11/30/20 17:10:38 [facility] IntraOp Medication Admin Entry 1 Entry 2 Entry 3 Medication/Irrigant Bacitracin 50,00units MICKEY IRR NACL 0.9PCT thrombin 5000units powder vial 1.5L [id number] topical powder - [id number] Combo Med List 1 - Combo Med Time Administered Route of ADDED TO IRRIGATION IRRIGATION - BASIN TOPICAL - Administration Dose Dose [id number] Unit of Measure units units Volume Administered By BRAD CASTILLO TUTT, MATTHEW PAIGE, TUTT, MATTHEW PAIGE, MD-SNU MD-SNU MD-SNU Procedure Irrigation Irrigant Volume In Irrigant Volume Out Last Modified By: Joan Ugarte, Joan Tillman, Joan Tillman RN 11/30/20 17:09:13 11/30/20 17:09:13 11/30/20 17:09:13 Entry 4 Entry 5 Entry 6 Medication/Irrigant lidocaine 1% w/ bacitracin ointment -- SPNG SURGFOAM epinephrine 1:100,000 [id number] 30ml vial - [id number] Combo Med List Time Administered Route of LOCAL TOPICAL TOPICAL Administration Dose Dose 20 1 1 Unit of Measure ml pkt pkt Volume Administered By BRAD CASTILLO TUTT, MATTHEW PAIGE, TUTT, MATTHEW PAIGE, MD-SNU MD-SNU MD-SNU Procedure Irrigation Irrigant Volume In Irrigant Volume Out Last Modified By: Joan Ugarte RN Smith, Patsy D, Joan Tillman RN 11/30/20 17:39:29 11/30/20 17:09:13 11/30/20 17:09:13 [facility] IntraOp Medication Admin Audit 11/30/20 17:39:29 Yellow Pages Space Salesperson: BRINDA Modifier: SMITHPD 4 <*> Medication/Irrigant lidocaine 1% w/ epinephrine 1:100,000 30ml vial - [id number] 4 <+> Dose [facility] IntraOp Patient Positioning Entry 1 Procedure Lumbar Fusion Posterior 3 Level Body Position Prone Left Arm Position Tucked and padded at side Right Arm Position Tucked and padded at side Left Leg Position Uncrossed, parallel Right Leg Position Uncrossed, parallel Feet Uncrossed Yes Pressure Points Yes Checked Positioning Devices [place] w/ Head Pins, Pillows, Safety Strap, Thighs Positioning Device AIRO BED USED Comments Positioned By BRAD CASTILLO MD-SNU, AZALEA LOBO, ASHLEE, BROWN KENYON, Joan Ugarte, RAYO, Roxanne Pierson RN Position Verified Positioning Yes Verified by Anesthesia Positioning Yes Verified by Surgeon Last Modified By: Joan Ugarte RN 11/30/20 16:54:08 [facility] IntraOp Sign In Entry 1 Patient, Site, [...] Modified By: Joan Ugarte RN 11/30/20 16:51:01 [facility] IntraOp Sign Out Entry 1 RN Confirmation Surgical Yes Procedure(s) Identified Instrument, Sponge Yes and Sharps Counts Correct/Documented Equipment Problems N/A Documented Urinary Catheter Yes Documented in IView Layne Patient Yes Recovery Concerns Reviewed with Anesthesia Provider, Surgeon and RN Layne Patient Yes Management Concerns Reviewed with Anesthesia Provider, Surgeon and RN Safety Checklist Yes Elements Complete? RN Sign Out Joan Ugarte RN Signature RN Sign Out 11/30/20 18:43:00 Signature [...] Modified By: Joan Ugarte RN 11/30/20 18:42:55 [facility] IntraOp Sign Out Audit 11/30/20 18:42:55 Yellow Pages Space Salesperson: BRINDA Modifier: KENYETTAPD <+> 1 RN Sign Out Signature <+> 1 RN Sign Out Signature Date/Time [facility] IntraOp Skin Prep Entry 1 Procedure Lumbar [...] Modified By: Joan Ugarte RN 11/30/20 16:49:17 [facility] IntraOp Surgical Procedures Entry 1 Procedure Lumbar Fusion Posterior 3 Level Additional (C2-T1 POSTERIOR Procedure CERVICAL DECOMPRESSION Description AND FUSION WITH AIRO) Primary Procedure Yes Primary Surgeon BRAD CASTILLO MD-SNU Start 11/30/20 16:09:00 Stop 11/30/20 17:51:00 Anesthesia Type General Specialty Neurosurgery Wound Class I - Clean Last Modified By: Joan Ugarte RN 11/30/20 18:42:43 [facility] IntraOp Surgical Procedures Audit 11/30/20 18:42:43 Yellow Pages Space Salesperson: BRINDA Modifier: BRINDA <+> 1 Start <+> 1 Stop [facility] IntraOp Temp Regulation Devices Entry 1 Temp Regulation Temperature Forced Air Warming Regulation Device device, Warm blankets Temperature 38261 Regulation Device Serial/Unit Number Temperature Lower body Regulation Site Temperature Device 43 C Setting Temperature AZALEA LOBO, ASHLEE Regulation Device Applied by Temperature TEMPERATURE REGULATION Regulation Comment MONITORED AND CONTROLLED BY ANESTHESIA PROVIDER. Last Modified By: Joan Ugarte RN 11/30/20 16:46:55 [facility] IntraOP Time Out Entry 1 Procedure to [...]
--- OUTSIDE RECORDS SUMMARY | 2025-09-26 14:04 | XMS_ITS | Encounter Summary ---
Author Organization [employer] ([place], [place], [place], [place], [place]) Address [address] [place] [address] Care Team Providers Care Nurse Orthopaedic Name Role Phone Unavailable Primary Care Provider Unavailabl e Encounter Details Date Type Department Care Team (Late st Contact Info) Description 12/02/2020 Transcribed Document [facility] [place] [facility] [place] [address] ProviderFabi MD [address] [place] [address] Social History Tobacco Use Types Packs/Day [...] - Historical ProviderMD - 12/02/2020 4:50 PM DIRECTOR BUSINESS MANAGEMENT Discharge Summary, PT Entered On: 12/02/2020 16:51 [...] MACI LAND, PT - 12/02/2020 16:50 EST Custodial Goals Mobility/Bed Mobility LTG PT Grid Goal [...]
--- OUTSIDE RECORDS SUMMARY | 2025-09-26 14:04 | XMS_ITS | Encounter Summary ---
Author Organization [employer] ([place], [place], [place], [place], [place]) Address [address] [place] [address] Care Team Providers Care Machine Carton Marker Name Role Phone Unavailable Primary Care Provider Unavailabl e Encounter Details Date Type Department Care Team (Late st Contact Info) Description 12/02/2020 Transcribed Document [facility] [place] [facility] [place] [address] ProviderFabi MD [address] [place] [address] Social History Tobacco Use Types Packs/Day Years Used Date Smoking Tobacco: Never Assessed Sex and Gender Information Value Date Recorded Sex Assigned at Male 05/01/2022 10:55 AM CDT Legal Sex Male 10:55 AM CDT Gender Identity Male 05/01/2022 10:55 AM CDT Sexual Orientation Not on file documented as of this encounter Miscellaneous Notes * [employer] Conversion Note - Historical ProviderMD - 12/02/2020 2:47 PM GAMEROOM TECHNICIAN Final Discharge Planning Entered On: 12/02/2020 14:58 EST Performed On: 12/02/2020 14:47 EST by JAQUI COLÓN RN-Bass Guitar Teacher Final Discharge Planning Discharge Arrangements : Patient Post-Acute Information Patient Name: ROSELYN GRIJALVA Gender: Male : [birth year] Age: 60 Years [place] Referral(s): Service: Organization: Business Address: Phone Number: Acute Rehab [facility] [address] [place], [address] Patient Offered Choice/Affiliations Explained : [...] : IR[facility] -Inpatient Rehabilitation Facility-[facility] JAQUI COLÓN RN-Bass Guitar Teacher - 12/02/2020 14:47 EST Final Narrative Note Final Narrative Note : Pt [facility] today via [facility] @ 4p. D/W pt at bedside, [facility] sumifiorella Saini on phone, sister Mayra on phone, Joshua/Judie CUNHA-NEAL/Bobby, and bedside RAYO Bull. JAQUI COLÓN RN-Bass Guitar Teacher - 12/02/2020 14:47 EST Electronically signed by Cruzito [facility] Conversion Anthropology Faculty Member Cerner at 02/19/2023 9:53 AM CDT documented in this encounter Plan of Treatment Not on file documented as of this encounter Visit Diagnoses Not on filedocumented in this encounter
--- OUTSIDE RECORDS SUMMARY | 2025-09-26 14:04 | XMS_ITS | Encounter Summary ---
Author Organization [employer] ([place], [place], [place], [place], [place]) Address [address] [place] [address] Care Team Providers Care Machine Sole Leveler Name Role Phone Unavailable Primary Care Provider Unavailabl e Encounter Details Date Type Department Care Team (Late st Contact Info) Description 12/02/2020 Transcribed Document [facility] Neurology - [facility] [address] [address] Brad Castillo MD [facility] [address] [place] [phone] Social History Tobacco Use Types Packs/Day Years [...] rehab at discharge, pts lives at a [facility], h/o TBI - medicine following VTE Prophylaxis [...] voice nod head yes/no to questions equal district associate judge incision cdi bandage intact and dry rachel has been removed facially symmetric documented in this encounter Plan of Treatment Not on file documented as of this encounter Visit Diagnoses Not on filedocumented in this encounter
--- OUTSIDE RECORDS SUMMARY | 2025-09-26 14:04 | XMS_ITS | Encounter Summary ---
Author Organization [employer] ([place], [place], [place], [place], [place]) Address [address] [place] [address] Care Team Providers Care Rigging Loft Repairer Name Role Phone Unavailable Primary Care Provider Unavailabl e Encounter Details Date Type Department Care Team (Late st Contact Info) Description 12/01/2020 Transcribed Document [facility] Family Medicine [facility] [place] [address] ProviderFabi MD [facility] [place] [address] Social History Tobacco Use Types [...] - Fabi ProviderMD - 12/01/2020 12:00 PM POWDER COATER Pain Assessment Entered On: 12/01/2020 15:55 EST [...] of the form. Electronically signed by Cruzito, [facility] Conversion Medical Staffing Coordinator Cerner at 02/19/2023 9:44 AM CDT documented in this encounter Plan of Treatment Not on file documented as of this encounter Visit Diagnoses Not on filedocumented in this encounter
--- OUTSIDE RECORDS SUMMARY | 2025-09-26 14:04 | XMS_ITS | Encounter Summary ---
Author Organization [employer] ([place], [place], [place], [place], [place]) Address [address] [place] [address] Care Team Providers Care Draw Operator Name Role Phone Unavailable Primary Care Provider Unavailabl e Encounter Details Date Type Department Care Team (Late st Contact Info) Description 12/01/2020 Transcribed Document [facility] Neurology - [facility] [address] [address] Brad Castillo MD [facility] [address] [place] [phone] Social History Tobacco Use Types Packs/Day Years [...] rehab at discharge, pts lives at a [facility], h/o TBI -medicine following VTE Prophylaxis - [...] to lift arms above head 4/[address] documented in this encounter Plan of Treatment Not on file documented as of this encounter Visit Diagnoses Not on filedocumented in this encounter
--- OUTSIDE RECORDS SUMMARY | 2025-09-26 14:04 | XMS_ITS | Encounter Summary ---
Author Organization [employer] ([place], [place], [place], [place], [place]) Address [address] [place] [address] Care Team Providers Care Calcine Furnace Tender Name Role Phone Unavailable Primary Care Provider Unavailabl e Encounter Details Date Type Department Care Team (Late st Contact Info) Description 12/02/2020 Transcribed Document [facility] [facility] [address] [place] [address] Angel Todd MD [address] [facility] [address] [place] [phone] Social History Tobacco Use Types Packs/Day Years [...]
--- NOTE | 2025-09-26 14:15 | ECG_ITS ---
APPROVED REPORT Exam: Resting ECG HR:56 bpm ECG Measurements Heart Rate 56 AXES AL 184 P 70 QRSd 94 QRS 24 QT 369 T 82 QTc 360 Conclusion SINUS BRADYCARDIA LOW QRS VOLTAGE [QRS DEFLECTION < 0.5/1.0 mV IN LIMB/CHEST LEADS] ABNORMAL ECG Electronically signed by : ZAFAR BERNSTEIN, 09/30/2025 13:55:21
[2025-09-26 14:19] LABS: Coronavirus 19, PCR Not Detected (NotDetected); Influenza A, PCR Not Detected (NotDetected); Influenza B, PCR Not Detected (NotDetected)
[2025-09-26] MEDS: METHYLPREDNISOLONE SOD SUCC 125MG VIAL 125 MG IV (14:19)
[2025-09-26] MEDS: IPRATROPIUM/ALBUTEROL 3 ML NEB 9 ML IH (14:19)
[2025-09-26] MEDS: AZITHROMYCIN 500 MG in 0.9 % SODIUM CHLORIDE 250 ML 250 MG IV (14:19)
--- NOTE | 2025-09-26 14:19 | CT_ITS ---
PROCEDURE INFORMATION: Exam: CT Abdomen And Pelvis With Contrast Exam date and time: 09/26/2025 2:30 PM Age: 65 years old Clinical indication: Injury or trauma; Fall; Blunt; Generalized; Additional info: Belly pain TECHNIQUE: Imaging protocol: Computed tomography of the abdomen and pelvis with contrast. Radiation optimization: All CT scans at this facility use at least one of these dose optimization techniques: automated exposure control; mA and/or kV adjustment per patient size (includes targeted exams where dose is matched to clinical indication); or iterative reconstruction. Contrast material: ISOVUE; Contrast volume: 75 ml; Contrast route: IV; COMPARISON: CT ABDOMEN PELVIS WO CON 08/17/2022 3:29 PM FINDINGS: Lungs: Bibasilar atelectasis Liver: Normal. No mass. Gallbladder and biliary ducts: Possible gallstone in the gallbladder. Pancreas: Normal. No ductal dilation. Spleen: Normal. No splenomegaly. Adrenal glands: Normal. No mass. Kidneys and ureters: There is no evidence of renal or ureteral calcifications. Nonobstructing renal calculi bilaterally Stomach and bowel: Unremarkable. No obstruction. No mucosal thickening. Appendix: Normal appendix Intraperitoneal space: Unremarkable. No free air. No significant fluid collection. Vasculature: Unremarkable. No abdominal aortic aneurysm. Lymph nodes: Unremarkable. No enlarged lymph nodes. Urinary bladder: Unremarkable as visualized. Reproductive: Unremarkable as visualized. Bones/joints: Multiple healing right rib fractures. Healed fractures of the left inferior and left superior pubic ramus. Healing fractures in the sacral ala bilaterally. Stable compression fractures of T10 and T11. Soft tissues: Unremarkable. IMPRESSION: 1. Multiple healing right rib fractures. 2. Healed fractures of the left inferior and left superior pubic ramus. 3. Healing fractures in the sacral ala bilaterally. 4. Possible gallstone in the gallbladder. 5. Stable compression fractures of T10 and T11.
[2025-09-26 14:21] LABS: Hematocrit 42.3 % (42.0-52.0); Hemoglobin 13.8 g/dL (14.1-18.0); Immature Granulocytes % 1.8 %; Mean Corpuscular HGB Conc 32.6 g/dL (31.8-35.4); Mean Corpuscular Hemoglobin 31.4 pg (27.0-31.2); Mean Corpuscular Volume 96.4 fl (80-94); Nucleated Red Blood Cells % 0 %; Platelet Count 206 K/mm3 (142-424); Red Blood Count 4.39 M/mm3 (4.60-6.20); Red Cell Distribution Width-SD 49.3 fL; White Blood Count 6.2 K/mm3 (4.8-10.8)
--- NOTE | 2025-09-26 14:23 | [facility].ITSTN ---
per Dr. Albert, proceed with contrast w/o GFR results
[2025-09-26] MEDS: IOPAMIDOL-370 (76%);100ML BOTTLE 75 ML IV (14:27)
[2025-09-26] MEDS: SODIUM CHLORIDE 0.9% 10ML SYR (RAD ONLY) 10 ML IV (14:28)
[2025-09-26 14:31] LABS: Alanine Aminotransferase 14 U/L (12-78); Albumin Level 4.1 g/dl (3.5-5.0); Albumin/Globulin Ratio 1.2 (1.1-1.8); Alkaline Phosphatase 99 U/L (38-126); Anion Gap 10.4 mEq/L (5-15); Aspartate Amino Transferase 52 U/L (17-59); Bilirubin,Total 0.7 mg/dl (0.2-1.3); Blood Urea Nitrogen 14 mg/dl (9-20); Calcium 9.3 mg/dl (8.4-10.2); Carbon Dioxide 28 mmol/L (22.0-30.0); Chloride 99 mmol/L (98-107); Creatinine Clearance Estimated 71 mL/min (50-200); Creatinine,Serum 0.80 mg/dl (0.66-1.25); Estimated Glomerular Filt Rate 97 ml/min (>60); GFR (African American) 117 ML/MIN (>60); Globulin 3.5 g/dL (1.3-3.2); Glucose 108 mg/dl (74-100); Potassium 4.4 mmoL/L (3.5-5.1); Sodium 133 mmol/L (136-145); Total Protein,Serum 7.6 g/dl (6.3-8.2)
[2025-09-26 14:43] LABS: Troponin I < 0.01 ng/ml (0.00-0.034)
--- NOTE | 2025-09-26 15:43 | PC.NURSE ---
Called for a patient consult. they are going to call back.
[2025-09-26] MEDS: MAGNESIUM SULFATE IN WATER 2 GM/50 ML PIGGYBACK IV (15:51)
--- NOTE | 2025-09-26 16:45 | PC.NURSE ---
Report called to Abraham CADE at [place]
== END 2025-09-26 17:02 | disposition home or self-care (01) ==
PROVIDERS: Emergency Medicine; Emergency Provider Student in an Organized Health Care Education/Training Program; PCP Nurse Practitioner Family
DX: J96.21 Acute and chronic respiratory failure with hypoxia (principal); S02.40FA Zygomatic fracture, left side, initial encounter for closed fracture; S02.40DA Maxillary fracture, left side, initial encounter for closed fracture; J44.9 Chronic obstructive pulmonary disease, unspecified; F17.210 Nicotine dependence, cigarettes, uncomplicated; W18.39XA Other fall on same level, initial encounter
CPT/HCPCS: 70450; 71045; 72125; 74177; 80053; 84484; 85025; 87636; 93005; 96365; 96375; 99285; J0456; J2919; J3475; J7050; Q9967